=== PATIENT | male | born 1940 | race African-American/Black ===

== ENCOUNTER 2017-02-02 14:23 | Observation (INO) ==
[2017-02-02 15:01] LABS: Basophils % 0.5 % (0.0-0.8); Eosinophils # 0.4 10*3/uL (0.0-0.87); Eosinophils % 6.3 % (0.00-10.9); Hematocrit 38.4 VOL% (42.0-52.0); Hemoglobin 13.4 GM/DL (14.0-18.0); Immature Granulocytes % 0.5 %; Immature Granulocytes Absolute 0.03 #; Lymphocytes # 1.7 10*3/uL (1.4-4.0); Lymphocytes % 29.4 % (21.2-54.2); Mean Corpuscular HGB Conc 34.9 GM/DL (32-36); Mean Corpuscular Hemoglobin 34 PG (27-34); Mean Corpuscular Volume 96.2 FL (87-102); Mean Platelet Volume 9.1 FL (9.6-12.0); Monocytes # 0.6 10*3/uL (0.11-0.8); Monocytes % 10.8 % (1.7-12.7); Neutrophils # 3.1 10*3/uL (1.4-7.4); Neutrophils % 52.5 % (38.7-73.9); Platelet Count 217 T/CUMM (130-400); Red Blood Count 3.99 MC/CUMM (3.8-5.5); Red Cell Distribution Width 15.7 % (9.3-17.3); White Blood Count 5.9 T/CUMM (4-12)
--- NOTE | 2017-02-02 15:05 | CT Report ---
Referring physician: Andrew Exam: CT brain without contrast Date: 02/02/2017 Comparison: None Reason: Hemiparesis Technique: Axial images of the head were obtained without the use of contrast. Total DLP was 914.60 mGy*cm. Findings: No hydrocephalus or midline shift is present. There is no evidence of an acute infarction, recent intracranial hemorrhage or abnormal mass effect. Minimal atrophy and diffuse cerebral hypodensities. The osseous structures appear intact. The mastoid air cells sinuses are clear. Minimal mucosal thickening/fluid in the ethmoid air cells. Incomplete evaluation the paranasal sinuses. Impression: No acute intracranial abnormality is identified. Minimal atrophy and microvascular disease. Minimal ethmoid sinusitis. The CT exam was performed using one or more of the following dose reduction techniques: Automated exposure control and adjustment of the mA and/or kV according to patient size. PROCEDURE INTERPRETED AT [facility] DEPARTMENT OF RADIOLOGY Final Report Signed by: Dr. Malissa Villafuerte
[2017-02-02 15:19] LABS: PT Patient Result 10.2 SECS; Partial Thromboplastin Time 26.1 SECS (0-40)
[2017-02-02 15:22] LABS: Alanine Aminotransferase 18 U/L (16-61); Albumin 3.4 G/DL (3.4-5.0); Alkaline Phosphatase 108 U/L (45-117); Aspartate Amino Transferase 15 U/L (0-37); Blood Urea Nitrogen 13 MG/DL (7-18); Calcium 9.3 MG/DL (8.5-10.1); Glucose 62 MG/DL (74-106); Osmolality,Calculated 274.5 MOS/KG (273-304); Sodium 139 MMOL/L (136-145); Total Protein 7.4 G/DL (6.4-8.3)
[2017-02-02] MEDS ORDERED: DEXTROSE 50% 25 GM/50 ML VIAL IV STA (16:07)
[2017-02-02] MEDS ORDERED: ALBUTEROL 1.25 MG/3 ML NEB RESP TX STA (16:07)
--- NOTE | 2017-02-02 16:15 | Emergency Department Note ---
Anabella Garcia Rolonda, am scribing for, and in the presence of, Russell Ruiz MD 16:01. Sara Garcia Phillip K, MD, personally performed the services described in this documentation, ascribed by Jorge Kyle in my presence, and it is both accurate and complete [id number] . Arrival - Arrival Chief Complaint: Neuro Stated Complaint: headaches/blurred vision/losing mobility in right ED Nursing Triage Note: h/a that started last week with blurry vision and weakness in right leg. reports having trouble using right leg. reports that his sugar dropped to 56 this morning. accucheck in triage is accu check is 80. Mode of Arrival: Wheelchair Limitations: No Limitations Source: Patient, Old Records Reviewed, RN Notes Reviewed Time Seen by Provider: 02/02/17 15:52 - History of Present Illness HPI Narrative: Pt is a 76 y/o male who presents to the ED for further evaluation of right leg weakness with an onset of days. Pt has a PMHx of DM. Pt states that he has been having right leg weakness and numbness for x10 days. He states that he went to stand up and his feet were numb. Pt confirms that he can plantar flex but cannot dorsi flex his right foot. He states that he has to pick his leg up in order to move it. He also confirms blurred vision. No other complaint/pain in ED. Onset (ago): day(s) Consistency: constant Severity: mild, moderate Severity scale (1-10): 5 Allergies/Adverse Reactions: Allergies Allergy/AdvReac Type Severity Reaction Status Date / Time Penicillins Allergy RASH Verified 05/20/16 08:26 Home Medications: Home Medications Medication Instructions Recorded Confirmed Type Budesonide/Formoterol 160-4.5 2 puff INH BID #1 inhaler 12/17/15 08/29/16 Rx [Symbicort 160-4.5] Diltiazem Cd Cap [Cardizem CD] 180 mg PO BID #60 capsule 12/17/15 08/29/16 Rx glipiZIDE [Glipizide] 5 mg PO QPM 01/03/16 08/29/16 History Cyproheptadine Tab [Periactin Tab] 2 mg PO BID 05/19/16 08/29/16 History Theophylline ER Tab 300 mg PO BID W/MEALS 05/19/16 08/29/16 History Levothyroxine Tab [Synthroid Tab] 50 mcg PO DAILY@0700 #30 tablet 05/26/1608/29 Rx Montelukast Tab [Singulair Tab] 10 mg PO BID #60 tablet 05/26/16 08/29/16 Rx Albuterol Neb [Proventil Neb] 2.5 mg RESP TX Q4H PRN #20 neb 08/29/16 Rx Albuterol Sulfate [Albuterol Neb] 2.5 mg INH Q6-8H 08/29/16 08/29/16 History Fexofenadine [Serena] 60 mg PO BID 08/29/16 08/29/16 History methylPREDNISolone DOSEPAK [Medrol 4 mg PO DIRECTED #1 packet 08/29/16 Rx Dosepak] Review of System - Review of System 12 point system: reviewed and no additional remarkable complaints except as stated - Review of System Constitutional: Absent: chills, fever Eyes: Present: vision change. Absent: discharge Head/Ears/Nose/Throat: Absent: earache Respiratory: Absent: cough Cardiovascular: Absent: chest pain Gastrointestinal: Absent: abdominal pain Genitourinary male: Absent: urgency Musculoskeletal: Absent: arm pain, back pain Skin: Absent: rash Neurological: Present: headache, weakness (right leg), numbness Psychiatric: Absent: anxiety Endocrine: Absent: cold intolerance Hematological/Lymphatic: Absent: easy bleeding Allergic/Immunologic: Absent: facial swelling Medical,Surgical,& Family Hx - Medical History Cardio: History of: Cardiac Dysrhythmia (A. fib, per chart previously on Coumadin, not on current medicine list), Hypertension No history of: Cardiovascular Problems HEENT: History of: HEENT Problems Endocrine: History of: Diabetes Mellitus (NIDDM), Thyroid Disorder No history of: Diabetes Mellitus (IDDM) Respiratory: History of: Asthma, COPD Gastrointestinal: History of: GERD Musculoskeletal: History of: Back/Neck Problems (Back surg) Other: History of: Skin Problems (shingles in the past) - Surgical History Cardiac Surgeries: Patient Denies: Cardiac Surgery Thoracic Surgeries: Patient denies;: Organ Transplant, Lobectomy Neurologic Surgeries: Patient denies: Neurologic Surgery Abdominal Surgeries: Surgical HX of: Hernia Repair Orthopedic Surgeries: Surgical HX of;: Spinal Surgery ("back surgery") - Family History Family History: Reports;: Family Cancer (brother) Denies;: Family Anesthesia Reaction, Family Diabetes, Family Heart Disease, Family Hypertension, Family Psychiatric Problems, Family Stroke - Social History Smoking Status: Former smoker Exam Vital Signs: Vital Signs Temperature 97.8 F 02/02/17 15:49 Pulse Rate 67 02/02/17 16:24 Respiratory Rate 18 02/02/17 16:24 Blood Pressure 130/79 02/02/17 15:49 O2 Sat by Pulse Oximetry 98 02/02/17 14:30 - General General appearance: alert, in no apparent distress - Head Head exam: Present: atraumatic - Eye Eye exam: Present: normal appearance, PERRL, EOMI - ENT ENT exam: Present: normal exam, normal oropharynx - Neck Neck exam: Present: normal inspection. Absent: lymphadenopathy - Chest Chest inspection: Present: normal inspection - Respiratory Respiratory exam: Present: wheezes (Bilateral expiratory) - Cardiovascular Cardiovascular exam: Present: regular rate, normal rhythm, normal heart sounds. Absent: murmur, gallop - Abdominal Exam Abdominal exam: Present: soft, normal bowel sounds. Absent: distention, tenderness - Rectal Exam Rectal exam: Present: deferred - Extremities Exam Extremities exam: Present: normal inspection - Back Exam Back exam: Present: normal inspection - Neurological Exam Neurological exam: Present: alert, oriented X3, CN II-XII intact, motor sensory deficit (Right foot drop. Decreased sensation to touch right lower leg and right side of face) - Psychiatric Psychiatric exam: Present: normal affect, normal mood - Skin Skin exam: Present: warm, dry Results - Labs CBC & BMP: 02/02/17 14:51 02/02/17 14:51 Lab Results: I have reviewed the patients labs Labs: Laboratory Tests 02/02/17 16:59 POC Glucose 111 H - EKG EKG results: interpreted by ERMD, sinus rhythm (Supraventricular premature complex) - Diagnostic Findings Procedure: CT: report reviewed by me (No acute intracranial abnormality) Disposition Clinical Impression: Right foot drop, Headache, Rule out CVA, Acute exacerbation of chronic obstructive airways disease Case discussed with: patient, patient's family Disposition: Still a Patient Condition: Guarded Additional Instructions: Admit to the hospitalist
--- NOTE | 2017-02-02 17:23 | Hospitalist History & Physical ---
Assessment and Plan - Time spent with patient Time spent with patient: Greater than 30 minutes (1) Right leg numbness Status: Acute Assessment and plan: Admit Consult Neuro MRI without contrast MRA head/neck with contrast A.M. lipids, carotid dopplers, Echo, PT/OT consult TSH Repeat A.M Labs Current Visit: Yes (2) Headache Status: Acute Current Visit: Yes History of Present Illness Chief complaint: right foot/leg numbness History of present illness: Mr. Bell is a 76 year old black male with PMHx of hypertension, Diabetes, GERD, COPD presented to the ED for further evaluation of worsening right foot/ leg numbness and weakness with onset 2 weeks ago. He reports 1 week of vision changes, nausea, and headache. He denies chest pain, shortness of breath, vomiting, fever, chills, or cough. IN ED: Afebrile, vital signs stable. LABS: H&H stable; Electrolytes within normal range. Head CT No acute intracranial abnormality, minimal atrophy and microvascular disease; minimal ethmoid sinusitis. PCP: Dr Galvez. After discussion with Dr Ruiz in the ED and Dr Singh with [facility] it was agreed to admit patient for further evaluation. Home medications will be reviewed and reconciliation to follow. Home Medications Medication Instructions Recorded Confirmed Type Budesonide/Formoterol 160-4.5 2 puff INH BID #1 inhaler 12/17/15 08/29/16 Rx [Symbicort 160-4.5] Diltiazem Cd Cap [Cardizem CD] 180 mg PO BID #60 capsule 12/17/15 08/29/16 Rx glipiZIDE [Glipizide] 5 mg PO QPM 01/03/16 08/29/16 History Cyproheptadine Tab [Periactin Tab] 2 mg PO BID 05/19/16 08/29/16 History Theophylline ER Tab 300 mg PO BID W/MEALS 05/19/16 08/29/16 History Levothyroxine Tab [Synthroid Tab] 50 mcg PO DAILY@0700 #30 tablet 05/26/1608/29 Rx Montelukast Tab [Singulair Tab] 10 mg PO BID #60 tablet 05/26/16 08/29/16 Rx Albuterol Neb [Proventil Neb] 2.5 mg RESP TX Q4H PRN #20 neb 08/29/16 Rx Albuterol Sulfate [Albuterol Neb] 2.5 mg INH Q6-8H 08/29/16 08/29/16 History Fexofenadine [Serena] 60 mg PO BID 08/29/16 08/29/16 History methylPREDNISolone DOSEPAK [Medrol 4 mg PO DIRECTED #1 packet 08/29/16 Rx Dosepak] Allergies Allergy/AdvReac Type Severity Reaction Status Date / Time Penicillins Allergy RASH Verified 05/20/16 08:26 Medical,Surgical,& Family Hx - Medical History Cardio: History of: Cardiac Dysrhythmia (A. fib, per chart previously on Coumadin, not on current medicine list), Hypertension No history of: Cardiovascular Problems HEENT: History of: HEENT Problems Endocrine: History of: Diabetes Mellitus (NIDDM), Thyroid Disorder No history of: Diabetes Mellitus (IDDM) Respiratory: History of: Asthma, COPD Gastrointestinal: History of: GERD Musculoskeletal: History of: Back/Neck Problems (Back surg) Other: History of: Skin Problems (shingles in the past) - Surgical History Cardiac Surgeries: Patient Denies: Cardiac Surgery Thoracic Surgeries: Patient denies;: Organ Transplant, Lobectomy Neurologic Surgeries: Patient denies: Neurologic Surgery Abdominal Surgeries: Surgical HX of: Hernia Repair Orthopedic Surgeries: Surgical HX of;: Spinal Surgery ("back surgery") - Family History Family History: Reports;: Family Cancer (brother) Denies;: Family Anesthesia Reaction, Family Diabetes, Family Heart Disease, Family Hypertension, Family Psychiatric Problems, Family Stroke - Social History Smoking Status: Former smoker Frequency of Alcohol Use: None Type of Drug Use: None Functional capacity: independent ambulation 12 point system: reviewed and no additional remarkable complaints except as stated Exam - Constitutional Vitals: Period Temp Pulse Resp BP Sys/Stratton Pulse Ox Last 24 Hr 97.8 F-97.8 F 65-80 16-18 130-130/79-79 98 General appearance: normal weight, no acute distress - Head Head exam: Present: normal inspection - Eye Eye exam: Present: EOMI Pupils: Present: ALESIA - Neck Neck exam: Present: normal inspection. Absent: thyromegaly - Respiratory Respiratory exam: Present: clear to auscultation bilaterally - Cardiovascular Cardiovascular exam: Present: regular rate and rhythm - GI/Abdominal GI/Abdominal exam: Present: normal bowel sounds, soft. Absent: guarding, tenderness, rebound - Extremities Exam Extremities exam: Present: normal inspection, full ROM, other (left leg and arm good strength; right leg able to lift from bed but is sightly slow; able to plantar flex but cant dorsi flex of right foot; increased numbness to right leg/ foot ). Absent: edema - Neurological Exam Neurological exam: Present: alert, oriented X3, CN II-XII intact - Psychiatric Psychiatric exam: Present: normal affect, normal mood. Absent: agitated, anxious - Skin Skin exam: Present: normal color, warm, dry Results - Labs CBC & BMP: 02/02/17 14:51 02/02/17 14:51 Lab Results: I have reviewed the past 24 hour labs - EKG EKG results: interpreted by RAMAND - Diagnostic Findings Procedure: CT: report reviewed by me (Head: No acute intracranial infarct is identified, minimal atrophy and microvascular disease, minimal ethmoid sinusitis )
[2017-02-02] MEDS ORDERED: ONDANSETRON 4 MG/2 ML VIAL IV PRN (17:35)
[2017-02-02] MEDS ORDERED: ACETAMINOPHEN 325 MG TABLET PO PRN (17:35)
[2017-02-02] MEDS ORDERED: LABETALOL 20 MG/4 ML SYRINGE IV PRN (17:39)
[2017-02-02] MEDS: SODIUM CHLORIDE 0.9% 1,000 ML IV SCH (18:18)
[2017-02-03] MEDS: SODIUM CHLORIDE 0.9% 1,000 ML IV SCH ×2 (03:22→04:28)
[2017-02-03] MEDS: ALBUTEROL 2.5 MG/3 ML NEB RESP TX PRN ×3 (04:00→17:35)
--- NOTE | 2017-02-03 05:52 | EKG Report ---
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
[2017-02-03 06:04] LABS: Basophils % 0.5 % (0.0-0.8); Eosinophils # 0.7 10*3/uL (0.0-0.87); Eosinophils % 9.9 % (0.00-10.9); Hematocrit 36.8 VOL% (42.0-52.0); Hemoglobin 12.8 GM/DL (14.0-18.0); Immature Granulocytes % 0.6 %; Immature Granulocytes Absolute 0.04 #; Lymphocytes # 2.5 10*3/uL (1.4-4.0); Mean Corpuscular HGB Conc 34.8 GM/DL (32-36); Mean Corpuscular Hemoglobin 33 PG (27-34); Mean Corpuscular Volume 95.3 FL (87-102); Mean Platelet Volume 9.8 FL (9.6-12.0); Monocytes # 0.7 10*3/uL (0.11-0.8); Monocytes % 10.2 % (1.7-12.7); Neutrophils # 2.7 10*3/uL (1.4-7.4); Neutrophils % 40.8 % (38.7-73.9); Platelet Count 210 T/CUMM (130-400); Red Blood Count 3.86 MC/CUMM (3.8-5.5); Red Cell Distribution Width 15.5 % (9.3-17.3); White Blood Count 6.6 T/CUMM (4-12)
[2017-02-03 06:46] LABS: Albumin 3.2 G/DL (3.4-5.0); Bilirubin,Total 0.7 MG/DL (0.2-1.0); Osmolality,Calculated 279.3 MOS/KG (273-304); Potassium 4.7 MMOL/L (3.5-5.1); Risk Ratio 2.1; Thyroid Stimulating Hormone 6.68 uIU/ml (0.358-3.74); Total Protein 6.3 G/DL (6.4-8.3); VLDL CHOLESTEROL 8.8 MG/DL
--- NOTE | 2017-02-03 07:44 | Ultrasound Report ---
Exam: Carotid ultrasound Date: 02/03/2017 Comparison: None Technique: Duplex scans of the carotid and vertebral arteries using B-mode/Isaac scale imaging and Doppler spectral analysis and color flow. Reason: Right leg numbness, headache, vision changes Findings: The right ICA measures 3.9 mm in diameter and the left ICA measures 3.7 mm in diameter. Color-flow documented in the visualized arteries. The peak systolic velocities are as follows: Right CCA: 46.8 Right ICA: 63.8 Right ECA:53.3 Left CCA: 50.7 Left ICA: 80.7 Left ECA: 53.3 The peak systolic ICA/CCA velocity ratios are as follows: 1.4 on the right and 1.6 on the left. Antegrade flow is present in both vertebral arteries. Impression:[Less than 50% stenosis in both internal carotid arteries with heterogeneous plaque formation. Antegrade flow in both vertebral arteries.] The Society of Radiologists in Ultrasound consensus conference criteria was used. The Ultrasound images were captured and stored. PROCEDURE INTERPRETED AT [facility] DEPARTMENT OF RADIOLOGY Final Report Signed by: Dr. Malissa Villafuerte
[2017-02-03] MEDS: PANTOPRAZOLE 40 MG TABLET PO SCH (09:58)
[2017-02-03] MEDS: ASPIRIN 325 MG TABLET PO SCH (09:58)
--- NOTE | 2017-02-03 11:59 | Magnetic Resonance Report ---
MR head/brain wo con, MR angio head wo con (COW) Indication: Numbness right leg/headache Comparison: CT brain dated February 02, 2017 Technique: Multiplanar magnetic resonance imaging was performed of the brain without the use of intravenous contrast. MRA brain was performed without the use of intravenous contrast and 3-D reformats provided. Findings: Mild global volume loss present. Mild periventricular and subcortical T2 hyperintensity is noted which is nonspecific. Considerations include chronic microvascular ischemic change, demyelinating process, and vasculitis. Minimal mucosal thickening within the paranasal sinuses. The midline structures are nondisplaced. There is no convincing evidence of hydrocephalus. The knight-white matter differentiation is maintained. There is no convincing evidence of acute intracranial hemorrhage or ischemia. The included orbits and their contents appear within normal limits. MRA images demonstrate no significant vessel cut off or flow-limiting lesion within the anterior posterior intracranial arterial circulation. There is no significant aneurysm formation demonstrated. IMPRESSION: No acute intracranial abnormality demonstrated. Unremarkable MRA brain. PROCEDURE INTERPRETED AT [facility] DEPARTMENT OF RADIOLOGY Final Report Signed by: Dr Kenrick Peters
--- NOTE | 2017-02-03 12:32 | Hospitalist Progress Note ---
Assessment and Plan (1) Right foot drop Status: Acute Assessment and plan: Right lower extremity weakness seem to be due to right foot drop with associated numbness strength otherwise okay and other muscle. neurology to evaluate Current Visit: Yes (2) Asthma exacerbation in COPD Status: Acute Assessment and plan: We will give him nebulizer treatment continue his home long-acting inhalers he is also on theophylline at home I will hold it for now as he has a history of atrial fib though I see his rate is controlled and has actually regular rhythm Current Visit: No (3) Diabetes mellitus Status: Acute Assessment and plan: Monitor blood sugar I will get hemoglobin A1c glipizide is on hold Current Visit: Yes (4) Hypertension Status: Acute Assessment and plan: Blood pressure is controlled Current Visit: Yes Hospitalist: Subjective Interval history: Mr. Bell is a 76 year old black male with PMHx of hypertension, Diabetes, GERD, COPD admitted with a right lower extremities weakness for about 2 weeks. Patient has stated that he was not charged 2 weeks ago when he started having feeling numbness and weakness right leg he also had headache and blurred vision since then patient will be resolved on its own but he is weakness continued. He is unable to move his foot and ankle. Left his leg is numb from the knee down. He had a CAT scan in the ER which did not reveal any acute intracranial abnormalities. Neurology is being consulted and the he had carotid Dopplers and MRI. Patient has otherwise afebrile denies any other symptoms Exam - Constitutional Vitals: Period Temp Pulse Resp BP Sys/Stratton Pulse Ox Last 24 Hr 97.0 F-97.8 F 65-91 16-20 122-143/74-94 96-100 General appearance: normal weight, no acute distress - Head Head exam: Present: normal inspection, normocephalic, atraumatic - Eye Eye exam: Present: EOMI. Absent: conjunctival injection Pupils: Present: ALESIA, normal accommodation - Neck Neck exam: Present: normal inspection - Respiratory Respiratory exam: Present: clear to auscultation bilaterally. Absent: rales, rhonchi - Cardiovascular Cardiovascular exam: Present: regular rate and rhythm. Absent: tachycardia - GI/Abdominal GI/Abdominal exam: Present: normal bowel sounds, soft. Absent: distended, tenderness - Extremities Exam Extremities exam: Present: normal inspection. Absent: edema - Neurological Exam Neurological exam: Present: alert, oriented X3, other (Right foot drop) Results - Labs CBC & BMP: 02/03/17 05:18 02/03/17 05:18 Lab Results: I have reviewed the past 24 hour labs
[2017-02-03] MEDS ORDERED: ALBUTEROL/IPRATROPIUM 3 ML NEB RESP TX ONE (12:41)
--- NOTE | 2017-02-03 15:11 | Neurology Consult Note ---
History of Present Illness History of present illness: Mr. Bell is a 76 year old right-handed -[place] gentleman with past medical history significant hypertension, Diabetes, GERD, COPD presented to the ED for further evaluation of worsening right foot/leg numbness and weakness with onset 2 weeks ago. He reports 1 week of vision changes, nausea, and headache. He denies chest pain, shortness of breath, vomiting, fever, chills, or cough. He reports that he cannot lift her foot up when he is walking. Never had any similar symptoms before. Some 25 years ago he had lower back surgery. He denies having any lower back pain now. No speech difficulties, vision problems, chest pain, shortness of breath, tingling numbness or weakness anywhere else. No difficulty in controlling bowel or bladder. MRI of the brain and MRA are all within normal limits. Home Medications Medication Instructions Recorded Confirmed Type Budesonide/Formoterol 160-4.5 2 puff INH BID #1 inhaler 12/17/15 02/03/17 Rx [Symbicort 160-4.5] Diltiazem Cd Cap [Cardizem CD] 180 mg PO BID #60 capsule 12/17/15 02/03/17 Rx glipiZIDE [Glipizide] 5 mg PO DAILY W/SUPPER PRN 01/03/16 02/03/17 History Theophylline ER Tab 300 mg PO BID W/MEALS 05/19/16 02/03/17 History Levothyroxine Tab [Synthroid Tab] 50 mcg PO DAILY@0700 #30 tablet 05/26/1602/03 Rx Montelukast Tab [Singulair Tab] 10 mg PO BID #60 tablet 05/26/16 02/03/17 Rx Albuterol Neb [Proventil Neb] 2.5 mg RESP TX Q4H PRN #20 neb 08/29/16 02/03/17 Rx Albuterol Inhaler [Proventil 2 puff INH Q4H PRN 02/03/17 02/03/17 History Inhaler] Allergies Allergy/AdvReac Type Severity Reaction Status Date / Time Penicillins Allergy RASH Verified 05/20/16 08:26 12 point system: reviewed and no additional remarkable complaints except as stated Medical,Surgical,& Family Hx - Medical History Cardio: History of: Cardiac Dysrhythmia (A. fib, per chart previously on Coumadin, not on current medicine list), Hypertension No history of: Cardiovascular Problems HEENT: History of: HEENT Problems Endocrine: History of: Diabetes Mellitus (NIDDM), Thyroid Disorder No history of: Diabetes Mellitus (IDDM) Respiratory: History of: Asthma, COPD Gastrointestinal: History of: GERD Musculoskeletal: History of: Back/Neck Problems (Back surg) Other: History of: Skin Problems (shingles in the past) - Surgical History Cardiac Surgeries: Patient Denies: Cardiac Surgery Thoracic Surgeries: Patient denies;: Organ Transplant, Lobectomy Neurologic Surgeries: Patient denies: Neurologic Surgery Abdominal Surgeries: Surgical HX of: Hernia Repair Orthopedic Surgeries: Surgical HX of;: Spinal Surgery ("back surgery") - Family History Family History: Reports;: Family Cancer (brother) Denies;: Family Anesthesia Reaction, Family Diabetes, Family Heart Disease, Family Hypertension, Family Psychiatric Problems, Family Stroke - Social History Smoking Status: Former smoker Frequency of Alcohol Use: None Type of Drug Use: None Exam - Constitutional Vitals: Period Temp Pulse Resp BP Sys/Stratton Pulse Ox Last 24 Hr 97.0 F-97.8 F 65-91 16-20 122-143/74-94 96-100 Exam: GENERAL: Patient is in no acute distress. NECK: Neck is supple. There is no JVD. No carotid bruits present. No thyroid masses. CVS: First and second heart sounds are normal. There is no S3 present. Regular rate and rhythm. RESPIRATORY: Lungs are clear to auscultation without any rales or rhonchi. ABDOMEN: Soft and non-tender. Bowel sounds are present. There is no hepatosplenomegaly. EXT: There is no palpable edema. Peripheral pulses are present. Skin: No rashes Central Nervous system: General: Alert, awake and Oriented x 3 Speech: Fluent Comprehension: Intact and normal Facial expressions: Normal Cranial Nerves: CN1/Olfactory: Normal CN II/ Optic: Normal, Visual Hutchison unreliable CN III, and : ALESIA & EOMI CN V: Normal & intact CN VII: face is symmetric CNVIII: Normal CN XI/X/XI/XII: Intact and Normal Motor: Bulk and Tone is normal. Strength in the right 5/5 proximally and 0/5 distally with the foot dorsiflexion Strength in the left 5/5 Sensory: Decreased for all the modalities of PP, LT and temp sense in the right L5 distribute Reflexes: 1+ and symmetrical Cerebellar function: Normal finger to nose and heel to casas testing. Toes: Equivocal Gait: High steppage gait Results - Labs CBC & BMP: 02/03/17 05:18 02/03/17 05:18 Assessment and Plan (1) Right foot drop Status: Acute Assessment and plan: This is fairly acute in onset. MRI failed to show any stroke however it does look like peripheral in etiology such as either L5 radiculopathy or common peroneal nerve injury. Plan: Nerve conduction study/EMG both lower extremities MRI LS spine without contrast Continue PT Thank you for the consult Current Visit: Yes
--- NOTE | 2017-02-03 18:01 | Magnetic Resonance Report ---
MR lumbar spine wo con Indication: Right foot drop. Comparison: None. Technique: Using a 1.5 Vangie magnet, multisequence multiplanar MR imaging of the lumbar spine was accomplished without the administration of intravenous contrast. Findings: Alignment of the lumbar vertebral bodies is within normal limits. Bone marrow signal throughout the vertebral bodies demonstrates heterogeneous patchy areas of increased T1 and T2 signal involving only vertebral bodies, but additionally posterior elements. These areas have signal loss on the sagittal STIR sequence and are likely reflective of yellow marrow conversion or osteopenia. There is no evidence of acute fracture. Minimal dextroscoliosis is present apex centered at L3. Vertebral body heights are well maintained throughout the lumbar spine. Disc desiccation is mild throughout the lumbar spine. Loss of intervertebral disc spaces most pronounced at L4-5. Conus terminates at appropriate level and has a normal appearance. The exiting lumbar nerve roots demonstrate no evidence of acute pathology. At L1-2, no significant central or neuroforaminal stenosis is demonstrated. At L2-3, no significant central or neuroforaminal stenosis is demonstrated. At L3-4, no significant central or neuroforaminal stenosis is demonstrated. At L4-5, no significant central or neuroforaminal stenosis is demonstrated. Moderate facet arthropathy on the right is demonstrated. No significant central stenosis is present. There does appear to be a component of disc and/or superior endplate osteophyte extending into the extraforaminal zone of the right interspace. Contact with the exiting nerve rootlet is suggested. At L5-S1, no significant central or neuroforaminal stenosis is demonstrated. The prevertebral soft tissues demonstrate no evidence of acute pathology. The paraspinous musculature demonstrates no evidence of asymmetry or acute pathology. Intra-abdominal contents demonstrate no evidence of acute pathology. Impression: 1. The most pronounced near foraminal stenosis on the right is present at L4-5 as detailed. No acute osseous pathology is suggested. Bone marrow signal abnormality suggests yellow marrow conversion and/or osteopenia. 02/03/2017 5:54 PM PROCEDURE INTERPRETED AT [facility] DEPARTMENT OF RADIOLOGY Final Report Signed by: Dr. Helio Gibbs
[2017-02-03] MEDS ORDERED: NON-FORMULARY MEDICATION (Albuterol Inhaler 2 PUFF) INH PRN (18:48)
[2017-02-03] MEDS ORDERED: glipiZIDE 5 MG TABLET PO PRN (18:48)
[2017-02-03] MEDS: DILTIAZEM CD 180 MG CAPSULE PO SCH (20:28)
[2017-02-03] MEDS: BUDESONIDE/FORMOTEROL 160-4.5 INHALER 6 GM INH SCH ×2 (20:28)
[2017-02-03] MEDS: MONTELUKAST 10 MG TABLET PO SCH (20:28)
--- NOTE | 2017-02-03 22:04 | ECHO Report ---
Jhon Bell Exam Date: 02/03/2017 09:35 Referring Physician: Technologist: Minal Hill Age: 76 Ht (in): 69 Wt (lb): 155 Gender: M Exam Location: [facility] Echo Indications: Essential (primary) hypertension, NIDDM, Rt lower extremity numbness and weakness, Headache, COPD, Blurred vision BP: 132 / 83 HR: Rhythm: Sinus Technical Quality: Very technically difficult study, IMPRESSIONS Very technically difficult study,. Left ventricular ejection fraction is estimated at 50-55 %. Trace mitral valve regurgitation. Trace tricuspid valve regurgitation. MEASUREMENTS (Male / Female) Normal Values 2D ECHO LV Diastolic Diameter PLAX 3.2 cm 4.2 - 5.9 / 3.9 - 5.3 cm LV Systolic Diameter PLAX 2.3 cm LV Fractional Shortening PLAX 28.9 % IVS Diastolic Thickness 1.1 cm 0.6 - 1.0 / 0.6 - 0.9 cm LVPW Diastolic Thickness 1.1 cm 0.6 - 1.0 / 0.6 - 0.9 cm Aortic Root Diameter 2.7 cm LA Systolic Diameter LX 3.1 cm 3.0 - 4.0 / 2.7 - 3.8 cm DOPPLER TR Peak Velocity 257.0 cm/s TR Peak Gradient 26.4 mmHg FINDINGS Left Ventricle Normal left ventricular cavity size. Left ventricular ejection fraction is estimated at 50-55 %. Right Ventricle Grossly normal right ventricular size. Right Atrium Grossly normal right atrial size. Left Atrium Normal left atrial size. Mitral Valve Morphologically normal mitral valve. Trace mitral valve regurgitation. Aortic Valve The aortic valve is trileaflet and has normal motion. Tricuspid Valve Morphologically normal tricuspid valve. Trace tricuspid valve regurgitation. Tricuspid regurgitation velocities suggest a PAP of 26.4 mmHg + RAP. Pulmonic Valve Morphologically normal pulmonic valve. Pericardium No pericardial effusion. Aorta Normal size aortic root and proximal ascending aorta. Michael Rodriguez (Electronically Signed) Final Date: 03 February 2017 22:03
[2017-02-03 22:08] LABS: Apearance,Urine Clear (Clear); Bilirubin,Urine Negative (Negative); Blood, Urine NEGATIVE (Negative); Glucose,Urine (UA) Negative (Negative); Ketones,Urine Negative (Negative); Nitrite,Urine Negative (Negative); Protein,Urine Negative; RBC,Urine <1 /HPF (0-4); Urine Color Yellow (Yellow); Urine Specific Gravity 1.005 (1.001-1.035); WBC,Urine <1 /HPF (0-6)
[2017-02-03 22:13] LABS: Barbiturates Screen,Urine Negative (Negative); Benzodiazepines Screen,Urine Negative (Negative); Cannabinoid Screen,Urine Negative (Negative); Opiate Screen,Urine Negative (Negative); Phencyclidine Screen,Urine Negative (Negative); Urine Urobilinogen < 2.0 EU/DL (0.2-1.0)
[2017-02-04] MEDS: THEOPHYLLINE ER 300 MG TABLET PO SCH ×2 (08:45→17:13)
[2017-02-04] MEDS: ASPIRIN 325 MG TABLET PO SCH (08:45)
[2017-02-04] MEDS: PANTOPRAZOLE 40 MG TABLET PO SCH (08:45)
[2017-02-04] MEDS: DILTIAZEM CD 180 MG CAPSULE PO SCH ×2 (08:45→20:58)
[2017-02-04] MEDS: LEVOTHYROXINE 50 MCG TABLET PO SCH (08:46)
[2017-02-04] MEDS: MONTELUKAST 10 MG TABLET PO SCH ×2 (08:46→20:58)
[2017-02-04] MEDS: SODIUM CHLORIDE 0.9% 1,000 ML IV SCH (09:47)
[2017-02-04] MEDS: BUDESONIDE/FORMOTEROL 160-4.5 INHALER 6 GM INH SCH ×2 (09:48→20:58)
--- NOTE | 2017-02-04 16:15 | Neurology Progress Note ---
Neurology - PN : Subjective Interval history: Patient seems to be doing okay. No new problems reported. 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 MRI LS spine report noted. Exam (Progress Note) - Constitutional Vitals: Period Temp Pulse Resp BP Sys/Stratton Pulse Ox Last 24 Hr 97.1 F-98.2 F 63-96 18-20 120-130/68-89 94-99 Exam: GENERAL: Patient is in no acute distress. NECK: Neck is supple. There is no JVD. No carotid bruits present. No thyroid masses. CVS: First and second heart sounds are normal. There is no S3 present. Regular rate and rhythm. RESPIRATORY: Lungs are clear to auscultation without any rales or rhonchi. ABDOMEN: Soft and non-tender. Bowel sounds are present. There is no hepatosplenomegaly. EXT: There is no palpable edema. Peripheral pulses are present. Skin: No rashes Central Nervous system: General: Alert, awake and Oriented x 3 Speech: Fluent Comprehension: Intact and normal Facial expressions: Normal Cranial Nerves: CN1/Olfactory: Normal CN II/ Optic: Normal, Visual Hutchison unreliable CN III, and : ALESIA & EOMI CN V: Normal & intact CN VII: face is symmetric CNVIII: Normal CN XI/X/XI/XII: Intact and Normal Motor: Bulk and Tone is normal. Strength in the right 5/5 proximally and 0/5 distally with the foot dorsiflexion Strength in the left 5/5 Sensory: Decreased for all the modalities of PP, LT and temp sense in the right L5 distribute Reflexes: 1+ and symmetrical Cerebellar function: Normal finger to nose and heel to casas testing. Toes: Equivocal Gait: High steppage gait Results - Labs CBC & BMP: 02/03/17 05:18 02/03/17 05:18 Assessment and Plan (1) Right foot drop Status: Acute Assessment and plan: This is likely secondary to common peroneal nerve injury Okay to go home from neuro standpoint Schedule outpatient PT right AFO Follow-up in 4-6 Current Visit: Yes Specialty Discharge - Follow Up or Referrals Follow up with: Brent Benavidez MD [Physician] - 1 Month
--- NOTE | 2017-02-04 16:27 | Hospitalist Progress Note ---
Assessment and Plan (1) Right foot drop Status: Acute Assessment and plan: Workup negative except no conduction revealed common peroneal nerve injury Current Visit: Yes (2) Diabetes mellitus Status: Acute Assessment and plan: Monitor blood sugar I will get hemoglobin A1c glipizide is on hold Current Visit: Yes (3) Hypertension Status: Acute Assessment and plan: Blood pressure had been controlled last blood pressure reading seemed to be low we will keep monitor Current Visit: Yes (4) Acute exacerbation of chronic obstructive airways disease Status: Chronic Assessment and plan: We will continue current management and IV steroid. Current Visit: Yes Hospitalist: Subjective Interval history: Mr. Bell is a 76 year old black male with PMHx of hypertension, Diabetes, GERD, COPD admitted with a right lower extremities weakness for about 2 weeks. Patient has stated that he was not charged 2 weeks ago when he started having feeling numbness and weakness right leg he also had headache and blurred vision since then patient will be resolved on its own but he is weakness continued. He is unable to move his foot and ankle. Left his leg is numb from the knee down. He had a CAT scan in the ER which did not reveal any acute intracranial abnormalities. Neurology was consulted and the he had carotid Dopplers and MRI. No significant MR abnormality was seen MRI lumbar spine also did not explain the patient's symptom of right foot drop he had the nerve conduction studies today Patient has no symptoms still wheezing without any fever Exam - Constitutional Vitals: Period Temp Pulse Resp BP Sys/Stratton Pulse Ox Last 24 Hr 97.1 F-98.2 F 63-96 18-20 91-130/57-89 94-99 General appearance: normal weight, no acute distress - Head Head exam: Present: normal inspection, normocephalic, atraumatic - Eye Eye exam: Present: EOMI. Absent: conjunctival injection Pupils: Present: ALESIA, normal accommodation - Neck Neck exam: Present: normal inspection - Respiratory Respiratory exam: Present: Bilateral equal air entry with the diffuse rhonchi - Cardiovascular Cardiovascular exam: Present: regular rate and rhythm. Absent: tachycardia - GI/Abdominal GI/Abdominal exam: Present: normal bowel sounds, soft. Absent: distended, tenderness - Extremities Exam Extremities exam: Present: normal inspection. Absent: edema - Neurological Exam Neurological exam: Present: alert, oriented X3, other (Right foot drop) Results - Labs CBC & BMP: 02/03/17 05:18 02/03/17 05:18 Lab Results: I have reviewed the past 24 hour labs Specialty Discharge - Follow Up or Referrals Follow up with: Brent Benavidez MD [Physician] - 1 Month
[2017-02-04] MEDS: methylPREDNISolone SOD SUC 40 MG/1 ML VIAL IV SCH (17:13)
[2017-02-04] MEDS: ALBUTEROL 2.5 MG/3 ML NEB RESP TX PRN (19:29)
[2017-02-05] MEDS: methylPREDNISolone SOD SUC 40 MG/1 ML VIAL IV SCH ×2 (02:06→09:41)
[2017-02-05] MEDS: LEVOTHYROXINE 50 MCG TABLET PO SCH (08:06)
[2017-02-05] MEDS: PANTOPRAZOLE 40 MG TABLET PO SCH (08:06)
[2017-02-05] MEDS: THEOPHYLLINE ER 300 MG TABLET PO SCH (08:06)
[2017-02-05] MEDS: ASPIRIN 325 MG TABLET PO SCH (08:06)
[2017-02-05] MEDS: DILTIAZEM CD 180 MG CAPSULE PO SCH (08:06)
[2017-02-05] MEDS: MONTELUKAST 10 MG TABLET PO SCH (08:06)
[2017-02-05] MEDS: SODIUM CHLORIDE 0.9% 1,000 ML IV SCH (08:06)
[2017-02-05] MEDS: BUDESONIDE/FORMOTEROL 160-4.5 INHALER 6 GM INH SCH (08:07)
[2017-02-05 12:10] VITALS: BP 143/71
--- NOTE | 2017-02-05 12:26 | Discharge Summary ---
Hospital Course - Hospital Course Hospital Course: Mr. Bell is a 6-year-old male with history of hypertension diabetes will discard COPD was admitted with the right foot/leg weakness for about 2 weeks he had some vision changes nausea the headache. The symptom was resolved but talking to him on to detailed found out that he is not able to move his foot and had a foot drop. He had extensive workup for initial part of his stroke head head CT lumbar MRI brain MRI head MRI and carotid Dopplers seen by neurology no significant abnormalities explain the symptoms. 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 Patient was recommended to have a right AFO and outpatient PT. patient has now brace and able to walk he will be scheduled for therapy at outpatient.. During the hospital stay he was also noted to have wheezing on auscultation suggested acute exacerbation of chronic COPD he is not a smoker for quite many years he was treated with a bronchodilator nebulizer treatment and continued his long- acting inhalers. His theophylline was held because of history of A. fib and I will let his outpatient provider following that. His hemoglobin A1c was 5.8 recent blood sugar had been up possible because of a steroid he was I will hold his home oral hypoglycemic regimen. He need to follow-up with his outpatient provider Dr. Galvez. His hemoglobin A1c was 5.8 I would rather avoid strict diabetes control in this patient. He has no acute symptom today and his chest is clear to auscultation without wheezing will discharge to follow-up with his provider. He is also to see Dr. Benavidez in 1 month Diagnosis - Discharge Diagnosis (1) Right foot drop Status: Acute (2) Diabetes mellitus Status: Chronic (3) Hypertension Status: Chronic (4) Acute exacerbation of chronic obstructive airways disease Status: Acute Specialty Discharge - Follow Up or Referrals Follow up with: Brent Benavidez MD [Physician] - 1 Month Discharge Plan - Discharge Data Disposition: Disch To Home/Self Care Condition at Discharge: Stable Discharge Diet: advance to your usual diet Activity: resume usual activities as tolerated, as per physical therapy - Discharge Medications New Diltiazem Cd Cap [Cardizem CD] 180 mg PO BID capsule predniSONE TAB [PredniSONE] 40 mg PO DAILY #6 tablet Aspirin Tab 325 mg PO DAILY tablet Continue Budesonide/Formoterol 160-4.5 [Symbicort 160-4.5] 2 puff INH BID #1 inhaler Levothyroxine Tab [Synthroid Tab] 50 mcg PO DAILY@0700 #30 tablet Albuterol Neb [Proventil Neb] 2.5 mg RESP TX Q4H PRN #20 neb PRN Reason: Shortness Of Breath/Wheezing Albuterol Inhaler [Proventil Inhaler] 2 puff INH Q4H PRN PRN Reason: Shortness Of Breath/Wheezing Theophylline ER Tab 300 mg PO BID W/MEALS Montelukast Tab [Singulair Tab] 10 mg PO BID #60 tablet Discontinued Diltiazem Cd Cap [Cardizem CD] 180 mg PO BID #60 capsule glipiZIDE [Glipizide] 5 mg PO DAILY W/SUPPER PRN PRN Reason: "BAD SUGARS" - Follow Up or Referral Follow Up: Brent Benavidez MD [Physician] - 1 Month Bryce Galvez MD [Primary Care Provider] - - Forms/Instructions Exam - Constitutional Vitals: Period Temp Pulse Resp BP Sys/Stratton Pulse Ox Last 24 Hr 97.0 F-97.4 F 66-96 18-20 91-143/57-73 92-98 General appearance: normal weight, no acute distress - Respiratory Respiratory exam: Present: clear to auscultation bilaterally. Absent: rales, rhonchi - Cardiovascular Cardiovascular exam: Present: regular rate and rhythm. Absent: tachycardia - GI/Abdominal GI/Abdominal exam: Present: normal bowel sounds, soft. Absent: distended, tenderness - Extremities Exam Extremities exam: Present: normal inspection. Absent: edema - Neurological Exam Neurological exam: Present: alert, oriented X3, other (Right foot drop) Discharge Results Labs on day of discharge: Labs from last 24 hours 02/05/17 02/05/17 02/04/17 11:41 07:21 15:46 POC Glucose 225 H 154 H 151 H 02/02/17 14:42 POC Glucose 80 DS: Provider Date of admission: 02/02/17 16:38 Primary care physician: Bryce Galvez MD Attending physician on admission: Yann Xavier MD Consults: 02/02/17 17:35 Consult to Physician [CONS] Routine Comment: Consulting Provider: Brent Benavidez When should Consulting Provider be notified: Now Person Notified: TERESA Date Notified: 02/03/17 Time Notified: 08:41 02/02/17 17:36 Consult to Case Mgmt/Social Srvs [CONS] Routine Reason for Case Mgmt/Social Srvs: Discharge Planning 02/02/17 17:39 Consult to Case Mgmt/Social Srvs [CONS] Routine Reason for Case Mgmt/Social Srvs: Discharge Planning Consult to Occupational Therapy [CONS] Routine Reason for Occupational Therapy: Evaluate and Treat Consult Comment: Stroke Consult to Physical Therapy [CONS] Routine Reason for Physical Therapy: Evaluate and Treat Consult Comment: stroke 02/05/17 12:16 Consult to Case Mgmt/Social Srvs [CONS] Routine Reason for Case Mgmt/Social Srvs: Home Health Consult Comment: home health with physical therapy Discharging clinician: Marvin Cash MD
== END 2017-02-05 15:10 | disposition home or self-care (01) ==
LOC: N.ED 14:23 → N.EDINP 16:38 → INTOOBSV 16:38 → SUATTDRO 16:38 → N.EDINP 17:51 → N.2E 18:05
PROVIDERS: ADMIT Internal Medicine; ATTEND Internal Medicine

== ENCOUNTER 2018-08-15 21:04 | Inpatient (IN) ==
[2018-08-15 22:29] LABS: Basophils # 0.1 10*3/uL (0.0-0.2); Basophils % 0.6 % (0.0-0.8); Eosinophils # 0.4 10*3/uL (0.0-0.87); Eosinophils % 4.1 % (0.00-10.9); Hematocrit 48.2 VOL% (42.0-52.0); Hemoglobin 16.7 GM/DL (14.0-18.0); Immature Granulocytes % 1.1 %; Immature Granulocytes Absolute 0.11 #; Lymphocytes # 2.6 10*3/uL (1.4-4.0); Lymphocytes % 26.8 % (21.2-54.2); Mean Corpuscular HGB Conc 34.6 GM/DL (32-36); Mean Corpuscular Hemoglobin 33 PG (27-34); Mean Corpuscular Volume 95.1 FL (87-102); Mean Platelet Volume 9.8 FL (9.6-12.0); Monocytes # 1.2 10*3/uL (0.11-0.8); Monocytes % 12.8 % (1.7-12.7); Neutrophils # 5.3 10*3/uL (1.4-7.4); Neutrophils % 54.6 % (38.7-73.9); Platelet Count 196 T/CUMM (130-400); Red Blood Count 5.07 MC/CUMM (3.8-5.5); Red Cell Distribution Width 12.6 % (9.3-17.3); White Blood Count 9.7 T/CUMM (4-12)
[2018-08-15 22:43] LABS: PT Patient Result 10.7 SECS; Partial Thromboplastin Time 24.9 SECS (0-40)
[2018-08-15 23:02] LABS: Albumin 3.4 G/DL (3.4-5.0); Bilirubin,Total 0.6 MG/DL (0.2-1.0); Calcium 9.7 MG/DL (8.5-10.1); Osmolality,Calculated 281.8 MOS/KG (273-304); Potassium 4.3 MMOL/L (3.5-5.1); Total Protein 7.2 G/DL (6.4-8.3)
[2018-08-15] MEDS ORDERED: SODIUM CHLORIDE 0.9% 1,000 ML IV STA (23:29)
[2018-08-15] MEDS ORDERED: ONDANSETRON 4 MG/2 ML VIAL IV STA (23:35)
[2018-08-15] MEDS ORDERED: FAMOTIDINE 20 MG/2 ML VIAL IV STA (23:35)
[2018-08-16] MEDS ORDERED: cefTRIAXone 1,000 MG in SODIUM CHLORIDE 0.9% 100 ML IV STA (02:25)
[2018-08-16] MEDS ORDERED: DEXTROSE 50% 25 GM/50 ML SYRINGE IV PRN (02:29)
[2018-08-16] MEDS ORDERED: ONDANSETRON 4 MG/2 ML VIAL IV PRN (02:29)
[2018-08-16] MEDS ORDERED: ACETAMINOPHEN 325 MG TABLET PO PRN (02:29)
[2018-08-16] MEDS ORDERED: GLUCAGON 1 MG VIAL IM PRN (02:29)
[2018-08-16 02:57] LABS: Apearance,Urine CLEAR (Clear); Bilirubin,Urine Negative (Negative); Blood, Urine Negative (Negative); Glucose,Urine (UA) Negative (Negative); Hyaline Casts,Urine 25 /LPF (0-3); Ketones,Urine Negative (Negative); Mucus,Urine Occasional /LPF (Occasional); Nitrite,Urine Negative (Negative); Protein,Urine Negative; RBC,Urine <1 /HPF (0-4); Urine Color Yellow (Yellow); Urine Specific Gravity 1.011 (1.001-1.035); Urine Urobilinogen < 2.0 EU/DL (0.2-1.0); WBC,Urine 2 /HPF (0-6)
[2018-08-16 04:46] LABS: Allen Test Positive
[2018-08-16 04:47] LABS: Basophils % 0.4 % (0.0-0.8); Eosinophils # 0.5 10*3/uL (0.0-0.87); Eosinophils % 5.1 % (0.00-10.9); Hematocrit 46.4 VOL% (42.0-52.0); Hemoglobin 16.3 GM/DL (14.0-18.0); Immature Granulocytes % 1.6 %; Immature Granulocytes Absolute 0.14 #; Lymphocytes % 32.9 % (21.2-54.2); Mean Corpuscular HGB Conc 35.1 GM/DL (32-36); Mean Corpuscular Hemoglobin 34 PG (27-34); Mean Corpuscular Volume 95.7 FL (87-102); Mean Platelet Volume 10.1 FL (9.6-12.0); Monocytes # 1.1 10*3/uL (0.11-0.8); Monocytes % 12.2 % (1.7-12.7); Neutrophils # 4.3 10*3/uL (1.4-7.4); Neutrophils % 47.8 % (38.7-73.9); Platelet Count 192 T/CUMM (130-400); Red Blood Count 4.85 MC/CUMM (3.8-5.5); Red Cell Distribution Width 12.6 % (9.3-17.3)
[2018-08-16 04:50] LABS: ABG Base Excess -0.6 MMOL/L (-2.5-2.5); ABG HCO3 23.7 MMOL/L (20-26); ABG Oxygen Saturation 98.2 % (95-100); ABG PCO2 38.2 MM HG (35-48); ABG PH 7.411 (7.35-7.45); ABG PO2 116.2 MM HG (80-95); ABG TCO2 24.9 MMOL/L (23-27)
[2018-08-16 05:07] LABS: Calcium 9.2 MG/DL (8.5-10.1); Osmolality,Calculated 276.8 MOS/KG (273-304); Potassium 4.3 MMOL/L (3.5-5.1)
[2018-08-16] MEDS ORDERED: ALBUTEROL/IPRATROPIUM 3 ML NEB RESP TX ONE (05:46)
[2018-08-16] MEDS: AZITHROMYCIN INJ 500 MG in SODIUM CHLORIDE 0.9% 250 ML IV SCH (06:08)
[2018-08-16] MEDS: ALBUTEROL/IPRATROPIUM 3 ML NEB RESP TX SCH ×5 (07:53→23:45)
[2018-08-16] MEDS: SODIUM CHLORIDE 0.9% 1,000 ML IV SCH ×2 (09:30→17:30)
[2018-08-16] MEDS: ASPIRIN EC 81 MG TABLET PO SCH (09:31)
[2018-08-16] MEDS: predniSONE 20 MG TABLET PO SCH (09:31)
[2018-08-16] MEDS: PANTOPRAZOLE 40 MG TABLET PO SCH (09:32)
[2018-08-16] MEDS: ENOXAPARIN 40 MG/0.4 ML SYRINGE SUBCUT SCH (09:33)
[2018-08-16] MEDS: BUDESONIDE/FORMOTEROL 160-4.5 INHALER 6 GM INH SCH ×2 (11:43→21:45)
[2018-08-16] MEDS: INSULIN LISPRO 100 UNIT/ML SUBCUT SCH ×3 (12:19→16:59)
[2018-08-16] MEDS: DILTIAZEM 30 MG TABLET PO SCH ×2 (17:32→21:44)
[2018-08-17] MEDS: INSULIN LISPRO 100 UNIT/ML SUBCUT SCH ×4 (01:35→22:23)
[2018-08-17] MEDS: SODIUM CHLORIDE 0.9% 1,000 ML IV SCH ×3 (03:44→10:21)
[2018-08-17] MEDS: ALBUTEROL/IPRATROPIUM 3 ML NEB RESP TX SCH ×6 (03:51→23:10)
[2018-08-17] MEDS: AZITHROMYCIN INJ 500 MG in SODIUM CHLORIDE 0.9% 250 ML IV SCH (04:52)
[2018-08-17] MEDS ORDERED: METOPROLOL TARTRATE 5 MG/5 ML VIAL IV ONE (08:35)
[2018-08-17] MEDS: BUDESONIDE/FORMOTEROL 160-4.5 INHALER 6 GM INH SCH ×2 (09:15→22:29)
[2018-08-17] MEDS: ASPIRIN EC 81 MG TABLET PO SCH (09:57)
[2018-08-17] MEDS: DILTIAZEM 30 MG TABLET PO SCH ×2 (09:57→22:28)
[2018-08-17] MEDS: predniSONE 20 MG TABLET PO SCH (09:58)
[2018-08-17] MEDS: ENOXAPARIN 40 MG/0.4 ML SYRINGE SUBCUT SCH (09:59)
[2018-08-17] MEDS: PANTOPRAZOLE 40 MG TABLET PO SCH (09:59)
[2018-08-17] MEDS ORDERED: ALBUTEROL/IPRATROPIUM 3 ML NEB RESP TX PRN (11:46)
[2018-08-17] MEDS: MONTELUKAST 10 MG TABLET PO SCH ×2 (13:45→22:29)
[2018-08-17] MEDS: methylPREDNISolone SOD SUC 125 MG/2 ML VIAL IV SCH ×2 (13:46→22:28)
[2018-08-17] MEDS: APIXABAN 5 MG TABLET PO SCH ×2 (14:32→22:28)
[2018-08-17] MEDS: dilTIAZem Drip 125 MG/125 ML PREMIX IV SCH (23:45)
[2018-08-18] MEDS: INSULIN LISPRO 100 UNIT/ML SUBCUT SCH ×4 (01:25→18:16)
[2018-08-18] MEDS: ALBUTEROL/IPRATROPIUM 3 ML NEB RESP TX SCH ×6 (03:10→23:13)
[2018-08-18] MEDS: methylPREDNISolone SOD SUC 125 MG/2 ML VIAL IV SCH ×3 (03:38→21:09)
[2018-08-18 04:21] LABS: Basophils % 0.1 % (0.0-0.8); Eosinophils % 0.1 % (0.00-10.9); Hematocrit 37.5 VOL% (42.0-52.0); Hemoglobin 12.7 GM/DL (14.0-18.0); Immature Granulocytes % 1.1 %; Immature Granulocytes Absolute 0.11 #; Lymphocytes # 1.1 10*3/uL (1.4-4.0); Lymphocytes % 10.8 % (21.2-54.2); Mean Corpuscular HGB Conc 33.9 GM/DL (32-36); Mean Corpuscular Hemoglobin 33 PG (27-34); Mean Corpuscular Volume 97.7 FL (87-102); Mean Platelet Volume 10.7 FL (9.6-12.0); Monocytes # 0.2 10*3/uL (0.11-0.8); Monocytes % 2.2 % (1.7-12.7); Neutrophils # 8.6 10*3/uL (1.4-7.4); Neutrophils % 85.7 % (38.7-73.9); Platelet Count 158 T/CUMM (130-400); Red Blood Count 3.84 MC/CUMM (3.8-5.5); Red Cell Distribution Width 12.9 % (9.3-17.3); White Blood Count 10.1 T/CUMM (4-12)
[2018-08-18 04:39] LABS: Calcium 8.6 MG/DL (8.5-10.1); Osmolality,Calculated 285.8 MOS/KG (273-304); Potassium 4.5 MMOL/L (3.5-5.1)
[2018-08-18] MEDS: AZITHROMYCIN INJ 500 MG in SODIUM CHLORIDE 0.9% 250 ML IV SCH (04:55)
[2018-08-18] MEDS: PANTOPRAZOLE 40 MG TABLET PO SCH (09:37)
[2018-08-18] MEDS: MONTELUKAST 10 MG TABLET PO SCH ×2 (09:37→21:03)
[2018-08-18] MEDS: APIXABAN 5 MG TABLET PO SCH ×2 (09:37→21:03)
[2018-08-18] MEDS: ENOXAPARIN 40 MG/0.4 ML SYRINGE SUBCUT SCH (09:37)
[2018-08-18] MEDS: BUDESONIDE/FORMOTEROL 160-4.5 INHALER 6 GM INH SCH ×2 (09:38→21:05)
[2018-08-18] MEDS: ASPIRIN EC 81 MG TABLET PO SCH (09:38)
[2018-08-18] MEDS: DILTIAZEM 30 MG TABLET PO SCH ×2 (09:56→21:04)
[2018-08-18] MEDS: metFORMIN 500 MG TABLET PO SCH ×2 (12:03→18:16)
[2018-08-18] MEDS: glipiZIDE 10 MG TABLET PO SCH ×2 (12:03→21:09)
[2018-08-18] MEDS: KETOROLAC 0.5% OPH SOLN 3 ML BOTTLE RIGHT EYE SCH ×3 (12:12→21:04)
[2018-08-18] MEDS: THEOPHYLLINE ER 300 MG TABLET PO SCH (18:16)
[2018-08-19] MEDS: dilTIAZem Drip 125 MG/125 ML PREMIX IV SCH (00:32)
[2018-08-19] MEDS: INSULIN LISPRO 100 UNIT/ML SUBCUT SCH ×4 (01:03→17:54)
[2018-08-19] MEDS: ALBUTEROL/IPRATROPIUM 3 ML NEB RESP TX SCH ×4 (04:21→14:45)
[2018-08-19] MEDS: methylPREDNISolone SOD SUC 125 MG/2 ML VIAL IV SCH ×3 (04:40→22:00)
[2018-08-19] MEDS: AZITHROMYCIN INJ 500 MG in SODIUM CHLORIDE 0.9% 250 ML IV SCH ×2 (04:45→04:51)
[2018-08-19] MEDS: LEVOTHYROXINE 100 MCG TABLET PO SCH (06:05)
[2018-08-19] MEDS: glipiZIDE 10 MG TABLET PO SCH ×2 (09:56→21:59)
[2018-08-19] MEDS: APIXABAN 5 MG TABLET PO SCH ×2 (09:56→21:59)
[2018-08-19] MEDS: THEOPHYLLINE ER 300 MG TABLET PO SCH ×2 (09:56→17:52)
[2018-08-19] MEDS: PANTOPRAZOLE 40 MG TABLET PO SCH (09:57)
[2018-08-19] MEDS: ASPIRIN EC 81 MG TABLET PO SCH (09:57)
[2018-08-19] MEDS: DILTIAZEM 30 MG TABLET PO SCH (09:57)
[2018-08-19] MEDS: metFORMIN 500 MG TABLET PO SCH ×3 (09:57→17:52)
[2018-08-19] MEDS: BUDESONIDE/FORMOTEROL 160-4.5 INHALER 6 GM INH SCH ×2 (09:58→22:04)
[2018-08-19] MEDS: MONTELUKAST 10 MG TABLET PO SCH ×2 (09:58→21:59)
[2018-08-19] MEDS: KETOROLAC 0.5% OPH SOLN 3 ML BOTTLE RIGHT EYE SCH ×4 (09:58→22:03)
[2018-08-19] MEDS ORDERED: ALBUTEROL 0.63 MG/3 ML NEB RESP TX PRN (16:30)
[2018-08-19] MEDS: ALBUTEROL 0.63 MG/3 ML NEB RESP TX SCH ×2 (19:25→23:49)
[2018-08-19] MEDS ORDERED: INSULIN GLARGINE 100 UNIT/ML SUBCUT SCH (21:00)
[2018-08-19] MEDS: DILTIAZEM 60 MG TABLET PO SCH (21:58)
[2018-08-20] MEDS: ALBUTEROL 0.63 MG/3 ML NEB RESP TX SCH ×6 (03:46→23:35)
[2018-08-20] MEDS: INSULIN LISPRO 100 UNIT/ML SUBCUT SCH ×4 (04:19→17:24)
[2018-08-20 04:59] LABS: Basophils % 0.2 % (0.0-0.8); Hemoglobin 12.1 GM/DL (14.0-18.0); Immature Granulocytes % 1.3 %; Lymphocytes # 1.2 10*3/uL (1.4-4.0); Lymphocytes % 8.1 % (21.2-54.2); Mean Corpuscular HGB Conc 33.6 GM/DL (32-36); Mean Corpuscular Hemoglobin 33 PG (27-34); Mean Corpuscular Volume 98.4 FL (87-102); Mean Platelet Volume 10.9 FL (9.6-12.0); Monocytes # 0.7 10*3/uL (0.11-0.8); Monocytes % 4.5 % (1.7-12.7); Neutrophils # 12.8 10*3/uL (1.4-7.4); Neutrophils % 85.9 % (38.7-73.9); Platelet Count 155 T/CUMM (130-400); Red Blood Count 3.66 MC/CUMM (3.8-5.5); White Blood Count 14.9 T/CUMM (4-12)
[2018-08-20 05:16] LABS: Calcium 8.7 MG/DL (8.5-10.1); Osmolality,Calculated 288.7 MOS/KG (273-304); Potassium 4.3 MMOL/L (3.5-5.1)
[2018-08-20 05:25] LABS: Calcium 8.7 MG/DL (8.5-10.1); Osmolality,Calculated 287.7 MOS/KG (273-304); Potassium 4.2 MMOL/L (3.5-5.1)
[2018-08-20] MEDS: methylPREDNISolone SOD SUC 125 MG/2 ML VIAL IV SCH ×3 (05:40→21:04)
[2018-08-20] MEDS: AZITHROMYCIN INJ 500 MG in SODIUM CHLORIDE 0.9% 250 ML IV SCH (05:42)
[2018-08-20] MEDS: LEVOTHYROXINE 100 MCG TABLET PO SCH (06:45)
[2018-08-20] MEDS: dilTIAZem Drip 125 MG/125 ML PREMIX IV SCH ×3 (07:40→23:13)
[2018-08-20] MEDS: ASPIRIN EC 81 MG TABLET PO SCH (08:50)
[2018-08-20] MEDS: DILTIAZEM 60 MG TABLET PO SCH ×2 (08:50→21:05)
[2018-08-20] MEDS: THEOPHYLLINE ER 300 MG TABLET PO SCH ×2 (08:51→16:40)
[2018-08-20] MEDS: metFORMIN 500 MG TABLET PO SCH ×3 (08:51→16:40)
[2018-08-20] MEDS: MONTELUKAST 10 MG TABLET PO SCH ×2 (08:51→21:05)
[2018-08-20] MEDS: glipiZIDE 10 MG TABLET PO SCH ×2 (08:52→21:05)
[2018-08-20] MEDS: APIXABAN 5 MG TABLET PO SCH ×2 (08:53→21:06)
[2018-08-20] MEDS: BUDESONIDE/FORMOTEROL 160-4.5 INHALER 6 GM INH SCH ×2 (08:54→21:06)
[2018-08-20] MEDS: KETOROLAC 0.5% OPH SOLN 3 ML BOTTLE RIGHT EYE SCH ×4 (08:54→21:06)
[2018-08-20] MEDS: PANTOPRAZOLE 40 MG TABLET PO SCH (08:59)
[2018-08-20] MEDS: DORNASE ALFA 2.5 MG/2.5 ML VIAL RESP TX SCH ×2 (13:44→20:00)
[2018-08-20] MEDS ORDERED: INSULIN GLARGINE 100 UNIT/ML SUBCUT SCH (14:56)
[2018-08-21] MEDS: INSULIN LISPRO 100 UNIT/ML SUBCUT SCH ×4 (00:40→16:59)
[2018-08-21] MEDS: SODIUM CHLORIDE 0.9% 1,000 ML IV SCH (02:11)
[2018-08-21] MEDS: ALBUTEROL 0.63 MG/3 ML NEB RESP TX SCH ×6 (03:30→23:55)
[2018-08-21] MEDS: AZITHROMYCIN INJ 500 MG in SODIUM CHLORIDE 0.9% 250 ML IV SCH (06:26)
[2018-08-21] MEDS: methylPREDNISolone SOD SUC 125 MG/2 ML VIAL IV SCH ×3 (06:26→21:10)
[2018-08-21] MEDS: DORNASE ALFA 2.5 MG/2.5 ML VIAL RESP TX SCH ×2 (07:10→19:02)
[2018-08-21] MEDS: MONTELUKAST 10 MG TABLET PO SCH ×2 (08:31→21:11)
[2018-08-21] MEDS: DILTIAZEM 60 MG TABLET PO SCH (08:31)
[2018-08-21] MEDS: BUDESONIDE/FORMOTEROL 160-4.5 INHALER 6 GM INH SCH ×2 (08:32→21:11)
[2018-08-21] MEDS: PANTOPRAZOLE 40 MG TABLET PO SCH (08:32)
[2018-08-21] MEDS: glipiZIDE 10 MG TABLET PO SCH ×2 (08:32→21:10)
[2018-08-21] MEDS: KETOROLAC 0.5% OPH SOLN 3 ML BOTTLE RIGHT EYE SCH ×4 (08:32→21:10)
[2018-08-21] MEDS: THEOPHYLLINE ER 300 MG TABLET PO SCH ×2 (08:32→16:55)
[2018-08-21] MEDS: ASPIRIN EC 81 MG TABLET PO SCH (08:32)
[2018-08-21] MEDS: metFORMIN 500 MG TABLET PO SCH ×3 (08:32→16:55)
[2018-08-21] MEDS: APIXABAN 5 MG TABLET PO SCH ×2 (08:32→21:10)
[2018-08-21] MEDS: LEVOTHYROXINE 100 MCG TABLET PO SCH (08:33)
[2018-08-21] MEDS: dilTIAZem Drip 125 MG/125 ML PREMIX IV SCH (11:48)
[2018-08-21] MEDS: DILTIAZEM 90 MG TABLET PO SCH (21:10)
[2018-08-21] MEDS: INSULIN GLARGINE 100 UNIT/ML SUBCUT SCH (21:10)
[2018-08-22] MEDS: dilTIAZem Drip 125 MG/125 ML PREMIX IV SCH ×2 (00:17→23:42)
[2018-08-22] MEDS: INSULIN LISPRO 100 UNIT/ML SUBCUT SCH ×5 (01:27→23:53)
[2018-08-22] MEDS: ALBUTEROL 0.63 MG/3 ML NEB RESP TX SCH ×6 (03:10→23:39)
[2018-08-22] MEDS: methylPREDNISolone SOD SUC 125 MG/2 ML VIAL IV SCH ×3 (03:44→21:12)
[2018-08-22] MEDS: AZITHROMYCIN INJ 500 MG in SODIUM CHLORIDE 0.9% 250 ML IV SCH (04:57)
[2018-08-22] MEDS: DORNASE ALFA 2.5 MG/2.5 ML VIAL RESP TX SCH ×2 (07:53→19:47)
[2018-08-22] MEDS: LEVOTHYROXINE 100 MCG TABLET PO SCH (08:10)
[2018-08-22] MEDS: THEOPHYLLINE ER 300 MG TABLET PO SCH ×2 (08:10→17:04)
[2018-08-22] MEDS: ASPIRIN EC 81 MG TABLET PO SCH (08:10)
[2018-08-22] MEDS: metFORMIN 500 MG TABLET PO SCH ×3 (08:11→17:04)
[2018-08-22] MEDS: PANTOPRAZOLE 40 MG TABLET PO SCH (08:11)
[2018-08-22] MEDS: glipiZIDE 10 MG TABLET PO SCH ×2 (08:11→21:13)
[2018-08-22] MEDS: KETOROLAC 0.5% OPH SOLN 3 ML BOTTLE RIGHT EYE SCH ×4 (08:11→21:13)
[2018-08-22] MEDS: DILTIAZEM 90 MG TABLET PO SCH ×3 (08:11→21:13)
[2018-08-22] MEDS: MONTELUKAST 10 MG TABLET PO SCH ×2 (08:11→21:13)
[2018-08-22] MEDS: APIXABAN 5 MG TABLET PO SCH ×2 (08:11→21:13)
[2018-08-22] MEDS: BUDESONIDE/FORMOTEROL 160-4.5 INHALER 6 GM INH SCH ×2 (08:12→21:13)
[2018-08-22] MEDS: INSULIN GLARGINE 100 UNIT/ML SUBCUT SCH (21:13)
[2018-08-23] MEDS: ALBUTEROL 0.63 MG/3 ML NEB RESP TX SCH ×3 (03:08→11:05)
[2018-08-23] MEDS: methylPREDNISolone SOD SUC 125 MG/2 ML VIAL IV SCH (04:16)
[2018-08-23 05:04] LABS: Basophils % 0.1 % (0.0-0.8); Hematocrit 33.6 VOL% (42.0-52.0); Hemoglobin 11.8 GM/DL (14.0-18.0); Immature Granulocytes % 2.3 %; Immature Granulocytes Absolute 0.37 #; Lymphocytes # 1.1 10*3/uL (1.4-4.0); Lymphocytes % 7.1 % (21.2-54.2); Mean Corpuscular HGB Conc 35.1 GM/DL (32-36); Mean Corpuscular Hemoglobin 34 PG (27-34); Mean Corpuscular Volume 95.5 FL (87-102); Mean Platelet Volume 10.5 FL (9.6-12.0); Monocytes # 0.7 10*3/uL (0.11-0.8); Monocytes % 4.6 % (1.7-12.7); NRBC # 0.16 10*3/uL; Neutrophils # 13.7 10*3/uL (1.4-7.4); Neutrophils % 85.9 % (38.7-73.9); Platelet Count 170 T/CUMM (130-400); Red Blood Count 3.52 MC/CUMM (3.8-5.5); Red Cell Distribution Width 12.9 % (9.3-17.3)
[2018-08-23 05:31] LABS: Calcium 8.4 MG/DL (8.5-10.1); Osmolality,Calculated 283.7 MOS/KG (273-304); Potassium 4.3 MMOL/L (3.5-5.1)
[2018-08-23] MEDS: INSULIN LISPRO 100 UNIT/ML SUBCUT SCH (05:38)
[2018-08-23] MEDS: AZITHROMYCIN INJ 500 MG in SODIUM CHLORIDE 0.9% 250 ML IV SCH (05:38)
[2018-08-23] MEDS: DORNASE ALFA 2.5 MG/2.5 ML VIAL RESP TX SCH (07:45)
[2018-08-23] MEDS ORDERED: DILTIAZEM 90 MG TABLET PO SCH (09:00)
[2018-08-23] MEDS: MONTELUKAST 10 MG TABLET PO SCH (09:54)
[2018-08-23] MEDS: glipiZIDE 10 MG TABLET PO SCH (09:54)
[2018-08-23] MEDS: ASPIRIN EC 81 MG TABLET PO SCH (09:55)
[2018-08-23] MEDS: metFORMIN 500 MG TABLET PO SCH (09:55)
[2018-08-23] MEDS: APIXABAN 5 MG TABLET PO SCH (09:59)
[2018-08-23] MEDS: PANTOPRAZOLE 40 MG TABLET PO SCH (10:00)
[2018-08-23] MEDS: THEOPHYLLINE ER 300 MG TABLET PO SCH (10:00)
[2018-08-23] MEDS: LEVOTHYROXINE 100 MCG TABLET PO SCH (10:01)
[2018-08-23] MEDS: KETOROLAC 0.5% OPH SOLN 3 ML BOTTLE RIGHT EYE SCH (10:01)
[2018-08-23] MEDS: BUDESONIDE/FORMOTEROL 160-4.5 INHALER 6 GM INH SCH (10:01)
[2018-08-23 11:27] VITALS: BP 158/76
== END 2018-08-23 12:43 | disposition home or self-care (01) | DRG 190 ==
LOC: N.EDINP 21:04 → N.ED 21:04 → SUATTDRO 08-16 02:29 → N.TELEN 08-16 03:58
PROVIDERS: ADMIT Phlebology; ATTEND Internal Medicine

== ENCOUNTER 2018-09-17 21:04 | Inpatient (IN) ==
[2018-09-17] MEDS ORDERED: PANTOPRAZOLE 40 MG VIAL IV STA (22:09)
[2018-09-17] MEDS ORDERED: ONDANSETRON 4 MG/2 ML VIAL IV ONE (22:09)
[2018-09-17] MEDS ORDERED: SODIUM CHLORIDE 0.9% 1,000 ML IV STA (22:09)
[2018-09-17 22:28] LABS: Basophils # 0.1 10*3/uL (0.0-0.2); Basophils % 0.5 % (0.0-0.8); Eosinophils # 0.3 10*3/uL (0.0-0.87); Eosinophils % 2.9 % (0.00-10.9); Hematocrit 41.4 VOL% (42.0-52.0); Hemoglobin 13.8 GM/DL (14.0-18.0); Immature Granulocytes % 2.8 %; Immature Granulocytes Absolute 0.28 #; Lymphocytes # 2.6 10*3/uL (1.4-4.0); Lymphocytes % 25.4 % (21.2-54.2); Mean Corpuscular HGB Conc 33.3 GM/DL (32-36); Mean Corpuscular Hemoglobin 32 PG (27-34); Mean Corpuscular Volume 96.7 FL (87-102); Mean Platelet Volume 9.7 FL (9.6-12.0); Monocytes # 1.4 10*3/uL (0.11-0.8); Monocytes % 13.3 % (1.7-12.7); Neutrophils # 5.6 10*3/uL (1.4-7.4); Neutrophils % 55.1 % (38.7-73.9); Platelet Count 393 T/CUMM (130-400); Red Blood Count 4.28 MC/CUMM (3.8-5.5); Red Cell Distribution Width 12.8 % (9.3-17.3); White Blood Count 10.2 T/CUMM (4-12)
[2018-09-17 22:36] LABS: INR 1.1
[2018-09-17 22:57] LABS: Alanine Aminotransferase 14 U/L (16-61); Albumin 2.4 G/DL (3.4-5.0); Alkaline Phosphatase 91 U/L (45-117); Aspartate Amino Transferase 17 U/L (0-37); Blood Urea Nitrogen 11 MG/DL (7-18); Calcium 8.7 MG/DL (8.5-10.1); Glucose 152 MG/DL (74-106); Osmolality,Calculated 267.4 MOS/KG (273-304); Potassium 4.3 MMOL/L (3.5-5.1); Sodium 133 MMOL/L (136-145); Total Protein 7.8 G/DL (6.4-8.3); Troponin I < 0.015 NG/ML (0.00-0.045)
[2018-09-17] MEDS ORDERED: DILTIAZEM 50 MG/10 ML VIAL IV STA (23:03)
[2018-09-18] MEDS ORDERED: DILTIAZEM 50 MG/10 ML VIAL IV STA (00:02)
[2018-09-18] MEDS: dilTIAZem Drip 125 MG/125 ML PREMIX IV SCH ×2 (00:09→22:45)
[2018-09-18 00:16] LABS: Apearance,Urine CLEAR (Clear); Bacteria,Urine Occasional /HPF (Few); Bilirubin,Urine Negative (Negative); Blood, Urine Negative (Negative); Glucose,Urine (UA) Negative (Negative); Ketones,Urine 5 mg/dL (Negative); Mucus,Urine Few /LPF (Occasional); Nitrite,Urine Negative (Negative); Protein,Urine 30 MG/DL; RBC,Urine 2 /HPF (0-4); Squamous Epithelial Cell,Urine Occasional /HPF (0-10); Urine Color Yellow (Yellow); Urine Specific Gravity 1.012 (1.001-1.035); WBC,Urine 6 /HPF (0-6)
[2018-09-18] MEDS ORDERED: GLUCAGON 1 MG VIAL IM PRN (03:58)
[2018-09-18] MEDS ORDERED: DEXTROSE 50% 25 GM/50 ML SYRINGE IV PRN (03:58)
[2018-09-18] MEDS ORDERED: DOCUSATE SODIUM 100 MG CAPSULE PO PRN (03:58)
[2018-09-18] MEDS: SODIUM CHLORIDE 0.9% 1,000 ML IV SCH ×2 (04:31→13:36)
[2018-09-18 05:07] LABS: Basophils % 0.5 % (0.0-0.8); Eosinophils # 0.3 10*3/uL (0.0-0.87); Eosinophils % 3.1 % (0.00-10.9); Hematocrit 38.9 VOL% (42.0-52.0); Hemoglobin 13.1 GM/DL (14.0-18.0); Immature Granulocytes % 2.9 %; Immature Granulocytes Absolute 0.25 #; Lymphocytes # 1.6 10*3/uL (1.4-4.0); Mean Corpuscular HGB Conc 33.7 GM/DL (32-36); Mean Corpuscular Hemoglobin 33 PG (27-34); Mean Corpuscular Volume 97.5 FL (87-102); Mean Platelet Volume 9.5 FL (9.6-12.0); Monocytes # 1.2 10*3/uL (0.11-0.8); Monocytes % 14.4 % (1.7-12.7); Neutrophils # 5.3 10*3/uL (1.4-7.4); Neutrophils % 61.1 % (38.7-73.9); Platelet Count 325 T/CUMM (130-400); Red Blood Count 3.99 MC/CUMM (3.8-5.5); Red Cell Distribution Width 12.9 % (9.3-17.3); White Blood Count 8.6 T/CUMM (4-12)
[2018-09-18 05:34] LABS: Calcium 8.2 MG/DL (8.5-10.1); Potassium 4.1 MMOL/L (3.5-5.1); Thyroid Stimulating Hormone 2.06 uIU/ml (0.358-3.74)
[2018-09-18] MEDS: LEVOTHYROXINE 50 MCG TABLET PO SCH (05:44)
[2018-09-18] MEDS ORDERED: glipiZIDE 10 MG TABLET PO SCH (08:00)
[2018-09-18] MEDS: ASPIRIN CHEW 81 MG TABLET PO SCH (09:18)
[2018-09-18] MEDS: NYSTATIN 500,000 UNIT/5 ML UDCUP SWISH/SWAL SCH ×4 (09:18→21:06)
[2018-09-18] MEDS: MONTELUKAST 10 MG TABLET PO SCH ×2 (09:18→21:06)
[2018-09-18] MEDS: THEOPHYLLINE ER 300 MG TABLET PO SCH ×2 (09:18→18:24)
[2018-09-18] MEDS: INSULIN REGULAR 100 UNIT/ML SUBCUT SCH ×4 (09:19→21:05)
[2018-09-18] MEDS: ALBUTEROL 0.4 MG/ML 30 ML/BOTTLE PO SCH ×3 (09:19→21:07)
[2018-09-18] MEDS: ALBUTEROL 2.5 MG/3 ML NEB RESP TX PRN ×2 (09:40→20:00)
[2018-09-18] MEDS: PANTOPRAZOLE 40 MG VIAL IV SCH ×2 (12:18→21:07)
[2018-09-18] MEDS ORDERED: INSULIN GLARGINE 100 UNIT/ML SUBCUT SCH ×2 (21:00)
[2018-09-19 04:55] LABS: Basophils # 0.1 10*3/uL (0.0-0.2); Basophils % 0.7 % (0.0-0.8); Eosinophils # 0.2 10*3/uL (0.0-0.87); Eosinophils % 2.4 % (0.00-10.9); Hematocrit 33.8 VOL% (42.0-52.0); Hemoglobin 11.2 GM/DL (14.0-18.0); Immature Granulocytes % 2.3 %; Immature Granulocytes Absolute 0.17 #; Lymphocytes # 1.6 10*3/uL (1.4-4.0); Mean Corpuscular HGB Conc 33.1 GM/DL (32-36); Mean Corpuscular Hemoglobin 33 PG (27-34); Mean Platelet Volume 9.7 FL (9.6-12.0); Monocytes # 1.1 10*3/uL (0.11-0.8); Monocytes % 14.6 % (1.7-12.7); Neutrophils # 4.5 10*3/uL (1.4-7.4); Platelet Count 305 T/CUMM (130-400); Red Blood Count 3.45 MC/CUMM (3.8-5.5); Red Cell Distribution Width 13.1 % (9.3-17.3); White Blood Count 7.5 T/CUMM (4-12)
[2018-09-19 05:36] LABS: Calcium 7.9 MG/DL (8.5-10.1); Potassium 3.5 MMOL/L (3.5-5.1)
[2018-09-19] MEDS: LEVOTHYROXINE 50 MCG TABLET PO SCH (06:10)
[2018-09-19] MEDS: SODIUM CHLORIDE 0.9% 1,000 ML IV SCH ×2 (06:31→23:12)
[2018-09-19] MEDS: INSULIN REGULAR 100 UNIT/ML SUBCUT SCH ×4 (07:48→21:30)
[2018-09-19] MEDS: ALBUTEROL 0.4 MG/ML 30 ML/BOTTLE PO SCH ×3 (08:41→21:25)
[2018-09-19] MEDS: ASPIRIN CHEW 81 MG TABLET PO SCH (08:41)
[2018-09-19] MEDS: MONTELUKAST 10 MG TABLET PO SCH ×2 (08:41→21:25)
[2018-09-19] MEDS: THEOPHYLLINE ER 300 MG TABLET PO SCH ×2 (08:41→17:47)
[2018-09-19] MEDS: PANTOPRAZOLE 40 MG VIAL IV SCH ×2 (08:42→21:26)
[2018-09-19] MEDS: NYSTATIN 500,000 UNIT/5 ML UDCUP SWISH/SWAL SCH ×4 (08:42→21:25)
[2018-09-19] MEDS ORDERED: ALBUTEROL/IPRATROPIUM 3 ML NEB RESP TX ONE (13:40)
[2018-09-19] MEDS ORDERED: DILTIAZEM 60 MG TABLET PO SCH (14:31)
[2018-09-19] MEDS: DILTIAZEM 90 MG TABLET PO SCH ×3 (14:51→21:30)
[2018-09-19] MEDS: ALBUTEROL/IPRATROPIUM 3 ML NEB RESP TX SCH (20:50)
[2018-09-20] MEDS: ALBUTEROL/IPRATROPIUM 3 ML NEB RESP TX SCH ×4 (00:10→20:01)
[2018-09-20] MEDS: LEVOTHYROXINE 50 MCG TABLET PO SCH (05:47)
[2018-09-20] MEDS: INSULIN REGULAR 100 UNIT/ML SUBCUT SCH ×4 (08:44→22:38)
[2018-09-20] MEDS: DILTIAZEM 90 MG TABLET PO SCH ×5 (09:33→20:30)
[2018-09-20] MEDS ORDERED: DILTIAZEM 25 MG/5 ML VIAL IV ONE (09:45)
[2018-09-20] MEDS ORDERED: LIDOCAINE 2% 5 ML VIAL ONE (10:00)
[2018-09-20] MEDS ORDERED: PROPOFOL 200 MG/20 ML VIAL IV ONE (10:00)
[2018-09-20 11:28] LABS: Troponin I < 0.015 NG/ML (0.00-0.045)
[2018-09-20] MEDS: ASPIRIN CHEW 81 MG TABLET PO SCH (11:55)
[2018-09-20] MEDS: THEOPHYLLINE ER 300 MG TABLET PO SCH ×2 (11:56→17:38)
[2018-09-20] MEDS: PANTOPRAZOLE 40 MG VIAL IV SCH ×2 (11:57→20:31)
[2018-09-20] MEDS: MONTELUKAST 10 MG TABLET PO SCH ×2 (11:57→20:30)
[2018-09-20] MEDS: DIFLUPREDNATE 0.05% OPH EMUL 5 ML BOTTLE BOTH EYES SCH ×2 (11:57→20:31)
[2018-09-20] MEDS: NYSTATIN 500,000 UNIT/5 ML UDCUP SWISH/SWAL SCH ×4 (11:57→20:29)
[2018-09-20] MEDS: APIXABAN 5 MG TABLET PO SCH ×2 (12:01→20:31)
[2018-09-20] MEDS: ALBUTEROL 0.4 MG/ML 30 ML/BOTTLE PO SCH ×3 (12:05→22:39)
[2018-09-20] MEDS: SODIUM CHLORIDE 0.9% 1,000 ML IV SCH (13:55)
[2018-09-20 13:59] LABS: Troponin I 0.015 NG/ML (0.00-0.045)
[2018-09-20] MEDS: ACETAMINOPHEN 325 MG TABLET PO PRN (22:41)
[2018-09-21] MEDS: ALBUTEROL/IPRATROPIUM 3 ML NEB RESP TX SCH ×4 (01:41→19:33)
[2018-09-21 05:09] LABS: Basophils % 0.3 % (0.0-0.8); Eosinophils # 0.2 10*3/uL (0.0-0.87); Eosinophils % 3.6 % (0.00-10.9); Hemoglobin 10.5 GM/DL (14.0-18.0); Immature Granulocytes Absolute 0.12 #; Lymphocytes # 1.3 10*3/uL (1.4-4.0); Lymphocytes % 21.4 % (21.2-54.2); Mean Corpuscular HGB Conc 33.9 GM/DL (32-36); Mean Corpuscular Hemoglobin 33 PG (27-34); Mean Corpuscular Volume 97.2 FL (87-102); Mean Platelet Volume 9.9 FL (9.6-12.0); Monocytes # 1.1 10*3/uL (0.11-0.8); Monocytes % 18.2 % (1.7-12.7); Neutrophils # 3.3 10*3/uL (1.4-7.4); Neutrophils % 54.5 % (38.7-73.9); Platelet Count 295 T/CUMM (130-400); Red Blood Count 3.19 MC/CUMM (3.8-5.5); Red Cell Distribution Width 12.9 % (9.3-17.3)
[2018-09-21 05:33] LABS: Calcium 8.1 MG/DL (8.5-10.1); Osmolality,Calculated 268.8 MOS/KG (273-304); Potassium 3.6 MMOL/L (3.5-5.1)
[2018-09-21] MEDS: LEVOTHYROXINE 50 MCG TABLET PO SCH (06:22)
[2018-09-21 07:13] LABS: Band Neutrophils 1 % (0-10); Hypochromasia 1+; Lymphocytes 28 % (20-55); Platelet Estimate Adequate; Segmented Neutrophils 61 % (50-85); Total Cells Counted 100
[2018-09-21 07:14] LABS: Ovalocytes Slight
[2018-09-21] MEDS: MONTELUKAST 10 MG TABLET PO SCH ×2 (08:45→21:53)
[2018-09-21] MEDS: DIFLUPREDNATE 0.05% OPH EMUL 5 ML BOTTLE BOTH EYES SCH ×2 (08:45→21:52)
[2018-09-21] MEDS: NYSTATIN 500,000 UNIT/5 ML UDCUP SWISH/SWAL SCH ×4 (08:45→21:53)
[2018-09-21] MEDS: THEOPHYLLINE ER 300 MG TABLET PO SCH ×2 (08:45→17:33)
[2018-09-21] MEDS: APIXABAN 5 MG TABLET PO SCH ×2 (08:45→21:53)
[2018-09-21] MEDS: DILTIAZEM 90 MG TABLET PO SCH ×4 (08:45→20:42)
[2018-09-21] MEDS: PANTOPRAZOLE 40 MG VIAL IV SCH ×2 (08:45→21:52)
[2018-09-21] MEDS: ASPIRIN CHEW 81 MG TABLET PO SCH (08:45)
[2018-09-21] MEDS: INSULIN REGULAR 100 UNIT/ML SUBCUT SCH ×4 (08:46→21:53)
[2018-09-21] MEDS: ALBUTEROL 0.4 MG/ML 30 ML/BOTTLE PO SCH ×3 (08:46→21:54)
[2018-09-21] MEDS ORDERED: DIGOXIN 0.5 MG/2 ML AMP IV ONE ×2 (09:35→15:30)
[2018-09-21] MEDS ORDERED: DIGOXIN 0.5 MG/2 ML AMP ONE (09:36)
[2018-09-21] MEDS: ONDANSETRON 4 MG/2 ML VIAL IV PRN ×2 (09:45→15:46)
[2018-09-21] MEDS: SODIUM CHLORIDE 0.9% 1,000 ML IV SCH (10:00)
[2018-09-21] MEDS: PROMETHAZINE 25 MG/1 ML VIAL IM PRN (20:41)
[2018-09-22] MEDS: ALBUTEROL/IPRATROPIUM 3 ML NEB RESP TX SCH ×4 (00:52→19:22)
[2018-09-22 06:07] LABS: Basophils % 0.3 % (0.0-0.8); Eosinophils # 0.2 10*3/uL (0.0-0.87); Eosinophils % 3.8 % (0.00-10.9); Hematocrit 32.4 VOL% (42.0-52.0); Hemoglobin 11.2 GM/DL (14.0-18.0); Immature Granulocytes % 1.3 %; Immature Granulocytes Absolute 0.08 #; Lymphocytes # 1.6 10*3/uL (1.4-4.0); Lymphocytes % 24.5 % (21.2-54.2); Mean Corpuscular HGB Conc 34.6 GM/DL (32-36); Mean Corpuscular Hemoglobin 33 PG (27-34); Mean Platelet Volume 10.1 FL (9.6-12.0); Monocytes # 1.1 10*3/uL (0.11-0.8); Monocytes % 16.9 % (1.7-12.7); Neutrophils # 3.4 10*3/uL (1.4-7.4); Neutrophils % 53.2 % (38.7-73.9); Platelet Count 324 T/CUMM (130-400); Red Blood Count 3.41 MC/CUMM (3.8-5.5); Red Cell Distribution Width 13.1 % (9.3-17.3); White Blood Count 6.3 T/CUMM (4-12)
[2018-09-22 06:33] LABS: Calcium 8.1 MG/DL (8.5-10.1); Osmolality,Calculated 267.8 MOS/KG (273-304); Potassium 3.5 MMOL/L (3.5-5.1)
[2018-09-22 07:04] LABS: Platelet Estimate Adequate
[2018-09-22 07:05] LABS: Eosinophils 1 % (0-10); Hypochromasia 1+; Lymphocytes 30 % (20-55); Segmented Neutrophils 57 % (50-85); Total Cells Counted 100
[2018-09-22] MEDS: THEOPHYLLINE ER 300 MG TABLET PO SCH ×2 (10:13→17:06)
[2018-09-22] MEDS: MONTELUKAST 10 MG TABLET PO SCH ×2 (10:14→20:25)
[2018-09-22] MEDS: LEVOTHYROXINE 50 MCG TABLET PO SCH (10:16)
[2018-09-22] MEDS: ASPIRIN CHEW 81 MG TABLET PO SCH (10:16)
[2018-09-22] MEDS: ALBUTEROL 0.4 MG/ML 30 ML/BOTTLE PO SCH ×3 (10:16→20:28)
[2018-09-22] MEDS: APIXABAN 5 MG TABLET PO SCH (10:16)
[2018-09-22] MEDS: NYSTATIN 500,000 UNIT/5 ML UDCUP SWISH/SWAL SCH ×4 (10:16→20:28)
[2018-09-22] MEDS: DIFLUPREDNATE 0.05% OPH EMUL 5 ML BOTTLE BOTH EYES SCH ×2 (10:17→20:44)
[2018-09-22] MEDS: INSULIN REGULAR 100 UNIT/ML SUBCUT SCH ×4 (10:17→20:28)
[2018-09-22] MEDS: DILTIAZEM 90 MG TABLET PO SCH (10:30)
[2018-09-22] MEDS: PANTOPRAZOLE 40 MG VIAL IV SCH (10:31)
[2018-09-22] MEDS ORDERED: VERAPAMIL SR 180 MG TABLET PO ONE (12:00)
[2018-09-22] MEDS: DIGOXIN 0.25 MG TABLET PO SCH (12:05)
[2018-09-22] MEDS: SODIUM CHLORIDE 0.9% 1,000 ML IV SCH (16:50)
[2018-09-22] MEDS: dilTIAZem Drip 125 MG/125 ML PREMIX IV SCH (16:51)
[2018-09-22] MEDS: VERAPAMIL SR 180 MG TABLET PO SCH (20:44)
[2018-09-22] MEDS: ACETAMINOPHEN 325 MG TABLET PO PRN (20:45)
[2018-09-22] MEDS: ONDANSETRON 4 MG/2 ML VIAL IV PRN (22:06)
[2018-09-23] MEDS: ALBUTEROL/IPRATROPIUM 3 ML NEB RESP TX SCH ×4 (00:37→19:20)
[2018-09-23 04:41] LABS: Basophils % 0.4 % (0.0-0.8); Eosinophils # 0.3 10*3/uL (0.0-0.87); Eosinophils % 3.8 % (0.00-10.9); Hematocrit 33.6 VOL% (42.0-52.0); Hemoglobin 11.5 GM/DL (14.0-18.0); Immature Granulocytes % 1.2 %; Lymphocytes # 1.7 10*3/uL (1.4-4.0); Lymphocytes % 20.7 % (21.2-54.2); Mean Corpuscular HGB Conc 34.2 GM/DL (32-36); Mean Corpuscular Hemoglobin 33 PG (27-34); Mean Corpuscular Volume 95.7 FL (87-102); Mean Platelet Volume 9.6 FL (9.6-12.0); Monocytes # 1.3 10*3/uL (0.11-0.8); Monocytes % 15.5 % (1.7-12.7); Neutrophils # 4.9 10*3/uL (1.4-7.4); Neutrophils % 58.4 % (38.7-73.9); Platelet Count 316 T/CUMM (130-400); Red Blood Count 3.51 MC/CUMM (3.8-5.5); Red Cell Distribution Width 13.2 % (9.3-17.3); White Blood Count 8.3 T/CUMM (4-12)
[2018-09-23 05:11] LABS: Calcium 8.1 MG/DL (8.5-10.1); Osmolality,Calculated 270.8 MOS/KG (273-304); Potassium 3.3 MMOL/L (3.5-5.1)
[2018-09-23] MEDS ORDERED: POTASSIUM CHLORIDE RIDER 10 MEQ in PREMIX 1 EACH IV ONE (05:20)
[2018-09-23] MEDS: LEVOTHYROXINE 50 MCG TABLET PO SCH (09:30)
[2018-09-23] MEDS: THEOPHYLLINE ER 300 MG TABLET PO SCH ×2 (09:30→16:31)
[2018-09-23] MEDS: INSULIN REGULAR 100 UNIT/ML SUBCUT SCH ×4 (09:30→21:28)
[2018-09-23] MEDS: ASPIRIN CHEW 81 MG TABLET PO SCH (09:30)
[2018-09-23] MEDS: ALBUTEROL 0.4 MG/ML 30 ML/BOTTLE PO SCH ×3 (09:31→22:36)
[2018-09-23] MEDS: PANTOPRAZOLE 40 MG TABLET PO SCH (09:31)
[2018-09-23] MEDS: NYSTATIN 500,000 UNIT/5 ML UDCUP SWISH/SWAL SCH ×4 (09:31→21:27)
[2018-09-23] MEDS: MONTELUKAST 10 MG TABLET PO SCH ×2 (09:31→21:25)
[2018-09-23] MEDS: ASCORBIC ACID 500 MG TABLET PO SCH ×2 (09:31→21:26)
[2018-09-23] MEDS: DIFLUPREDNATE 0.05% OPH EMUL 5 ML BOTTLE BOTH EYES SCH ×2 (09:32→21:31)
[2018-09-23] MEDS ORDERED: MAGNESIUM SULF RIDER 4 GM in PREMIX 1 EACH IV PRN (10:18)
[2018-09-23] MEDS: MAGNESIUM SULF RIDER 2 GM in PREMIX 1 EACH IV PRN (11:36)
[2018-09-23] MEDS: DIGOXIN 0.25 MG TABLET PO SCH (12:51)
[2018-09-23] MEDS: POTASSIUM CHLORIDE RIDER 10 MEQ in PREMIX 1 EACH IV PRN ×3 (13:52→20:35)
[2018-09-23] MEDS: ONDANSETRON 4 MG/2 ML VIAL IV PRN ×2 (15:43→19:44)
[2018-09-23] MEDS: VERAPAMIL SR 180 MG TABLET PO SCH (21:24)
[2018-09-24] MEDS: ALBUTEROL/IPRATROPIUM 3 ML NEB RESP TX SCH ×4 (01:37→18:45)
[2018-09-24 04:22] LABS: Basophils % 0.4 % (0.0-0.8); Eosinophils # 0.4 10*3/uL (0.0-0.87); Eosinophils % 5.3 % (0.00-10.9); Hematocrit 32.5 VOL% (42.0-52.0); Hemoglobin 10.8 GM/DL (14.0-18.0); Immature Granulocytes % 1.3 %; Lymphocytes # 1.7 10*3/uL (1.4-4.0); Lymphocytes % 22.1 % (21.2-54.2); Mean Corpuscular HGB Conc 33.2 GM/DL (32-36); Mean Corpuscular Hemoglobin 32 PG (27-34); Mean Corpuscular Volume 95.6 FL (87-102); Mean Platelet Volume 9.7 FL (9.6-12.0); Monocytes % 13.1 % (1.7-12.7); Neutrophils # 4.4 10*3/uL (1.4-7.4); Neutrophils % 57.8 % (38.7-73.9); Platelet Count 357 T/CUMM (130-400); Red Cell Distribution Width 13.2 % (9.3-17.3); White Blood Count 7.6 T/CUMM (4-12)
[2018-09-24 04:44] LABS: Calcium 8.1 MG/DL (8.5-10.1); Potassium 3.7 MMOL/L (3.5-5.1)
[2018-09-24] MEDS: POTASSIUM CHLORIDE RIDER 10 MEQ in PREMIX 1 EACH IV PRN (05:44)
[2018-09-24] MEDS: LEVOTHYROXINE 50 MCG TABLET PO SCH (05:44)
[2018-09-24] MEDS: THEOPHYLLINE ER 300 MG TABLET PO SCH ×3 (09:08→18:23)
[2018-09-24] MEDS: INSULIN REGULAR 100 UNIT/ML SUBCUT SCH ×4 (09:08→20:42)
[2018-09-24] MEDS ORDERED: TUBERCULIN SKIN TEST 0.1 ML SYRINGE INTRADERM ONE (10:49)
[2018-09-24] MEDS ORDERED: DIAZEPAM 5 MG TABLET PO ONE (11:16)
[2018-09-24] MEDS ORDERED: fentaNYL 100 MCG/2 ML VIAL IV ONE (11:16)
[2018-09-24] MEDS ORDERED: MIDAZOLAM 10 MG/2 ML VIAL IV ONE (11:16)
[2018-09-24] MEDS: NYSTATIN 500,000 UNIT/5 ML UDCUP SWISH/SWAL SCH ×4 (11:42→21:00)
[2018-09-24] MEDS: ASPIRIN CHEW 81 MG TABLET PO SCH (11:42)
[2018-09-24] MEDS: PANTOPRAZOLE 40 MG TABLET PO SCH (11:42)
[2018-09-24] MEDS: ASCORBIC ACID 500 MG TABLET PO SCH ×2 (11:43→21:00)
[2018-09-24] MEDS: ALBUTEROL 0.4 MG/ML 30 ML/BOTTLE PO SCH ×3 (11:43→21:00)
[2018-09-24] MEDS: MONTELUKAST 10 MG TABLET PO SCH ×2 (11:43→20:59)
[2018-09-24] MEDS: DIFLUPREDNATE 0.05% OPH EMUL 5 ML BOTTLE BOTH EYES SCH ×2 (11:52→20:58)
[2018-09-24] MEDS ORDERED: fentaNYL 100 MCG/2 ML VIAL ONE (11:59)
[2018-09-24] MEDS ORDERED: MIDAZOLAM 2 MG/2 ML VIAL ONE (12:00)
[2018-09-24] MEDS ORDERED: ONDANSETRON 4 MG/2 ML VIAL ONE (12:15)
[2018-09-24] MEDS: ONDANSETRON 4 MG/2 ML VIAL IV PRN (12:22)
[2018-09-24] MEDS: DIGOXIN 0.25 MG TABLET PO SCH (15:19)
[2018-09-24] MEDS: ACETAMINOPHEN 325 MG TABLET PO PRN (20:54)
[2018-09-24] MEDS: VERAPAMIL SR 120 MG TABLET PO SCH (20:59)
[2018-09-25] MEDS: ALBUTEROL/IPRATROPIUM 3 ML NEB RESP TX SCH ×4 (00:39→19:24)
[2018-09-25 05:16] LABS: Basophils % 0.3 % (0.0-0.8); Eosinophils # 0.5 10*3/uL (0.0-0.87); Eosinophils % 7.2 % (0.00-10.9); Hematocrit 32.1 VOL% (42.0-52.0); Hemoglobin 11.2 GM/DL (14.0-18.0); Immature Granulocytes % 1.1 %; Immature Granulocytes Absolute 0.08 #; Lymphocytes # 1.7 10*3/uL (1.4-4.0); Mean Corpuscular HGB Conc 34.9 GM/DL (32-36); Mean Corpuscular Hemoglobin 33 PG (27-34); Mean Corpuscular Volume 94.7 FL (87-102); Mean Platelet Volume 9.8 FL (9.6-12.0); Monocytes % 13.8 % (1.7-12.7); Neutrophils # 3.9 10*3/uL (1.4-7.4); Neutrophils % 53.6 % (38.7-73.9); Platelet Count 350 T/CUMM (130-400); Red Blood Count 3.39 MC/CUMM (3.8-5.5); Red Cell Distribution Width 13.3 % (9.3-17.3); White Blood Count 7.2 T/CUMM (4-12)
[2018-09-25 05:18] LABS: Calcium 7.8 MG/DL (8.5-10.1); Potassium 3.9 MMOL/L (3.5-5.1)
[2018-09-25] MEDS: LEVOTHYROXINE 50 MCG TABLET PO SCH (06:18)
[2018-09-25] MEDS: INSULIN REGULAR 100 UNIT/ML SUBCUT SCH ×4 (08:27→21:00)
[2018-09-25] MEDS: MONTELUKAST 10 MG TABLET PO SCH ×2 (08:30→20:58)
[2018-09-25] MEDS: ASCORBIC ACID 500 MG TABLET PO SCH ×2 (08:30→20:58)
[2018-09-25] MEDS: THEOPHYLLINE ER 300 MG TABLET PO SCH ×2 (08:30→16:50)
[2018-09-25] MEDS: ASPIRIN CHEW 81 MG TABLET PO SCH (08:30)
[2018-09-25] MEDS: NYSTATIN 500,000 UNIT/5 ML UDCUP SWISH/SWAL SCH ×4 (08:31→20:57)
[2018-09-25] MEDS: PANTOPRAZOLE 40 MG TABLET PO SCH (08:31)
[2018-09-25] MEDS: ALBUTEROL 0.4 MG/ML 30 ML/BOTTLE PO SCH ×3 (08:31→20:59)
[2018-09-25] MEDS: DIFLUPREDNATE 0.05% OPH EMUL 5 ML BOTTLE BOTH EYES SCH ×2 (08:32→21:04)
[2018-09-25] MEDS: METOPROLOL SUCCINATE XL 50 MG TABLET PO SCH (08:33)
[2018-09-25] MEDS: DIGOXIN 0.25 MG TABLET PO SCH (15:07)
[2018-09-25] MEDS: APIXABAN 5 MG TABLET PO SCH (20:57)
[2018-09-25] MEDS: VERAPAMIL SR 120 MG TABLET PO SCH (20:59)
[2018-09-26] MEDS: ALBUTEROL/IPRATROPIUM 3 ML NEB RESP TX SCH ×4 (02:04→20:31)
[2018-09-26 04:57] LABS: Basophils % 0.6 % (0.0-0.8); Eosinophils # 0.8 10*3/uL (0.0-0.87); Eosinophils % 11.3 % (0.00-10.9); Hematocrit 33.6 VOL% (42.0-52.0); Hemoglobin 11.6 GM/DL (14.0-18.0); Immature Granulocytes % 1.4 %; Lymphocytes # 1.7 10*3/uL (1.4-4.0); Lymphocytes % 23.8 % (21.2-54.2); Mean Corpuscular HGB Conc 34.5 GM/DL (32-36); Mean Corpuscular Hemoglobin 33 PG (27-34); Mean Corpuscular Volume 94.6 FL (87-102); Mean Platelet Volume 9.6 FL (9.6-12.0); Monocytes % 14.8 % (1.7-12.7); Neutrophils # 3.4 10*3/uL (1.4-7.4); Neutrophils % 48.1 % (38.7-73.9); Platelet Count 403 T/CUMM (130-400); Red Blood Count 3.55 MC/CUMM (3.8-5.5); Red Cell Distribution Width 13.3 % (9.3-17.3); White Blood Count 7.1 T/CUMM (4-12)
[2018-09-26 05:14] LABS: Calcium 8.5 MG/DL (8.5-10.1); Osmolality,Calculated 269.8 MOS/KG (273-304); Potassium 3.7 MMOL/L (3.5-5.1)
[2018-09-26 05:48] LABS: Eosinophils 11 % (0-10); Hypochromasia Slight; Lymphocytes 28 % (20-55); Segmented Neutrophils 44 % (50-85); Total Cells Counted 100
[2018-09-26 05:49] LABS: Atypical Lymphocytes Few; Microcytosis Slight
[2018-09-26] MEDS: LEVOTHYROXINE 50 MCG TABLET PO SCH (06:40)
[2018-09-26] MEDS: MONTELUKAST 10 MG TABLET PO SCH ×2 (08:42→20:45)
[2018-09-26] MEDS: THEOPHYLLINE ER 300 MG TABLET PO SCH ×2 (08:42→16:14)
[2018-09-26] MEDS: ASCORBIC ACID 500 MG TABLET PO SCH ×2 (08:42→20:46)
[2018-09-26] MEDS: METOPROLOL SUCCINATE XL 50 MG TABLET PO SCH (08:42)
[2018-09-26] MEDS: ASPIRIN CHEW 81 MG TABLET PO SCH (08:42)
[2018-09-26] MEDS: APIXABAN 5 MG TABLET PO SCH ×2 (08:42→20:45)
[2018-09-26] MEDS: NYSTATIN 500,000 UNIT/5 ML UDCUP SWISH/SWAL SCH ×4 (08:42→20:45)
[2018-09-26] MEDS: PANTOPRAZOLE 40 MG TABLET PO SCH (08:42)
[2018-09-26] MEDS: ALBUTEROL 0.4 MG/ML 30 ML/BOTTLE PO SCH ×3 (08:43→20:46)
[2018-09-26] MEDS: DIFLUPREDNATE 0.05% OPH EMUL 5 ML BOTTLE BOTH EYES SCH ×2 (08:43→20:47)
[2018-09-26] MEDS: INSULIN REGULAR 100 UNIT/ML SUBCUT SCH ×4 (08:44→20:46)
[2018-09-26] MEDS: ONDANSETRON 4 MG/2 ML VIAL IV PRN (09:29)
[2018-09-26] MEDS: DIGOXIN 0.25 MG TABLET PO SCH (14:29)
[2018-09-26] MEDS: PROCHLORPERAZINE 5 MG TABLET PO SCH (20:45)
[2018-09-26] MEDS: ALUMINUM/MAGNES/SIMETH MAX STR 30 ML UDCUP PO PRN (21:57)
[2018-09-27] MEDS: ALBUTEROL/IPRATROPIUM 3 ML NEB RESP TX SCH ×5 (00:38→19:05)
[2018-09-27] MEDS: LEVOTHYROXINE 50 MCG TABLET PO SCH (06:35)
[2018-09-27] MEDS ORDERED: METOPROLOL TARTRATE 5 MG/5 ML VIAL IV ONE ×3 (08:30→17:15)
[2018-09-27] MEDS: INSULIN REGULAR 100 UNIT/ML SUBCUT SCH ×4 (08:31→21:11)
[2018-09-27] MEDS: NYSTATIN 500,000 UNIT/5 ML UDCUP SWISH/SWAL SCH ×4 (08:45→21:53)
[2018-09-27] MEDS: DIFLUPREDNATE 0.05% OPH EMUL 5 ML BOTTLE BOTH EYES SCH ×2 (08:46→21:56)
[2018-09-27] MEDS: MONTELUKAST 10 MG TABLET PO SCH ×2 (08:46→21:50)
[2018-09-27] MEDS: THEOPHYLLINE ER 300 MG TABLET PO SCH ×2 (08:46→17:34)
[2018-09-27] MEDS: PROCHLORPERAZINE 5 MG TABLET PO SCH ×3 (08:46→21:51)
[2018-09-27] MEDS: ALBUTEROL 0.4 MG/ML 30 ML/BOTTLE PO SCH ×3 (08:46→21:52)
[2018-09-27] MEDS: ASPIRIN CHEW 81 MG TABLET PO SCH (08:47)
[2018-09-27] MEDS: ASCORBIC ACID 500 MG TABLET PO SCH ×2 (08:47→21:51)
[2018-09-27] MEDS: APIXABAN 5 MG TABLET PO SCH ×2 (08:47→21:51)
[2018-09-27] MEDS: PANTOPRAZOLE 40 MG TABLET PO SCH (08:47)
[2018-09-27] MEDS: METOPROLOL SUCCINATE XL 50 MG TABLET PO SCH (08:47)
[2018-09-27] MEDS: SODIUM CHLORIDE 0.9% 1,000 ML IV SCH ×2 (09:57→23:37)
[2018-09-27] MEDS: ONDANSETRON 4 MG/2 ML VIAL IV PRN (10:01)
[2018-09-27] MEDS: DIGOXIN 0.25 MG TABLET PO SCH (13:32)
[2018-09-27] MEDS: ONDANSETRON 4 MG TABLET PO SCH ×3 (13:33→23:37)
[2018-09-27] MEDS: fentaNYL 12 MCG/HR PATCH TRANSDERM SCH (13:33)
[2018-09-27 17:55] LABS: Basophils # 0.1 10*3/uL (0.0-0.2); Basophils % 0.6 % (0.0-0.8); Eosinophils % 12.3 % (0.00-10.9); Hemoglobin 11.7 GM/DL (14.0-18.0); Immature Granulocytes Absolute 0.08 #; Lymphocytes % 25.1 % (21.2-54.2); Mean Corpuscular HGB Conc 35.5 GM/DL (32-36); Mean Corpuscular Hemoglobin 33 PG (27-34); Mean Corpuscular Volume 93.8 FL (87-102); Mean Platelet Volume 9.3 FL (9.6-12.0); Monocytes # 1.1 10*3/uL (0.11-0.8); Monocytes % 13.9 % (1.7-12.7); Neutrophils # 3.8 10*3/uL (1.4-7.4); Neutrophils % 47.1 % (38.7-73.9); Platelet Count 444 T/CUMM (130-400); Red Blood Count 3.52 MC/CUMM (3.8-5.5); Red Cell Distribution Width 13.6 % (9.3-17.3)
[2018-09-27 18:13] LABS: Calcium 8.1 MG/DL (8.5-10.1); Potassium 3.9 MMOL/L (3.5-5.1)
[2018-09-27 18:17] LABS: Eosinophils 13 % (0-10); Lymphocytes 23 % (20-55); Segmented Neutrophils 50 % (50-85); Total Cells Counted 100
[2018-09-27 18:18] LABS: Platelet Estimate Normal
[2018-09-27 18:19] LABS: Hypochromasia Slight
[2018-09-27 18:20] LABS: Microcytosis Slight
[2018-09-27] MEDS ORDERED: DIGOXIN 0.5 MG/2 ML AMP IV ONE (18:51)
[2018-09-27] MEDS ORDERED: SODIUM CHLORIDE 0.9% 500 ML IV ONE (18:52)
[2018-09-27] MEDS: MAGNESIUM SULF RIDER 2 GM in PREMIX 1 EACH IV PRN (19:56)
[2018-09-27] MEDS: DRONABINOL 2.5 MG CAPSULE PO SCH (21:50)
[2018-09-27] MEDS: METOPROLOL TARTRATE 5 MG/5 ML VIAL IV PRN (23:37)
[2018-09-28] MEDS: ALBUTEROL/IPRATROPIUM 3 ML NEB RESP TX SCH ×4 (00:19→20:03)
[2018-09-28] MEDS: SODIUM CHLORIDE 0.9% 1,000 ML IV SCH ×3 (02:12→15:40)
[2018-09-28 04:21] LABS: Basophils # 0.1 10*3/uL (0.0-0.2); Basophils % 0.7 % (0.0-0.8); Hematocrit 35.2 VOL% (42.0-52.0); Hemoglobin 12.2 GM/DL (14.0-18.0); Immature Granulocytes % 1.3 %; Immature Granulocytes Absolute 0.09 #; Lymphocytes % 27.9 % (21.2-54.2); Mean Corpuscular HGB Conc 34.7 GM/DL (32-36); Mean Corpuscular Hemoglobin 33 PG (27-34); Mean Corpuscular Volume 94.1 FL (87-102); Mean Platelet Volume 9.3 FL (9.6-12.0); Monocytes % 14.2 % (1.7-12.7); Neutrophils % 41.9 % (38.7-73.9); Platelet Count 433 T/CUMM (130-400); Red Blood Count 3.74 MC/CUMM (3.8-5.5); Red Cell Distribution Width 13.5 % (9.3-17.3); White Blood Count 7.1 T/CUMM (4-12)
[2018-09-28 05:02] LABS: Calcium 8.3 MG/DL (8.5-10.1); Osmolality,Calculated 272.5 MOS/KG (273-304); Potassium 4.3 MMOL/L (3.5-5.1)
[2018-09-28 05:58] LABS: Eosinophils 20 % (0-10); Lymphocytes 28 % (20-55); Metamyelocytes 2 %; Pappenheimer Bodies Few; Platelet Estimate Normal; Polychromasia Few; Segmented Neutrophils 44 % (50-85); Total Cells Counted 101
[2018-09-28] MEDS: LEVOTHYROXINE 50 MCG TABLET PO SCH (06:07)
[2018-09-28] MEDS: ONDANSETRON 4 MG TABLET PO SCH ×3 (06:08→17:00)
[2018-09-28] MEDS: METOPROLOL TARTRATE 5 MG/5 ML VIAL IV PRN (06:31)
[2018-09-28] MEDS ORDERED: dilTIAZem Drip 125 MG/125 ML PREMIX IV SCH (08:00)
[2018-09-28] MEDS: INSULIN REGULAR 100 UNIT/ML SUBCUT SCH ×4 (08:29→20:55)
[2018-09-28] MEDS: ASPIRIN CHEW 81 MG TABLET PO SCH (09:03)
[2018-09-28] MEDS: METOPROLOL SUCCINATE XL 50 MG TABLET PO SCH (09:03)
[2018-09-28] MEDS: APIXABAN 5 MG TABLET PO SCH ×2 (09:03→21:43)
[2018-09-28] MEDS: PANTOPRAZOLE 40 MG TABLET PO SCH (09:03)
[2018-09-28] MEDS: ALBUTEROL 0.4 MG/ML 30 ML/BOTTLE PO SCH ×3 (09:04→21:44)
[2018-09-28] MEDS: PROCHLORPERAZINE 5 MG TABLET PO SCH ×3 (09:50→21:43)
[2018-09-28] MEDS: ASCORBIC ACID 500 MG TABLET PO SCH ×2 (09:50→21:43)
[2018-09-28] MEDS: THEOPHYLLINE ER 300 MG TABLET PO SCH ×2 (09:50→16:57)
[2018-09-28] MEDS: NYSTATIN 500,000 UNIT/5 ML UDCUP SWISH/SWAL SCH ×4 (09:51→21:46)
[2018-09-28] MEDS: DIFLUPREDNATE 0.05% OPH EMUL 5 ML BOTTLE BOTH EYES SCH ×2 (09:51→21:47)
[2018-09-28] MEDS: MONTELUKAST 10 MG TABLET PO SCH ×2 (09:53→21:43)
[2018-09-28] MEDS: NEBIVOLOL 5 MG TABLET PO SCH (10:58)
[2018-09-28] MEDS: DIGOXIN 0.25 MG TABLET PO SCH (13:28)
[2018-09-28] MEDS: ALUMINUM/MAGNES/SIMETH MAX STR 30 ML UDCUP PO PRN (17:23)
[2018-09-28] MEDS: DRONABINOL 2.5 MG CAPSULE PO SCH (21:55)
[2018-09-29] MEDS: ALBUTEROL/IPRATROPIUM 3 ML NEB RESP TX SCH ×4 (00:20→19:16)
[2018-09-29] MEDS: ONDANSETRON 4 MG TABLET PO SCH ×4 (00:37→17:12)
[2018-09-29] MEDS: ALUMINUM/MAGNES/SIMETH MAX STR 30 ML UDCUP PO PRN (00:45)
[2018-09-29] MEDS: SODIUM CHLORIDE 0.9% 1,000 ML IV SCH ×3 (02:15→15:43)
[2018-09-29 05:49] LABS: Basophils # 0.1 10*3/uL (0.0-0.2); Basophils % 0.7 % (0.0-0.8); Eosinophils % 13.4 % (0.00-10.9); Hematocrit 33.4 VOL% (42.0-52.0); Hemoglobin 11.3 GM/DL (14.0-18.0); Immature Granulocytes % 1.3 %; Lymphocytes # 2.4 10*3/uL (1.4-4.0); Lymphocytes % 31.7 % (21.2-54.2); Mean Corpuscular HGB Conc 33.8 GM/DL (32-36); Mean Corpuscular Hemoglobin 32 PG (27-34); Mean Corpuscular Volume 95.2 FL (87-102); Mean Platelet Volume 9.3 FL (9.6-12.0); Monocytes # 1.3 10*3/uL (0.11-0.8); Monocytes % 17.4 % (1.7-12.7); Neutrophils # 2.7 10*3/uL (1.4-7.4); Neutrophils % 35.5 % (38.7-73.9); Platelet Count 393 T/CUMM (130-400); Red Blood Count 3.51 MC/CUMM (3.8-5.5); Red Cell Distribution Width 13.7 % (9.3-17.3); White Blood Count 7.5 T/CUMM (4-12)
[2018-09-29 05:58] LABS: Calcium 8.5 MG/DL (8.5-10.1); Osmolality,Calculated 275.4 MOS/KG (273-304); Potassium 4.1 MMOL/L (3.5-5.1)
[2018-09-29] MEDS: LEVOTHYROXINE 50 MCG TABLET PO SCH (06:22)
[2018-09-29 06:42] LABS: Band Neutrophils 2 % (0-10); Eosinophils 13 % (0-10); Total Cells Counted 100
[2018-09-29 06:43] LABS: Lymphocytes 29 % (20-55); Platelet Estimate Normal; Segmented Neutrophils 39 % (50-85)
[2018-09-29] MEDS: INSULIN REGULAR 100 UNIT/ML SUBCUT SCH ×4 (08:25→22:59)
[2018-09-29] MEDS: MONTELUKAST 10 MG TABLET PO SCH ×2 (08:26→22:58)
[2018-09-29] MEDS: ASCORBIC ACID 500 MG TABLET PO SCH ×2 (08:27→22:58)
[2018-09-29] MEDS: NYSTATIN 500,000 UNIT/5 ML UDCUP SWISH/SWAL SCH ×4 (08:27→22:59)
[2018-09-29] MEDS: NEBIVOLOL 5 MG TABLET PO SCH (08:27)
[2018-09-29] MEDS: APIXABAN 5 MG TABLET PO SCH ×2 (08:27→22:59)
[2018-09-29] MEDS: ASPIRIN CHEW 81 MG TABLET PO SCH (08:27)
[2018-09-29] MEDS: PROCHLORPERAZINE 5 MG TABLET PO SCH ×3 (08:27→22:59)
[2018-09-29] MEDS: THEOPHYLLINE ER 300 MG TABLET PO SCH ×2 (08:27→17:12)
[2018-09-29] MEDS: PANTOPRAZOLE 40 MG TABLET PO SCH (08:28)
[2018-09-29] MEDS: DIFLUPREDNATE 0.05% OPH EMUL 5 ML BOTTLE BOTH EYES SCH ×2 (08:28→22:59)
[2018-09-29] MEDS: DIGOXIN 0.25 MG TABLET PO SCH (12:01)
[2018-09-29] MEDS: ALBUTEROL 0.4 MG/ML 30 ML/BOTTLE PO SCH ×3 (12:03→22:59)
[2018-09-29] MEDS: DRONABINOL 2.5 MG CAPSULE PO SCH (22:59)
[2018-09-30] MEDS: ALBUTEROL/IPRATROPIUM 3 ML NEB RESP TX SCH ×4 (01:45→20:06)
[2018-09-30] MEDS: SODIUM CHLORIDE 0.9% 1,000 ML IV SCH ×2 (02:30→10:43)
[2018-09-30] MEDS: ONDANSETRON 4 MG TABLET PO SCH ×4 (02:31→18:02)
[2018-09-30 05:17] LABS: Basophils % 0.6 % (0.0-0.8); Eosinophils % 14.5 % (0.00-10.9); Hematocrit 31.1 VOL% (42.0-52.0); Hemoglobin 10.6 GM/DL (14.0-18.0); Immature Granulocytes Absolute 0.07 #; Lymphocytes # 2.2 10*3/uL (1.4-4.0); Lymphocytes % 32.6 % (21.2-54.2); Mean Corpuscular HGB Conc 34.1 GM/DL (32-36); Mean Corpuscular Hemoglobin 33 PG (27-34); Mean Corpuscular Volume 95.4 FL (87-102); Mean Platelet Volume 9.5 FL (9.6-12.0); Monocytes # 1.2 10*3/uL (0.11-0.8); Monocytes % 16.9 % (1.7-12.7); Neutrophils # 2.4 10*3/uL (1.4-7.4); Neutrophils % 34.4 % (38.7-73.9); Platelet Count 411 T/CUMM (130-400); Red Blood Count 3.26 MC/CUMM (3.8-5.5); White Blood Count 6.9 T/CUMM (4-12)
[2018-09-30 05:29] LABS: Calcium 8.5 MG/DL (8.5-10.1); Osmolality,Calculated 274.4 MOS/KG (273-304); Potassium 3.9 MMOL/L (3.5-5.1)
[2018-09-30 05:59] LABS: Eosinophils 19 % (0-10); Lymphocytes 30 % (20-55); Platelet Estimate Normal; Polychromasia Few; Segmented Neutrophils 40 % (50-85); Total Cells Counted 100
[2018-09-30] MEDS: LEVOTHYROXINE 50 MCG TABLET PO SCH (06:18)
[2018-09-30] MEDS: fentaNYL 12 MCG/HR PATCH TRANSDERM SCH (08:49)
[2018-09-30] MEDS: INSULIN REGULAR 100 UNIT/ML SUBCUT SCH ×4 (08:58→21:40)
[2018-09-30] MEDS: NEBIVOLOL 5 MG TABLET PO SCH (10:01)
[2018-09-30] MEDS: APIXABAN 5 MG TABLET PO SCH ×2 (10:01→21:39)
[2018-09-30] MEDS: ASPIRIN CHEW 81 MG TABLET PO SCH (10:01)
[2018-09-30] MEDS: DIFLUPREDNATE 0.05% OPH EMUL 5 ML BOTTLE BOTH EYES SCH ×2 (10:05→21:40)
[2018-09-30] MEDS: THEOPHYLLINE ER 300 MG TABLET PO SCH ×2 (10:05→18:02)
[2018-09-30] MEDS: NYSTATIN 500,000 UNIT/5 ML UDCUP SWISH/SWAL SCH ×4 (10:05→21:39)
[2018-09-30] MEDS: PROCHLORPERAZINE 5 MG TABLET PO SCH ×3 (10:05→21:39)
[2018-09-30] MEDS: PANTOPRAZOLE 40 MG TABLET PO SCH (10:05)
[2018-09-30] MEDS: ALBUTEROL 0.4 MG/ML 30 ML/BOTTLE PO SCH ×3 (10:06→21:41)
[2018-09-30] MEDS: MONTELUKAST 10 MG TABLET PO SCH ×2 (10:06→21:38)
[2018-09-30] MEDS: ASCORBIC ACID 500 MG TABLET PO SCH ×2 (10:06→21:38)
[2018-09-30] MEDS: DIGOXIN 0.25 MG TABLET PO SCH (12:40)
[2018-09-30] MEDS: ACETAMINOPHEN 325 MG TABLET PO PRN (18:01)
[2018-09-30] MEDS: DRONABINOL 2.5 MG CAPSULE PO SCH (21:38)
[2018-10-01] MEDS: SODIUM CHLORIDE 0.9% 1,000 ML IV SCH (00:58)
[2018-10-01] MEDS: ALBUTEROL/IPRATROPIUM 3 ML NEB RESP TX SCH ×2 (01:39→07:21)
[2018-10-01 04:32] LABS: Basophils % 0.6 % (0.0-0.8); Eosinophils # 1.2 10*3/uL (0.0-0.87); Eosinophils % 17.7 % (0.00-10.9); Hematocrit 30.8 VOL% (42.0-52.0); Hemoglobin 10.6 GM/DL (14.0-18.0); Immature Granulocytes % 0.7 %; Immature Granulocytes Absolute 0.05 #; Lymphocytes # 1.9 10*3/uL (1.4-4.0); Lymphocytes % 28.3 % (21.2-54.2); Mean Corpuscular HGB Conc 34.4 GM/DL (32-36); Mean Corpuscular Hemoglobin 33 PG (27-34); Mean Corpuscular Volume 95.1 FL (87-102); Mean Platelet Volume 9.6 FL (9.6-12.0); Monocytes # 1.1 10*3/uL (0.11-0.8); Monocytes % 16.2 % (1.7-12.7); Neutrophils # 2.4 10*3/uL (1.4-7.4); Neutrophils % 36.5 % (38.7-73.9); Platelet Count 381 T/CUMM (130-400); Red Blood Count 3.24 MC/CUMM (3.8-5.5); Red Cell Distribution Width 14.2 % (9.3-17.3); White Blood Count 6.7 T/CUMM (4-12)
[2018-10-01 04:57] LABS: Calcium 8.6 MG/DL (8.5-10.1); Osmolality,Calculated 276.4 MOS/KG (273-304); Potassium 3.8 MMOL/L (3.5-5.1)
[2018-10-01 05:07] LABS: Eosinophils 16 % (0-10); Lymphocytes 30 % (20-55); Segmented Neutrophils 45 % (50-85); Total Cells Counted 100
[2018-10-01 05:08] LABS: Anisocytosis Slight; Microcytosis Slight
[2018-10-01 05:09] LABS: Platelet Estimate Normal; Spherocytes Slight
[2018-10-01] MEDS: ONDANSETRON 4 MG TABLET PO SCH ×2 (06:45→11:18)
[2018-10-01] MEDS: PANTOPRAZOLE 40 MG TABLET PO SCH (09:33)
[2018-10-01] MEDS: NEBIVOLOL 5 MG TABLET PO SCH (09:33)
[2018-10-01] MEDS: LEVOTHYROXINE 50 MCG TABLET PO SCH (09:33)
[2018-10-01] MEDS: NYSTATIN 500,000 UNIT/5 ML UDCUP SWISH/SWAL SCH (09:34)
[2018-10-01] MEDS: THEOPHYLLINE ER 300 MG TABLET PO SCH (09:34)
[2018-10-01] MEDS: MONTELUKAST 10 MG TABLET PO SCH (09:34)
[2018-10-01] MEDS: ASPIRIN CHEW 81 MG TABLET PO SCH (09:34)
[2018-10-01] MEDS: APIXABAN 5 MG TABLET PO SCH (09:34)
[2018-10-01] MEDS: ASCORBIC ACID 500 MG TABLET PO SCH (09:34)
[2018-10-01] MEDS: PROCHLORPERAZINE 5 MG TABLET PO SCH (09:34)
[2018-10-01] MEDS: ALBUTEROL 0.4 MG/ML 30 ML/BOTTLE PO SCH (09:35)
[2018-10-01] MEDS: INSULIN REGULAR 100 UNIT/ML SUBCUT SCH ×2 (09:35→12:36)
[2018-10-01] MEDS: DIFLUPREDNATE 0.05% OPH EMUL 5 ML BOTTLE BOTH EYES SCH (09:36)
[2018-10-01] MEDS: ONDANSETRON 4 MG/2 ML VIAL IV PRN (11:15)
[2018-10-01] MEDS: PROMETHAZINE 25 MG/1 ML VIAL IM PRN (11:58)
[2018-10-01 12:06] VITALS: BP 106/71
== END 2018-10-01 12:30 | DRG 309 ==
LOC: N.EDINP 21:04 → N.ED 21:04 → N.EDINP 09-18 03:20 → N.TELES 09-18 03:48 → SUATTDRO 09-18 09:53
PROVIDERS: ADMIT Hospitalist; ATTEND Internal Medicine

== ENCOUNTER 2018-10-11 11:09 | Inpatient (IN) ==
[2018-10-11] MEDS ORDERED: DILTIAZEM 50 MG/10 ML VIAL IV STA (11:31)
[2018-10-11] MEDS ORDERED: LEVALBUTEROL 1.25 MG/3 ML NEB RESP TX STA (11:32)
[2018-10-11] MEDS: dilTIAZem Drip 125 MG/125 ML PREMIX IV SCH ×2 (11:54→22:26)
[2018-10-11 12:09] LABS: Basophils # 0.1 10*3/uL (0.0-0.2); Basophils % 0.5 % (0.0-0.8); Eosinophils # 1.9 10*3/uL (0.0-0.87); Eosinophils % 11.9 % (0.00-10.9); Hematocrit 37.2 VOL% (42.0-52.0); Hemoglobin 12.7 GM/DL (14.0-18.0); Immature Granulocytes Absolute 0.16 #; Lymphocytes % 12.6 % (21.2-54.2); Mean Corpuscular HGB Conc 34.1 GM/DL (32-36); Mean Corpuscular Volume 93.9 FL (87-102); Mean Platelet Volume 10.2 FL (9.6-12.0); Monocytes % 13.2 % (1.7-12.7); NRBC # 0.04 10*3/uL; Neutrophils % 60.8 % (38.7-73.9); Platelet Count 326 T/CUMM (130-400); Red Blood Count 3.96 MC/CUMM (3.8-5.5); Red Cell Distribution Width 15.2 % (9.3-17.3); White Blood Count 16.1 T/CUMM (4-12)
[2018-10-11 12:17] LABS: INR 1.2; PT Patient Result 13.4 SECS; Partial Thromboplastin Time 30.1 SECS (0-40)
[2018-10-11 12:33] LABS: Albumin 2.7 G/DL (3.4-5.0); Calcium 9.6 MG/DL (8.5-10.1); Osmolality,Calculated 278.8 MOS/KG (273-304); Thyroid Stimulating Hormone 0.43 uIU/ml (0.358-3.74); Total Protein 7.4 G/DL (6.4-8.3)
[2018-10-11 12:42] LABS: Eosinophils 22 % (0-10); Hypochromasia 1+; Lymphocytes 15 % (20-55); Platelet Estimate Adequate; Segmented Neutrophils 55 % (50-85); Total Cells Counted 100
[2018-10-11 12:43] LABS: Microcytosis Slight
[2018-10-11] MEDS ORDERED: PROMETHAZINE 25 MG/1 ML VIAL IM PRN (13:39)
[2018-10-11] MEDS ORDERED: ONDANSETRON 4 MG/2 ML VIAL IV PRN (13:39)
[2018-10-11] MEDS ORDERED: ACETAMINOPHEN 325 MG TABLET PO PRN (13:39)
[2018-10-11] MEDS ORDERED: DOCUSATE SODIUM 100 MG CAPSULE PO PRN (13:42)
[2018-10-11] MEDS ORDERED: POTASSIUM CHLORIDE 20 MEQ TABLET PO STA (13:43)
[2018-10-11] MEDS ORDERED: PROCHLORPERAZINE 10 MG TABLET PO SCH (14:00)
[2018-10-11] MEDS ORDERED: PANTOPRAZOLE 40 MG TABLET PO SCH (14:00)
[2018-10-11 14:14] LABS: Barbiturates Screen,Urine Negative (Negative); Benzodiazepines Screen,Urine Negative (Negative); Cannabinoid Screen,Urine Positive (Negative); Opiate Screen,Urine Positive (Negative); Phencyclidine Screen,Urine Negative (Negative)
[2018-10-11] MEDS ORDERED: GLUCAGON 1 MG VIAL IM PRN (14:48)
[2018-10-11] MEDS ORDERED: DEXTROSE 50% 25 GM/50 ML SYRINGE IV PRN (14:48)
[2018-10-11] MEDS: DILTIAZEM 30 MG TABLET PO SCH ×2 (15:08→20:46)
[2018-10-11] MEDS ORDERED: MAGNESIUM SULF RIDER 2 GM in PREMIX 1 EACH IV PRN ×2 (15:44→18:49)
[2018-10-11] MEDS ORDERED: MAGNESIUM SULF RIDER 4 GM in PREMIX 1 EACH IV PRN ×2 (15:44→18:49)
[2018-10-11] MEDS: SODIUM CHLORIDE 0.45% 1,000 ML IV SCH (16:11)
[2018-10-11] MEDS: INSULIN LISPRO 100 UNIT/ML SUBCUT SCH ×2 (16:53→20:48)
[2018-10-11] MEDS ORDERED: SODIUM CHLORIDE 0.9% 2,500 ML IV ONE (17:05)
[2018-10-11] MEDS ORDERED: ONDANSETRON 4 MG TABLET PO SCH (18:00)
[2018-10-11] MEDS: fentaNYL 12 MCG/HR PATCH TRANSDERM SCH (18:48)
[2018-10-11] MEDS: ERYTHROMYCIN 0.5% OPHT OINT 1 GM TUBE BOTH EYES SCH ×2 (18:48→21:00)
[2018-10-11] MEDS ORDERED: POTASSIUM CHLORIDE RIDER 10 MEQ in PREMIX 1 EACH IV PRN (18:49)
[2018-10-11] MEDS: METOCLOPRAMIDE 10 MG/2 ML VIAL IV SCH ×2 (18:59→23:31)
[2018-10-11] MEDS: cefTAZidime 2,000 MG in SYRINGE 1 EACH IV SCH (19:03)
[2018-10-11] MEDS ORDERED: ALBUTEROL/IPRATROPIUM 3 ML NEB RESP TX PRN (19:05)
[2018-10-11] MEDS ORDERED: LEVOFLOXACIN INJ 750 MG in PREMIX 1 EACH IV SCH (19:30)
[2018-10-11] MEDS: metroNIDAZOLE INJ 500 MG in PREMIX 1 EACH IV SCH (19:48)
[2018-10-11] MEDS ORDERED: THEOPHYLLINE ER 300 MG TABLET PO SCH (20:00)
[2018-10-11] MEDS ORDERED: APIXABAN 5 MG TABLET PO SCH (20:00)
[2018-10-11] MEDS: SODIUM CHLOR 0.9% KCL 40 MEQ 40 MEQ/1,000 ML BAG IV SCH (20:33)
[2018-10-11] MEDS: DIFLUPREDNATE 0.05% OPH EMUL 5 ML BOTTLE BOTH EYES SCH (20:46)
[2018-10-11] MEDS ORDERED: INSULIN GLARGINE 100 UNIT/ML SUBCUT SCH (21:00)
[2018-10-11] MEDS: DRONABINOL 2.5 MG CAPSULE PO SCH (22:04)
[2018-10-11] MEDS: ALBUTEROL 0.4 MG/ML 30 ML/BOTTLE PO SCH (22:09)
[2018-10-12] MEDS: cefTAZidime 2,000 MG in SYRINGE 1 EACH IV SCH ×3 (01:20→18:26)
[2018-10-12] MEDS: metroNIDAZOLE INJ 500 MG in PREMIX 1 EACH IV SCH ×3 (01:20→17:25)
[2018-10-12 05:39] LABS: Apearance,Urine Clear (Clear); Bilirubin,Urine Negative (Negative); Blood, Urine Negative (Negative); Glucose,Urine (UA) Negative (Negative); Ketones,Urine 5 mg/dL (Negative); Nitrite,Urine Negative (Negative); Protein,Urine Negative; Urine Color Yellow (Yellow); Urine Specific Gravity 1.012 (1.001-1.035); Urine Urobilinogen < 2.0 EU/DL (0.2-1.0)
[2018-10-12 05:40] LABS: Bacteria,Urine Occasional /HPF (Few); Hyaline Casts,Urine 3 /LPF (0-3); Mucus,Urine Occasional /LPF (Occasional); RBC,Urine 3 /HPF (0-4); Squamous Epithelial Cell,Urine Occasional /HPF (0-10); WBC,Urine 6 /HPF (0-6)
[2018-10-12] MEDS: LEVOTHYROXINE 50 MCG TABLET PO SCH (06:08)
[2018-10-12] MEDS: PANTOPRAZOLE 40 MG TABLET PO SCH (06:09)
[2018-10-12] MEDS: ALBUTEROL 0.4 MG/ML 30 ML/BOTTLE PO SCH ×3 (06:10→22:05)
[2018-10-12] MEDS: METOCLOPRAMIDE 10 MG/2 ML VIAL IV SCH ×2 (06:11→15:06)
[2018-10-12 06:20] LABS: Basophils # 0.1 10*3/uL (0.0-0.2); Basophils % 0.4 % (0.0-0.8); Eosinophils # 1.3 10*3/uL (0.0-0.87); Eosinophils % 9.7 % (0.00-10.9); Hematocrit 32.4 VOL% (42.0-52.0); Hemoglobin 10.9 GM/DL (14.0-18.0); Immature Granulocytes % 1.2 %; Immature Granulocytes Absolute 0.15 #; Lymphocytes # 1.9 10*3/uL (1.4-4.0); Lymphocytes % 14.6 % (21.2-54.2); Mean Corpuscular HGB Conc 33.6 GM/DL (32-36); Mean Corpuscular Volume 94.7 FL (87-102); Mean Platelet Volume 9.8 FL (9.6-12.0); Monocytes % 16.8 % (1.7-12.7); Neutrophils % 57.3 % (38.7-73.9); Platelet Count 277 T/CUMM (130-400); Red Blood Count 3.42 MC/CUMM (3.8-5.5); Red Cell Distribution Width 15.6 % (9.3-17.3); White Blood Count 12.9 T/CUMM (4-12)
[2018-10-12] MEDS: dilTIAZem Drip 125 MG/125 ML PREMIX IV SCH ×2 (06:34→18:23)
[2018-10-12] MEDS: SODIUM CHLOR 0.9% KCL 40 MEQ 40 MEQ/1,000 ML BAG IV SCH (06:36)
[2018-10-12 06:38] LABS: Calcium 8.4 MG/DL (8.5-10.1); Osmolality,Calculated 284.1 MOS/KG (273-304)
[2018-10-12 06:41] LABS: Band Neutrophils 1 % (0-10); Eosinophils 15 % (0-10); Lymphocytes 15 % (20-55); Platelet Estimate Adequate; Segmented Neutrophils 60 % (50-85); Total Cells Counted 100
[2018-10-12 06:42] LABS: Hypochromasia 1+
[2018-10-12 06:44] LABS: Microcytosis Slight
[2018-10-12 06:54] LABS: Albumin 2.1 G/DL (3.4-5.0); Calcium 8.6 MG/DL (8.5-10.1); Osmolality,Calculated 284.1 MOS/KG (273-304)
[2018-10-12] MEDS ORDERED: POTASSIUM CHLORIDE INJ 20 MEQ in LACTATED RINGERS 1,000 ML IV SCH (07:00)
[2018-10-12] MEDS: methylPREDNISolone SOD SUC 125 MG/2 ML VIAL IV SCH ×2 (07:56→08:30)
[2018-10-12] MEDS ORDERED: MONTELUKAST 10 MG TABLET PO SCH (08:00)
[2018-10-12] MEDS: DIFLUPREDNATE 0.05% OPH EMUL 5 ML BOTTLE BOTH EYES SCH ×2 (09:38→21:53)
[2018-10-12] MEDS: NEBIVOLOL 5 MG TABLET PO SCH (09:38)
[2018-10-12] MEDS: ASPIRIN CHEW 81 MG TABLET PO SCH (09:38)
[2018-10-12] MEDS: INSULIN LISPRO 100 UNIT/ML SUBCUT SCH ×4 (10:37→21:53)
[2018-10-12] MEDS: ERYTHROMYCIN 0.5% OPHT OINT 3.5 GM TUBE BOTH EYES SCH ×4 (10:39→21:53)
[2018-10-12] MEDS: DILTIAZEM 30 MG TABLET PO SCH ×3 (10:39→21:52)
[2018-10-12] MEDS: ALBUTEROL/IPRATROPIUM 3 ML NEB RESP TX SCH ×2 (13:30→18:50)
[2018-10-12] MEDS: DIGOXIN 0.25 MG TABLET PO SCH (13:51)
[2018-10-12] MEDS: THEOPHYLLINE ER (24 HR) 200 MG CAPSULE PO SCH (17:25)
[2018-10-12] MEDS: MONTELUKAST 10 MG TABLET PO SCH (21:52)
[2018-10-12] MEDS: DRONABINOL 2.5 MG CAPSULE PO SCH (22:04)
[2018-10-13] MEDS: methylPREDNISolone SOD SUC 125 MG/2 ML VIAL IV SCH ×2 (00:08→09:12)
[2018-10-13] MEDS: LACTATED RINGERS 1,000 ML IV SCH ×4 (00:08→23:05)
[2018-10-13] MEDS: ALBUTEROL/IPRATROPIUM 3 ML NEB RESP TX SCH ×4 (00:10→19:15)
[2018-10-13] MEDS: SODIUM CHLORIDE 0.45% 1,000 ML IV SCH (00:14)
[2018-10-13] MEDS: cefTAZidime 2,000 MG in SYRINGE 1 EACH IV SCH ×3 (02:05→17:19)
[2018-10-13] MEDS: metroNIDAZOLE INJ 500 MG in PREMIX 1 EACH IV SCH ×3 (02:08→17:24)
[2018-10-13 04:42] LABS: Basophils % 0.2 % (0.0-0.8); Eosinophils % 0.1 % (0.00-10.9); Hematocrit 29.1 VOL% (42.0-52.0); Hemoglobin 9.7 GM/DL (14.0-18.0); Immature Granulocytes % 1.4 %; Immature Granulocytes Absolute 0.17 #; Lymphocytes # 1.2 10*3/uL (1.4-4.0); Lymphocytes % 9.3 % (21.2-54.2); Mean Corpuscular HGB Conc 33.3 GM/DL (32-36); Mean Corpuscular Volume 95.1 FL (87-102); Mean Platelet Volume 10.3 FL (9.6-12.0); Monocytes % 3.7 % (1.7-12.7); Neutrophils % 85.3 % (38.7-73.9); Platelet Count 267 T/CUMM (130-400); Red Blood Count 3.06 MC/CUMM (3.8-5.5); Red Cell Distribution Width 15.6 % (9.3-17.3); White Blood Count 12.4 T/CUMM (4-12)
[2018-10-13 04:58] LABS: Calcium 8.6 MG/DL (8.5-10.1); Osmolality,Calculated 281.5 MOS/KG (273-304)
[2018-10-13] MEDS: ALBUTEROL 0.4 MG/ML 30 ML/BOTTLE PO SCH ×3 (06:20→22:24)
[2018-10-13] MEDS: PANTOPRAZOLE 40 MG TABLET PO SCH (06:20)
[2018-10-13] MEDS: INSULIN LISPRO 100 UNIT/ML SUBCUT SCH ×4 (08:28→22:36)
[2018-10-13] MEDS: LEVOTHYROXINE 50 MCG TABLET PO SCH (09:13)
[2018-10-13] MEDS: ASPIRIN CHEW 81 MG TABLET PO SCH (09:14)
[2018-10-13] MEDS: DILTIAZEM 30 MG TABLET PO SCH ×3 (09:14→22:24)
[2018-10-13] MEDS: MONTELUKAST 10 MG TABLET PO SCH ×2 (09:14→22:25)
[2018-10-13] MEDS: DIFLUPREDNATE 0.05% OPH EMUL 5 ML BOTTLE BOTH EYES SCH ×2 (09:14→22:24)
[2018-10-13] MEDS: ERYTHROMYCIN 0.5% OPHT OINT 3.5 GM TUBE BOTH EYES SCH ×4 (09:14→22:26)
[2018-10-13] MEDS: NEBIVOLOL 5 MG TABLET PO SCH (09:14)
[2018-10-13] MEDS ORDERED: ENOXAPARIN 80 MG/0.8 ML SYRINGE SUBCUT ONE (10:40)
[2018-10-13] MEDS ORDERED: BISACODYL 10 MG SUPP RECTAL ONE (12:15)
[2018-10-13] MEDS: dilTIAZem Drip 125 MG/125 ML PREMIX IV SCH (13:03)
[2018-10-13] MEDS: DIGOXIN 0.25 MG TABLET PO SCH (13:04)
[2018-10-13] MEDS: THEOPHYLLINE ER (24 HR) 200 MG CAPSULE PO SCH (17:21)
[2018-10-13] MEDS: DRONABINOL 2.5 MG CAPSULE PO SCH (22:24)
[2018-10-13] MEDS: methylPREDNISolone SOD SUC 40 MG/1 ML VIAL IV SCH (22:25)
[2018-10-14] MEDS: ALBUTEROL/IPRATROPIUM 3 ML NEB RESP TX SCH ×4 (00:51→20:42)
[2018-10-14] MEDS: cefTAZidime 2,000 MG in SYRINGE 1 EACH IV SCH ×3 (03:00→17:54)
[2018-10-14] MEDS: metroNIDAZOLE INJ 500 MG in PREMIX 1 EACH IV SCH ×2 (03:06→09:11)
[2018-10-14 04:34] LABS: Basophils % 0.1 % (0.0-0.8); Eosinophils % 0.1 % (0.00-10.9); Hematocrit 25.9 VOL% (42.0-52.0); Immature Granulocytes % 3.2 %; Lymphocytes % 6.6 % (21.2-54.2); Mean Corpuscular HGB Conc 34.7 GM/DL (32-36); Mean Corpuscular Volume 91.8 FL (87-102); Mean Platelet Volume 10.2 FL (9.6-12.0); Monocytes % 6.7 % (1.7-12.7); NRBC # 0.02 10*3/uL; Neutrophils % 83.3 % (38.7-73.9); Platelet Count 274 T/CUMM (130-400); Red Blood Count 2.82 MC/CUMM (3.8-5.5); Red Cell Distribution Width 15.1 % (9.3-17.3); White Blood Count 15.5 T/CUMM (4-12)
[2018-10-14 04:48] LABS: Calcium 8.5 MG/DL (8.5-10.1); Osmolality,Calculated 282.5 MOS/KG (273-304)
[2018-10-14] MEDS: ALBUTEROL 0.4 MG/ML 30 ML/BOTTLE PO SCH ×3 (06:11→22:48)
[2018-10-14] MEDS: PANTOPRAZOLE 40 MG TABLET PO SCH (06:11)
[2018-10-14] MEDS ORDERED: APIXABAN 5 MG TABLET PO SCH (09:00)
[2018-10-14] MEDS: INSULIN LISPRO 100 UNIT/ML SUBCUT SCH ×4 (09:08→22:46)
[2018-10-14] MEDS: methylPREDNISolone SOD SUC 40 MG/1 ML VIAL IV SCH (09:08)
[2018-10-14] MEDS: DILTIAZEM 30 MG TABLET PO SCH ×3 (09:09→22:47)
[2018-10-14] MEDS: LEVOTHYROXINE 50 MCG TABLET PO SCH (09:10)
[2018-10-14] MEDS: NEBIVOLOL 5 MG TABLET PO SCH (09:10)
[2018-10-14] MEDS: MONTELUKAST 10 MG TABLET PO SCH ×2 (09:10→22:48)
[2018-10-14] MEDS: DIFLUPREDNATE 0.05% OPH EMUL 5 ML BOTTLE BOTH EYES SCH ×2 (09:10→22:49)
[2018-10-14] MEDS: ASPIRIN CHEW 81 MG TABLET PO SCH (09:10)
[2018-10-14] MEDS: fentaNYL 12 MCG/HR PATCH TRANSDERM SCH (09:10)
[2018-10-14] MEDS: ERYTHROMYCIN 0.5% OPHT OINT 3.5 GM TUBE BOTH EYES SCH ×4 (09:11→22:50)
[2018-10-14] MEDS ORDERED: DIGOXIN 0.5 MG/2 ML AMP IV ONE (10:30)
[2018-10-14] MEDS: LACTATED RINGERS 1,000 ML IV SCH (12:40)
[2018-10-14] MEDS: dilTIAZem Drip 125 MG/125 ML PREMIX IV SCH (12:41)
[2018-10-14] MEDS: DIGOXIN 0.25 MG TABLET PO SCH (13:28)
[2018-10-14] MEDS: POTASSIUM CHLORIDE 20 MEQ TABLET PO PRN ×3 (13:28→19:11)
[2018-10-14 14:05] LABS: Basophils % 0.1 % (0.0-0.8); Hematocrit 24.2 VOL% (42.0-52.0); Hemoglobin 8.2 GM/DL (14.0-18.0); Immature Granulocytes % 4.6 %; Immature Granulocytes Absolute 0.68 #; Lymphocytes # 0.8 10*3/uL (1.4-4.0); Lymphocytes % 5.2 % (21.2-54.2); Mean Corpuscular HGB Conc 33.9 GM/DL (32-36); Mean Corpuscular Volume 92.7 FL (87-102); Monocytes % 7.7 % (1.7-12.7); Neutrophils % 82.4 % (38.7-73.9); Platelet Count 275 T/CUMM (130-400); Red Blood Count 2.61 MC/CUMM (3.8-5.5); Red Cell Distribution Width 15.3 % (9.3-17.3); White Blood Count 14.8 T/CUMM (4-12)
[2018-10-14 15:53] LABS: Lymphocytes 5 % (20-55); Segmented Neutrophils 92 % (50-85); Total Cells Counted 100
[2018-10-14] MEDS: THEOPHYLLINE ER (24 HR) 200 MG CAPSULE PO SCH (17:54)
[2018-10-14] MEDS: metroNIDAZOLE 500 MG TABLET PO SCH (22:47)
[2018-10-14] MEDS: CIPROFLOXACIN 500 MG TABLET PO SCH (22:49)
[2018-10-15] MEDS: DRONABINOL 2.5 MG CAPSULE PO SCH (00:49)
[2018-10-15] MEDS: cefTAZidime 2,000 MG in SYRINGE 1 EACH IV SCH ×2 (01:57→11:00)
[2018-10-15] MEDS: ALBUTEROL/IPRATROPIUM 3 ML NEB RESP TX SCH ×3 (02:53→12:06)
[2018-10-15 05:21] LABS: Basophils % 0.1 % (0.0-0.8); Eosinophils % 0.1 % (0.00-10.9); Hematocrit 25.5 VOL% (42.0-52.0); Hemoglobin 8.7 GM/DL (14.0-18.0); Immature Granulocytes % 4.3 %; Lymphocytes # 0.7 10*3/uL (1.4-4.0); Lymphocytes % 7.7 % (21.2-54.2); Mean Corpuscular HGB Conc 34.1 GM/DL (32-36); Mean Corpuscular Volume 92.1 FL (87-102); Monocytes % 12.2 % (1.7-12.7); NRBC # 0.02 10*3/uL; Neutrophils % 75.6 % (38.7-73.9); Platelet Count 267 T/CUMM (130-400); Red Blood Count 2.77 MC/CUMM (3.8-5.5); Red Cell Distribution Width 15.4 % (9.3-17.3); White Blood Count 9.4 T/CUMM (4-12)
[2018-10-15 05:36] LABS: Calcium 8.5 MG/DL (8.5-10.1); Osmolality,Calculated 282.3 MOS/KG (273-304)
[2018-10-15] MEDS: ALBUTEROL 0.4 MG/ML 30 ML/BOTTLE PO SCH ×2 (06:34→13:29)
[2018-10-15] MEDS: PANTOPRAZOLE 40 MG TABLET PO SCH (06:34)
[2018-10-15] MEDS: LEVOTHYROXINE 50 MCG TABLET PO SCH (06:34)
[2018-10-15 08:40] LABS: Apearance,Urine CLOUDY (Clear); Bilirubin,Urine Negative (Negative); Blood, Urine Large mg/dL (Negative); Glucose,Urine (UA) Negative (Negative); Ketones,Urine 5 mg/dL (Negative); Mucus,Urine Many /LPF (Occasional); Nitrite,Urine Negative (Negative); Protein,Urine 100 MG/DL; RBC,Urine 1345 /HPF (0-4); Urine Color Amber (Yellow); Urine Specific Gravity 1.025 (1.001-1.035); Urine Urobilinogen < 2.0 EU/DL (0.2-1.0); WBC,Urine 64 /HPF (0-6)
[2018-10-15] MEDS: DILTIAZEM 30 MG TABLET PO SCH (09:32)
[2018-10-15] MEDS: CIPROFLOXACIN 500 MG TABLET PO SCH (09:32)
[2018-10-15] MEDS: INSULIN LISPRO 100 UNIT/ML SUBCUT SCH ×2 (09:33→14:27)
[2018-10-15] MEDS: metroNIDAZOLE 500 MG TABLET PO SCH (09:33)
[2018-10-15] MEDS: MONTELUKAST 10 MG TABLET PO SCH (09:33)
[2018-10-15] MEDS: ASPIRIN CHEW 81 MG TABLET PO SCH (09:33)
[2018-10-15] MEDS: NEBIVOLOL 5 MG TABLET PO SCH (09:33)
[2018-10-15] MEDS: ERYTHROMYCIN 0.5% OPHT OINT 3.5 GM TUBE BOTH EYES SCH ×2 (09:34→14:28)
[2018-10-15] MEDS: DIFLUPREDNATE 0.05% OPH EMUL 5 ML BOTTLE BOTH EYES SCH (09:34)
[2018-10-15] MEDS: dilTIAZem Drip 125 MG/125 ML PREMIX IV SCH (11:00)
[2018-10-15] MEDS: DIGOXIN 0.25 MG TABLET PO SCH (12:12)
[2018-10-15 12:23] VITALS: BP 118/66
== END 2018-10-15 14:05 | DRG 309 ==
LOC: EDUNIT# → EDBD → N.ED 11:09 → N.EDINP 13:38 → SUATTDRO 13:38 → N.TELEN 14:18
PROVIDERS: ADMIT Internal Medicine Nephrology; ATTEND Internal Medicine Nephrology

== ENCOUNTER 2019-01-17 14:20 | Inpatient (IN) ==
[2019-01-17 15:27] LABS: Basophils % 0.4 % (0.0-0.8); Eosinophils # 0.1 10*3/uL (0.0-0.87); Eosinophils % 2.4 % (0.00-10.9); Hematocrit 41.8 VOL% (42.0-52.0); Hemoglobin 14.1 GM/DL (14.0-18.0); Immature Granulocytes % 0.6 %; Immature Granulocytes Absolute 0.03 #; Lymphocytes % 37.3 % (21.2-54.2); Mean Corpuscular HGB Conc 33.7 GM/DL (32-36); Mean Corpuscular Volume 97.2 FL (87-102); Mean Platelet Volume 9.5 FL (9.6-12.0); Monocytes % 13.9 % (1.7-12.7); Neutrophils % 45.4 % (38.7-73.9); Platelet Count 187 T/CUMM (130-400); Red Cell Distribution Width 14.1 % (9.3-17.3); White Blood Count 5.3 T/CUMM (4-12)
[2019-01-17 15:36] LABS: INR 1.1; PT Patient Result 11.6 SECS; Partial Thromboplastin Time 26.3 SECS (0-40)
[2019-01-17] MEDS ORDERED: SODIUM CHLORIDE 0.9% 500 ML IV STA (15:37)
[2019-01-17] MEDS ORDERED: DILTIAZEM 50 MG/10 ML VIAL IV STA (15:37)
[2019-01-17 16:23] LABS: Albumin 2.6 G/DL (3.4-5.0); Bilirubin,Total 0.5 MG/DL (0.2-1.0); Calcium 9.4 MG/DL (8.5-10.1); Osmolality,Calculated 281.4 MOS/KG (273-304); Thyroid Stimulating Hormone 2.38 uIU/ml (0.358-3.74); Total Protein 6.6 G/DL (6.4-8.3)
[2019-01-17] MEDS ORDERED: MAGNESIUM SULF RIDER 2 GM in PREMIX 1 EACH IV PRN (16:45)
[2019-01-17] MEDS ORDERED: diphenhydrAMINE CAP 25 MG CAPSULE PO PRN (16:45)
[2019-01-17] MEDS ORDERED: ZALEPLON 5 MG CAPSULE PO PRN (16:45)
[2019-01-17] MEDS ORDERED: DOCUSATE SODIUM 100 MG CAPSULE PO PRN (16:45)
[2019-01-17] MEDS ORDERED: POTASSIUM CHLORIDE 20 MEQ TABLET PO PRN (16:45)
[2019-01-17] MEDS ORDERED: GLUCAGON 1 MG VIAL IM PRN (16:45)
[2019-01-17] MEDS ORDERED: ONDANSETRON 4 MG/2 ML VIAL IV PRN (16:45)
[2019-01-17] MEDS ORDERED: MAGNESIUM SULF RIDER 4 GM in PREMIX 1 EACH IV PRN (16:45)
[2019-01-17] MEDS ORDERED: DEXTROSE 10% 25 GM/250 ML BAG IV PRN (16:45)
[2019-01-17] MEDS ORDERED: ALBUTEROL/IPRATROPIUM 3 ML NEB RESP TX PRN (16:47)
[2019-01-17] MEDS ORDERED: ALBUTEROL 2.5 MG/3 ML NEB RESP TX PRN (19:00)
[2019-01-17] MEDS: glipiZIDE 10 MG TABLET PO SCH (21:27)
[2019-01-17] MEDS: GABAPENTIN 300 MG CAPSULE PO SCH (21:28)
[2019-01-17] MEDS: valACYclovir 500 MG TABLET PO SCH (21:28)
[2019-01-17] MEDS: THEOPHYLLINE ER (24 HR) 400 MG TABLET PO SCH (21:28)
[2019-01-17] MEDS: ALBUTEROL 0.4 MG/ML 30 ML/BOTTLE PO SCH (23:58)
[2019-01-18] MEDS: dilTIAZem Drip 125 MG/125 ML PREMIX IV SCH ×4 (01:00→18:12)
[2019-01-18 06:23] LABS: Basophils % 0.4 % (0.0-0.8); Eosinophils # 0.2 10*3/uL (0.0-0.87); Hematocrit 42.4 VOL% (42.0-52.0); Hemoglobin 14.7 GM/DL (14.0-18.0); Immature Granulocytes % 0.7 %; Immature Granulocytes Absolute 0.04 #; Lymphocytes # 2.9 10*3/uL (1.4-4.0); Lymphocytes % 52.2 % (21.2-54.2); Mean Corpuscular HGB Conc 34.7 GM/DL (32-36); Mean Corpuscular Volume 96.4 FL (87-102); Mean Platelet Volume 10.7 FL (9.6-12.0); Monocytes % 15.8 % (1.7-12.7); Neutrophils % 27.9 % (38.7-73.9); Platelet Count 200 T/CUMM (130-400); Red Cell Distribution Width 14.3 % (9.3-17.3); White Blood Count 5.6 T/CUMM (4-12)
[2019-01-18 06:49] LABS: Eosinophils 5 % (0-10); Hypochromasia Slight; Lymphocytes 52 % (20-55); Platelet Estimate Adequate; Segmented Neutrophils 31 % (50-85); Total Cells Counted 100
[2019-01-18 06:56] LABS: Albumin 2.6 G/DL (3.4-5.0); Bilirubin,Total 0.7 MG/DL (0.2-1.0); Calcium 9.3 MG/DL (8.5-10.1); Osmolality,Calculated 276.3 MOS/KG (273-304); Risk Ratio 3.69; Total Protein 6.6 G/DL (6.4-8.3); VLDL CHOLESTEROL 14.2 MG/DL
[2019-01-18] MEDS: glipiZIDE 10 MG TABLET PO SCH ×2 (09:09→22:00)
[2019-01-18] MEDS: valACYclovir 500 MG TABLET PO SCH ×3 (09:19→22:00)
[2019-01-18] MEDS: ASPIRIN CHEW 81 MG TABLET PO SCH (09:19)
[2019-01-18] MEDS: predniSONE 20 MG TABLET PO SCH (09:20)
[2019-01-18] MEDS: MONTELUKAST 10 MG TABLET PO SCH (09:20)
[2019-01-18] MEDS: ALBUTEROL 0.4 MG/ML 30 ML/BOTTLE PO SCH ×3 (09:20→22:04)
[2019-01-18] MEDS: PANTOPRAZOLE 40 MG TABLET PO SCH (09:20)
[2019-01-18] MEDS: GABAPENTIN 300 MG CAPSULE PO SCH ×2 (09:20→21:58)
[2019-01-18] MEDS: DIGOXIN 0.25 MG TABLET PO SCH (14:33)
[2019-01-18] MEDS: APIXABAN 5 MG TABLET PO SCH ×2 (14:34→21:59)
[2019-01-18] MEDS: DILTIAZEM CD 180 MG CAPSULE PO SCH (14:34)
[2019-01-18] MEDS: INSULIN LISPRO 100 UNIT/ML SUBCUT SCH ×2 (18:12→21:59)
[2019-01-18] MEDS: THEOPHYLLINE ER (24 HR) 400 MG TABLET PO SCH (22:00)
[2019-01-19 07:56] LABS: Basophils % 0.1 % (0.0-0.8); Eosinophils % 0.1 % (0.00-10.9); Hematocrit 38.7 VOL% (42.0-52.0); Hemoglobin 13.7 GM/DL (14.0-18.0); Immature Granulocytes % 1.6 %; Immature Granulocytes Absolute 0.13 #; Lymphocytes # 1.7 10*3/uL (1.4-4.0); Lymphocytes % 21.5 % (21.2-54.2); Mean Corpuscular HGB Conc 35.4 GM/DL (32-36); Mean Corpuscular Volume 95.3 FL (87-102); Mean Platelet Volume 10.1 FL (9.6-12.0); Neutrophils % 67.7 % (38.7-73.9); Platelet Count 207 T/CUMM (130-400); Red Blood Count 4.06 MC/CUMM (3.8-5.5); Red Cell Distribution Width 14.1 % (9.3-17.3); White Blood Count 8.1 T/CUMM (4-12)
[2019-01-19 08:25] LABS: Calcium 9.3 MG/DL (8.5-10.1); Osmolality,Calculated 280.7 MOS/KG (273-304)
[2019-01-19] MEDS: DILTIAZEM CD 180 MG CAPSULE PO SCH (09:16)
[2019-01-19] MEDS: glipiZIDE 10 MG TABLET PO SCH (09:16)
[2019-01-19] MEDS: valACYclovir 500 MG TABLET PO SCH ×2 (09:17→14:57)
[2019-01-19] MEDS: MONTELUKAST 10 MG TABLET PO SCH (09:19)
[2019-01-19] MEDS: GABAPENTIN 300 MG CAPSULE PO SCH (09:19)
[2019-01-19] MEDS: ASPIRIN CHEW 81 MG TABLET PO SCH (09:20)
[2019-01-19] MEDS: APIXABAN 5 MG TABLET PO SCH (09:20)
[2019-01-19] MEDS: predniSONE 20 MG TABLET PO SCH (09:20)
[2019-01-19] MEDS: INSULIN LISPRO 100 UNIT/ML SUBCUT SCH ×2 (09:21→12:30)
[2019-01-19] MEDS: ALBUTEROL 0.4 MG/ML 30 ML/BOTTLE PO SCH ×2 (09:21→14:57)
[2019-01-19] MEDS: PANTOPRAZOLE 40 MG TABLET PO SCH (09:41)
[2019-01-19 11:40] VITALS: BP 110/68
[2019-01-19] MEDS: DIGOXIN 0.25 MG TABLET PO SCH (14:56)
== END 2019-01-19 15:57 | disposition home health service (06) | DRG 310 ==
LOC: EDUNIT# → EDBD → N.ED 14:20 → N.EDINP 14:20 → N.TELES 17:36
PROVIDERS: ADMIT Internal Medicine Cardiovascular Disease; ATTEND Internal Medicine Cardiovascular Disease

== ENCOUNTER 2019-03-17 16:50 | Inpatient (IN) ==
[2019-03-17 17:38] LABS: Basophils % 0.1 % (0.0-0.8); Eosinophils # 0.2 10*3/uL (0.0-0.87); Eosinophils % 2.2 % (0.00-10.9); Hematocrit 35.7 VOL% (42.0-52.0); Hemoglobin 12.1 GM/DL (14.0-18.0); Immature Granulocytes % 0.8 %; Immature Granulocytes Absolute 0.06 #; Lymphocytes # 2.6 10*3/uL (1.4-4.0); Lymphocytes % 35.7 % (21.2-54.2); Mean Corpuscular HGB Conc 33.9 GM/DL (32-36); Mean Corpuscular Volume 102.3 FL (87-102); Mean Platelet Volume 9.9 FL (9.6-12.0); Monocytes % 11.5 % (1.7-12.7); Neutrophils % 49.7 % (38.7-73.9); Platelet Count 201 T/CUMM (130-400); Red Blood Count 3.49 MC/CUMM (3.8-5.5); Red Cell Distribution Width 14.4 % (9.3-17.3); White Blood Count 7.3 T/CUMM (4-12)
[2019-03-17 18:04] LABS: Albumin 3.5 G/DL (3.4-5.0); Bilirubin,Total 0.5 MG/DL (0.2-1.0); Calcium 9.6 MG/DL (8.5-10.1); Total Protein 7.5 G/DL (6.4-8.3)
[2019-03-17 18:52] LABS: Apearance,Urine CLEAR (Clear); Bilirubin,Urine Negative (Negative); Blood, Urine Negative (Negative); Calcium Oxalate Crystals,Urine Many /HPF (Few); Glucose,Urine (UA) Negative (Negative); Ketones,Urine Negative (Negative); Mucus,Urine Many /LPF (Occasional); Nitrite,Urine Negative (Negative); Protein,Urine Negative; RBC,Urine 2 /HPF (0-4); Squamous Epithelial Cell,Urine Occasional /HPF (0-10); Urine Color Yellow (Yellow); Urine Specific Gravity 1.025 (1.001-1.035); WBC,Urine 2 /HPF (0-6)
[2019-03-17] MEDS ORDERED: MORPHINE 4 MG/1 ML VIAL IV PRN (20:44)
[2019-03-17] MEDS ORDERED: ACETAMINOPHEN 325 MG TABLET PO PRN (20:44)
[2019-03-17] MEDS ORDERED: ONDANSETRON 4 MG/2 ML VIAL IV PRN (20:44)
[2019-03-17] MEDS ORDERED: ALBUTEROL 2.5 MG/3 ML NEB RESP TX PRN (20:52)
[2019-03-17] MEDS ORDERED: DOCUSATE SODIUM 100 MG CAPSULE PO PRN (20:52)
[2019-03-17] MEDS ORDERED: ALBUTEROL/IPRATROPIUM 3 ML NEB RESP TX PRN ×2 (20:52)
[2019-03-17] MEDS ORDERED: DEXTROSE 50% 25 GM/50 ML VIAL IV PRN (20:58)
[2019-03-17] MEDS ORDERED: GLUCAGON 1 MG VIAL IM PRN (20:58)
[2019-03-17] MEDS ORDERED: SODIUM CHLORIDE 0.9% 1,000 ML IV SCH (21:00)
[2019-03-17] MEDS: valACYclovir 500 MG TABLET PO SCH (22:45)
[2019-03-17] MEDS: THEOPHYLLINE ER (24 HR) 200 MG CAPSULE PO SCH (22:46)
[2019-03-17] MEDS: methylPREDNISolone SOD SUC 40 MG/1 ML VIAL IV SCH (22:46)
[2019-03-17] MEDS: GABAPENTIN 300 MG CAPSULE PO SCH (22:46)
[2019-03-17] MEDS: INSULIN REGULAR 100 UNIT/ML SUBCUT SCH (23:02)
[2019-03-17 23:03] LABS: CKMB % 4.9 %; Troponin I < 0.015 NG/ML (0.00-0.045)
[2019-03-17] MEDS ORDERED: HEPARIN DRIP 25,000 UNITS/500 ML PREMIX IV SCH (23:30)
[2019-03-18] MEDS: ALBUTEROL 0.4 MG/ML 30 ML/BOTTLE PO SCH ×4 (00:18→23:51)
[2019-03-18] MEDS: dilTIAZem Drip 125 MG/125 ML PREMIX IV SCH (04:15)
[2019-03-18] MEDS: methylPREDNISolone SOD SUC 40 MG/1 ML VIAL IV SCH ×3 (06:01→21:49)
[2019-03-18 06:33] LABS: Basophils % 0.2 % (0.0-0.8); Hematocrit 37.7 VOL% (42.0-52.0); Hemoglobin 12.5 GM/DL (14.0-18.0); Immature Granulocytes % 0.8 %; Immature Granulocytes Absolute 0.05 #; Lymphocytes # 0.9 10*3/uL (1.4-4.0); Lymphocytes % 14.8 % (21.2-54.2); Mean Corpuscular HGB Conc 33.2 GM/DL (32-36); Mean Corpuscular Volume 102.4 FL (87-102); Mean Platelet Volume 9.7 FL (9.6-12.0); Monocytes % 1.6 % (1.7-12.7); Neutrophils % 82.6 % (38.7-73.9); Platelet Count 223 T/CUMM (130-400); Red Blood Count 3.68 MC/CUMM (3.8-5.5); Red Cell Distribution Width 14.2 % (9.3-17.3); White Blood Count 6.1 T/CUMM (4-12)
[2019-03-18 06:53] LABS: Albumin 3.2 G/DL (3.4-5.0); Bilirubin,Total 0.5 MG/DL (0.2-1.0); Calcium 9.2 MG/DL (8.5-10.1); Osmolality,Calculated 284.5 MOS/KG (273-304); Risk Ratio 2.85; Total Protein 7.4 G/DL (6.4-8.3); VLDL CHOLESTEROL 6.8 MG/DL
[2019-03-18] MEDS ORDERED: FUROSEMIDE 20 MG/2 ML VIAL IV SCH (08:00)
[2019-03-18] MEDS ORDERED: DILTIAZEM CD 180 MG CAPSULE PO SCH (09:00)
[2019-03-18] MEDS: valACYclovir 500 MG TABLET PO SCH ×3 (09:25→21:49)
[2019-03-18] MEDS: MONTELUKAST 10 MG TABLET PO SCH (09:26)
[2019-03-18] MEDS: GABAPENTIN 300 MG CAPSULE PO SCH ×2 (09:26→21:48)
[2019-03-18] MEDS: PANTOPRAZOLE 40 MG VIAL IV SCH (09:33)
[2019-03-18] MEDS ORDERED: SODIUM CHLORIDE 0.45% 1,000 ML IV SCH (12:00)
[2019-03-18] MEDS: ASPIRIN CHEW 81 MG TABLET PO SCH (17:58)
[2019-03-18] MEDS: DIGOXIN 0.25 MG TABLET PO SCH (17:58)
[2019-03-18] MEDS: INSULIN REGULAR 100 UNIT/ML SUBCUT SCH ×2 (18:01)
[2019-03-18] MEDS: APIXABAN 5 MG TABLET PO SCH (21:49)
[2019-03-18] MEDS: URSODIOL 300 MG CAPSULE PO SCH (21:49)
[2019-03-18] MEDS: THEOPHYLLINE ER (24 HR) 200 MG CAPSULE PO SCH (21:49)
[2019-03-19] MEDS: INSULIN REGULAR 100 UNIT/ML SUBCUT SCH ×5 (02:23→19:54)
[2019-03-19] MEDS: dilTIAZem Drip 125 MG/125 ML PREMIX IV SCH (03:34)
[2019-03-19 05:56] LABS: Basophils # 0.1 10*3/uL (0.0-0.2); Basophils % 0.3 % (0.0-0.8); Eosinophils % 0.1 % (0.00-10.9); Hematocrit 37.2 VOL% (42.0-52.0); Hemoglobin 12.7 GM/DL (14.0-18.0); Immature Granulocytes % 4.7 %; Immature Granulocytes Absolute 0.76 #; Lymphocytes % 12.1 % (21.2-54.2); Mean Corpuscular HGB Conc 34.1 GM/DL (32-36); Mean Corpuscular Volume 103.3 FL (87-102); Mean Platelet Volume 9.7 FL (9.6-12.0); Monocytes % 4.8 % (1.7-12.7); Platelet Count 241 T/CUMM (130-400); Red Cell Distribution Width 13.9 % (9.3-17.3); White Blood Count 16.2 T/CUMM (4-12)
[2019-03-19] MEDS: methylPREDNISolone SOD SUC 40 MG/1 ML VIAL IV SCH ×3 (06:09→21:44)
[2019-03-19] MEDS: LEVOTHYROXINE 100 MCG TABLET PO SCH (06:10)
[2019-03-19 06:19] LABS: Calcium 9.6 MG/DL (8.5-10.1); Osmolality,Calculated 289.4 MOS/KG (273-304)
[2019-03-19 06:54] LABS: Band Neutrophils 7 % (0-10); Lymphocytes 12 % (20-55); Macrocytosis Slight; Metamyelocytes 2 %; Myelocytes 1 %; Platelet Estimate Normal; Segmented Neutrophils 74 % (50-85); Total Cells Counted 100
[2019-03-19 06:56] LABS: Polychromasia Slight; Target Cells Slight
[2019-03-19 06:57] LABS: Ovalocytes Slight
[2019-03-19] MEDS: valACYclovir 500 MG TABLET PO SCH ×3 (08:14→21:40)
[2019-03-19] MEDS: URSODIOL 300 MG CAPSULE PO SCH ×2 (08:16→21:39)
[2019-03-19] MEDS: APIXABAN 5 MG TABLET PO SCH ×2 (08:16→21:38)
[2019-03-19] MEDS: ASPIRIN CHEW 81 MG TABLET PO SCH (08:16)
[2019-03-19] MEDS: MONTELUKAST 10 MG TABLET PO SCH (08:16)
[2019-03-19] MEDS: FUROSEMIDE 20 MG TABLET PO SCH (08:16)
[2019-03-19] MEDS: PANTOPRAZOLE 40 MG VIAL IV SCH (08:17)
[2019-03-19] MEDS: GABAPENTIN 300 MG CAPSULE PO SCH ×2 (08:17→21:38)
[2019-03-19] MEDS ORDERED: DILTIAZEM CD 240 MG CAPSULE PO SCH ×2 (09:00→11:16)
[2019-03-19] MEDS: ALBUTEROL 0.4 MG/ML 30 ML/BOTTLE PO SCH ×3 (11:04→21:41)
[2019-03-19] MEDS: DIGOXIN 0.25 MG TABLET PO SCH (16:37)
[2019-03-19] MEDS: THEOPHYLLINE ER (24 HR) 200 MG CAPSULE PO SCH (21:38)
[2019-03-20] MEDS: INSULIN REGULAR 100 UNIT/ML SUBCUT SCH ×5 (00:30→23:45)
[2019-03-20] MEDS: dilTIAZem Drip 125 MG/125 ML PREMIX IV SCH (03:17)
[2019-03-20 04:36] LABS: Basophils % 0.1 % (0.0-0.8); Hematocrit 33.4 VOL% (42.0-52.0); Hemoglobin 11.4 GM/DL (14.0-18.0); Immature Granulocytes % 2.1 %; Immature Granulocytes Absolute 0.27 #; Lymphocytes # 1.1 10*3/uL (1.4-4.0); Lymphocytes % 8.1 % (21.2-54.2); Mean Corpuscular HGB Conc 34.1 GM/DL (32-36); Mean Corpuscular Volume 102.1 FL (87-102); Monocytes % 4.1 % (1.7-12.7); Neutrophils % 85.6 % (38.7-73.9); Platelet Count 233 T/CUMM (130-400); Red Blood Count 3.27 MC/CUMM (3.8-5.5); Red Cell Distribution Width 14.1 % (9.3-17.3); White Blood Count 12.9 T/CUMM (4-12)
[2019-03-20 04:52] LABS: Calcium 8.6 MG/DL (8.5-10.1); Osmolality,Calculated 290.3 MOS/KG (273-304)
[2019-03-20] MEDS: methylPREDNISolone SOD SUC 40 MG/1 ML VIAL IV SCH (05:10)
[2019-03-20] MEDS: LEVOTHYROXINE 100 MCG TABLET PO SCH (06:32)
[2019-03-20] MEDS: valACYclovir 500 MG TABLET PO SCH ×3 (08:36→21:36)
[2019-03-20] MEDS: FUROSEMIDE 20 MG TABLET PO SCH (08:36)
[2019-03-20] MEDS: URSODIOL 300 MG CAPSULE PO SCH ×2 (08:36→21:36)
[2019-03-20] MEDS: MONTELUKAST 10 MG TABLET PO SCH (08:37)
[2019-03-20] MEDS: DILTIAZEM CD 180 MG CAPSULE PO SCH (08:37)
[2019-03-20] MEDS: GABAPENTIN 300 MG CAPSULE PO SCH ×2 (08:38→21:34)
[2019-03-20] MEDS: ASPIRIN CHEW 81 MG TABLET PO SCH (08:38)
[2019-03-20] MEDS: APIXABAN 5 MG TABLET PO SCH ×2 (08:38→21:34)
[2019-03-20] MEDS: PANTOPRAZOLE 40 MG VIAL IV SCH (08:39)
[2019-03-20] MEDS: ALBUTEROL 0.4 MG/ML 30 ML/BOTTLE PO SCH ×3 (08:42→21:37)
[2019-03-20] MEDS: DIGOXIN 0.25 MG TABLET PO SCH (14:30)
[2019-03-20] MEDS: carvediloL 3.125 MG TABLET PO SCH ×2 (14:30→21:34)
[2019-03-20] MEDS ORDERED: methylPREDNISolone SOD SUC 40 MG/1 ML VIAL IV SCH (21:00)
[2019-03-20] MEDS: THEOPHYLLINE ER (24 HR) 200 MG CAPSULE PO SCH (21:35)
[2019-03-21] MEDS: dilTIAZem Drip 125 MG/125 ML PREMIX IV SCH (04:13)
[2019-03-21 04:57] LABS: Basophils % 0.1 % (0.0-0.8); Hematocrit 33.1 VOL% (42.0-52.0); Hemoglobin 11.4 GM/DL (14.0-18.0); Lymphocytes # 1.2 10*3/uL (1.4-4.0); Lymphocytes % 11.8 % (21.2-54.2); Mean Corpuscular HGB Conc 34.4 GM/DL (32-36); Mean Corpuscular Volume 100.6 FL (87-102); Monocytes % 5.2 % (1.7-12.7); Neutrophils % 81.9 % (38.7-73.9); Platelet Count 228 T/CUMM (130-400); Red Blood Count 3.29 MC/CUMM (3.8-5.5); Red Cell Distribution Width 13.3 % (9.3-17.3); White Blood Count 9.7 T/CUMM (4-12)
[2019-03-21 05:21] LABS: Calcium 8.4 MG/DL (8.5-10.1); Osmolality,Calculated 283.5 MOS/KG (273-304)
[2019-03-21] MEDS: LEVOTHYROXINE 100 MCG TABLET PO SCH (06:15)
[2019-03-21] MEDS: INSULIN REGULAR 100 UNIT/ML SUBCUT SCH ×2 (06:28→12:11)
[2019-03-21 08:24] VITALS: BP 141/86
[2019-03-21] MEDS: DILTIAZEM CD 180 MG CAPSULE PO SCH (08:40)
[2019-03-21] MEDS: FUROSEMIDE 20 MG TABLET PO SCH (08:40)
[2019-03-21] MEDS: MONTELUKAST 10 MG TABLET PO SCH (08:41)
[2019-03-21] MEDS: APIXABAN 5 MG TABLET PO SCH (08:41)
[2019-03-21] MEDS: ASPIRIN CHEW 81 MG TABLET PO SCH (08:41)
[2019-03-21] MEDS: valACYclovir 500 MG TABLET PO SCH (08:41)
[2019-03-21] MEDS: URSODIOL 300 MG CAPSULE PO SCH (08:42)
[2019-03-21] MEDS: carvediloL 3.125 MG TABLET PO SCH (08:42)
[2019-03-21] MEDS: GABAPENTIN 300 MG CAPSULE PO SCH (08:42)
[2019-03-21] MEDS ORDERED: PANTOPRAZOLE 40 MG TABLET PO SCH (09:00)
[2019-03-21] MEDS ORDERED: methylPREDNISolone SOD SUC 40 MG/1 ML VIAL IV SCH (09:00)
[2019-03-21] MEDS: ALBUTEROL 0.4 MG/ML 30 ML/BOTTLE PO SCH (09:38)
== END 2019-03-21 13:15 | disposition home health service (06) | DRG 445 ==
LOC: N.ED 16:50 → SUATTDRO 20:43 → N.EDINP 20:43 → N.5E 21:00 → N.TELEN 03-18 03:36
PROVIDERS: ADMIT Internal Medicine; ATTEND Internal Medicine

== ENCOUNTER 2019-08-07 12:24 | Observation (INO) ==
[2019-08-07] MEDS ORDERED: methylPREDNISolone SOD SUC 125 MG/2 ML VIAL IV STA (12:48)
[2019-08-07 12:57] LABS: Basophils # 0.1 10*3/uL (0.0-0.2); Basophils % 0.7 % (0.0-0.8); Eosinophils # 1.1 10*3/uL (0.0-0.87); Eosinophils % 11.4 % (0.00-10.9); Hematocrit 44.2 VOL% (42.0-52.0); Hemoglobin 14.7 GM/DL (14.0-18.0); Immature Granulocytes % 1.4 %; Immature Granulocytes Absolute 0.14 #; Lymphocytes # 2.1 10*3/uL (1.4-4.0); Lymphocytes % 21.4 % (21.2-54.2); Mean Corpuscular HGB Conc 33.3 GM/DL (32-36); Mean Corpuscular Volume 100.9 FL (87-102); Mean Platelet Volume 9.4 FL (9.6-12.0); Monocytes % 11.5 % (1.7-12.7); Neutrophils % 53.6 % (38.7-73.9); Platelet Count 256 T/CUMM (130-400); Red Blood Count 4.38 MC/CUMM (3.8-5.5); Red Cell Distribution Width 13.6 % (9.3-17.3); White Blood Count 9.8 T/CUMM (4-12)
[2019-08-07] MEDS ORDERED: ALBUTEROL NEB SOLN 5 MG/ML 20 ML/BOTTLE CONT NEB SCH (13:00)
[2019-08-07 13:06] LABS: PT Patient Result 11.1 SECS (9.6-12.2)
[2019-08-07 13:12] LABS: Albumin 3.3 G/DL (3.4-5.0); Bilirubin,Total 0.7 MG/DL (0.2-1.0); Calcium 8.9 MG/DL (8.5-10.1); Osmolality,Calculated 283.5 MOS/KG (273-304); Total Protein 7.2 G/DL (6.4-8.3)
[2019-08-07 13:25] LABS: Eosinophils 9 % (0-10); Lymphocytes 30 % (20-55); Segmented Neutrophils 51 % (50-85); Total Cells Counted 100
[2019-08-07 13:26] LABS: Platelet Estimate Normal
[2019-08-07] MEDS ORDERED: ACETAMINOPHEN 325 MG TABLET PO PRN (15:28)
[2019-08-07] MEDS ORDERED: ONDANSETRON 4 MG/2 ML VIAL IV PRN (15:28)
[2019-08-07] MEDS ORDERED: DOCUSATE SODIUM 100 MG CAPSULE PO PRN (15:31)
[2019-08-07] MEDS ORDERED: GLUCAGON 1 MG VIAL IM PRN (15:38)
[2019-08-07] MEDS ORDERED: DEXTROSE 10% 250 ML BAG IV PRN (15:38)
[2019-08-07] MEDS ORDERED: WARFARIN 2.5 MG TABLET PO SCH (18:00)
[2019-08-07] MEDS: INSULIN LISPRO 100 UNIT/ML SUBCUT SCH ×2 (18:01→21:35)
[2019-08-07 19:47] LABS: Apearance,Urine CLEAR (Clear); Bacteria,Urine Occasional /HPF (Few); Bilirubin,Urine Negative (Negative); Blood, Urine Small mg/dL (Negative); Glucose,Urine (UA) >=500 mg/dL (Negative); Hyaline Casts,Urine 7 /LPF (0-3); Ketones,Urine 20 mg/dL (Negative); Mucus,Urine Few /LPF (Occasional); Nitrite,Urine Negative (Negative); Protein,Urine Negative; RBC,Urine 3 /HPF (0-4); Squamous Epithelial Cell,Urine Occasional /HPF (0-10); Urine Color Yellow (Yellow); Urine Specific Gravity 1.021 (1.001-1.035); Urine Urobilinogen < 2.0 EU/DL (0.2-1.0); WBC,Urine 13 /HPF (0-6)
[2019-08-07] MEDS: ALBUTEROL/IPRATROPIUM 3 ML NEB RESP TX SCH (19:54)
[2019-08-07] MEDS: ENOXAPARIN 40 MG/0.4 ML SYRINGE SUBCUT SCH (21:16)
[2019-08-07] MEDS: GABAPENTIN 300 MG CAPSULE PO SCH (21:16)
[2019-08-07] MEDS: THEOPHYLLINE ER (24 HR) 200 MG CAPSULE PO SCH (21:16)
[2019-08-07] MEDS: carvediloL 3.125 MG TABLET PO SCH (21:16)
[2019-08-07] MEDS: CYPROHEPTADINE 4 MG TABLET PO SCH (21:16)
[2019-08-07] MEDS: methylPREDNISolone SOD SUC 40 MG/1 ML VIAL IV SCH (21:16)
[2019-08-07] MEDS: PANTOPRAZOLE 40 MG TABLET PO SCH (21:17)
[2019-08-07] MEDS: FUROSEMIDE 20 MG TABLET PO SCH (21:17)
[2019-08-08] MEDS: ALBUTEROL/IPRATROPIUM 3 ML NEB RESP TX SCH ×7 (00:21→22:52)
[2019-08-08 05:37] LABS: INR 1.1; PT Patient Result 11.5 SECS (9.6-12.2)
[2019-08-08 06:05] LABS: Calcium 9.5 MG/DL (8.5-10.1); Risk Ratio 4.49; Thyroid Stimulating Hormone 0.525 uIU/ml (0.358-3.74)
[2019-08-08 06:10] LABS: Basophils % 0.2 % (0.0-0.8); Eosinophils % 0.2 % (0.00-10.9); Hematocrit 40.7 VOL% (42.0-52.0); Hemoglobin 13.8 GM/DL (14.0-18.0); Immature Granulocytes % 1.7 %; Immature Granulocytes Absolute 0.18 #; Lymphocytes # 1.8 10*3/uL (1.4-4.0); Lymphocytes % 16.1 % (21.2-54.2); Mean Corpuscular HGB Conc 33.9 GM/DL (32-36); Mean Corpuscular Volume 98.5 FL (87-102); Mean Platelet Volume 10.3 FL (9.6-12.0); Monocytes % 2.8 % (1.7-12.7); Platelet Count 228 T/CUMM (130-400); Red Blood Count 4.13 MC/CUMM (3.8-5.5); Red Cell Distribution Width 13.6 % (9.3-17.3); White Blood Count 10.9 T/CUMM (4-12)
[2019-08-08] MEDS: LEVOTHYROXINE 100 MCG TABLET PO SCH (06:19)
[2019-08-08] MEDS: methylPREDNISolone SOD SUC 40 MG/1 ML VIAL IV SCH ×3 (06:19→21:31)
[2019-08-08 06:21] LABS: Hypochromasia Slight; Macrocytosis Slight
[2019-08-08 06:22] LABS: Platelet Estimate Normal
[2019-08-08] MEDS ORDERED: PANTOPRAZOLE 40 MG TABLET PO SCH (09:00)
[2019-08-08] MEDS: GABAPENTIN 300 MG CAPSULE PO SCH ×2 (09:01→21:32)
[2019-08-08] MEDS: INSULIN LISPRO 100 UNIT/ML SUBCUT SCH ×4 (09:01→21:31)
[2019-08-08] MEDS: hydroCHLOROthiazide 25 MG TABLET PO SCH (09:01)
[2019-08-08] MEDS: CYPROHEPTADINE 4 MG TABLET PO SCH ×3 (09:01→21:31)
[2019-08-08] MEDS: ASPIRIN CHEW 81 MG TABLET PO SCH (09:02)
[2019-08-08] MEDS: DIGOXIN 0.125 MG TABLET PO SCH (09:02)
[2019-08-08] MEDS: FUROSEMIDE 20 MG TABLET PO SCH ×2 (09:02→21:31)
[2019-08-08] MEDS: MONTELUKAST 10 MG TABLET PO SCH (09:02)
[2019-08-08] MEDS: PANTOPRAZOLE 40 MG TABLET PO SCH ×2 (09:02→21:32)
[2019-08-08] MEDS: carvediloL 3.125 MG TABLET PO SCH ×2 (09:02→17:44)
[2019-08-08] MEDS: DILTIAZEM CD 120 MG CAPSULE PO SCH (09:04)
[2019-08-08] MEDS: TAMSULOSIN 0.4 MG CAPSULE PO SCH (15:36)
[2019-08-08] MEDS ORDERED: WARFARIN 10 MG TABLET PO ONE (18:00)
[2019-08-08] MEDS: THEOPHYLLINE ER (24 HR) 200 MG CAPSULE PO SCH (21:31)
[2019-08-08] MEDS: ENOXAPARIN 40 MG/0.4 ML SYRINGE SUBCUT SCH (21:31)
[2019-08-09] MEDS: ALBUTEROL/IPRATROPIUM 3 ML NEB RESP TX SCH ×3 (02:07→11:17)
[2019-08-09] MEDS: methylPREDNISolone SOD SUC 40 MG/1 ML VIAL IV SCH ×2 (05:37→12:30)
[2019-08-09] MEDS: LEVOTHYROXINE 100 MCG TABLET PO SCH (05:37)
[2019-08-09 06:43] LABS: Basophils % 0.1 % (0.0-0.8); Hemoglobin 12.6 GM/DL (14.0-18.0); Immature Granulocytes % 1.7 %; Immature Granulocytes Absolute 0.31 #; Lymphocytes # 1.6 10*3/uL (1.4-4.0); Lymphocytes % 8.3 % (21.2-54.2); Mean Corpuscular HGB Conc 33.2 GM/DL (32-36); Mean Platelet Volume 9.8 FL (9.6-12.0); Monocytes % 3.8 % (1.7-12.7); Neutrophils % 86.1 % (38.7-73.9); Platelet Count 222 T/CUMM (130-400); Red Blood Count 3.84 MC/CUMM (3.8-5.5); Red Cell Distribution Width 13.4 % (9.3-17.3); White Blood Count 18.7 T/CUMM (4-12)
[2019-08-09 06:48] LABS: INR 1.3; PT Patient Result 14.2 SECS (9.6-12.2)
[2019-08-09 07:04] LABS: Calcium 8.7 MG/DL (8.5-10.1); Osmolality,Calculated 291.1 MOS/KG (273-304)
[2019-08-09] MEDS ORDERED: INSULIN GLARGINE 100 UNIT/ML SUBCUT SCH (09:00)
[2019-08-09] MEDS: DIGOXIN 0.125 MG TABLET PO SCH (09:11)
[2019-08-09] MEDS: hydroCHLOROthiazide 25 MG TABLET PO SCH (09:11)
[2019-08-09] MEDS: DILTIAZEM CD 120 MG CAPSULE PO SCH (09:11)
[2019-08-09] MEDS: carvediloL 3.125 MG TABLET PO SCH (09:11)
[2019-08-09] MEDS: GABAPENTIN 300 MG CAPSULE PO SCH (09:11)
[2019-08-09] MEDS: CYPROHEPTADINE 4 MG TABLET PO SCH (09:11)
[2019-08-09] MEDS: MONTELUKAST 10 MG TABLET PO SCH (09:11)
[2019-08-09] MEDS: FUROSEMIDE 20 MG TABLET PO SCH (09:11)
[2019-08-09] MEDS: TAMSULOSIN 0.4 MG CAPSULE PO SCH (09:11)
[2019-08-09] MEDS: INSULIN LISPRO 100 UNIT/ML SUBCUT SCH ×2 (09:12→12:03)
[2019-08-09] MEDS: PANTOPRAZOLE 40 MG TABLET PO SCH (09:12)
[2019-08-09] MEDS: ASPIRIN CHEW 81 MG TABLET PO SCH (09:12)
[2019-08-09 12:26] VITALS: BP 123/74
[2019-08-09] MEDS ORDERED: WARFARIN 5 MG TABLET PO SCH (18:00)
== END 2019-08-09 13:58 | disposition home or self-care (01) ==
LOC: EDBD → EDUNIT# → N.EDINP 12:24 → N.ED 12:24 → SUATTDRO 15:17 → N.EDINP 16:46 → N.5E 17:05
PROVIDERS: ADMIT Internal Medicine; ATTEND Internal Medicine

== ENCOUNTER 2019-12-26 11:42 | Inpatient (IN) ==
[2019-12-26] MEDS ORDERED: ONDANSETRON 4 MG/2 ML VIAL IV STA (12:18)
[2019-12-26] MEDS ORDERED: SODIUM CHLORIDE 0.9% 500 ML IV STA ×2 (12:18→15:07)
[2019-12-26 13:00] LABS: Basophils # 0.1 10*3/uL (0.0-0.2); Basophils % 0.7 % (0.0-0.8); Eosinophils # 0.1 10*3/uL (0.0-0.87); Eosinophils % 1.5 % (0.00-10.9); Hematocrit 38.1 VOL% (42.0-52.0); Hemoglobin 13.1 GM/DL (14.0-18.0); Immature Granulocytes % 0.4 %; Immature Granulocytes Absolute 0.03 #; Lymphocytes # 3.1 10*3/uL (1.4-4.0); Lymphocytes % 45.2 % (21.2-54.2); Mean Corpuscular HGB Conc 34.4 GM/DL (32-36); Mean Corpuscular Volume 98.2 FL (87-102); Mean Platelet Volume 10.9 FL (9.6-12.0); Monocytes % 10.8 % (1.7-12.7); Neutrophils % 41.4 % (38.7-73.9); Platelet Count 244 T/CUMM (130-400); Red Blood Count 3.88 MC/CUMM (3.8-5.5); Red Cell Distribution Width 14.2 % (9.3-17.3); White Blood Count 6.9 T/CUMM (4-12)
[2019-12-26 13:21] LABS: Apearance,Urine CLEAR (Clear); Bilirubin,Urine Negative (Negative); Blood, Urine Negative (Negative); Glucose,Urine (UA) >=500 mg/dL (Negative); Hyaline Casts,Urine 7 /LPF (0-3); Ketones,Urine Negative (Negative); Nitrite,Urine Negative (Negative); Protein,Urine Negative; RBC,Urine 3 /HPF (0-4); Urine Color Straw (Yellow); Urine Specific Gravity 1.006 (1.001-1.035); Urine Urobilinogen < 2.0 EU/DL (0.2-1.0); WBC,Urine 2 /HPF (0-6)
[2019-12-26 13:27] LABS: Bilirubin,Total 0.6 MG/DL (0.2-1.0); Calcium 9.3 MG/DL (8.5-10.1); Osmolality,Calculated 278.5 MOS/KG (273-304); Total Protein 7.1 G/DL (6.4-8.3)
[2019-12-26] MEDS ORDERED: DILTIAZEM 50 MG/10 ML VIAL IV STA (15:25)
[2019-12-26] MEDS ORDERED: dilTIAZem Drip 125 MG/125 ML PREMIX IV ONE (15:25)
[2019-12-26] MEDS ORDERED: DILTIAZEM INJ 100 MG in SODIUM CHLORIDE 0.9% 100 ML IV SCH (15:30)
[2019-12-26] MEDS: dilTIAZem Drip 125 MG/125 ML PREMIX IV SCH (15:31)
[2019-12-26] MEDS ORDERED: ONDANSETRON 4 MG/2 ML VIAL IV PRN (16:22)
[2019-12-26] MEDS ORDERED: ACETAMINOPHEN 325 MG TABLET PO PRN (16:22)
[2019-12-26] MEDS ORDERED: hydrALAZINE 20 MG/1 ML VIAL IV PRN (16:22)
[2019-12-26] MEDS ORDERED: DOCUSATE SODIUM 100 MG CAPSULE PO PRN (16:22)
[2019-12-26] MEDS ORDERED: GLUCAGON 1 MG VIAL IM PRN (16:22)
[2019-12-26] MEDS ORDERED: DEXTROSE 50% 25 GM/50 ML VIAL IV PRN (16:22)
[2019-12-26 17:23] LABS: INR 1.2; PT Patient Result 13.1 SECS (9.8-11.9); Partial Thromboplastin Time 28.3 SECS (23.9-33.8)
[2019-12-26] MEDS: INSULIN LISPRO 100 UNIT/ML SUBCUT SCH ×2 (17:34→21:45)
[2019-12-26 20:13] LABS: Risk Ratio 5.25; Thyroid Stimulating Hormone 2.7 uIU/ml (0.358-3.74); VLDL CHOLESTEROL 19.8 MG/DL
[2019-12-26] MEDS ORDERED: ENOXAPARIN 40 MG/0.4 ML SYRINGE SUBCUT SCH (21:00)
[2019-12-26] MEDS ORDERED: carvediloL 3.125 MG TABLET PO SCH (21:00)
[2019-12-26] MEDS: THEOPHYLLINE ER (24 HR) 400 MG TABLET PO SCH (21:47)
[2019-12-26] MEDS: PANTOPRAZOLE 40 MG TABLET PO SCH (21:48)
[2019-12-27] MEDS: LEVOTHYROXINE 100 MCG TABLET PO SCH (05:47)
[2019-12-27 06:56] LABS: Basophils % 0.6 % (0.0-0.8); Eosinophils # 0.1 10*3/uL (0.0-0.87); Eosinophils % 1.6 % (0.00-10.9); Hematocrit 38.7 VOL% (42.0-52.0); Hemoglobin 13.3 GM/DL (14.0-18.0); Immature Granulocytes % 0.4 %; Immature Granulocytes Absolute 0.03 #; Lymphocytes # 3.5 10*3/uL (1.4-4.0); Lymphocytes % 50.1 % (21.2-54.2); Mean Corpuscular HGB Conc 34.4 GM/DL (32-36); Mean Corpuscular Volume 97.2 FL (87-102); Mean Platelet Volume 11.3 FL (9.6-12.0); Monocytes % 11.4 % (1.7-12.7); Neutrophils % 35.9 % (38.7-73.9); Platelet Count 222 T/CUMM (130-400); Red Blood Count 3.98 MC/CUMM (3.8-5.5); Red Cell Distribution Width 14.5 % (9.3-17.3); White Blood Count 6.9 T/CUMM (4-12)
[2019-12-27 07:18] LABS: Eosinophils 1 % (0-10); Lymphocytes 49 % (20-55); Platelet Estimate Adequate; Segmented Neutrophils 38 % (50-85); Total Cells Counted 100
[2019-12-27 07:28] LABS: Calcium 9.1 MG/DL (8.5-10.1); Osmolality,Calculated 276.3 MOS/KG (273-304)
[2019-12-27] MEDS: DILTIAZEM CD 120 MG CAPSULE PO SCH ×2 (09:30→21:07)
[2019-12-27] MEDS: ASPIRIN CHEW 81 MG TABLET PO SCH (09:30)
[2019-12-27] MEDS: INSULIN LISPRO 100 UNIT/ML SUBCUT SCH ×4 (09:30→21:07)
[2019-12-27] MEDS: PANTOPRAZOLE 40 MG TABLET PO SCH ×2 (09:30→21:07)
[2019-12-27] MEDS: METOPROLOL TARTRATE 25 MG TABLET PO SCH ×2 (09:30→21:07)
[2019-12-27 13:02] LABS: INR 1.2; PT Patient Result 12.8 SECS (9.8-11.9)
[2019-12-27] MEDS: DIGOXIN 0.125 MG TABLET PO SCH (13:16)
[2019-12-27] MEDS: THEOPHYLLINE ER (24 HR) 400 MG TABLET PO SCH (21:06)
[2019-12-27] MEDS: ENOXAPARIN 80 MG/0.8 ML SYRINGE SUBCUT SCH (21:07)
[2019-12-28] MEDS: dilTIAZem Drip 125 MG/125 ML PREMIX IV SCH ×2 (02:37→14:19)
[2019-12-28 04:08] LABS: Basophils % 0.7 % (0.0-0.8); Eosinophils # 0.2 10*3/uL (0.0-0.87); Eosinophils % 3.4 % (0.00-10.9); Hematocrit 37.1 VOL% (42.0-52.0); Hemoglobin 12.5 GM/DL (14.0-18.0); Immature Granulocytes % 0.3 %; Immature Granulocytes Absolute 0.02 #; Lymphocytes # 2.7 10*3/uL (1.4-4.0); Lymphocytes % 46.2 % (21.2-54.2); Mean Corpuscular HGB Conc 33.7 GM/DL (32-36); Mean Corpuscular Volume 98.9 FL (87-102); Mean Platelet Volume 11.1 FL (9.6-12.0); Monocytes % 13.2 % (1.7-12.7); Neutrophils % 36.2 % (38.7-73.9); Platelet Count 222 T/CUMM (130-400); Red Blood Count 3.75 MC/CUMM (3.8-5.5); Red Cell Distribution Width 14.4 % (9.3-17.3); White Blood Count 5.9 T/CUMM (4-12)
[2019-12-28 04:29] LABS: INR 1.3; PT Patient Result 13.4 SECS (9.8-11.9)
[2019-12-28 04:35] LABS: Osmolality,Calculated 275.5 MOS/KG (273-304)
[2019-12-28 04:44] LABS: Band Neutrophils 3 % (0-10); Eosinophils 4 % (0-10); Hypochromasia 1+; Lymphocytes 49 % (20-55); Platelet Estimate Adequate; Segmented Neutrophils 38 % (50-85); Total Cells Counted 100
[2019-12-28] MEDS: LEVOTHYROXINE 100 MCG TABLET PO SCH (06:04)
[2019-12-28] MEDS: DILTIAZEM CD 120 MG CAPSULE PO SCH (09:09)
[2019-12-28] MEDS: POTASSIUM CHLORIDE 20 MEQ TABLET PO PRN (09:11)
[2019-12-28] MEDS: METOPROLOL TARTRATE 25 MG TABLET PO SCH ×2 (09:11→20:31)
[2019-12-28] MEDS: ASPIRIN CHEW 81 MG TABLET PO SCH (09:11)
[2019-12-28] MEDS: PANTOPRAZOLE 40 MG TABLET PO SCH ×2 (09:11→20:30)
[2019-12-28] MEDS: ENOXAPARIN 80 MG/0.8 ML SYRINGE SUBCUT SCH ×2 (09:11→20:31)
[2019-12-28] MEDS: INSULIN LISPRO 100 UNIT/ML SUBCUT SCH ×4 (09:12→20:31)
[2019-12-28] MEDS ORDERED: DILTIAZEM CD 180 MG CAPSULE PO SCH (09:22)
[2019-12-28] MEDS ORDERED: DILTIAZEM 60 MG TABLET PO ONE (09:43)
[2019-12-28] MEDS ORDERED: WARFARIN 7.5 MG TABLET PO ONE (12:34)
[2019-12-28] MEDS: ALBUTEROL/IPRATROPIUM 3 ML NEB RESP TX SCH ×2 (12:46→19:35)
[2019-12-28] MEDS: BUDESONIDE/FORMOTEROL 160-4.5 INHALER 6 GM INH SCH ×2 (13:42→20:34)
[2019-12-28] MEDS: DIGOXIN 0.125 MG TABLET PO SCH (13:42)
[2019-12-28] MEDS: THEOPHYLLINE ER (24 HR) 400 MG TABLET PO SCH (20:30)
[2019-12-28] MEDS: DILTIAZEM CD 180 MG CAPSULE PO SCH (20:30)
[2019-12-29] MEDS: ALBUTEROL/IPRATROPIUM 3 ML NEB RESP TX SCH ×4 (00:12→19:21)
[2019-12-29 04:54] LABS: Basophils % 0.7 % (0.0-0.8); Eosinophils # 0.1 10*3/uL (0.0-0.87); Eosinophils % 2.2 % (0.00-10.9); Hematocrit 36.8 VOL% (42.0-52.0); Hemoglobin 12.4 GM/DL (14.0-18.0); Immature Granulocytes % 0.7 %; Immature Granulocytes Absolute 0.04 #; Lymphocytes # 2.9 10*3/uL (1.4-4.0); Lymphocytes % 48.7 % (21.2-54.2); Mean Corpuscular HGB Conc 33.7 GM/DL (32-36); Mean Corpuscular Volume 97.9 FL (87-102); Mean Platelet Volume 11.5 FL (9.6-12.0); Monocytes % 14.1 % (1.7-12.7); Neutrophils % 33.6 % (38.7-73.9); Platelet Count 212 T/CUMM (130-400); Red Blood Count 3.76 MC/CUMM (3.8-5.5); Red Cell Distribution Width 14.2 % (9.3-17.3); White Blood Count 5.9 T/CUMM (4-12)
[2019-12-29 05:08] LABS: INR 1.2; PT Patient Result 13.2 SECS (9.8-11.9)
[2019-12-29 05:20] LABS: Osmolality,Calculated 271.7 MOS/KG (273-304)
[2019-12-29 05:36] LABS: Eosinophils 6 % (0-10); Lymphocytes 39 % (20-55); Platelet Estimate Adequate; Segmented Neutrophils 39 % (50-85); Total Cells Counted 100
[2019-12-29 05:37] LABS: Hypochromasia 1+
[2019-12-29] MEDS: LEVOTHYROXINE 100 MCG TABLET PO SCH (06:04)
[2019-12-29] MEDS: INSULIN LISPRO 100 UNIT/ML SUBCUT SCH ×4 (07:46→20:33)
[2019-12-29] MEDS: METOPROLOL TARTRATE 5 MG/5 ML VIAL IV SCH ×2 (09:00→11:36)
[2019-12-29] MEDS: PANTOPRAZOLE 40 MG TABLET PO SCH ×2 (09:16→20:36)
[2019-12-29] MEDS: METOPROLOL TARTRATE 25 MG TABLET PO SCH ×2 (09:16→09:56)
[2019-12-29] MEDS: ENOXAPARIN 80 MG/0.8 ML SYRINGE SUBCUT SCH (09:16)
[2019-12-29] MEDS: DILTIAZEM CD 180 MG CAPSULE PO SCH ×2 (09:16→10:41)
[2019-12-29] MEDS: BUDESONIDE/FORMOTEROL 160-4.5 INHALER 6 GM INH SCH ×2 (09:26→20:40)
[2019-12-29] MEDS: POTASSIUM CHLORIDE 20 MEQ TABLET PO PRN (09:30)
[2019-12-29] MEDS: ASPIRIN CHEW 81 MG TABLET PO SCH (09:34)
[2019-12-29] MEDS ORDERED: METOPROLOL TARTRATE 25 MG TABLET PO SCH (09:54)
[2019-12-29] MEDS: DIGOXIN 0.125 MG TABLET PO SCH (14:02)
[2019-12-29] MEDS: BRIMONIDINE 0.1% OPH SOLN 5 ML BOTTLE BOTH EYES SCH (20:33)
[2019-12-29] MEDS: THEOPHYLLINE ER (24 HR) 400 MG TABLET PO SCH (20:34)
[2019-12-29] MEDS: DILTIAZEM CD 120 MG CAPSULE PO SCH (20:35)
[2019-12-30] MEDS: ALBUTEROL/IPRATROPIUM 3 ML NEB RESP TX SCH ×3 (00:22→12:42)
[2019-12-30] MEDS: LEVOTHYROXINE 100 MCG TABLET PO SCH ×2 (05:36→14:35)
[2019-12-30 05:46] LABS: INR 1.3; PT Patient Result 13.5 SECS (9.8-11.9)
[2019-12-30] MEDS ORDERED: DIGOXIN 0.25 MG TABLET PO ONE (06:44)
[2019-12-30] MEDS ORDERED: LACTATED RINGERS 1,000 ML IV SCH (08:00)
[2019-12-30] MEDS ORDERED: propofoL 200 MG/20 ML VIAL IV ONE (09:00)
[2019-12-30] MEDS ORDERED: LIDOCAINE 2% 5 ML VIAL ONE (09:00)
[2019-12-30] MEDS ORDERED: METOPROLOL SUCCINATE XL 100 MG TABLET PO SCH (09:00)
[2019-12-30] MEDS: INSULIN LISPRO 100 UNIT/ML SUBCUT SCH ×3 (10:12→17:12)
[2019-12-30] MEDS ORDERED: WARFARIN 7.5 MG TABLET PO ONE ×2 (12:33→14:46)
[2019-12-30] MEDS ORDERED: DIGOXIN 0.25 MG TABLET PO SCH (13:00)
[2019-12-30] MEDS: DILTIAZEM CD 120 MG CAPSULE PO SCH (14:35)
[2019-12-30] MEDS: ASPIRIN CHEW 81 MG TABLET PO SCH (14:35)
[2019-12-30] MEDS: PANTOPRAZOLE 40 MG TABLET PO SCH (14:35)
[2019-12-30] MEDS: BUDESONIDE/FORMOTEROL 160-4.5 INHALER 6 GM INH SCH (14:36)
[2019-12-30] MEDS: BRIMONIDINE 0.1% OPH SOLN 5 ML BOTTLE BOTH EYES SCH ×2 (14:36→16:59)
[2019-12-30 16:04] VITALS: BP 129/84
== END 2019-12-30 17:38 | disposition home health service (06) | DRG 309 ==
LOC: N.ED 11:42 → N.EDINP 15:56 → SUATTDRO 15:56 → N.EDINP 18:12 → N.TELEN 18:45
PROVIDERS: ADMIT Internal Medicine; ATTEND Internal Medicine

== ENCOUNTER 2020-03-26 09:24 | Observation (INO) ==
[2020-03-26] MEDS ORDERED: SODIUM CHLORIDE 0.9% 1,000 ML IV STA (10:16)
[2020-03-26] MEDS ORDERED: ONDANSETRON 4 MG/2 ML VIAL IV STA (10:16)
[2020-03-26 10:39] LABS: Basophils # 0.1 10*3/uL (0.0-0.2); Basophils % 0.7 % (0.0-0.8); Eosinophils # 0.2 10*3/uL (0.0-0.87); Eosinophils % 2.9 % (0.00-10.9); Hematocrit 42.4 VOL% (42.0-52.0); Hemoglobin 14.7 GM/DL (14.0-18.0); Immature Granulocytes % 0.8 %; Immature Granulocytes Absolute 0.06 #; Lymphocytes # 2.9 10*3/uL (1.4-4.0); Lymphocytes % 39.3 % (21.2-54.2); Mean Corpuscular HGB Conc 34.7 GM/DL (32-36); Mean Corpuscular Volume 95.3 FL (87-102); Mean Platelet Volume 9.9 FL (9.6-12.0); Monocytes % 9.8 % (1.7-12.7); Neutrophils % 46.5 % (38.7-73.9); Platelet Count 265 T/CUMM (130-400); Red Blood Count 4.45 MC/CUMM (3.8-5.5); Red Cell Distribution Width 14.5 % (9.3-17.3); White Blood Count 7.4 T/CUMM (4-12)
[2020-03-26 11:14] LABS: Bilirubin,Urine Negative (Negative); Blood, Urine Negative (Negative); Glucose,Urine (UA) 50 mg/dL (Negative); Hyaline Casts,Urine 165 /LPF (0-3); Ketones,Urine 20 mg/dL (Negative); Mucus,Urine Few /LPF (Occasional); Nitrite,Urine Negative (Negative); Protein,Urine 100 MG/DL; RBC,Urine 3 /HPF (0-4); Squamous Epithelial Cell,Urine Occasional /HPF (0-10); Urine Appearance Slightly Hazy (Clear); Urine Color Amber (Yellow); Urine Specific Gravity 1.019 (1.001-1.035); WBC,Urine 14 /HPF (0-6)
[2020-03-26 11:27] LABS: Albumin 3.1 G/DL (3.4-5.0); Bilirubin,Total 0.4 MG/DL (0.2-1.0); Osmolality,Calculated 277.8 MOS/KG (273-304); Total Protein 7.5 G/DL (6.4-8.3)
[2020-03-26 11:55] LABS: INR 3.3
[2020-03-26 11:58] LABS: PT Patient Result 33.4 SECS (9.8-11.9)
[2020-03-26] MEDS ORDERED: cefTRIAXone 1,000 MG in SODIUM CHLORIDE 0.9% 100 ML IV STA (13:11)
[2020-03-26] MEDS ORDERED: cefTRIAXone 1,000 MG in SYRINGE 1 EACH IV STA (13:15)
[2020-03-26] MEDS ORDERED: SODIUM PHOSPHATE ENEMA 133 ML BOTTLE RECTAL ONE (14:34)
[2020-03-26] MEDS ORDERED: ALBUTEROL/IPRATROPIUM 3 ML NEB RESP TX PRN (14:34)
[2020-03-26] MEDS ORDERED: GLUCAGON 1 MG VIAL IM PRN (14:34)
[2020-03-26] MEDS ORDERED: DEXTROSE 50% 25 GM/50 ML VIAL IV PRN (14:34)
[2020-03-26] MEDS ORDERED: PROMETHAZINE INJ 12.5 MG in SODIUM CHLORIDE 0.9% 50 ML IV PRN (16:01)
[2020-03-26] MEDS ORDERED: PNEUMOCOCCAL VACCINE (13 VALENT) 0.5 ML SYRINGE IM ONE (16:13)
[2020-03-26 16:35] LABS: Ferritin 1921.3 ng/ml (26-388)
[2020-03-26] MEDS: SODIUM CHLORIDE 0.9% 1,000 ML IV SCH (16:44)
[2020-03-26] MEDS: metroNIDAZOLE INJ 500 MG in PREMIX 1 EACH IV SCH (16:44)
[2020-03-26] MEDS: INSULIN LISPRO 100 UNIT/ML SUBCUT SCH ×2 (17:11→20:25)
[2020-03-26] MEDS: CIPROFLOXACIN INJ 400 MG in PREMIX 1 EACH IV SCH (18:33)
[2020-03-27] MEDS: metroNIDAZOLE INJ 500 MG in PREMIX 1 EACH IV SCH ×3 (00:38→16:49)
[2020-03-27] MEDS: ALBUTEROL INHALER 18 GM INH SCH ×4 (03:40→15:01)
[2020-03-27 05:32] LABS: Basophils # 0.1 10*3/uL (0.0-0.2); Basophils % 0.7 % (0.0-0.8); Eosinophils # 0.3 10*3/uL (0.0-0.87); Eosinophils % 4.4 % (0.00-10.9); Hematocrit 40.3 VOL% (42.0-52.0); Hemoglobin 13.9 GM/DL (14.0-18.0); Immature Granulocytes % 0.8 %; Immature Granulocytes Absolute 0.06 #; Lymphocytes # 2.9 10*3/uL (1.4-4.0); Lymphocytes % 40.7 % (21.2-54.2); Mean Corpuscular HGB Conc 34.5 GM/DL (32-36); Mean Platelet Volume 10.3 FL (9.6-12.0); Monocytes % 12.8 % (1.7-12.7); Neutrophils % 40.6 % (38.7-73.9); Platelet Count 249 T/CUMM (130-400); Red Cell Distribution Width 14.7 % (9.3-17.3); White Blood Count 7.1 T/CUMM (4-12)
[2020-03-27 06:00] LABS: Alanine Aminotransferase 15 U/L (16-61); Albumin 2.9 G/DL (3.4-5.0); Alkaline Phosphatase 77 U/L (45-117); Aspartate Amino Transferase 15 U/L (0-37); Bilirubin,Total < 0.39 MG/DL (0.2-1.0); Blood Urea Nitrogen 7 MG/DL (7-18); Calcium 9.4 MG/DL (8.5-10.1); Estimated Glom Filtration Rate 102 ML/MIN; Glucose 103 MG/DL (74-106); Osmolality,Calculated 272.7 MOS/KG (273-304); Total Protein 6.9 G/DL (6.4-8.3)
[2020-03-27] MEDS: CIPROFLOXACIN INJ 400 MG in PREMIX 1 EACH IV SCH (06:25)
[2020-03-27] MEDS: INSULIN LISPRO 100 UNIT/ML SUBCUT SCH ×3 (08:09→16:49)
[2020-03-27 09:20] LABS: INR 3.1; PT Patient Result 31.2 SECS (9.8-11.9)
[2020-03-27 16:24] VITALS: BP 134/79
[2020-03-27] MEDS: SODIUM CHLORIDE 0.9% 1,000 ML IV SCH (16:49)
[2020-03-27] MEDS ORDERED: PANTOPRAZOLE 40 MG TABLET PO SCH (21:00)
[2020-03-28] MEDS ORDERED: LEVOTHYROXINE 100 MCG TABLET PO SCH (06:30)
[2020-03-28] MEDS ORDERED: FLUCONAZOLE 100 MG TABLET PO SCH (09:00)
[2020-03-28] MEDS ORDERED: OXYBUTYNIN XL 5 MG TABLET PO SCH (09:00)
[2020-03-28] MEDS ORDERED: DIGOXIN 0.125 MG TABLET PO SCH (13:00)
== END 2020-03-27 17:00 | disposition home or self-care (01) ==
LOC: N.ED 09:24 → N.2E 15:30 → SUATTDRO 15:44 → N.2E 15:44 → INTOOBSV 15:44
PROVIDERS: ADMIT Internal Medicine; ATTEND Internal Medicine

== ENCOUNTER 2020-04-09 11:53 | Inpatient (IN) ==
[2020-04-09] MEDS ORDERED: ONDANSETRON 4 MG/2 ML VIAL IV STA (13:11)
[2020-04-09] MEDS ORDERED: SODIUM CHLORIDE 0.9% 1,000 ML IV STA (13:11)
[2020-04-09 13:47] LABS: Basophils # 0.1 10*3/uL (0.0-0.2); Basophils % 0.9 % (0.0-0.8); Eosinophils # 0.9 10*3/uL (0.0-0.87); Eosinophils % 11.1 % (0.00-10.9); Hematocrit 44.1 VOL% (42.0-52.0); Hemoglobin 15.8 GM/DL (14.0-18.0); Immature Granulocytes % 0.6 %; Immature Granulocytes Absolute 0.05 #; Lymphocytes # 2.9 10*3/uL (1.4-4.0); Mean Corpuscular HGB Conc 35.8 GM/DL (32-36); Mean Corpuscular Volume 93.6 FL (87-102); Mean Platelet Volume 9.9 FL (9.6-12.0); Monocytes % 8.5 % (1.7-12.7); Neutrophils % 42.9 % (38.7-73.9); Platelet Count 273 T/CUMM (130-400); Red Blood Count 4.71 MC/CUMM (3.8-5.5); Red Cell Distribution Width 15.3 % (9.3-17.3); White Blood Count 8.1 T/CUMM (4-12)
[2020-04-09 14:11] LABS: Alanine Aminotransferase 15 U/L (16-61); Albumin 3.6 G/DL (3.4-5.0); Alkaline Phosphatase 91 U/L (45-117); Aspartate Amino Transferase 19 U/L (0-37); Blood Urea Nitrogen 10 MG/DL (7-18); Calcium 9.9 MG/DL (8.5-10.1); Estimated Glom Filtration Rate 72 ML/MIN; Glucose 164 MG/DL (74-106); Osmolality,Calculated 277.7 MOS/KG (273-304); Total Protein 7.5 G/DL (6.4-8.3)
[2020-04-09] MEDS ORDERED: DILTIAZEM 50 MG/10 ML VIAL IV STA (14:34)
[2020-04-09 14:47] LABS: Blood, Urine Negative (Negative); Glucose,Urine (UA) Negative (Negative); Hyaline Casts,Urine 193 /LPF (0-3); Ketones,Urine 20 mg/dL (Negative); Mucus,Urine Occasional /LPF (Occasional); Nitrite,Urine Negative (Negative); Protein,Urine 100 MG/DL; Squamous Epithelial Cell,Urine Occasional /HPF (0-10); Urine Appearance Slightly Hazy (Clear); Urine Color Amber (Yellow); Urine Specific Gravity 1.027 (1.001-1.035); Urine Urobilinogen < 2.0 EU/DL (0.2-1.0); WBC,Urine 18 /HPF (0-6)
[2020-04-09 14:48] LABS: Bilirubin,Urine Small mg/dL (Negative)
[2020-04-09] MEDS ORDERED: dilTIAZem Drip 125 MG/125 ML PREMIX IV SCH (15:00)
[2020-04-09 15:15] LABS: Theophylline 13.9 UG/ML (10-20)
[2020-04-09 15:16] LABS: INR 1.2; PT Patient Result 13.1 SECS (9.8-11.9); Partial Thromboplastin Time 21.9 SECS (23.9-33.8)
[2020-04-09] MEDS ORDERED: GLUCAGON 1 MG VIAL IM PRN (15:25)
[2020-04-09] MEDS ORDERED: ONDANSETRON 4 MG/2 ML VIAL IV PRN (15:25)
[2020-04-09] MEDS ORDERED: DEXTROSE 50% 25 GM/50 ML VIAL IV PRN (15:25)
[2020-04-09 17:16] LABS: Eosinophils 12 % (0-10); Lymphocytes 33 % (20-55); Segmented Neutrophils 45 % (50-85); Total Cells Counted 100
[2020-04-09] MEDS ORDERED: SODIUM CHLORIDE 0.9% 1,000 ML IV ONE (17:42)
[2020-04-09] MEDS: METOPROLOL SUCCINATE XL 50 MG TABLET PO SCH (18:18)
[2020-04-09] MEDS: ASPIRIN EC 81 MG TABLET PO SCH (18:18)
[2020-04-09] MEDS: INSULIN LISPRO 100 UNIT/ML SUBCUT SCH ×2 (18:19→20:54)
[2020-04-09] MEDS: SODIUM CHLORIDE 0.9% 1,000 ML IV SCH (20:53)
[2020-04-09] MEDS: DILTIAZEM CD 180 MG CAPSULE PO SCH (20:54)
[2020-04-09] MEDS: BRIMONIDINE 0.1% OPH SOLN 5 ML BOTTLE BOTH EYES SCH (20:54)
[2020-04-09] MEDS: PANTOPRAZOLE 40 MG TABLET PO SCH (20:54)
[2020-04-09] MEDS: BUDESONIDE/FORMOTEROL 160-4.5 INHALER 6 GM INH SCH (20:54)
[2020-04-09] MEDS ORDERED: LEVALBUTEROL 1.25 MG/3 ML NEB RESP TX SCH (20:55)
[2020-04-09] MEDS ORDERED: WARFARIN 5 MG TABLET PO SCH (21:00)
[2020-04-09] MEDS: LEVALBUTEROL 1.25 MG/3 ML NEB RESP TX SCH (21:15)
[2020-04-10] MEDS: LEVALBUTEROL 1.25 MG/3 ML NEB RESP TX SCH ×2 (00:04→07:07)
[2020-04-10] MEDS ORDERED: LEVALBUTEROL 1.25 MG/3 ML NEB RESP TX SCH (01:00)
[2020-04-10] MEDS: SODIUM CHLORIDE 0.9% 1,000 ML IV SCH ×3 (04:15→21:31)
[2020-04-10] MEDS: LEVOTHYROXINE 100 MCG TABLET PO SCH (06:20)
[2020-04-10] MEDS: INSULIN LISPRO 100 UNIT/ML SUBCUT SCH ×4 (08:06→21:33)
[2020-04-10 08:14] LABS: Basophils # 0.1 10*3/uL (0.0-0.2); Basophils % 0.8 % (0.0-0.8); Eosinophils # 0.9 10*3/uL (0.0-0.87); Eosinophils % 13.7 % (0.00-10.9); Hematocrit 33.9 VOL% (42.0-52.0); Hemoglobin 12.2 GM/DL (14.0-18.0); Immature Granulocytes % 0.3 %; Immature Granulocytes Absolute 0.02 #; Lymphocytes # 2.1 10*3/uL (1.4-4.0); Lymphocytes % 33.3 % (21.2-54.2); Mean Corpuscular Volume 93.6 FL (87-102); Mean Platelet Volume 9.8 FL (9.6-12.0); Neutrophils % 39.9 % (38.7-73.9); Platelet Count 214 T/CUMM (130-400); Red Blood Count 3.62 MC/CUMM (3.8-5.5); Red Cell Distribution Width 15.7 % (9.3-17.3); White Blood Count 6.4 T/CUMM (4-12)
[2020-04-10 08:36] LABS: Albumin 2.7 G/DL (3.4-5.0); Bilirubin,Total 0.6 MG/DL (0.2-1.0); Calcium 8.7 MG/DL (8.5-10.1); Eosinophils 18 % (0-10); Hypochromasia Slight; Lymphocytes 36 % (20-55); Osmolality,Calculated 274.5 MOS/KG (273-304); Platelet Estimate Adequate; Segmented Neutrophils 38 % (50-85); Total Cells Counted 100; Total Protein 6.1 G/DL (6.4-8.3)
[2020-04-10 08:37] LABS: Atypical Lymphocytes Few
[2020-04-10] MEDS ORDERED: ALBUTEROL/IPRATROPIUM 3 ML NEB RESP TX PRN (09:11)
[2020-04-10] MEDS ORDERED: BISACODYL 5 MG TABLET PO ONE (09:30)
[2020-04-10] MEDS: BUDESONIDE/FORMOTEROL 160-4.5 INHALER 6 GM INH SCH ×2 (09:35→21:32)
[2020-04-10] MEDS: BRIMONIDINE 0.1% OPH SOLN 5 ML BOTTLE BOTH EYES SCH ×3 (09:35→21:32)
[2020-04-10] MEDS: DILTIAZEM CD 180 MG CAPSULE PO SCH ×2 (09:38→21:32)
[2020-04-10] MEDS: METOPROLOL SUCCINATE XL 50 MG TABLET PO SCH (09:41)
[2020-04-10] MEDS: PANTOPRAZOLE 40 MG TABLET PO SCH ×2 (09:41→21:32)
[2020-04-10] MEDS: LEVALBUTEROL 1.25 MG/3 ML NEB RESP TX PRN ×2 (11:00→15:12)
[2020-04-10] MEDS: OXYBUTYNIN XL 5 MG TABLET PO SCH (12:51)
[2020-04-10] MEDS: ASPIRIN EC 81 MG TABLET PO SCH (12:51)
[2020-04-10] MEDS ORDERED: WARFARIN 2.5 MG TABLET PO SCH (18:00)
[2020-04-10] MEDS ORDERED: ENOXAPARIN 80 MG/0.8 ML SYRINGE SUBCUT ONE (21:00)
[2020-04-10] MEDS: LACTATED RINGERS 1,000 ML IV SCH (21:33)
[2020-04-11 05:40] LABS: Basophils % 0.5 % (0.0-0.8); Eosinophils # 0.5 10*3/uL (0.0-0.87); Eosinophils % 8.5 % (0.00-10.9); Hematocrit 35.3 VOL% (42.0-52.0); Hemoglobin 12.5 GM/DL (14.0-18.0); Immature Granulocytes % 0.3 %; Immature Granulocytes Absolute 0.02 #; Lymphocytes # 2.3 10*3/uL (1.4-4.0); Lymphocytes % 36.7 % (21.2-54.2); Mean Corpuscular HGB Conc 35.4 GM/DL (32-36); Mean Corpuscular Volume 93.1 FL (87-102); Mean Platelet Volume 10.7 FL (9.6-12.0); Monocytes % 10.5 % (1.7-12.7); Neutrophils % 43.5 % (38.7-73.9); Platelet Count 210 T/CUMM (130-400); Red Blood Count 3.79 MC/CUMM (3.8-5.5); Red Cell Distribution Width 15.6 % (9.3-17.3); White Blood Count 6.4 T/CUMM (4-12)
[2020-04-11 05:49] LABS: INR 1.2; PT Patient Result 12.7 SECS (9.8-11.9)
[2020-04-11 05:59] LABS: Osmolality,Calculated 269.7 MOS/KG (273-304)
[2020-04-11 06:03] LABS: Albumin 2.9 G/DL (3.4-5.0); Bilirubin,Total 0.9 MG/DL (0.2-1.0); Calcium 9.1 MG/DL (8.5-10.1); Osmolality,Calculated 273.4 MOS/KG (273-304); Total Protein 6.5 G/DL (6.4-8.3)
[2020-04-11] MEDS: LEVOTHYROXINE 100 MCG TABLET PO SCH (06:09)
[2020-04-11] MEDS: LEVALBUTEROL 1.25 MG/3 ML NEB RESP TX PRN ×3 (07:45→19:11)
[2020-04-11] MEDS ORDERED: MAGNESIUM SULF RIDER 4 GM in PREMIX 1 EACH IV PRN (08:51)
[2020-04-11] MEDS: INSULIN LISPRO 100 UNIT/ML SUBCUT SCH ×4 (08:51→21:21)
[2020-04-11] MEDS ORDERED: LIDOCAINE 2% 5 ML VIAL ONE (09:00)
[2020-04-11] MEDS ORDERED: propofoL 200 MG/20 ML VIAL IV ONE (09:00)
[2020-04-11] MEDS ORDERED: ETOMIDATE 20 MG/10 ML VIAL IV ONE (09:00)
[2020-04-11] MEDS ORDERED: BISACODYL 5 MG TABLET PO ONE (12:00)
[2020-04-11] MEDS ORDERED: LEVALBUTEROL 1.25 MG/3 ML NEB RESP TX ONE (12:09)
[2020-04-11] MEDS: DILTIAZEM CD 180 MG CAPSULE PO SCH ×2 (13:44→21:17)
[2020-04-11] MEDS: METOPROLOL SUCCINATE XL 50 MG TABLET PO SCH (13:46)
[2020-04-11] MEDS: OXYBUTYNIN XL 5 MG TABLET PO SCH (13:46)
[2020-04-11] MEDS: PANTOPRAZOLE 40 MG TABLET PO SCH ×2 (13:46→21:17)
[2020-04-11] MEDS: BUDESONIDE/FORMOTEROL 160-4.5 INHALER 6 GM INH SCH ×2 (13:46→21:17)
[2020-04-11] MEDS: ASPIRIN EC 81 MG TABLET PO SCH (13:46)
[2020-04-11] MEDS: BRIMONIDINE 0.1% OPH SOLN 5 ML BOTTLE BOTH EYES SCH ×3 (13:46→21:17)
[2020-04-11] MEDS: LACTATED RINGERS 1,000 ML IV SCH (13:48)
[2020-04-11] MEDS: MAGNESIUM SULF RIDER 2 GM in PREMIX 1 EACH IV PRN (14:16)
[2020-04-11] MEDS ORDERED: POLYETHYLENE GLYCOL POWDER 255 GM BOTTLE PO ONE (18:00)
[2020-04-11] MEDS: SODIUM CHLORIDE 0.9% 1,000 ML IV SCH ×2 (19:01→19:35)
[2020-04-12] MEDS: SODIUM CHLORIDE 0.9% 1,000 ML IV SCH ×3 (04:18→22:40)
[2020-04-12 05:37] LABS: Basophils % 0.5 % (0.0-0.8); Eosinophils # 0.5 10*3/uL (0.0-0.87); Eosinophils % 8.2 % (0.00-10.9); Hematocrit 32.1 VOL% (42.0-52.0); Hemoglobin 11.4 GM/DL (14.0-18.0); Immature Granulocytes % 0.4 %; Immature Granulocytes Absolute 0.02 #; Lymphocytes % 36.6 % (21.2-54.2); Mean Corpuscular HGB Conc 35.5 GM/DL (32-36); Mean Corpuscular Volume 93.3 FL (87-102); Mean Platelet Volume 10.2 FL (9.6-12.0); Monocytes % 13.1 % (1.7-12.7); Neutrophils % 41.2 % (38.7-73.9); Platelet Count 188 T/CUMM (130-400); Red Blood Count 3.44 MC/CUMM (3.8-5.5); Red Cell Distribution Width 15.9 % (9.3-17.3); White Blood Count 5.5 T/CUMM (4-12)
[2020-04-12] MEDS: LEVOTHYROXINE 100 MCG TABLET PO SCH (05:57)
[2020-04-12 06:02] LABS: Calcium 8.5 MG/DL (8.5-10.1); Osmolality,Calculated 276.3 MOS/KG (273-304)
[2020-04-12] MEDS: LEVALBUTEROL 1.25 MG/3 ML NEB RESP TX PRN ×4 (07:16→23:44)
[2020-04-12] MEDS ORDERED: LIDOCAINE 2% 5 ML VIAL ONE (09:00)
[2020-04-12] MEDS ORDERED: propofoL 200 MG/20 ML VIAL IV ONE (09:00)
[2020-04-12] MEDS: INSULIN LISPRO 100 UNIT/ML SUBCUT SCH ×4 (09:44→21:34)
[2020-04-12] MEDS: LACTATED RINGERS 1,000 ML IV SCH (10:36)
[2020-04-12] MEDS: BUDESONIDE/FORMOTEROL 160-4.5 INHALER 6 GM INH SCH ×2 (10:42→21:34)
[2020-04-12] MEDS: PANTOPRAZOLE 40 MG TABLET PO SCH ×2 (13:18→21:33)
[2020-04-12] MEDS: DILTIAZEM CD 180 MG CAPSULE PO SCH ×2 (13:18→21:33)
[2020-04-12] MEDS: BRIMONIDINE 0.1% OPH SOLN 5 ML BOTTLE BOTH EYES SCH ×3 (13:18→21:33)
[2020-04-12] MEDS: OXYBUTYNIN XL 5 MG TABLET PO SCH (13:18)
[2020-04-12] MEDS: ASPIRIN EC 81 MG TABLET PO SCH (13:18)
[2020-04-12] MEDS: METOPROLOL SUCCINATE XL 50 MG TABLET PO SCH (13:18)
[2020-04-13] MEDS: LEVOTHYROXINE 100 MCG TABLET PO SCH (06:00)
[2020-04-13 06:09] LABS: Basophils % 0.5 % (0.0-0.8); Eosinophils # 0.4 10*3/uL (0.0-0.87); Eosinophils % 7.6 % (0.00-10.9); Hematocrit 31.5 VOL% (42.0-52.0); Hemoglobin 11.3 GM/DL (14.0-18.0); Immature Granulocytes % 0.2 %; Immature Granulocytes Absolute 0.01 #; Lymphocytes # 2.1 10*3/uL (1.4-4.0); Lymphocytes % 36.6 % (21.2-54.2); Mean Corpuscular HGB Conc 35.9 GM/DL (32-36); Mean Corpuscular Volume 92.6 FL (87-102); Mean Platelet Volume 11.5 FL (9.6-12.0); Monocytes % 11.2 % (1.7-12.7); Neutrophils % 43.9 % (38.7-73.9); Platelet Count 130 T/CUMM (130-400); Red Cell Distribution Width 15.8 % (9.3-17.3); White Blood Count 5.7 T/CUMM (4-12)
[2020-04-13 06:14] LABS: INR 1.1; PT Patient Result 11.9 SECS (9.8-11.9)
[2020-04-13 06:23] LABS: Calcium 8.5 MG/DL (8.5-10.1); Osmolality,Calculated 279.3 MOS/KG (273-304)
[2020-04-13 06:38] LABS: Atypical Lymphocytes Few; Eosinophils 4 % (0-10); Hypochromasia 1+; Lymphocytes 39 % (20-55); Segmented Neutrophils 48 % (50-85); Total Cells Counted 100
[2020-04-13 06:39] LABS: Microcytosis Slight
[2020-04-13] MEDS: LEVALBUTEROL 1.25 MG/3 ML NEB RESP TX PRN ×3 (07:00→14:22)
[2020-04-13] MEDS: INSULIN LISPRO 100 UNIT/ML SUBCUT SCH ×3 (08:21→16:37)
[2020-04-13] MEDS: DILTIAZEM CD 180 MG CAPSULE PO SCH (08:51)
[2020-04-13] MEDS: OXYBUTYNIN XL 5 MG TABLET PO SCH (08:51)
[2020-04-13] MEDS: PANTOPRAZOLE 40 MG TABLET PO SCH (08:51)
[2020-04-13] MEDS: ASPIRIN EC 81 MG TABLET PO SCH (08:51)
[2020-04-13] MEDS: MAGNESIUM SULF RIDER 2 GM in PREMIX 1 EACH IV PRN (08:51)
[2020-04-13] MEDS: METOPROLOL SUCCINATE XL 50 MG TABLET PO SCH (08:51)
[2020-04-13] MEDS: SODIUM CHLORIDE 0.9% 1,000 ML IV SCH ×2 (08:54→16:36)
[2020-04-13] MEDS: BRIMONIDINE 0.1% OPH SOLN 5 ML BOTTLE BOTH EYES SCH ×2 (08:54→16:37)
[2020-04-13] MEDS: BUDESONIDE/FORMOTEROL 160-4.5 INHALER 6 GM INH SCH (08:55)
[2020-04-13] MEDS: LACTATED RINGERS 1,000 ML IV SCH (16:36)
[2020-04-13 16:41] VITALS: BP 112/61
== END 2020-04-13 16:42 | disposition home health service (06) | DRG 309 ==
LOC: N.ED 11:53 → SUATTDRO 15:25 → N.EDINP 15:25 → N.TELES 17:25
PROVIDERS: ADMIT Internal Medicine Critical Care Medicine; ATTEND Internal Medicine

== ENCOUNTER 2021-03-16 20:11 | Inpatient (IN) ==
[2021-03-16] MEDS ORDERED: SODIUM CHLORIDE 0.9% 1,000 ML IV STA ×2 (20:20→21:38)
[2021-03-16] MEDS ORDERED: DILTIAZEM 50 MG/10 ML VIAL IV STA ×2 (20:20→21:00)
[2021-03-16] MEDS ORDERED: ACETAMINOPHEN 500 MG TABLET PO STA (20:23)
[2021-03-16] MEDS ORDERED: ONDANSETRON 4 MG/2 ML VIAL ONE (20:42)
[2021-03-16] MEDS ORDERED: MORPHINE 2 MG/1 ML SYRINGE IV STA (20:48)
[2021-03-16] MEDS ORDERED: ONDANSETRON 4 MG/2 ML VIAL IV STA (21:11)
[2021-03-16 21:49] LABS: Basophils % 0.1 % (0.0-0.8); Eosinophils # 0.3 10*3/uL (0.0-0.87); Eosinophils % 3.8 % (0.00-10.9); Hematocrit 36.9 VOL% (42.0-52.0); Hemoglobin 12.3 GM/DL (14.0-18.0); Immature Granulocytes % 0.5 %; Immature Granulocytes Absolute 0.04 #; Lymphocytes # 0.8 10*3/uL (1.4-4.0); Lymphocytes % 11.3 % (21.2-54.2); Mean Corpuscular HGB Conc 33.3 GM/DL (32-36); Mean Corpuscular Volume 103.7 FL (87-102); Mean Platelet Volume 9.6 FL (9.6-12.0); Monocytes % 5.6 % (1.7-12.7); Neutrophils % 78.7 % (38.7-73.9); Platelet Count 177 T/CUMM (130-400); Red Blood Count 3.56 MC/CUMM (3.8-5.5); White Blood Count 7.5 T/CUMM (4-12)
[2021-03-16 22:01] LABS: INR 1.1; PT Patient Result 12.4 SECS (10.5-12.0); Partial Thromboplastin Time 27.8 SECS (23.9-33.8)
[2021-03-16] MEDS ORDERED: DIGOXIN 0.5 MG/2 ML AMP IV STA (22:13)
[2021-03-16 22:24] LABS: Alanine Aminotransferase 24 U/L (16-61); Albumin 2.6 G/DL (3.4-5.0); Alkaline Phosphatase 64 U/L (45-117); Amylase 37 U/L (25-115); Aspartate Amino Transferase 31 U/L (0-37); Blood Urea Nitrogen 11 MG/DL (7-18); Calcium 8.5 MG/DL (8.5-10.1); Carbon Dioxide 21 MMOL/L (21-32); Estimated Glom Filtration Rate 99 ML/MIN; Glucose 172 MG/DL (74-106); Osmolality,Calculated 275.8 MOS/KG (273-304); Potassium 4.7 MMOL/L (3.5-5.1); Sodium 137 MMOL/L (136-145); Total Protein 5.7 G/DL (6.4-8.2)
[2021-03-16] MEDS ORDERED: LEVOFLOXACIN INJ 500 MG/100 ML PREMIX IV ONE (23:08)
[2021-03-16 23:38] LABS: Bilirubin,Urine Negative (Negative); Blood, Urine Negative (Negative); Glucose,Urine (UA) Negative (Negative); Hyaline Casts,Urine 3 /LPF (0-3); Ketones,Urine 20 mg/dL (Negative); Mucus,Urine Occasional /LPF (Occasional); Nitrite,Urine Negative (Negative); Protein,Urine Negative; RBC,Urine 1 /HPF (0-4); Squamous Epithelial Cell,Urine Occasional /HPF (0-10); Urine Appearance CLEAR (Clear); Urine Color Yellow (Yellow); Urine Specific Gravity 1.013 (1.001-1.035); Urine Urobilinogen < 2.0 EU/DL (0.2-1.0)
[2021-03-17] MEDS ORDERED: MORPHINE 2 MG/1 ML SYRINGE IV PRN (01:15)
[2021-03-17] MEDS ORDERED: GLUCAGON 1 MG VIAL IM PRN ×2 (01:15→01:23)
[2021-03-17] MEDS ORDERED: ONDANSETRON 4 MG/2 ML VIAL IV PRN (01:15)
[2021-03-17] MEDS ORDERED: DEXTROSE 50% 25 GM/50 ML VIAL IV PRN ×2 (01:15→01:23)
[2021-03-17] MEDS ORDERED: ENOXAPARIN 30 MG/0.3 ML SYRINGE SUBCUT SCH (01:30)
[2021-03-17] MEDS ORDERED: methylPREDNISolone SOD SUC 40 MG/1 ML VIAL ONE (01:47)
[2021-03-17] MEDS ORDERED: AZITHROMYCIN 250 MG TABLET ONE ×2 (01:49)
[2021-03-17] MEDS: methylPREDNISolone SOD SUC 40 MG/1 ML VIAL IV SCH ×3 (02:26→18:42)
[2021-03-17] MEDS: DILTIAZEM INJ 100 MG in SODIUM CHLORIDE 0.9% 100 ML IV SCH ×2 (02:30→22:27)
[2021-03-17] MEDS ORDERED: ENOXAPARIN 30 MG/0.3 ML SYRINGE ONE (02:33)
[2021-03-17] MEDS ORDERED: methylPREDNISolone SOD SUC 40 MG/1 ML VIAL IV STA (02:40)
[2021-03-17] MEDS ORDERED: AZITHROMYCIN 250 MG TABLET PO STA (02:41)
[2021-03-17] MEDS: ALBUTEROL/IPRATROPIUM 3 ML NEB RESP TX SCH ×5 (03:32→20:26)
[2021-03-17] MEDS: SODIUM CHLORIDE 0.9% 1,000 ML IV SCH ×3 (04:24→20:18)
[2021-03-17 04:41] LABS: Basophils % 0.3 % (0.0-0.8); Eosinophils # 0.2 10*3/uL (0.0-0.87); Eosinophils % 2.5 % (0.00-10.9); Hematocrit 38.4 VOL% (42.0-52.0); Hemoglobin 12.3 GM/DL (14.0-18.0); Immature Granulocytes % 0.8 %; Immature Granulocytes Absolute 0.07 #; Lymphocytes # 1.3 10*3/uL (1.4-4.0); Lymphocytes % 14.7 % (21.2-54.2); Mean Corpuscular Volume 105.5 FL (87-102); Mean Platelet Volume 9.6 FL (9.6-12.0); Monocytes % 4.1 % (1.7-12.7); Neutrophils % 77.6 % (38.7-73.9); Platelet Count 183 T/CUMM (130-400); Red Blood Count 3.64 MC/CUMM (3.8-5.5); Red Cell Distribution Width 13.1 % (9.3-17.3); White Blood Count 8.7 T/CUMM (4-12)
[2021-03-17 05:11] LABS: Osmolality,Calculated 271.1 MOS/KG (273-304); Potassium 5.3 MMOL/L (3.5-5.1); Thyroid Stimulating Hormone 1.18 uIU/ml (0.358-3.74)
[2021-03-17] MEDS ORDERED: LEVOTHYROXINE 100 MCG TABLET PO SCH (06:30)
[2021-03-17] MEDS ORDERED: predniSONE 20 MG TABLET PO SCH (09:00)
[2021-03-17] MEDS ORDERED: AZITHROMYCIN 250 MG TABLET PO SCH (09:00)
[2021-03-17 09:09] LABS: Calcium 8.8 MG/DL (8.5-10.1); Osmolality,Calculated 277.7 MOS/KG (273-304); Potassium 5.2 MMOL/L (3.5-5.1)
[2021-03-17] MEDS: METOPROLOL SUCCINATE XL 50 MG TABLET PO SCH (09:31)
[2021-03-17] MEDS: PANTOPRAZOLE 40 MG TABLET PO SCH (09:31)
[2021-03-17] MEDS: AZITHROMYCIN 250 MG TABLET PO SCH (09:31)
[2021-03-17] MEDS: DIGOXIN 0.25 MG TABLET PO SCH (09:31)
[2021-03-17] MEDS: ROSUVASTATIN 10 MG TABLET PO SCH (09:32)
[2021-03-17] MEDS: APIXABAN 5 MG TABLET PO SCH ×2 (09:32→20:17)
[2021-03-17] MEDS: INSULIN REGULAR 100 UNIT/ML SUBCUT SCH ×4 (10:30→20:17)
[2021-03-17] MEDS ORDERED: MAGNESIUM SULF RIDER 4 GM/100 ML PREMIX IV PRN (13:53)
[2021-03-17] MEDS ORDERED: MAGNESIUM SULF RIDER 2 GM/50 ML PREMIX IV PRN (13:53)
[2021-03-18] MEDS: ALBUTEROL/IPRATROPIUM 3 ML NEB RESP TX SCH ×7 (01:11→23:00)
[2021-03-18] MEDS: DILTIAZEM INJ 100 MG in SODIUM CHLORIDE 0.9% 100 ML IV SCH (01:16)
[2021-03-18] MEDS: methylPREDNISolone SOD SUC 40 MG/1 ML VIAL IV SCH ×3 (02:45→17:43)
[2021-03-18 05:12] LABS: Basophils % 0.1 % (0.0-0.8); Eosinophils % 0.1 % (0.00-10.9); Hematocrit 35.3 VOL% (42.0-52.0); Hemoglobin 11.8 GM/DL (14.0-18.0); Immature Granulocytes % 1.3 %; Immature Granulocytes Absolute 0.12 #; Lymphocytes # 1.4 10*3/uL (1.4-4.0); Lymphocytes % 14.5 % (21.2-54.2); Mean Corpuscular HGB Conc 33.4 GM/DL (32-36); Mean Corpuscular Volume 102.6 FL (87-102); Mean Platelet Volume 9.8 FL (9.6-12.0); Monocytes % 3.7 % (1.7-12.7); Neutrophils % 80.3 % (38.7-73.9); Platelet Count 173 T/CUMM (130-400); Red Blood Count 3.44 MC/CUMM (3.8-5.5); Red Cell Distribution Width 12.7 % (9.3-17.3); White Blood Count 9.4 T/CUMM (4-12)
[2021-03-18 05:41] LABS: Calcium 8.5 MG/DL (8.5-10.1); Osmolality,Calculated 271.2 MOS/KG (273-304)
[2021-03-18] MEDS: SODIUM CHLORIDE 0.9% 1,000 ML IV SCH (05:47)
[2021-03-18] MEDS: ROSUVASTATIN 10 MG TABLET PO SCH (09:17)
[2021-03-18] MEDS: METOPROLOL SUCCINATE XL 50 MG TABLET PO SCH (09:17)
[2021-03-18] MEDS: PANTOPRAZOLE 40 MG TABLET PO SCH (09:18)
[2021-03-18] MEDS: APIXABAN 5 MG TABLET PO SCH ×2 (09:18→21:23)
[2021-03-18] MEDS: DIGOXIN 0.25 MG TABLET PO SCH (09:18)
[2021-03-18] MEDS: AZITHROMYCIN 250 MG TABLET PO SCH (09:18)
[2021-03-18] MEDS: DILTIAZEM 60 MG TABLET PO SCH ×3 (09:23→21:23)
[2021-03-18] MEDS: INSULIN REGULAR 100 UNIT/ML SUBCUT SCH ×3 (10:08→17:14)
[2021-03-19] MEDS: ALBUTEROL/IPRATROPIUM 3 ML NEB RESP TX SCH ×3 (01:45→11:07)
[2021-03-19] MEDS: methylPREDNISolone SOD SUC 40 MG/1 ML VIAL IV SCH (02:44)
[2021-03-19] MEDS: INSULIN REGULAR 100 UNIT/ML SUBCUT SCH ×3 (02:44→12:38)
[2021-03-19 07:01] LABS: Basophils % 0.1 % (0.0-0.8); Hematocrit 31.7 VOL% (42.0-52.0); Hemoglobin 10.5 GM/DL (14.0-18.0); Lymphocytes # 0.7 10*3/uL (1.4-4.0); Lymphocytes % 7.7 % (21.2-54.2); Mean Corpuscular HGB Conc 33.1 GM/DL (32-36); Mean Corpuscular Volume 102.3 FL (87-102); Mean Platelet Volume 10.1 FL (9.6-12.0); Monocytes % 2.7 % (1.7-12.7); Neutrophils % 88.5 % (38.7-73.9); Platelet Count 169 T/CUMM (130-400); Red Cell Distribution Width 13.3 % (9.3-17.3); White Blood Count 9.7 T/CUMM (4-12)
[2021-03-19 07:19] LABS: Calcium 8.3 MG/DL (8.5-10.1); Potassium 4.1 MMOL/L (3.5-5.1)
[2021-03-19 08:12] VITALS: BP 116/67
[2021-03-19] MEDS ORDERED: predniSONE 20 MG TABLET PO SCH (09:00)
[2021-03-19] MEDS ORDERED: DILTIAZEM CD 180 MG CAPSULE PO SCH (09:30)
[2021-03-19] MEDS: AZITHROMYCIN 250 MG TABLET PO SCH (09:43)
[2021-03-19] MEDS: PANTOPRAZOLE 40 MG TABLET PO SCH (09:43)
[2021-03-19] MEDS: ROSUVASTATIN 10 MG TABLET PO SCH (09:43)
[2021-03-19] MEDS: DIGOXIN 0.25 MG TABLET PO SCH (09:43)
[2021-03-19] MEDS: APIXABAN 5 MG TABLET PO SCH (09:43)
[2021-03-19] MEDS: DILTIAZEM 60 MG TABLET PO SCH ×2 (09:44→09:45)
[2021-03-19] MEDS: METOPROLOL SUCCINATE XL 50 MG TABLET PO SCH (09:47)
[2021-03-19] MEDS ORDERED: THEOPHYLLINE ER (24 HR) 400 MG TABLET PO SCH (21:00)
== END 2021-03-19 12:44 | disposition home or self-care (01) | DRG 309 ==
LOC: EDBD → EDUNIT# → N.ED 20:11 → INTOOBSV 03-17 01:15 → N.EDINP 03-17 01:15 → SUATTDRO 03-17 01:15 → OBSVTOIN 03-17 01:15 → N.TELEN 03-17 02:45
PROVIDERS: ADMIT Internal Medicine; ATTEND Emergency Medicine

== ENCOUNTER 2021-11-03 16:58 | Inpatient (IN) ==
[2021-11-03] MEDS ORDERED: ONDANSETRON 4 MG/2 ML VIAL ONE ×2 (17:32)
[2021-11-03] MEDS ORDERED: ONDANSETRON 4 MG/2 ML VIAL IV STA (17:44)
[2021-11-03] MEDS ORDERED: SODIUM CHLORIDE 0.9% 1,000 ML IV STA ×2 (17:44→18:40)
[2021-11-03 18:02] LABS: Basophils # 0.1 10*3/uL (0.0-0.2); Basophils % 0.6 % (0.0-0.8); Eosinophils # 0.6 10*3/uL (0.0-0.87); Hematocrit 44.7 VOL% (42.0-52.0); Hemoglobin 15.3 GM/DL (14.0-18.0); Immature Granulocytes % 0.4 %; Immature Granulocytes Absolute 0.03 #; Lymphocytes # 3.7 10*3/uL (1.4-4.0); Lymphocytes % 46.6 % (21.2-54.2); Mean Corpuscular HGB Conc 34.2 GM/DL (32-36); Mean Corpuscular Volume 98.5 FL (87-102); Mean Platelet Volume 10.1 FL (9.6-12.0); Monocytes # 0.7 10*3/uL (0.11-0.8); Monocytes % 8.5 % (1.7-12.7); Neutrophils % 35.9 % (38.7-73.9); Platelet Count 265 T/CUMM (130-400); Red Blood Count 4.54 MC/CUMM (3.8-5.5); Red Cell Distribution Width 14.8 % (9.3-17.3)
[2021-11-03 18:32] LABS: Eosinophils 11 % (0-10); Lymphocytes 51 % (20-55); Total Cells Counted 100
[2021-11-03 18:33] LABS: Anisocytosis Slight; Platelet Estimate Normal; Reactive Lymphocytes Few
[2021-11-03 18:40] LABS: Albumin 3.9 G/DL (3.4-5.0); Bilirubin,Total 0.6 MG/DL (0.20-1.00); Calcium 10.2 MG/DL (8.5-10.1); Osmolality,Calculated 278.5 MOS/KG (273-304); Potassium 4.1 MMOL/L (3.5-5.1); Total Protein 7.6 G/DL (6.4-8.2)
[2021-11-03] MEDS ORDERED: ATROPINE 1 MG/10 ML SYRINGE IV STA (18:40)
[2021-11-03] MEDS ORDERED: DEXTROSE 10% 250 ML BAG IV PRN (20:33)
[2021-11-03] MEDS ORDERED: GLUCAGON 1 MG VIAL IM PRN (20:33)
[2021-11-03] MEDS ORDERED: ONDANSETRON 4 MG/2 ML VIAL IV PRN (20:33)
[2021-11-03] MEDS ORDERED: DEXTROSE 50% 25 GM/50 ML VIAL IV PRN (20:33)
[2021-11-03] MEDS ORDERED: ACETAMINOPHEN 325 MG TABLET PO PRN (20:33)
[2021-11-03] MEDS ORDERED: ALBUTEROL/IPRATROPIUM 3 ML NEB RESP TX PRN (21:22)
[2021-11-03] MEDS: INSULIN LISPRO 100 UNIT/ML SUBCUT SCH (21:32)
[2021-11-04] MEDS: ALBUTEROL/IPRATROPIUM 3 ML NEB RESP TX SCH ×4 (01:20→19:20)
[2021-11-04 05:32] LABS: Calcium 9.4 MG/DL (8.5-10.1); Osmolality,Calculated 279.3 MOS/KG (273-304); Potassium 3.7 MMOL/L (3.5-5.1)
[2021-11-04] MEDS: LEVOTHYROXINE 100 MCG TABLET PO SCH (05:50)
[2021-11-04] MEDS: INSULIN LISPRO 100 UNIT/ML SUBCUT SCH ×4 (08:43→20:42)
[2021-11-04] MEDS ORDERED: APIXABAN 5 MG TABLET PO SCH (09:00)
[2021-11-04] MEDS: DICLOFENAC SODIUM 75 MG TABLET PO SCH ×2 (09:51→20:41)
[2021-11-04] MEDS: THEOPHYLLINE ER (24 HR) 400 MG TABLET PO SCH (09:52)
[2021-11-04] MEDS: DOCUSATE SODIUM 100 MG CAPSULE PO SCH (09:52)
[2021-11-04] MEDS: MONTELUKAST 10 MG TABLET PO SCH (09:52)
[2021-11-04] MEDS: MULTIVITAMIN (CENTRUM) TABLET PO SCH (09:52)
[2021-11-04] MEDS: PANTOPRAZOLE 40 MG TABLET PO SCH (09:52)
[2021-11-04] MEDS: ROSUVASTATIN 10 MG TABLET PO SCH (09:52)
[2021-11-04] MEDS: BUDESONIDE/FORMOTEROL 160-4.5 INHALER 6 GM INH SCH ×2 (09:57→20:42)
[2021-11-04] MEDS ORDERED: MAGNESIUM SULF RIDER 4 GM/100 ML PREMIX IV PRN (10:07)
[2021-11-04] MEDS ORDERED: MAGNESIUM SULF RIDER 2 GM/50 ML PREMIX IV PRN (10:07)
[2021-11-04] MEDS ORDERED: SODIUM CHLORIDE 0.9% 1,000 ML IV SCH (10:30)
[2021-11-04] MEDS ORDERED: POTASSIUM CHLORIDE 20 MEQ TABLET PO ONE (11:25)
[2021-11-04] MEDS: OXYBUTYNIN XL 5 MG TABLET PO SCH (11:54)
[2021-11-04] MEDS: LACTATED RINGERS 1,000 ML IV SCH ×2 (11:55→20:42)
[2021-11-04] MEDS ORDERED: METOPROLOL TARTRATE 25 MG TABLET PO ONE ×2 (16:07→21:00)
[2021-11-04] MEDS: ASCORBIC ACID 500 MG TABLET PO SCH (20:41)
[2021-11-05] MEDS: ALBUTEROL/IPRATROPIUM 3 ML NEB RESP TX SCH ×4 (00:30→19:19)
[2021-11-05 05:42] LABS: Basophils % 0.7 % (0.0-0.8); Eosinophils # 0.5 10*3/uL (0.0-0.87); Hematocrit 32.1 VOL% (42.0-52.0); Hemoglobin 11.3 GM/DL (14.0-18.0); Immature Granulocytes % 0.5 %; Immature Granulocytes Absolute 0.03 #; Lymphocytes # 2.3 10*3/uL (1.4-4.0); Lymphocytes % 38.9 % (21.2-54.2); Mean Corpuscular HGB Conc 35.2 GM/DL (32-36); Mean Corpuscular Volume 97.3 FL (87-102); Mean Platelet Volume 9.9 FL (9.6-12.0); Monocytes # 0.7 10*3/uL (0.11-0.8); Monocytes % 12.8 % (1.7-12.7); Neutrophils % 39.1 % (38.7-73.9); Platelet Count 201 T/CUMM (130-400); Red Cell Distribution Width 14.8 % (9.3-17.3); White Blood Count 5.8 T/CUMM (4-12)
[2021-11-05] MEDS: LACTATED RINGERS 1,000 ML IV SCH ×3 (05:47→17:19)
[2021-11-05] MEDS: LEVOTHYROXINE 100 MCG TABLET PO SCH (05:47)
[2021-11-05 05:55] LABS: Calcium 8.9 MG/DL (8.5-10.1); Potassium 3.8 MMOL/L (3.5-5.1)
[2021-11-05] MEDS: INSULIN LISPRO 100 UNIT/ML SUBCUT SCH ×4 (09:27→21:48)
[2021-11-05] MEDS: ASCORBIC ACID 500 MG TABLET PO SCH ×2 (13:16→21:48)
[2021-11-05] MEDS: THEOPHYLLINE ER (24 HR) 400 MG TABLET PO SCH (13:16)
[2021-11-05] MEDS: PANTOPRAZOLE 40 MG TABLET PO SCH (13:16)
[2021-11-05] MEDS: DOCUSATE SODIUM 100 MG CAPSULE PO SCH (13:16)
[2021-11-05] MEDS: BUDESONIDE/FORMOTEROL 160-4.5 INHALER 6 GM INH SCH ×2 (13:16→21:48)
[2021-11-05] MEDS: OXYBUTYNIN XL 5 MG TABLET PO SCH (13:16)
[2021-11-05] MEDS: DICLOFENAC SODIUM 75 MG TABLET PO SCH ×2 (13:16→21:48)
[2021-11-05] MEDS: MONTELUKAST 10 MG TABLET PO SCH (13:16)
[2021-11-05] MEDS: MULTIVITAMIN (CENTRUM) TABLET PO SCH (13:16)
[2021-11-05] MEDS: ROSUVASTATIN 10 MG TABLET PO SCH (13:16)
[2021-11-05] MEDS: METOPROLOL TARTRATE 25 MG TABLET PO SCH ×2 (13:17→21:48)
[2021-11-05] MEDS ORDERED: METOPROLOL TARTRATE 25 MG TABLET PO ONE (13:19)
[2021-11-05 13:33] LABS: Amorphous Crystals,Urine Occasional /HPF (Few); Bacteria,Urine Occasional /HPF (Few); Mucus,Urine Occasional /LPF (Occasional); RBC,Urine 1 /HPF (0-4)
[2021-11-05 13:34] LABS: Bilirubin,Urine Negative (Negative); Blood, Urine Negative (Negative); Glucose,Urine (UA) Negative (Negative); Ketones,Urine Trace mg/dL (Negative); Nitrite,Urine Negative (Negative); Protein,Urine Negative (Negative); Urine Appearance Clear (Clear); Urine Color Yellow (Yellow); Urine Urobilinogen 0.2 eU/dL (<2.0); Urine pH 5.5 (4.5-8.0)
[2021-11-06] MEDS: ALBUTEROL/IPRATROPIUM 3 ML NEB RESP TX SCH ×4 (00:04→20:05)
[2021-11-06] MEDS: LACTATED RINGERS 1,000 ML IV SCH ×2 (02:47→13:44)
[2021-11-06 05:12] LABS: Basophils # 0.1 10*3/uL (0.0-0.2); Basophils % 0.8 % (0.0-0.8); Eosinophils # 0.7 10*3/uL (0.0-0.87); Eosinophils % 11.1 % (0.00-10.9); Hematocrit 32.7 VOL% (42.0-52.0); Hemoglobin 11.2 GM/DL (14.0-18.0); Immature Granulocytes % 0.2 %; Immature Granulocytes Absolute 0.01 #; Lymphocytes # 2.5 10*3/uL (1.4-4.0); Lymphocytes % 40.8 % (21.2-54.2); Mean Corpuscular HGB Conc 34.3 GM/DL (32-36); Mean Corpuscular Volume 97.9 FL (87-102); Mean Platelet Volume 10.1 FL (9.6-12.0); Monocytes # 0.9 10*3/uL (0.11-0.8); Monocytes % 14.1 % (1.7-12.7); Platelet Count 196 T/CUMM (130-400); Red Blood Count 3.34 MC/CUMM (3.8-5.5); Red Cell Distribution Width 15.2 % (9.3-17.3); White Blood Count 6.2 T/CUMM (4-12)
[2021-11-06 05:24] LABS: Calcium 8.9 MG/DL (8.5-10.1); Osmolality,Calculated 276.3 MOS/KG (273-304); Potassium 3.8 MMOL/L (3.5-5.1)
[2021-11-06 05:39] LABS: Eosinophils 14 % (0-10); Lymphocytes 46 % (20-55); Platelet Estimate Adequate; Total Cells Counted 100
[2021-11-06] MEDS: LEVOTHYROXINE 100 MCG TABLET PO SCH (05:46)
[2021-11-06] MEDS: DICLOFENAC SODIUM 75 MG TABLET PO SCH (09:17)
[2021-11-06] MEDS: MULTIVITAMIN (CENTRUM) TABLET PO SCH (09:17)
[2021-11-06] MEDS: INSULIN LISPRO 100 UNIT/ML SUBCUT SCH ×4 (09:17→20:52)
[2021-11-06] MEDS: THEOPHYLLINE ER (24 HR) 400 MG TABLET PO SCH (09:17)
[2021-11-06] MEDS: ASCORBIC ACID 500 MG TABLET PO SCH ×2 (09:17→20:51)
[2021-11-06] MEDS: OXYBUTYNIN XL 5 MG TABLET PO SCH (09:18)
[2021-11-06] MEDS: PANTOPRAZOLE 40 MG TABLET PO SCH (09:18)
[2021-11-06] MEDS: DOCUSATE SODIUM 100 MG CAPSULE PO SCH (09:18)
[2021-11-06] MEDS: MONTELUKAST 10 MG TABLET PO SCH (09:18)
[2021-11-06] MEDS: ROSUVASTATIN 10 MG TABLET PO SCH (09:18)
[2021-11-06] MEDS: BUDESONIDE/FORMOTEROL 160-4.5 INHALER 6 GM INH SCH (09:23)
[2021-11-06] MEDS: METOPROLOL TARTRATE 25 MG TABLET PO SCH ×4 (09:47→20:52)
[2021-11-06] MEDS: ENOXAPARIN 80 MG/0.8 ML SYRINGE SUBCUT SCH ×2 (12:28→20:52)
[2021-11-06] MEDS: ursodioL 300 MG CAPSULE PO SCH (20:51)
[2021-11-07] MEDS: BUDESONIDE/FORMOTEROL 160-4.5 INHALER 6 GM INH SCH ×3 (00:18→21:14)
[2021-11-07] MEDS: DICLOFENAC SODIUM 75 MG TABLET PO SCH ×3 (00:18→21:18)
[2021-11-07] MEDS: LACTATED RINGERS 1,000 ML IV SCH ×2 (00:20→18:37)
[2021-11-07] MEDS: ALBUTEROL/IPRATROPIUM 3 ML NEB RESP TX SCH ×2 (00:46→07:30)
[2021-11-07] MEDS: LEVOTHYROXINE 100 MCG TABLET PO SCH (05:45)
[2021-11-07 06:15] LABS: Basophils # 0.1 10*3/uL (0.0-0.2); Basophils % 0.9 % (0.0-0.8); Eosinophils # 0.9 10*3/uL (0.0-0.87); Eosinophils % 13.2 % (0.00-10.9); Hematocrit 30.3 VOL% (42.0-52.0); Hemoglobin 10.6 GM/DL (14.0-18.0); Immature Granulocytes % 0.6 %; Immature Granulocytes Absolute 0.04 #; Lymphocytes # 2.7 10*3/uL (1.4-4.0); Mean Corpuscular Volume 97.7 FL (87-102); Mean Platelet Volume 10.1 FL (9.6-12.0); Monocytes # 0.9 10*3/uL (0.11-0.8); Monocytes % 13.3 % (1.7-12.7); Platelet Count 191 T/CUMM (130-400); Red Cell Distribution Width 15.1 % (9.3-17.3); White Blood Count 6.5 T/CUMM (4-12)
[2021-11-07 06:32] LABS: Calcium 8.9 MG/DL (8.5-10.1); Osmolality,Calculated 274.4 MOS/KG (273-304); Potassium 3.7 MMOL/L (3.5-5.1)
[2021-11-07 06:38] LABS: Eosinophils 19 % (0-10); Lymphocytes 47 % (20-55); Nucleated Red Blood Cells 1 (0-5); Platelet Estimate Adequate; Total Cells Counted 100
[2021-11-07] MEDS: ENOXAPARIN 80 MG/0.8 ML SYRINGE SUBCUT SCH ×2 (08:20→21:19)
[2021-11-07] MEDS: ASCORBIC ACID 500 MG TABLET PO SCH ×2 (08:22→21:15)
[2021-11-07] MEDS: THEOPHYLLINE ER (24 HR) 400 MG TABLET PO SCH (08:22)
[2021-11-07] MEDS: MULTIVITAMIN (CENTRUM) TABLET PO SCH (08:22)
[2021-11-07] MEDS: ursodioL 300 MG CAPSULE PO SCH ×2 (08:23→21:15)
[2021-11-07] MEDS: DOCUSATE SODIUM 100 MG CAPSULE PO SCH (08:23)
[2021-11-07] MEDS: OXYBUTYNIN XL 5 MG TABLET PO SCH (08:23)
[2021-11-07] MEDS: MONTELUKAST 10 MG TABLET PO SCH (08:23)
[2021-11-07] MEDS: PANTOPRAZOLE 40 MG TABLET PO SCH (08:23)
[2021-11-07] MEDS: ROSUVASTATIN 10 MG TABLET PO SCH (08:23)
[2021-11-07] MEDS ORDERED: ALBUTEROL/IPRATROPIUM 3 ML NEB RESP TX PRN (09:23)
[2021-11-07] MEDS ORDERED: FUROSEMIDE 40 MG/4 ML VIAL IV ONE (09:24)
[2021-11-07] MEDS: METOPROLOL TARTRATE 25 MG TABLET PO SCH (10:26)
[2021-11-07] MEDS: INSULIN LISPRO 100 UNIT/ML SUBCUT SCH ×3 (10:56→22:52)
[2021-11-07] MEDS ORDERED: METOPROLOL TARTRATE 25 MG TABLET PO ONE (11:36)
[2021-11-07] MEDS ORDERED: DIGOXIN 0.125 MG TABLET PO SCH (15:00)
[2021-11-07] MEDS ORDERED: DILTIAZEM CD 180 MG CAPSULE PO SCH ×2 (21:00)
[2021-11-07] MEDS: METOPROLOL TARTRATE 50 MG TABLET PO SCH (21:18)
[2021-11-08 05:10] LABS: Basophils % 0.5 % (0.0-0.8); Eosinophils # 1.1 10*3/uL (0.0-0.87); Hematocrit 31.6 VOL% (42.0-52.0); Immature Granulocytes % 0.4 %; Immature Granulocytes Absolute 0.03 #; Lymphocytes % 38.4 % (21.2-54.2); Mean Corpuscular HGB Conc 34.8 GM/DL (32-36); Mean Corpuscular Volume 98.8 FL (87-102); Mean Platelet Volume 10.9 FL (9.6-12.0); Monocytes # 1.2 10*3/uL (0.11-0.8); Monocytes % 14.8 % (1.7-12.7); NRBC # 0.03 10*3/uL; Neutrophils % 31.9 % (38.7-73.9); Platelet Count 198 T/CUMM (130-400); Red Cell Distribution Width 15.2 % (9.3-17.3); White Blood Count 7.9 T/CUMM (4-12)
[2021-11-08 05:29] LABS: Calcium 9.2 MG/DL (8.5-10.1); Potassium 3.8 MMOL/L (3.5-5.1)
[2021-11-08 05:33] LABS: Eosinophils 16 % (0-10); Lymphocytes 40 % (20-55); Total Cells Counted 100
[2021-11-08 05:34] LABS: Atypical Lymphocytes Few; Macrocytosis Slight; Platelet Estimate Adequate
[2021-11-08] MEDS: LEVOTHYROXINE 100 MCG TABLET PO SCH (07:42)
[2021-11-08] MEDS: INSULIN LISPRO 100 UNIT/ML SUBCUT SCH ×2 (08:28→12:35)
[2021-11-08] MEDS ORDERED: DIGOXIN 0.25 MG TABLET PO SCH ×2 (09:00→13:00)
[2021-11-08] MEDS ORDERED: MAGNESIUM SULF RIDER 2 GM/50 ML PREMIX IV ONE (09:57)
[2021-11-08] MEDS ORDERED: OLOPATADINE 0.1% OPH SOLN 5 ML BOTTLE BOTH EYES SCH (10:00)
[2021-11-08] MEDS: ENOXAPARIN 80 MG/0.8 ML SYRINGE SUBCUT SCH (10:08)
[2021-11-08] MEDS: PANTOPRAZOLE 40 MG TABLET PO SCH (10:08)
[2021-11-08] MEDS: MULTIVITAMIN (CENTRUM) TABLET PO SCH (10:08)
[2021-11-08] MEDS: ASCORBIC ACID 500 MG TABLET PO SCH (10:08)
[2021-11-08] MEDS: THEOPHYLLINE ER (24 HR) 400 MG TABLET PO SCH (10:09)
[2021-11-08] MEDS: OXYBUTYNIN XL 5 MG TABLET PO SCH (10:09)
[2021-11-08] MEDS: ROSUVASTATIN 10 MG TABLET PO SCH (10:09)
[2021-11-08] MEDS: METOPROLOL TARTRATE 50 MG TABLET PO SCH (10:09)
[2021-11-08] MEDS: MONTELUKAST 10 MG TABLET PO SCH (10:09)
[2021-11-08] MEDS: DICLOFENAC SODIUM 75 MG TABLET PO SCH (10:09)
[2021-11-08] MEDS: ursodioL 300 MG CAPSULE PO SCH (10:09)
[2021-11-08] MEDS: DOCUSATE SODIUM 100 MG CAPSULE PO SCH (10:09)
[2021-11-08] MEDS: BUDESONIDE/FORMOTEROL 160-4.5 INHALER 6 GM INH SCH (10:10)
[2021-11-08 11:21] VITALS: BP 111/79
[2021-11-08] MEDS ORDERED: APIXABAN 5 MG TABLET PO SCH (21:00)
== END 2021-11-08 13:26 | disposition home health service (06) | DRG 315 ==
LOC: N.ED 16:58 → N.EDINP 16:58 → N.5E 21:19 → SUATTDRO 11-04 09:42
PROVIDERS: ADMIT Internal Medicine; ATTEND Internal Medicine

== ENCOUNTER 2021-12-04 19:06 | Inpatient (IN) ==
[2021-12-04] MEDS ORDERED: ONDANSETRON 4 MG/2 ML VIAL IV STA (19:32)
[2021-12-04] MEDS ORDERED: SODIUM CHLORIDE 0.9% 1,000 ML IV STA (19:32)
[2021-12-04] MEDS ORDERED: PANTOPRAZOLE 40 MG VIAL IV STA (19:32)
[2021-12-04] MEDS ORDERED: HYDROmorphone 1 MG/1 ML SYRINGE IV STA (19:32)
[2021-12-04 19:45] LABS: Basophils % 0.3 % (0.0-0.8); Eosinophils # 0.2 10*3/uL (0.0-0.87); Eosinophils % 1.7 % (0.00-10.9); Hematocrit 43.7 VOL% (42.0-52.0); Hemoglobin 14.6 GM/DL (14.0-18.0); Immature Granulocytes % 1.8 %; Immature Granulocytes Absolute 0.19 #; Lymphocytes # 5.5 10*3/uL (1.4-4.0); Lymphocytes % 50.6 % (21.2-54.2); Mean Corpuscular HGB Conc 33.4 GM/DL (32-36); Mean Platelet Volume 10.1 FL (9.6-12.0); Monocytes # 0.8 10*3/uL (0.11-0.8); Monocytes % 7.6 % (1.7-12.7); NRBC # 0.02 10*3/uL; Platelet Count 322 T/CUMM (130-400); Red Blood Count 4.37 MC/CUMM (3.8-5.5); Red Cell Distribution Width 14.8 % (9.3-17.3); White Blood Count 10.8 T/CUMM (4-12)
[2021-12-04 19:56] LABS: Alanine Aminotransferase 19 U/L (16-61); Albumin 3.7 G/DL (3.4-5.0); Alkaline Phosphatase 82 U/L (45-117); Amylase 84 U/L (25-115); Aspartate Amino Transferase 23 U/L (0-37); Blood Urea Nitrogen 27 MG/DL (7-18); Calcium 9.8 MG/DL (8.5-10.1); Carbon Dioxide 24 MMOL/L (21-32); Chloride 102 MMOL/L (98-107); Glucose 219 MG/DL (74-106); Osmolality,Calculated 284.8 MOS/KG (273-304); Potassium 4.3 MMOL/L (3.5-5.1); Sodium 137 MMOL/L (136-145); Total Protein 7.6 G/DL (6.4-8.2)
[2021-12-04 20:34] LABS: Band Neutrophils 1 % (0-10); Eosinophils 1 % (0-10); Lymphocytes 49 % (20-55); Platelet Estimate Adequate; Total Cells Counted 100
[2021-12-04] MEDS ORDERED: VANCOMYCIN INJ 1,000 MG in SODIUM CHLORIDE 0.9% 250 ML IV STA (20:55)
[2021-12-04] MEDS ORDERED: SODIUM CHLORIDE 0.9% 2,000 ML IV ONE (20:56)
[2021-12-04] MEDS ORDERED: SODIUM CHLORIDE 0.9% 2,250 ML IV ONE (20:56)
[2021-12-04 21:35] LABS: Mucus,Urine Occasional /LPF (Occasional); RBC,Urine 2 /HPF (0-4)
[2021-12-04 21:36] LABS: Glucose,Urine (UA) Negative (Negative); Ketones,Urine Trace mg/dL (Negative); Nitrite,Urine Negative (Negative); Protein,Urine 30 mg/dL (Negative); Urine Appearance Clear (Clear); Urine Color Yellow (Yellow)
[2021-12-04 21:37] LABS: Bilirubin,Urine Negative (Negative); Blood, Urine Negative (Negative); Urine Urobilinogen 0.2 eU/dL (<2.0)
[2021-12-05] MEDS ORDERED: GLUCAGON 1 MG VIAL IM PRN ×2 (01:15)
[2021-12-05] MEDS ORDERED: DEXTROSE 50% 25 GM/50 ML VIAL IV PRN (01:15)
[2021-12-05] MEDS ORDERED: DEXTROSE 10% 250 ML BAG IV PRN (01:48)
[2021-12-05] MEDS ORDERED: ALBUTEROL 2.5 MG/3 ML NEB RESP TX PRN (03:00)
[2021-12-05] MEDS: SODIUM CHLORIDE 0.9% 1,000 ML IV SCH ×3 (04:06→22:09)
[2021-12-05] MEDS: LEVOTHYROXINE 100 MCG TABLET PO SCH (05:57)
[2021-12-05 06:50] LABS: Basophils % 0.1 % (0.0-0.8); Eosinophils # 0.1 10*3/uL (0.0-0.87); Eosinophils % 1.1 % (0.00-10.9); Hemoglobin 13.2 GM/DL (14.0-18.0); Immature Granulocytes % 1.4 %; Immature Granulocytes Absolute 0.12 #; Lymphocytes # 1.8 10*3/uL (1.4-4.0); Lymphocytes % 22.2 % (21.2-54.2); Mean Corpuscular HGB Conc 33.8 GM/DL (32-36); Mean Corpuscular Volume 98.7 FL (87-102); Mean Platelet Volume 10.2 FL (9.6-12.0); Monocytes # 0.9 10*3/uL (0.11-0.8); Neutrophils % 64.2 % (38.7-73.9); Platelet Count 244 T/CUMM (130-400); Red Blood Count 3.95 MC/CUMM (3.8-5.5); Red Cell Distribution Width 15.1 % (9.3-17.3); White Blood Count 8.3 T/CUMM (4-12)
[2021-12-05 07:08] LABS: Alanine Aminotransferase 16 U/L (16-61); Albumin 3.1 G/DL (3.4-5.0); Alkaline Phosphatase 68 U/L (45-117); Aspartate Amino Transferase 17 U/L (0-37); Blood Urea Nitrogen 22 MG/DL (7-18); Carbon Dioxide 23 MMOL/L (21-32); Chloride 111 MMOL/L (98-107); Glucose 136 MG/DL (74-106); Osmolality,Calculated 283.4 MOS/KG (273-304); Potassium 3.9 MMOL/L (3.5-5.1); Sodium 140 MMOL/L (136-145); Total Protein 6.6 G/DL (6.4-8.2)
[2021-12-05] MEDS ORDERED: FUROSEMIDE 40 MG TABLET PO SCH (08:00)
[2021-12-05] MEDS: DOCUSATE SODIUM 100 MG CAPSULE PO SCH (08:58)
[2021-12-05] MEDS: ASCORBIC ACID 500 MG TABLET PO SCH ×2 (08:58→22:09)
[2021-12-05] MEDS: DICLOFENAC SODIUM 75 MG TABLET PO SCH ×2 (08:58→22:09)
[2021-12-05] MEDS: PANTOPRAZOLE 40 MG TABLET PO SCH ×2 (08:58→22:09)
[2021-12-05] MEDS: ursodioL 300 MG CAPSULE PO SCH ×2 (08:58→22:09)
[2021-12-05] MEDS: MONTELUKAST 10 MG TABLET PO SCH (08:58)
[2021-12-05] MEDS: MULTIVITAMIN (CENTRUM) TABLET PO SCH (08:58)
[2021-12-05] MEDS: OLOPATADINE 0.1% OPH SOLN 5 ML BOTTLE BOTH EYES SCH ×2 (08:59→22:09)
[2021-12-05] MEDS: DILTIAZEM CD 180 MG CAPSULE PO SCH ×2 (08:59→22:09)
[2021-12-05] MEDS: APIXABAN 5 MG TABLET PO SCH ×2 (08:59→22:09)
[2021-12-05] MEDS: BUDESONIDE/FORMOTEROL 160-4.5 INHALER 6 GM INH SCH ×2 (08:59→22:09)
[2021-12-05] MEDS: OXYBUTYNIN XL 5 MG TABLET PO SCH (08:59)
[2021-12-05] MEDS: THEOPHYLLINE ER (24 HR) 400 MG TABLET PO SCH (08:59)
[2021-12-05] MEDS: METOPROLOL TARTRATE 50 MG TABLET PO SCH ×2 (08:59→22:09)
[2021-12-05] MEDS: DIGOXIN 0.25 MG TABLET PO SCH (08:59)
[2021-12-05] MEDS: ROSUVASTATIN 10 MG TABLET PO SCH (09:01)
[2021-12-05] MEDS: INSULIN REGULAR 100 UNIT/ML SUBCUT SCH ×4 (09:23→22:09)
[2021-12-05] MEDS ORDERED: ALBUTEROL/IPRATROPIUM 3 ML NEB RESP TX PRN (15:11)
[2021-12-05] MEDS ORDERED: ALBUTEROL/IPRATROPIUM 3 ML NEB RESP TX ONE (15:11)
[2021-12-05] MEDS: POLYETHYLENE GLYCOL POWDER 17 GM PACK PO SCH (18:19)
[2021-12-06] MEDS: LEVOTHYROXINE 100 MCG TABLET PO SCH (05:48)
[2021-12-06] MEDS: INSULIN REGULAR 100 UNIT/ML SUBCUT SCH ×4 (07:41→20:25)
[2021-12-06] MEDS: POLYETHYLENE GLYCOL POWDER 17 GM PACK PO SCH (09:32)
[2021-12-06] MEDS: MULTIVITAMIN (CENTRUM) TABLET PO SCH (09:33)
[2021-12-06] MEDS: OXYBUTYNIN XL 5 MG TABLET PO SCH (09:33)
[2021-12-06] MEDS: ROSUVASTATIN 10 MG TABLET PO SCH (09:33)
[2021-12-06] MEDS: PANTOPRAZOLE 40 MG TABLET PO SCH ×2 (09:34→20:22)
[2021-12-06] MEDS: ASCORBIC ACID 500 MG TABLET PO SCH ×2 (09:34→20:22)
[2021-12-06] MEDS: DICLOFENAC SODIUM 75 MG TABLET PO SCH (09:34)
[2021-12-06] MEDS: ursodioL 300 MG CAPSULE PO SCH ×2 (09:34→20:22)
[2021-12-06] MEDS: METOPROLOL TARTRATE 50 MG TABLET PO SCH (09:34)
[2021-12-06] MEDS: MONTELUKAST 10 MG TABLET PO SCH (09:34)
[2021-12-06] MEDS: THEOPHYLLINE ER (24 HR) 400 MG TABLET PO SCH (09:35)
[2021-12-06] MEDS: APIXABAN 5 MG TABLET PO SCH ×2 (09:35→20:22)
[2021-12-06] MEDS: DIGOXIN 0.25 MG TABLET PO SCH (09:35)
[2021-12-06] MEDS: DOCUSATE SODIUM 100 MG CAPSULE PO SCH (09:36)
[2021-12-06] MEDS: DILTIAZEM CD 180 MG CAPSULE PO SCH (09:37)
[2021-12-06] MEDS: OLOPATADINE 0.1% OPH SOLN 5 ML BOTTLE BOTH EYES SCH ×2 (09:39→20:23)
[2021-12-06] MEDS: BUDESONIDE/FORMOTEROL 160-4.5 INHALER 6 GM INH SCH ×2 (09:39→20:23)
[2021-12-06] MEDS: SODIUM CHLORIDE 0.9% 1,000 ML IV SCH ×2 (09:42→11:18)
[2021-12-06] MEDS ORDERED: SODIUM CHLORIDE 0.9% 500 ML IV ONE (13:00)
[2021-12-06] MEDS: predniSONE 20 MG TABLET PO SCH (16:53)
[2021-12-06] MEDS: ALBUTEROL/IPRATROPIUM 3 ML NEB RESP TX SCH (19:05)
[2021-12-07] MEDS: ALBUTEROL/IPRATROPIUM 3 ML NEB RESP TX SCH ×4 (00:03→19:20)
[2021-12-07] MEDS: SODIUM CHLORIDE 0.9% 1,000 ML IV SCH ×3 (00:05→18:40)
[2021-12-07] MEDS: LEVOTHYROXINE 100 MCG TABLET PO SCH (05:43)
[2021-12-07 05:59] LABS: Hematocrit 31.5 VOL% (42.0-52.0); Immature Granulocytes % 1.6 %; Immature Granulocytes Absolute 0.08 #; Lymphocytes # 0.8 10*3/uL (1.4-4.0); Lymphocytes % 15.8 % (21.2-54.2); Mean Corpuscular HGB Conc 34.6 GM/DL (32-36); Mean Corpuscular Volume 99.4 FL (87-102); Mean Platelet Volume 10.3 FL (9.6-12.0); Monocytes # 0.1 10*3/uL (0.11-0.8); Monocytes % 2.4 % (1.7-12.7); Neutrophils % 80.2 % (38.7-73.9); Platelet Count 222 T/CUMM (130-400); Red Blood Count 3.17 MC/CUMM (3.8-5.5); Red Cell Distribution Width 15.2 % (9.3-17.3); White Blood Count 5.1 T/CUMM (4-12)
[2021-12-07 06:00] LABS: Hemoglobin 10.9 GM/DL (14.0-18.0)
[2021-12-07 06:18] LABS: Calcium 8.6 MG/DL (8.5-10.1); Osmolality,Calculated 281.5 MOS/KG (273-304); Potassium 4.9 MMOL/L (3.5-5.1)
[2021-12-07] MEDS: POLYETHYLENE GLYCOL POWDER 17 GM PACK PO SCH (08:07)
[2021-12-07] MEDS: predniSONE 20 MG TABLET PO SCH (08:09)
[2021-12-07] MEDS: MULTIVITAMIN (CENTRUM) TABLET PO SCH (08:09)
[2021-12-07] MEDS: PANTOPRAZOLE 40 MG TABLET PO SCH ×2 (08:10→21:52)
[2021-12-07] MEDS: ASCORBIC ACID 500 MG TABLET PO SCH ×2 (08:10→21:52)
[2021-12-07] MEDS: OLOPATADINE 0.1% OPH SOLN 5 ML BOTTLE BOTH EYES SCH ×2 (08:10→21:52)
[2021-12-07] MEDS: MONTELUKAST 10 MG TABLET PO SCH (08:10)
[2021-12-07] MEDS: ROSUVASTATIN 10 MG TABLET PO SCH (08:11)
[2021-12-07] MEDS: OXYBUTYNIN XL 5 MG TABLET PO SCH (08:11)
[2021-12-07] MEDS: THEOPHYLLINE ER (24 HR) 400 MG TABLET PO SCH (08:11)
[2021-12-07] MEDS: DIGOXIN 0.25 MG TABLET PO SCH (08:11)
[2021-12-07] MEDS: APIXABAN 5 MG TABLET PO SCH ×2 (08:11→21:52)
[2021-12-07] MEDS: INSULIN REGULAR 100 UNIT/ML SUBCUT SCH ×4 (08:12→21:54)
[2021-12-07] MEDS: ursodioL 300 MG CAPSULE PO SCH ×2 (08:12→21:53)
[2021-12-07] MEDS: DOCUSATE SODIUM 100 MG CAPSULE PO SCH (08:12)
[2021-12-07] MEDS: BUDESONIDE/FORMOTEROL 160-4.5 INHALER 6 GM INH SCH ×2 (08:13→23:30)
[2021-12-07] MEDS: DILTIAZEM CD 180 MG CAPSULE PO SCH (11:00)
[2021-12-07] MEDS: METOPROLOL TARTRATE 50 MG TABLET PO SCH (11:01)
[2021-12-07] MEDS ORDERED: METOPROLOL TARTRATE 25 MG TABLET PO ONE (15:50)
[2021-12-07] MEDS: METOPROLOL TARTRATE 25 MG TABLET PO SCH (21:52)
[2021-12-08] MEDS: ALBUTEROL/IPRATROPIUM 3 ML NEB RESP TX SCH ×3 (00:17→13:15)
[2021-12-08] MEDS: SODIUM CHLORIDE 0.9% 1,000 ML IV SCH ×2 (01:53→02:29)
[2021-12-08] MEDS: LEVOTHYROXINE 100 MCG TABLET PO SCH (05:35)
[2021-12-08] MEDS: ursodioL 300 MG CAPSULE PO SCH ×2 (09:10→21:12)
[2021-12-08] MEDS: POLYETHYLENE GLYCOL POWDER 17 GM PACK PO SCH (09:10)
[2021-12-08] MEDS: MONTELUKAST 10 MG TABLET PO SCH (09:11)
[2021-12-08] MEDS: PANTOPRAZOLE 40 MG TABLET PO SCH ×2 (09:11→21:12)
[2021-12-08] MEDS: METOPROLOL TARTRATE 25 MG TABLET PO SCH (09:11)
[2021-12-08] MEDS: predniSONE 20 MG TABLET PO SCH (09:11)
[2021-12-08] MEDS: OXYBUTYNIN XL 5 MG TABLET PO SCH (09:11)
[2021-12-08] MEDS: APIXABAN 5 MG TABLET PO SCH ×2 (09:11→21:12)
[2021-12-08] MEDS: ASCORBIC ACID 500 MG TABLET PO SCH ×2 (09:11→21:12)
[2021-12-08] MEDS: DOCUSATE SODIUM 100 MG CAPSULE PO SCH (09:11)
[2021-12-08] MEDS: ROSUVASTATIN 10 MG TABLET PO SCH (09:12)
[2021-12-08] MEDS: MULTIVITAMIN (CENTRUM) TABLET PO SCH (09:12)
[2021-12-08] MEDS: THEOPHYLLINE ER (24 HR) 400 MG TABLET PO SCH (09:12)
[2021-12-08] MEDS: OLOPATADINE 0.1% OPH SOLN 5 ML BOTTLE BOTH EYES SCH ×2 (09:15→21:13)
[2021-12-08] MEDS: BUDESONIDE/FORMOTEROL 160-4.5 INHALER 6 GM INH SCH ×2 (09:15→21:12)
[2021-12-08] MEDS: INSULIN REGULAR 100 UNIT/ML SUBCUT SCH ×4 (10:38→21:13)
[2021-12-08] MEDS ORDERED: ALBUTEROL/IPRATROPIUM 3 ML NEB RESP TX PRN (14:00)
[2021-12-08] MEDS: METOPROLOL TARTRATE 50 MG TABLET PO SCH (21:12)
[2021-12-09] MEDS: LEVOTHYROXINE 100 MCG TABLET PO SCH (06:05)
[2021-12-09] MEDS: INSULIN REGULAR 100 UNIT/ML SUBCUT SCH ×4 (08:10→21:58)
[2021-12-09] MEDS: THEOPHYLLINE ER (24 HR) 400 MG TABLET PO SCH (09:40)
[2021-12-09] MEDS: APIXABAN 5 MG TABLET PO SCH ×2 (09:41→21:58)
[2021-12-09] MEDS: METOPROLOL TARTRATE 50 MG TABLET PO SCH ×2 (09:41→21:58)
[2021-12-09] MEDS: OXYBUTYNIN XL 5 MG TABLET PO SCH (09:41)
[2021-12-09] MEDS: predniSONE 20 MG TABLET PO SCH (09:42)
[2021-12-09] MEDS: ASCORBIC ACID 500 MG TABLET PO SCH ×2 (09:42→21:57)
[2021-12-09] MEDS: ROSUVASTATIN 10 MG TABLET PO SCH (09:43)
[2021-12-09] MEDS: ursodioL 300 MG CAPSULE PO SCH ×2 (09:44→21:58)
[2021-12-09] MEDS: MONTELUKAST 10 MG TABLET PO SCH (09:44)
[2021-12-09] MEDS: MULTIVITAMIN (CENTRUM) TABLET PO SCH (09:44)
[2021-12-09] MEDS: POLYETHYLENE GLYCOL POWDER 17 GM PACK PO SCH (09:45)
[2021-12-09] MEDS: PANTOPRAZOLE 40 MG TABLET PO SCH ×2 (09:45→22:02)
[2021-12-09] MEDS: OLOPATADINE 0.1% OPH SOLN 5 ML BOTTLE BOTH EYES SCH ×2 (09:45→21:59)
[2021-12-09] MEDS: DOCUSATE SODIUM 100 MG CAPSULE PO SCH (09:45)
[2021-12-09] MEDS: BUDESONIDE/FORMOTEROL 160-4.5 INHALER 6 GM INH SCH ×2 (09:48→21:58)
[2021-12-10] MEDS: LEVOTHYROXINE 100 MCG TABLET PO SCH (06:06)
[2021-12-10] MEDS: MULTIVITAMIN (CENTRUM) TABLET PO SCH (10:41)
[2021-12-10] MEDS: OXYBUTYNIN XL 5 MG TABLET PO SCH (10:41)
[2021-12-10] MEDS: ursodioL 300 MG CAPSULE PO SCH ×2 (10:41→20:58)
[2021-12-10] MEDS: POLYETHYLENE GLYCOL POWDER 17 GM PACK PO SCH (10:41)
[2021-12-10] MEDS: ASCORBIC ACID 500 MG TABLET PO SCH ×2 (10:41→20:58)
[2021-12-10] MEDS: ROSUVASTATIN 10 MG TABLET PO SCH (10:42)
[2021-12-10] MEDS: DOCUSATE SODIUM 100 MG CAPSULE PO SCH (10:42)
[2021-12-10] MEDS: APIXABAN 5 MG TABLET PO SCH ×2 (10:42→20:58)
[2021-12-10] MEDS: MONTELUKAST 10 MG TABLET PO SCH (10:42)
[2021-12-10] MEDS: THEOPHYLLINE ER (24 HR) 400 MG TABLET PO SCH (10:42)
[2021-12-10] MEDS: METOPROLOL TARTRATE 50 MG TABLET PO SCH ×2 (10:43→20:58)
[2021-12-10] MEDS: predniSONE 20 MG TABLET PO SCH (10:43)
[2021-12-10] MEDS: PANTOPRAZOLE 40 MG TABLET PO SCH ×2 (10:43→20:58)
[2021-12-10] MEDS: OLOPATADINE 0.1% OPH SOLN 5 ML BOTTLE BOTH EYES SCH ×2 (10:43→21:04)
[2021-12-10] MEDS: BUDESONIDE/FORMOTEROL 160-4.5 INHALER 6 GM INH SCH ×2 (10:44→21:07)
[2021-12-10] MEDS: INSULIN REGULAR 100 UNIT/ML SUBCUT SCH ×4 (10:44→21:01)
[2021-12-11] MEDS: LEVOTHYROXINE 100 MCG TABLET PO SCH (05:32)
[2021-12-11] MEDS: INSULIN REGULAR 100 UNIT/ML SUBCUT SCH ×4 (08:27→22:47)
[2021-12-11] MEDS ORDERED: DIAZEPAM 5 MG TABLET PO ONE (08:38)
[2021-12-11] MEDS ORDERED: MIDAZOLAM 2 MG/2 ML VIAL IV ONE (08:38)
[2021-12-11] MEDS ORDERED: fentaNYL 100 MCG/2 ML VIAL IV ONE (08:38)
[2021-12-11 08:57] LABS: INR 1.1; PT Patient Result 11.9 SECS (10.5-12.0)
[2021-12-11] MEDS ORDERED: SODIUM CHLORIDE 0.45% 1,000 ML IV SCH (09:00)
[2021-12-11] MEDS: MULTIVITAMIN (CENTRUM) TABLET PO SCH (10:58)
[2021-12-11] MEDS: ursodioL 300 MG CAPSULE PO SCH ×2 (10:58→20:47)
[2021-12-11] MEDS: DOCUSATE SODIUM 100 MG CAPSULE PO SCH (10:59)
[2021-12-11] MEDS: POLYETHYLENE GLYCOL POWDER 17 GM PACK PO SCH (10:59)
[2021-12-11] MEDS: METOPROLOL TARTRATE 50 MG TABLET PO SCH ×2 (10:59→20:47)
[2021-12-11] MEDS: OXYBUTYNIN XL 5 MG TABLET PO SCH (10:59)
[2021-12-11] MEDS: ROSUVASTATIN 10 MG TABLET PO SCH (10:59)
[2021-12-11] MEDS: BUDESONIDE/FORMOTEROL 160-4.5 INHALER 6 GM INH SCH ×2 (11:00→20:48)
[2021-12-11] MEDS: OLOPATADINE 0.1% OPH SOLN 5 ML BOTTLE BOTH EYES SCH ×2 (11:00→20:48)
[2021-12-11] MEDS: MONTELUKAST 10 MG TABLET PO SCH (11:00)
[2021-12-11] MEDS: predniSONE 20 MG TABLET PO SCH (11:00)
[2021-12-11] MEDS: PANTOPRAZOLE 40 MG TABLET PO SCH ×2 (11:00→20:47)
[2021-12-11] MEDS: THEOPHYLLINE ER (24 HR) 400 MG TABLET PO SCH (11:01)
[2021-12-11] MEDS: ASCORBIC ACID 500 MG TABLET PO SCH ×2 (11:01→20:47)
[2021-12-11] MEDS: ONDANSETRON 4 MG/2 ML VIAL IV PRN (15:19)
[2021-12-11] MEDS ORDERED: DEXTROSE 10% 250 ML BAG IV PRN (16:29)
[2021-12-11] MEDS ORDERED: ACETAMINOPHEN 325 MG TABLET PO PRN (21:18)
[2021-12-12] MEDS: LEVOTHYROXINE 100 MCG TABLET PO SCH (05:13)
[2021-12-12] MEDS: INSULIN REGULAR 100 UNIT/ML SUBCUT SCH ×4 (07:58→20:21)
[2021-12-12] MEDS: MULTIVITAMIN (CENTRUM) TABLET PO SCH (09:52)
[2021-12-12] MEDS: THEOPHYLLINE ER (24 HR) 400 MG TABLET PO SCH (09:52)
[2021-12-12] MEDS: OXYBUTYNIN XL 5 MG TABLET PO SCH (09:52)
[2021-12-12] MEDS: PANTOPRAZOLE 40 MG TABLET PO SCH ×2 (09:52→20:20)
[2021-12-12] MEDS: ASCORBIC ACID 500 MG TABLET PO SCH ×2 (09:52→20:20)
[2021-12-12] MEDS: METOPROLOL TARTRATE 50 MG TABLET PO SCH ×2 (09:52→20:20)
[2021-12-12] MEDS: ursodioL 300 MG CAPSULE PO SCH ×2 (09:52→20:20)
[2021-12-12] MEDS: DOCUSATE SODIUM 100 MG CAPSULE PO SCH (09:53)
[2021-12-12] MEDS: POLYETHYLENE GLYCOL POWDER 17 GM PACK PO SCH (09:53)
[2021-12-12] MEDS: ROSUVASTATIN 10 MG TABLET PO SCH (09:53)
[2021-12-12] MEDS: MONTELUKAST 10 MG TABLET PO SCH (09:53)
[2021-12-12] MEDS: BUDESONIDE/FORMOTEROL 160-4.5 INHALER 6 GM INH SCH ×2 (09:54→20:21)
[2021-12-12] MEDS: OLOPATADINE 0.1% OPH SOLN 5 ML BOTTLE BOTH EYES SCH ×2 (09:54→20:21)
[2021-12-12] MEDS: APIXABAN 5 MG TABLET PO SCH ×2 (10:05→20:20)
[2021-12-12 11:23] LABS: Basophils % 0.1 % (0.0-0.8); Eosinophils # 0.1 10*3/uL (0.0-0.87); Eosinophils % 1.1 % (0.00-10.9); Hematocrit 36.7 VOL% (42.0-52.0); Hemoglobin 12.5 GM/DL (14.0-18.0); Immature Granulocytes % 0.5 %; Immature Granulocytes Absolute 0.05 #; Lymphocytes # 2.3 10*3/uL (1.4-4.0); Lymphocytes % 20.3 % (21.2-54.2); Mean Corpuscular HGB Conc 34.1 GM/DL (32-36); Mean Corpuscular Volume 98.4 FL (87-102); Mean Platelet Volume 10.2 FL (9.6-12.0); Monocytes % 8.6 % (1.7-12.7); NRBC # 0.03 10*3/uL; Neutrophils % 69.4 % (38.7-73.9); Platelet Count 218 T/CUMM (130-400); Red Blood Count 3.73 MC/CUMM (3.8-5.5); Red Cell Distribution Width 16.2 % (9.3-17.3); White Blood Count 11.1 T/CUMM (4-12)
[2021-12-12] MEDS: ONDANSETRON 4 MG/2 ML VIAL IV PRN (11:29)
[2021-12-12 11:49] LABS: Osmolality,Calculated 274.7 MOS/KG (273-304); Potassium 3.2 MMOL/L (3.5-5.1); Total Protein 6.6 G/DL (6.4-8.2)
[2021-12-12] MEDS: predniSONE 20 MG TABLET PO SCH (17:19)
[2021-12-13 04:54] LABS: Basophils % 0.1 % (0.0-0.8); Eosinophils # 0.2 10*3/uL (0.0-0.87); Eosinophils % 2.2 % (0.00-10.9); Hematocrit 32.5 VOL% (42.0-52.0); Hemoglobin 10.8 GM/DL (14.0-18.0); Immature Granulocytes % 0.5 %; Immature Granulocytes Absolute 0.04 #; Lymphocytes # 1.7 10*3/uL (1.4-4.0); Lymphocytes % 21.9 % (21.2-54.2); Mean Corpuscular HGB Conc 33.2 GM/DL (32-36); Mean Platelet Volume 10.5 FL (9.6-12.0); Monocytes # 0.8 10*3/uL (0.11-0.8); Monocytes % 10.4 % (1.7-12.7); NRBC # 0.02 10*3/uL; Neutrophils % 64.9 % (38.7-73.9); Platelet Count 184 T/CUMM (130-400); Red Blood Count 3.25 MC/CUMM (3.8-5.5); Red Cell Distribution Width 15.8 % (9.3-17.3); White Blood Count 7.9 T/CUMM (4-12)
[2021-12-13 05:12] LABS: Calcium 8.6 MG/DL (8.5-10.1); Osmolality,Calculated 276.7 MOS/KG (273-304)
[2021-12-13] MEDS: LEVOTHYROXINE 100 MCG TABLET PO SCH (05:47)
[2021-12-13] MEDS: POLYETHYLENE GLYCOL POWDER 17 GM PACK PO SCH (08:20)
[2021-12-13] MEDS: ASCORBIC ACID 500 MG TABLET PO SCH ×2 (08:20→21:02)
[2021-12-13] MEDS: OXYBUTYNIN XL 5 MG TABLET PO SCH (08:20)
[2021-12-13] MEDS: ursodioL 300 MG CAPSULE PO SCH ×2 (08:20→21:02)
[2021-12-13] MEDS: APIXABAN 5 MG TABLET PO SCH ×2 (08:20→21:02)
[2021-12-13] MEDS: ROSUVASTATIN 10 MG TABLET PO SCH (08:21)
[2021-12-13] MEDS: PANTOPRAZOLE 40 MG TABLET PO SCH ×2 (08:21→21:01)
[2021-12-13] MEDS: MULTIVITAMIN (CENTRUM) TABLET PO SCH (08:21)
[2021-12-13] MEDS: DOCUSATE SODIUM 100 MG CAPSULE PO SCH (08:21)
[2021-12-13] MEDS: MONTELUKAST 10 MG TABLET PO SCH (08:22)
[2021-12-13] MEDS: METOPROLOL TARTRATE 50 MG TABLET PO SCH (08:22)
[2021-12-13] MEDS: THEOPHYLLINE ER (24 HR) 400 MG TABLET PO SCH (08:22)
[2021-12-13] MEDS: OLOPATADINE 0.1% OPH SOLN 5 ML BOTTLE BOTH EYES SCH ×2 (08:23→21:15)
[2021-12-13] MEDS: BUDESONIDE/FORMOTEROL 160-4.5 INHALER 6 GM INH SCH ×2 (08:23→21:15)
[2021-12-13] MEDS: INSULIN REGULAR 100 UNIT/ML SUBCUT SCH ×4 (08:24→22:43)
[2021-12-13] MEDS ORDERED: predniSONE 20 MG TABLET PO SCH (09:00)
[2021-12-13] MEDS: CIPROFLOXACIN 500 MG TABLET PO SCH ×2 (13:37→21:01)
[2021-12-13] MEDS: POTASSIUM CHLORIDE 20 MEQ TABLET PO SCH ×2 (13:37→16:45)
[2021-12-13] MEDS ORDERED: SODIUM CHLORIDE 0.9% 500 ML IV ONE (21:30)
[2021-12-14] MEDS ORDERED: SODIUM CHLORIDE 0.9% 500 ML IV ONE (00:32)
[2021-12-14 05:55] LABS: Osmolality,Calculated 278.7 MOS/KG (273-304)
[2021-12-14] MEDS: LEVOTHYROXINE 100 MCG TABLET PO SCH (06:06)
[2021-12-14] MEDS: OLOPATADINE 0.1% OPH SOLN 5 ML BOTTLE BOTH EYES SCH ×2 (08:59→21:03)
[2021-12-14] MEDS: BUDESONIDE/FORMOTEROL 160-4.5 INHALER 6 GM INH SCH ×2 (08:59→21:02)
[2021-12-14] MEDS: POLYETHYLENE GLYCOL POWDER 17 GM PACK PO SCH (08:59)
[2021-12-14] MEDS: INSULIN REGULAR 100 UNIT/ML SUBCUT SCH ×4 (08:59→22:16)
[2021-12-14] MEDS: DOCUSATE SODIUM 100 MG CAPSULE PO SCH (09:00)
[2021-12-14] MEDS: THEOPHYLLINE ER (24 HR) 400 MG TABLET PO SCH (09:00)
[2021-12-14] MEDS: predniSONE 10 MG TABLET PO SCH (09:00)
[2021-12-14] MEDS: MULTIVITAMIN (CENTRUM) TABLET PO SCH (09:00)
[2021-12-14] MEDS: ursodioL 300 MG CAPSULE PO SCH ×2 (09:00→22:23)
[2021-12-14] MEDS: PANTOPRAZOLE 40 MG TABLET PO SCH ×2 (09:00→21:00)
[2021-12-14] MEDS: APIXABAN 5 MG TABLET PO SCH ×2 (09:01→20:59)
[2021-12-14] MEDS: MONTELUKAST 10 MG TABLET PO SCH (09:01)
[2021-12-14] MEDS: ASCORBIC ACID 500 MG TABLET PO SCH ×2 (09:01→20:58)
[2021-12-14] MEDS: CIPROFLOXACIN 500 MG TABLET PO SCH ×2 (09:01→20:58)
[2021-12-14] MEDS: OXYBUTYNIN XL 5 MG TABLET PO SCH (09:01)
[2021-12-14] MEDS: ROSUVASTATIN 10 MG TABLET PO SCH (09:02)
[2021-12-14] MEDS: METOPROLOL TARTRATE 50 MG TABLET PO SCH ×2 (09:47→20:59)
[2021-12-15] MEDS: LEVOTHYROXINE 100 MCG TABLET PO SCH (05:58)
[2021-12-15] MEDS: INSULIN REGULAR 100 UNIT/ML SUBCUT SCH ×4 (09:39→21:32)
[2021-12-15] MEDS: MONTELUKAST 10 MG TABLET PO SCH (09:49)
[2021-12-15] MEDS: PANTOPRAZOLE 40 MG TABLET PO SCH ×2 (09:49→21:31)
[2021-12-15] MEDS: METOPROLOL TARTRATE 50 MG TABLET PO SCH ×2 (09:49→21:31)
[2021-12-15] MEDS: ROSUVASTATIN 10 MG TABLET PO SCH (09:49)
[2021-12-15] MEDS: ASCORBIC ACID 500 MG TABLET PO SCH ×2 (09:49→21:31)
[2021-12-15] MEDS: OXYBUTYNIN XL 5 MG TABLET PO SCH (09:49)
[2021-12-15] MEDS: CIPROFLOXACIN 500 MG TABLET PO SCH ×2 (09:49→21:31)
[2021-12-15] MEDS: MULTIVITAMIN (CENTRUM) TABLET PO SCH (09:49)
[2021-12-15] MEDS: DOCUSATE SODIUM 100 MG CAPSULE PO SCH (09:49)
[2021-12-15] MEDS: ursodioL 300 MG CAPSULE PO SCH ×2 (09:49→21:31)
[2021-12-15] MEDS: predniSONE 10 MG TABLET PO SCH (09:50)
[2021-12-15] MEDS: APIXABAN 5 MG TABLET PO SCH ×2 (09:50→21:32)
[2021-12-15] MEDS: POLYETHYLENE GLYCOL POWDER 17 GM PACK PO SCH (09:50)
[2021-12-15] MEDS: BUDESONIDE/FORMOTEROL 160-4.5 INHALER 6 GM INH SCH ×2 (09:51→21:33)
[2021-12-15] MEDS: OLOPATADINE 0.1% OPH SOLN 5 ML BOTTLE BOTH EYES SCH ×2 (09:51→21:32)
[2021-12-15] MEDS: THEOPHYLLINE ER (24 HR) 400 MG TABLET PO SCH (12:46)
[2021-12-16] MEDS: LEVOTHYROXINE 100 MCG TABLET PO SCH (06:12)
[2021-12-16] MEDS: INSULIN REGULAR 100 UNIT/ML SUBCUT SCH ×4 (07:18→20:57)
[2021-12-16] MEDS: MONTELUKAST 10 MG TABLET PO SCH (09:05)
[2021-12-16] MEDS: POLYETHYLENE GLYCOL POWDER 17 GM PACK PO SCH (09:05)
[2021-12-16] MEDS: OXYBUTYNIN XL 5 MG TABLET PO SCH (09:05)
[2021-12-16] MEDS: ROSUVASTATIN 10 MG TABLET PO SCH (09:07)
[2021-12-16] MEDS: APIXABAN 5 MG TABLET PO SCH ×2 (09:07→20:58)
[2021-12-16] MEDS: predniSONE 10 MG TABLET PO SCH (09:07)
[2021-12-16] MEDS: MULTIVITAMIN (CENTRUM) TABLET PO SCH (09:07)
[2021-12-16] MEDS: METOPROLOL TARTRATE 50 MG TABLET PO SCH ×2 (09:07→20:57)
[2021-12-16] MEDS: CIPROFLOXACIN 500 MG TABLET PO SCH ×2 (09:07→20:58)
[2021-12-16] MEDS: THEOPHYLLINE ER (24 HR) 400 MG TABLET PO SCH (09:07)
[2021-12-16] MEDS: PANTOPRAZOLE 40 MG TABLET PO SCH ×2 (09:07→20:58)
[2021-12-16] MEDS: ASCORBIC ACID 500 MG TABLET PO SCH ×2 (09:07→20:57)
[2021-12-16] MEDS: ursodioL 300 MG CAPSULE PO SCH ×2 (09:07→20:57)
[2021-12-16] MEDS: BUDESONIDE/FORMOTEROL 160-4.5 INHALER 6 GM INH SCH ×2 (09:08→20:58)
[2021-12-16] MEDS: DOCUSATE SODIUM 100 MG CAPSULE PO SCH (09:10)
[2021-12-16] MEDS: OLOPATADINE 0.1% OPH SOLN 5 ML BOTTLE BOTH EYES SCH ×2 (09:12→20:58)
[2021-12-16] MEDS ORDERED: DIGOXIN 0.125 MG TABLET PO ONE (09:55)
[2021-12-16] MEDS ORDERED: DIGOXIN 0.25 MG TABLET PO SCH (13:00)
[2021-12-16] MEDS ORDERED: REMDESIVIR 200 MG in SODIUM CHLORIDE 0.9% 210 ML IV ONE (14:00)
[2021-12-17] MEDS: LEVOTHYROXINE 100 MCG TABLET PO SCH (05:29)
[2021-12-17] MEDS: INSULIN REGULAR 100 UNIT/ML SUBCUT SCH ×2 (07:14→12:31)
[2021-12-17 07:44] VITALS: BP 128/88
[2021-12-17] MEDS ORDERED: THEOPHYLLINE ER (24 HR) 200 MG CAPSULE PO SCH (09:00)
[2021-12-17] MEDS ORDERED: REMDESIVIR 100 MG in SODIUM CHLORIDE 0.9% 100 ML IV SCH (09:00)
[2021-12-17] MEDS: POLYETHYLENE GLYCOL POWDER 17 GM PACK PO SCH (09:05)
[2021-12-17] MEDS: ASCORBIC ACID 500 MG TABLET PO SCH (09:06)
[2021-12-17] MEDS: ursodioL 300 MG CAPSULE PO SCH (09:06)
[2021-12-17] MEDS: MONTELUKAST 10 MG TABLET PO SCH (09:06)
[2021-12-17] MEDS: MULTIVITAMIN (CENTRUM) TABLET PO SCH (09:06)
[2021-12-17] MEDS: predniSONE 10 MG TABLET PO SCH (09:06)
[2021-12-17] MEDS: APIXABAN 5 MG TABLET PO SCH (09:06)
[2021-12-17] MEDS: ROSUVASTATIN 10 MG TABLET PO SCH (09:06)
[2021-12-17] MEDS: OXYBUTYNIN XL 5 MG TABLET PO SCH (09:06)
[2021-12-17] MEDS: METOPROLOL TARTRATE 50 MG TABLET PO SCH (09:06)
[2021-12-17] MEDS: CIPROFLOXACIN 500 MG TABLET PO SCH (09:06)
[2021-12-17] MEDS: PANTOPRAZOLE 40 MG TABLET PO SCH (09:06)
[2021-12-17] MEDS: DOCUSATE SODIUM 100 MG CAPSULE PO SCH (09:09)
[2021-12-17] MEDS: OLOPATADINE 0.1% OPH SOLN 5 ML BOTTLE BOTH EYES SCH (09:09)
[2021-12-17] MEDS: BUDESONIDE/FORMOTEROL 160-4.5 INHALER 6 GM INH SCH (09:09)
== END 2021-12-17 12:14 | DRG 444 ==
LOC: EDUNIT# → EDBD → N.5E 19:06 → N.ED 19:06 → SUATTDRO 12-05 01:15 → OBSVTOIN 12-05 01:15 → N.5E 12-05 03:11 → SUATTDRO 12-12 12:57
PROVIDERS: ADMIT Internal Medicine; ATTEND Internal Medicine

== ENCOUNTER 2022-02-25 11:18 | Inpatient (IN) ==
[2022-02-25] MEDS ORDERED: DILTIAZEM 50 MG/10 ML VIAL IV ONE (11:36)
[2022-02-25] MEDS ORDERED: ALBUTEROL/IPRATROPIUM 3 ML NEB RESP TX STA (11:40)
[2022-02-25] MEDS ORDERED: DILTIAZEM 25 MG/5 ML VIAL IV STA (11:40)
[2022-02-25] MEDS ORDERED: methylPREDNISolone SOD SUC 125 MG/2 ML VIAL IV STA (11:40)
[2022-02-25 12:06] LABS: Basophils # 0.1 10*3/uL (0.0-0.2); Basophils % 0.6 % (0.0-0.8); Eosinophils # 0.8 10*3/uL (0.0-0.87); Eosinophils % 7.6 % (0.00-10.9); Hematocrit 41.5 VOL% (42.0-52.0); Hemoglobin 14.4 GM/DL (14.0-18.0); Immature Granulocytes % 1.1 %; Immature Granulocytes Absolute 0.12 #; Lymphocytes # 3.4 10*3/uL (1.4-4.0); Lymphocytes % 30.6 % (21.2-54.2); Mean Corpuscular HGB Conc 34.7 GM/DL (32-36); Mean Corpuscular Volume 96.7 FL (87-102); Mean Platelet Volume 9.5 FL (9.6-12.0); Monocytes # 1.1 10*3/uL (0.11-0.8); Neutrophils % 50.1 % (38.7-73.9); Platelet Count 260 T/CUMM (130-400); Red Blood Count 4.29 MC/CUMM (3.8-5.5); Red Cell Distribution Width 14.4 % (9.3-17.3); White Blood Count 11.1 T/CUMM (4-12)
[2022-02-25 12:32] LABS: Alanine Aminotransferase 39 U/L (16-61); Albumin 3.6 G/DL (3.4-5.0); Alkaline Phosphatase 69 U/L (45-117); Amylase 86 U/L (25-115); Aspartate Amino Transferase 22 U/L (0-37); Blood Urea Nitrogen 27 MG/DL (7-18); Calcium 9.7 MG/DL (8.5-10.1); Carbon Dioxide 16 MMOL/L (21-32); Chloride 112 MMOL/L (98-107); Glucose 218 MG/DL (74-106); Osmolality,Calculated 284.8 MOS/KG (273-304); Potassium 4.5 MMOL/L (3.5-5.1); Sodium 137 MMOL/L (136-145); Total Protein 7.5 G/DL (6.4-8.2)
[2022-02-25 12:45] LABS: Eosinophils 7 % (0-10); Lymphocytes 35 % (20-55); Total Cells Counted 100
[2022-02-25 12:49] LABS: Burr Cells Slight; Platelet Estimate Normal
[2022-02-25] MEDS ORDERED: SODIUM CHLORIDE 0.9% 1,000 ML IV STA (12:56)
[2022-02-25] MEDS ORDERED: ONDANSETRON 4 MG/2 ML VIAL IV PRN (14:09)
[2022-02-25] MEDS ORDERED: DEXTROSE 10% 250 ML BAG IV PRN (14:09)
[2022-02-25] MEDS ORDERED: GLUCAGON 1 MG VIAL IM PRN ×2 (14:09)
[2022-02-25] MEDS ORDERED: DEXTROSE 50% 25 GM/50 ML VIAL IV PRN (14:09)
[2022-02-25 14:13] LABS: Bacteria,Urine Occasional /HPF (Few); Hyaline Casts,Urine 20 /LPF (0-3); Mucus,Urine Occasional /LPF (Occasional); Protein,Urine 30 mg/dL (Negative); RBC,Urine 2 /HPF (0-4); Squamous Epithelial Cell,Urine Occasional /HPF (0-10); Urine Appearance Clear (Clear); Urine Color Yellow (Yellow); Urine Specific Gravity 1.032 (1.001-1.035); Urine pH 5.5 (4.5-8.0)
[2022-02-25 14:14] LABS: Bilirubin,Urine Negative (Negative); Blood, Urine Negative (Negative); Glucose,Urine (UA) 100 mg/dL (Negative); Ketones,Urine Trace mg/dL (Negative); Nitrite,Urine Negative (Negative); Urine Urobilinogen 0.2 eU/dL (<2.0)
[2022-02-25] MEDS: guaiFENesin/DM ER 600-30 MG TABLET PO SCH ×2 (15:45→21:07)
[2022-02-25] MEDS: DOXYCYCLINE HYCLATE INJ 100 MG in SODIUM CHLORIDE 0.9% 100 ML IV SCH (16:06)
[2022-02-25 17:48] LABS: VBG Base Excess -7.7 MEQ/L (0-4); VBG HCO3 17.8 MEQ/L (24-28); VBG Oxygen Saturation 76.1 %; VBG PCO2 32.3 MMHG (41-51); VBG PH 7.333; VBG PO2 44.5 MMHG (17-40); VBG Total CO2 14.7 MMOL/L
[2022-02-25] MEDS: ALBUTEROL/IPRATROPIUM 3 ML NEB RESP TX SCH (18:57)
[2022-02-25] MEDS: methylPREDNISolone SOD SUC 40 MG/1 ML VIAL IV SCH (19:28)
[2022-02-25] MEDS ORDERED: SODIUM CHLORIDE 0.9% 2,000 ML IV ONE (20:49)
[2022-02-25] MEDS: APIXABAN 5 MG TABLET PO SCH (21:07)
[2022-02-25] MEDS: METOPROLOL TARTRATE 50 MG TABLET PO SCH (21:07)
[2022-02-25] MEDS: ASCORBIC ACID 500 MG TABLET PO SCH (21:07)
[2022-02-25] MEDS: INSULIN REGULAR 100 UNIT/ML SUBCUT SCH (22:00)
[2022-02-26] MEDS: ALBUTEROL/IPRATROPIUM 3 ML NEB RESP TX SCH ×4 (00:04→19:35)
[2022-02-26] MEDS: OLOPATADINE 0.1% OPH SOLN 5 ML BOTTLE BOTH EYES SCH ×4 (02:44→21:09)
[2022-02-26] MEDS: INSULIN REGULAR 100 UNIT/ML SUBCUT SCH ×5 (02:58→21:07)
[2022-02-26] MEDS: methylPREDNISolone SOD SUC 40 MG/1 ML VIAL IV SCH ×4 (03:08→21:07)
[2022-02-26] MEDS: DOXYCYCLINE HYCLATE INJ 100 MG in SODIUM CHLORIDE 0.9% 100 ML IV SCH ×2 (03:08→15:40)
[2022-02-26] MEDS: ursodioL 300 MG CAPSULE PO SCH ×3 (03:09→21:08)
[2022-02-26 05:12] LABS: Basophils % 0.2 % (0.0-0.8); Eosinophils # 0.1 10*3/uL (0.0-0.87); Eosinophils % 0.7 % (0.00-10.9); Hematocrit 39.4 VOL% (42.0-52.0); Hemoglobin 13.1 GM/DL (14.0-18.0); Immature Granulocytes % 4.5 %; Immature Granulocytes Absolute 0.73 #; Lymphocytes # 2.8 10*3/uL (1.4-4.0); Lymphocytes % 17.3 % (21.2-54.2); Mean Corpuscular HGB Conc 33.2 GM/DL (32-36); Mean Corpuscular Volume 99.5 FL (87-102); Mean Platelet Volume 10.5 FL (9.6-12.0); Monocytes # 0.6 10*3/uL (0.11-0.8); Monocytes % 3.7 % (1.7-12.7); Neutrophils % 73.6 % (38.7-73.9); Platelet Count 179 T/CUMM (130-400); Red Blood Count 3.96 MC/CUMM (3.8-5.5); Red Cell Distribution Width 14.6 % (9.3-17.3); White Blood Count 16.2 T/CUMM (4-12)
[2022-02-26 05:36] LABS: Band Neutrophils 6 % (0-10); Lymphocytes 23 % (20-55); Metamyelocytes 1 %; Myelocytes 1 %; Total Cells Counted 100
[2022-02-26 06:43] LABS: Albumin 3.1 G/DL (3.4-5.0); Bilirubin,Total 0.4 MG/DL (0.20-1.00); Osmolality,Calculated 285.7 MOS/KG (273-304); Potassium 5.4 MMOL/L (3.5-5.1); Total Protein 6.8 G/DL (6.4-8.2)
[2022-02-26] MEDS: LEVOTHYROXINE 100 MCG TABLET PO SCH (06:51)
[2022-02-26] MEDS ORDERED: SODIUM POLYSTYRENE SULFATE 15 GM/60 ML BOTTLE PO ONE (08:18)
[2022-02-26 08:23] LABS: Ferritin 1995.4 ng/mL (26-388)
[2022-02-26] MEDS ORDERED: PANTOPRAZOLE 40 MG TABLET PO SCH (09:00)
[2022-02-26] MEDS: DILTIAZEM CD 180 MG CAPSULE PO SCH (10:30)
[2022-02-26] MEDS: ZINC GLUCONATE 50 MG TABLET PO SCH (10:30)
[2022-02-26] MEDS: CHOLECALCIFEROL 1,000 UNIT TABLET PO SCH (10:30)
[2022-02-26] MEDS: APIXABAN 5 MG TABLET PO SCH ×2 (10:31→21:08)
[2022-02-26] MEDS: ROSUVASTATIN 10 MG TABLET PO SCH (10:31)
[2022-02-26] MEDS: OXYBUTYNIN XL 5 MG TABLET PO SCH (10:31)
[2022-02-26] MEDS: DOCUSATE SODIUM 100 MG CAPSULE PO SCH (10:31)
[2022-02-26] MEDS: THEOPHYLLINE ER (24 HR) 400 MG TABLET PO SCH (10:31)
[2022-02-26] MEDS: FAMOTIDINE 20 MG TABLET PO SCH ×2 (10:31→21:08)
[2022-02-26] MEDS: ASCORBIC ACID 500 MG TABLET PO SCH ×2 (10:31→21:08)
[2022-02-26] MEDS: POLYETHYLENE GLYCOL POWDER 17 GM PACK PO SCH (10:32)
[2022-02-26] MEDS: METOPROLOL TARTRATE 50 MG TABLET PO SCH ×2 (10:32→21:08)
[2022-02-26] MEDS: MONTELUKAST 10 MG TABLET PO SCH (10:32)
[2022-02-26] MEDS: CETIRIZINE 10 MG TABLET PO SCH (10:32)
[2022-02-26] MEDS: MEGESTROL 400 MG/10 ML UDCUP PO SCH (10:32)
[2022-02-26] MEDS: guaiFENesin/DM ER 600-30 MG TABLET PO SCH ×2 (10:32→21:08)
[2022-02-26] MEDS: BUDESONIDE/FORMOTEROL 160-4.5 INHALER 6 GM INH SCH ×2 (10:39→21:09)
[2022-02-26] MEDS: DILTIAZEM INJ 100 MG in SODIUM CHLORIDE 0.9% 100 ML IV SCH ×3 (10:43→12:09)
[2022-02-26] MEDS: DIGOXIN 0.125 MG TABLET PO SCH (15:37)
[2022-02-26] MEDS: MELATONIN 3 MG TABLET PO PRN (21:08)
[2022-02-27 04:00] LABS: Basophils # 0.1 10*3/uL (0.0-0.2); Basophils % 0.2 % (0.0-0.8); Eosinophils % 0.1 % (0.00-10.9); Hematocrit 34.9 VOL% (42.0-52.0); Immature Granulocytes % 4.8 %; Immature Granulocytes Absolute 0.99 #; Lymphocytes # 2.2 10*3/uL (1.4-4.0); Lymphocytes % 10.6 % (21.2-54.2); Mean Corpuscular HGB Conc 34.4 GM/DL (32-36); Mean Corpuscular Volume 97.8 FL (87-102); Mean Platelet Volume 9.3 FL (9.6-12.0); Monocytes # 1.3 10*3/uL (0.11-0.8); Monocytes % 6.4 % (1.7-12.7); Neutrophils % 77.9 % (38.7-73.9); Platelet Count 215 T/CUMM (130-400); Red Blood Count 3.57 MC/CUMM (3.8-5.5); Red Cell Distribution Width 14.6 % (9.3-17.3); White Blood Count 20.5 T/CUMM (4-12)
[2022-02-27] MEDS: DOXYCYCLINE HYCLATE INJ 100 MG in SODIUM CHLORIDE 0.9% 100 ML IV SCH ×2 (04:00→16:40)
[2022-02-27 04:26] LABS: Alanine Aminotransferase 29 U/L (16-61); Albumin 2.8 G/DL (3.4-5.0); Alkaline Phosphatase 54 U/L (45-117); Aspartate Amino Transferase 15 U/L (0-37); Bilirubin,Total < 0.39 MG/DL (0.20-1.00); Blood Urea Nitrogen 20 MG/DL (7-18); Calcium 8.7 MG/DL (8.5-10.1); Carbon Dioxide 17 MMOL/L (21-32); Chloride 111 MMOL/L (98-107); Glucose 181 MG/DL (74-106); Osmolality,Calculated 280.8 MOS/KG (273-304); Potassium 4.5 MMOL/L (3.5-5.1); Sodium 137 MMOL/L (136-145); Total Protein 6.3 G/DL (6.4-8.2)
[2022-02-27 04:28] LABS: Ferritin 1938.4 ng/mL (26-388)
[2022-02-27 04:29] LABS: Band Neutrophils 1 % (0-10); Lymphocytes 7 % (20-55); Platelet Estimate Adequate; Total Cells Counted 100
[2022-02-27] MEDS: methylPREDNISolone SOD SUC 40 MG/1 ML VIAL IV SCH ×2 (05:14→18:11)
[2022-02-27] MEDS: LEVOTHYROXINE 100 MCG TABLET PO SCH (05:15)
[2022-02-27] MEDS: ALBUTEROL/IPRATROPIUM 3 ML NEB RESP TX SCH ×4 (06:53→20:02)
[2022-02-27] MEDS: BUDESONIDE/FORMOTEROL 160-4.5 INHALER 6 GM INH SCH ×2 (08:36→21:09)
[2022-02-27] MEDS: OLOPATADINE 0.1% OPH SOLN 5 ML BOTTLE BOTH EYES SCH ×2 (08:36→21:29)
[2022-02-27] MEDS: CHOLECALCIFEROL 1,000 UNIT TABLET PO SCH (08:37)
[2022-02-27] MEDS: ASCORBIC ACID 500 MG TABLET PO SCH ×2 (08:37→21:29)
[2022-02-27] MEDS: DILTIAZEM CD 180 MG CAPSULE PO SCH (08:38)
[2022-02-27] MEDS: DOCUSATE SODIUM 100 MG CAPSULE PO SCH (08:38)
[2022-02-27] MEDS: ROSUVASTATIN 10 MG TABLET PO SCH (08:38)
[2022-02-27] MEDS: METOPROLOL TARTRATE 50 MG TABLET PO SCH ×2 (08:38→21:28)
[2022-02-27] MEDS: OXYBUTYNIN XL 5 MG TABLET PO SCH (08:38)
[2022-02-27] MEDS: ZINC GLUCONATE 50 MG TABLET PO SCH (08:38)
[2022-02-27] MEDS: MEGESTROL 400 MG/10 ML UDCUP PO SCH (08:38)
[2022-02-27] MEDS: CETIRIZINE 10 MG TABLET PO SCH (08:38)
[2022-02-27] MEDS: THEOPHYLLINE ER (24 HR) 400 MG TABLET PO SCH (08:38)
[2022-02-27] MEDS: MONTELUKAST 10 MG TABLET PO SCH (08:38)
[2022-02-27] MEDS: FAMOTIDINE 20 MG TABLET PO SCH ×2 (08:38→21:29)
[2022-02-27] MEDS: guaiFENesin/DM ER 600-30 MG TABLET PO SCH ×2 (08:38→21:28)
[2022-02-27] MEDS: POLYETHYLENE GLYCOL POWDER 17 GM PACK PO SCH (08:39)
[2022-02-27] MEDS: APIXABAN 5 MG TABLET PO SCH ×2 (08:39→21:28)
[2022-02-27] MEDS: ursodioL 300 MG CAPSULE PO SCH ×2 (08:39→21:28)
[2022-02-27] MEDS: INSULIN REGULAR 100 UNIT/ML SUBCUT SCH ×4 (08:39→22:54)
[2022-02-27] MEDS: DILTIAZEM INJ 100 MG in SODIUM CHLORIDE 0.9% 100 ML IV SCH ×2 (09:00→11:26)
[2022-02-27] MEDS: REMDESIVIR 200 MG in SODIUM CHLORIDE 0.9% 210 ML IV ONE ×2 (12:15→14:20)
[2022-02-27] MEDS: DIGOXIN 0.125 MG TABLET PO SCH (12:15)
[2022-02-27] MEDS: MELATONIN 3 MG TABLET PO PRN (22:22)
[2022-02-28] MEDS ORDERED: ALBUTEROL/IPRATROPIUM 3 ML NEB RESP TX ONE (01:05)
[2022-02-28] MEDS: ALBUTEROL/IPRATROPIUM 3 ML NEB RESP TX SCH ×4 (01:30→19:50)
[2022-02-28 02:38] LABS: Basophils % 0.1 % (0.0-0.8); Hematocrit 32.9 VOL% (42.0-52.0); Hemoglobin 11.5 GM/DL (14.0-18.0); Immature Granulocytes % 2.3 %; Immature Granulocytes Absolute 0.29 #; Lymphocytes # 1.1 10*3/uL (1.4-4.0); Lymphocytes % 8.9 % (21.2-54.2); Mean Corpuscular Volume 95.4 FL (87-102); Mean Platelet Volume 9.2 FL (9.6-12.0); Monocytes # 1.1 10*3/uL (0.11-0.8); Monocytes % 8.6 % (1.7-12.7); NRBC # 0.02 10*3/uL; Neutrophils % 80.1 % (38.7-73.9); Platelet Count 203 T/CUMM (130-400); Red Blood Count 3.45 MC/CUMM (3.8-5.5); Red Cell Distribution Width 14.8 % (9.3-17.3); White Blood Count 12.7 T/CUMM (4-12)
[2022-02-28 02:58] LABS: Alanine Aminotransferase 33 U/L (16-61); Albumin 2.9 G/DL (3.4-5.0); Alkaline Phosphatase 54 U/L (45-117); Aspartate Amino Transferase 14 U/L (0-37); Bilirubin,Total < 0.39 MG/DL (0.20-1.00); Blood Urea Nitrogen 24 MG/DL (7-18); Calcium 8.4 MG/DL (8.5-10.1); Carbon Dioxide 21 MMOL/L (21-32); Chloride 112 MMOL/L (98-107); Glucose 203 MG/DL (74-106); Osmolality,Calculated 290.3 MOS/KG (273-304); Potassium 3.7 MMOL/L (3.5-5.1); Sodium 141 MMOL/L (136-145); Total Protein 5.9 G/DL (6.4-8.2)
[2022-02-28] MEDS: DOXYCYCLINE HYCLATE INJ 100 MG in SODIUM CHLORIDE 0.9% 100 ML IV SCH ×2 (03:01→16:49)
[2022-02-28] MEDS: methylPREDNISolone SOD SUC 40 MG/1 ML VIAL IV SCH (06:02)
[2022-02-28] MEDS: LEVOTHYROXINE 100 MCG TABLET PO SCH (06:03)
[2022-02-28] MEDS: REMDESIVIR 100 MG in SODIUM CHLORIDE 0.9% 100 ML IV SCH (10:25)
[2022-02-28] MEDS: ZINC GLUCONATE 50 MG TABLET PO SCH (10:26)
[2022-02-28] MEDS: CHOLECALCIFEROL 1,000 UNIT TABLET PO SCH (10:26)
[2022-02-28] MEDS: guaiFENesin/DM ER 600-30 MG TABLET PO SCH ×2 (10:26→21:05)
[2022-02-28] MEDS: DOCUSATE SODIUM 100 MG CAPSULE PO SCH (10:26)
[2022-02-28] MEDS: INSULIN REGULAR 100 UNIT/ML SUBCUT SCH ×4 (10:26→21:11)
[2022-02-28] MEDS: METOPROLOL TARTRATE 50 MG TABLET PO SCH ×2 (10:26→21:05)
[2022-02-28] MEDS: THEOPHYLLINE ER (24 HR) 400 MG TABLET PO SCH (10:26)
[2022-02-28] MEDS: MEGESTROL 400 MG/10 ML UDCUP PO SCH (10:27)
[2022-02-28] MEDS: APIXABAN 5 MG TABLET PO SCH ×2 (10:27→21:04)
[2022-02-28] MEDS: MONTELUKAST 10 MG TABLET PO SCH (10:27)
[2022-02-28] MEDS: ROSUVASTATIN 10 MG TABLET PO SCH (10:27)
[2022-02-28] MEDS: CETIRIZINE 10 MG TABLET PO SCH (10:27)
[2022-02-28] MEDS: FAMOTIDINE 20 MG TABLET PO SCH ×2 (10:27→21:05)
[2022-02-28] MEDS: DILTIAZEM CD 180 MG CAPSULE PO SCH (10:27)
[2022-02-28] MEDS: ASCORBIC ACID 500 MG TABLET PO SCH ×2 (10:28→21:06)
[2022-02-28] MEDS: ursodioL 300 MG CAPSULE PO SCH ×2 (10:28→21:04)
[2022-02-28] MEDS: BUDESONIDE/FORMOTEROL 160-4.5 INHALER 6 GM INH SCH ×2 (10:29→21:05)
[2022-02-28] MEDS: OXYBUTYNIN XL 5 MG TABLET PO SCH (10:29)
[2022-02-28] MEDS: OLOPATADINE 0.1% OPH SOLN 5 ML BOTTLE BOTH EYES SCH ×2 (10:29→21:05)
[2022-02-28] MEDS: POLYETHYLENE GLYCOL POWDER 17 GM PACK PO SCH (11:32)
[2022-02-28] MEDS: DIGOXIN 0.125 MG TABLET PO SCH (12:09)
[2022-02-28] MEDS: DILTIAZEM INJ 100 MG in SODIUM CHLORIDE 0.9% 100 ML IV SCH (17:04)
[2022-02-28] MEDS: MELATONIN 3 MG TABLET PO PRN (21:08)
[2022-03-01] MEDS: ALBUTEROL/IPRATROPIUM 3 ML NEB RESP TX SCH ×4 (01:12→19:50)
[2022-03-01] MEDS: DOXYCYCLINE HYCLATE INJ 100 MG in SODIUM CHLORIDE 0.9% 100 ML IV SCH ×2 (02:25→17:13)
[2022-03-01] MEDS: methylPREDNISolone SOD SUC 40 MG/1 ML VIAL IV SCH (05:23)
[2022-03-01 05:28] LABS: Basophils % 0.2 % (0.0-0.8); Eosinophils % 0.2 % (0.00-10.9); Hematocrit 34.1 VOL% (42.0-52.0); Immature Granulocytes % 1.9 %; Immature Granulocytes Absolute 0.25 #; Lymphocytes # 2.4 10*3/uL (1.4-4.0); Lymphocytes % 18.5 % (21.2-54.2); Mean Corpuscular HGB Conc 35.2 GM/DL (32-36); Mean Platelet Volume 9.7 FL (9.6-12.0); Monocytes # 1.4 10*3/uL (0.11-0.8); Monocytes % 11.1 % (1.7-12.7); NRBC # 0.06 10*3/uL; Neutrophils % 68.1 % (38.7-73.9); Platelet Count 200 T/CUMM (130-400); Red Blood Count 3.59 MC/CUMM (3.8-5.5); Red Cell Distribution Width 14.5 % (9.3-17.3); White Blood Count 12.9 T/CUMM (4-12)
[2022-03-01] MEDS: LEVOTHYROXINE 100 MCG TABLET PO SCH (05:40)
[2022-03-01 05:45] LABS: Albumin 2.7 G/DL (3.4-5.0); Bilirubin,Total 0.5 MG/DL (0.20-1.00); Calcium 8.3 MG/DL (8.5-10.1); Osmolality,Calculated 282.1 MOS/KG (273-304); Potassium 3.2 MMOL/L (3.5-5.1); Total Protein 5.9 G/DL (6.4-8.2)
[2022-03-01] MEDS ORDERED: POTASSIUM CHLORIDE 20 MEQ TABLET PO ONE (08:25)
[2022-03-01] MEDS: MONTELUKAST 10 MG TABLET PO SCH (11:20)
[2022-03-01] MEDS: ROSUVASTATIN 10 MG TABLET PO SCH (11:20)
[2022-03-01] MEDS: ursodioL 300 MG CAPSULE PO SCH ×2 (11:20→22:05)
[2022-03-01] MEDS: guaiFENesin/DM ER 600-30 MG TABLET PO SCH ×2 (11:20→21:05)
[2022-03-01] MEDS: METOPROLOL TARTRATE 50 MG TABLET PO SCH ×2 (11:21→21:05)
[2022-03-01] MEDS: FAMOTIDINE 20 MG TABLET PO SCH ×2 (11:21→21:06)
[2022-03-01] MEDS: DILTIAZEM CD 180 MG CAPSULE PO SCH (11:21)
[2022-03-01] MEDS: DOCUSATE SODIUM 100 MG CAPSULE PO SCH (11:21)
[2022-03-01] MEDS: ASCORBIC ACID 500 MG TABLET PO SCH ×2 (11:21→21:06)
[2022-03-01] MEDS: CHOLECALCIFEROL 1,000 UNIT TABLET PO SCH (11:21)
[2022-03-01] MEDS: OXYBUTYNIN XL 5 MG TABLET PO SCH (11:21)
[2022-03-01] MEDS: APIXABAN 5 MG TABLET PO SCH ×2 (11:21→21:05)
[2022-03-01] MEDS: MEGESTROL 400 MG/10 ML UDCUP PO SCH (11:22)
[2022-03-01] MEDS: BUDESONIDE/FORMOTEROL 160-4.5 INHALER 6 GM INH SCH ×2 (11:22→21:06)
[2022-03-01] MEDS: ZINC GLUCONATE 50 MG TABLET PO SCH (11:22)
[2022-03-01] MEDS: OLOPATADINE 0.1% OPH SOLN 5 ML BOTTLE BOTH EYES SCH ×2 (11:22→21:05)
[2022-03-01] MEDS: CETIRIZINE 10 MG TABLET PO SCH (11:22)
[2022-03-01] MEDS: REMDESIVIR 100 MG in SODIUM CHLORIDE 0.9% 100 ML IV SCH (12:25)
[2022-03-01] MEDS: POLYETHYLENE GLYCOL POWDER 17 GM PACK PO SCH (12:37)
[2022-03-01] MEDS: INSULIN REGULAR 100 UNIT/ML SUBCUT SCH ×4 (12:37→23:35)
[2022-03-01] MEDS: THEOPHYLLINE ER (24 HR) 400 MG TABLET PO SCH (12:51)
[2022-03-01] MEDS: DIGOXIN 0.125 MG TABLET PO SCH (12:51)
[2022-03-01] MEDS: DILTIAZEM INJ 100 MG in SODIUM CHLORIDE 0.9% 100 ML IV SCH (22:03)
[2022-03-02] MEDS: ALBUTEROL/IPRATROPIUM 3 ML NEB RESP TX SCH ×4 (01:25→19:35)
[2022-03-02] MEDS: DOXYCYCLINE HYCLATE INJ 100 MG in SODIUM CHLORIDE 0.9% 100 ML IV SCH ×2 (03:50→16:57)
[2022-03-02 04:44] LABS: Basophils % 0.2 % (0.0-0.8); Eosinophils # 0.3 10*3/uL (0.0-0.87); Eosinophils % 2.2 % (0.00-10.9); Hematocrit 34.3 VOL% (42.0-52.0); Hemoglobin 12.2 GM/DL (14.0-18.0); Immature Granulocytes % 1.9 %; Immature Granulocytes Absolute 0.24 #; Lymphocytes # 2.9 10*3/uL (1.4-4.0); Lymphocytes % 22.8 % (21.2-54.2); Mean Corpuscular HGB Conc 35.6 GM/DL (32-36); Mean Corpuscular Volume 94.8 FL (87-102); Mean Platelet Volume 9.6 FL (9.6-12.0); Monocytes # 1.4 10*3/uL (0.11-0.8); NRBC # 0.13 10*3/uL; Neutrophils % 61.9 % (38.7-73.9); Platelet Count 187 T/CUMM (130-400); Red Blood Count 3.62 MC/CUMM (3.8-5.5); Red Cell Distribution Width 14.6 % (9.3-17.3); White Blood Count 12.9 T/CUMM (4-12)
[2022-03-02 05:05] LABS: Albumin 2.4 G/DL (3.4-5.0); Bilirubin,Total 0.6 MG/DL (0.20-1.00); Calcium 8.4 MG/DL (8.5-10.1); Osmolality,Calculated 279.5 MOS/KG (273-304); Potassium 3.6 MMOL/L (3.5-5.1); Total Protein 5.7 G/DL (6.4-8.2)
[2022-03-02 05:06] LABS: Ferritin 1787.4 ng/mL (26-388)
[2022-03-02] MEDS: LEVOTHYROXINE 100 MCG TABLET PO SCH (05:07)
[2022-03-02] MEDS: methylPREDNISolone SOD SUC 40 MG/1 ML VIAL IV SCH (05:07)
[2022-03-02] MEDS ORDERED: VANCOMYCIN INJ 1,000 MG in SODIUM CHLORIDE 0.9% 250 ML IV SCH (08:00)
[2022-03-02] MEDS: INSULIN REGULAR 100 UNIT/ML SUBCUT SCH ×4 (09:38→22:16)
[2022-03-02] MEDS: REMDESIVIR 100 MG in SODIUM CHLORIDE 0.9% 100 ML IV SCH (09:38)
[2022-03-02] MEDS: THEOPHYLLINE ER (24 HR) 400 MG TABLET PO SCH (09:39)
[2022-03-02] MEDS: CETIRIZINE 10 MG TABLET PO SCH (09:39)
[2022-03-02] MEDS: guaiFENesin/DM ER 600-30 MG TABLET PO SCH ×2 (09:39→21:53)
[2022-03-02] MEDS: ASCORBIC ACID 500 MG TABLET PO SCH ×2 (09:39→21:54)
[2022-03-02] MEDS: ZINC GLUCONATE 50 MG TABLET PO SCH (09:39)
[2022-03-02] MEDS: OXYBUTYNIN XL 5 MG TABLET PO SCH (09:39)
[2022-03-02] MEDS: METOPROLOL TARTRATE 50 MG TABLET PO SCH ×2 (09:39→21:53)
[2022-03-02] MEDS: ROSUVASTATIN 10 MG TABLET PO SCH (09:39)
[2022-03-02] MEDS: APIXABAN 5 MG TABLET PO SCH ×2 (09:39→21:53)
[2022-03-02] MEDS: MEGESTROL 400 MG/10 ML UDCUP PO SCH (09:39)
[2022-03-02] MEDS: ursodioL 300 MG CAPSULE PO SCH ×2 (09:39→21:52)
[2022-03-02] MEDS: MONTELUKAST 10 MG TABLET PO SCH (09:40)
[2022-03-02] MEDS: DOCUSATE SODIUM 100 MG CAPSULE PO SCH (09:40)
[2022-03-02] MEDS: BUDESONIDE/FORMOTEROL 160-4.5 INHALER 6 GM INH SCH ×2 (09:40→21:54)
[2022-03-02] MEDS: CHOLECALCIFEROL 1,000 UNIT TABLET PO SCH (09:40)
[2022-03-02] MEDS: FAMOTIDINE 20 MG TABLET PO SCH ×2 (09:40→21:54)
[2022-03-02] MEDS: DILTIAZEM CD 180 MG CAPSULE PO SCH (09:40)
[2022-03-02] MEDS: OLOPATADINE 0.1% OPH SOLN 5 ML BOTTLE BOTH EYES SCH ×2 (09:41→21:53)
[2022-03-02] MEDS ORDERED: FUROSEMIDE 40 MG TABLET PO ONE (10:51)
[2022-03-02] MEDS: POLYETHYLENE GLYCOL POWDER 17 GM PACK PO SCH (11:40)
[2022-03-02] MEDS: DIGOXIN 0.125 MG TABLET PO SCH (13:08)
[2022-03-02] MEDS: VANCOMYCIN INJ 1,250 MG in SODIUM CHLORIDE 0.9% 250 ML IV SCH ×2 (13:09→21:54)
[2022-03-02] MEDS: DILTIAZEM INJ 100 MG in SODIUM CHLORIDE 0.9% 100 ML IV SCH (17:58)
[2022-03-02] MEDS: MELATONIN 3 MG TABLET PO PRN (21:55)
[2022-03-03] MEDS: ALBUTEROL/IPRATROPIUM 3 ML NEB RESP TX SCH ×4 (00:56→19:08)
[2022-03-03] MEDS: DOXYCYCLINE HYCLATE INJ 100 MG in SODIUM CHLORIDE 0.9% 100 ML IV SCH (02:07)
[2022-03-03] MEDS: methylPREDNISolone SOD SUC 40 MG/1 ML VIAL IV SCH (05:38)
[2022-03-03] MEDS: LEVOTHYROXINE 100 MCG TABLET PO SCH (05:39)
[2022-03-03 05:52] LABS: Basophils % 0.3 % (0.0-0.8); Eosinophils # 0.4 10*3/uL (0.0-0.87); Eosinophils % 3.3 % (0.00-10.9); Hematocrit 30.5 VOL% (42.0-52.0); Hemoglobin 10.8 GM/DL (14.0-18.0); Immature Granulocytes % 3.5 %; Immature Granulocytes Absolute 0.39 #; Lymphocytes # 3.2 10*3/uL (1.4-4.0); Lymphocytes % 28.2 % (21.2-54.2); Mean Corpuscular HGB Conc 35.4 GM/DL (32-36); Mean Corpuscular Volume 94.7 FL (87-102); Mean Platelet Volume 9.2 FL (9.6-12.0); Monocytes # 1.1 10*3/uL (0.11-0.8); NRBC # 0.06 10*3/uL; Neutrophils % 54.7 % (38.7-73.9); Platelet Count 172 T/CUMM (130-400); Red Blood Count 3.22 MC/CUMM (3.8-5.5); Red Cell Distribution Width 14.6 % (9.3-17.3); White Blood Count 11.3 T/CUMM (4-12)
[2022-03-03 06:14] LABS: Calcium 8.2 MG/DL (8.5-10.1); Osmolality,Calculated 279.5 MOS/KG (273-304); Potassium 3.2 MMOL/L (3.5-5.1)
[2022-03-03 06:22] LABS: Anisocytosis 1+; Burr Cells Few; Platelet Estimate Normal; Tear Drop Cells Few
[2022-03-03 06:23] LABS: Macrocytosis Slight
[2022-03-03 06:26] LABS: Ferritin 1654.2 ng/mL (26-388)
[2022-03-03] MEDS: INSULIN REGULAR 100 UNIT/ML SUBCUT SCH ×4 (08:25→22:16)
[2022-03-03] MEDS: APIXABAN 5 MG TABLET PO SCH ×2 (09:24→21:34)
[2022-03-03] MEDS: CETIRIZINE 10 MG TABLET PO SCH (09:24)
[2022-03-03] MEDS: METOPROLOL TARTRATE 50 MG TABLET PO SCH ×2 (09:24→21:34)
[2022-03-03] MEDS: ASCORBIC ACID 500 MG TABLET PO SCH ×2 (09:24→21:34)
[2022-03-03] MEDS: THEOPHYLLINE ER (24 HR) 400 MG TABLET PO SCH (09:24)
[2022-03-03] MEDS: DOCUSATE SODIUM 100 MG CAPSULE PO SCH (09:24)
[2022-03-03] MEDS: CHOLECALCIFEROL 1,000 UNIT TABLET PO SCH (09:24)
[2022-03-03] MEDS: ursodioL 300 MG CAPSULE PO SCH ×2 (09:24→21:34)
[2022-03-03] MEDS: MONTELUKAST 10 MG TABLET PO SCH (09:24)
[2022-03-03] MEDS: OXYBUTYNIN XL 5 MG TABLET PO SCH (09:24)
[2022-03-03] MEDS: FAMOTIDINE 20 MG TABLET PO SCH ×2 (09:25→21:34)
[2022-03-03] MEDS: POLYETHYLENE GLYCOL POWDER 17 GM PACK PO SCH (09:25)
[2022-03-03] MEDS: guaiFENesin/DM ER 600-30 MG TABLET PO SCH ×2 (09:25→21:34)
[2022-03-03] MEDS: MEGESTROL 400 MG/10 ML UDCUP PO SCH (09:25)
[2022-03-03] MEDS: ROSUVASTATIN 10 MG TABLET PO SCH (09:25)
[2022-03-03] MEDS: ZINC GLUCONATE 50 MG TABLET PO SCH (09:25)
[2022-03-03] MEDS: DILTIAZEM CD 180 MG CAPSULE PO SCH (09:25)
[2022-03-03] MEDS: REMDESIVIR 100 MG in SODIUM CHLORIDE 0.9% 100 ML IV SCH (09:26)
[2022-03-03] MEDS: BUDESONIDE/FORMOTEROL 160-4.5 INHALER 6 GM INH SCH ×2 (09:26→21:34)
[2022-03-03] MEDS: OLOPATADINE 0.1% OPH SOLN 5 ML BOTTLE BOTH EYES SCH ×2 (09:26→21:34)
[2022-03-03] MEDS: VANCOMYCIN INJ 1,250 MG in SODIUM CHLORIDE 0.9% 250 ML IV SCH ×2 (09:26→21:34)
[2022-03-03] MEDS: DILTIAZEM INJ 100 MG in SODIUM CHLORIDE 0.9% 100 ML IV SCH (12:39)
[2022-03-03] MEDS: DIGOXIN 0.125 MG TABLET PO SCH (14:32)
[2022-03-04] MEDS: ALBUTEROL/IPRATROPIUM 3 ML NEB RESP TX SCH ×4 (01:36→20:00)
[2022-03-04 05:47] LABS: Basophils % 0.2 % (0.0-0.8); Eosinophils # 0.3 10*3/uL (0.0-0.87); Eosinophils % 2.7 % (0.00-10.9); Hematocrit 29.6 VOL% (42.0-52.0); Hemoglobin 10.5 GM/DL (14.0-18.0); Immature Granulocytes % 3.7 %; Immature Granulocytes Absolute 0.47 #; Lymphocytes # 3.2 10*3/uL (1.4-4.0); Lymphocytes % 25.1 % (21.2-54.2); Mean Corpuscular HGB Conc 35.5 GM/DL (32-36); Mean Corpuscular Volume 94.3 FL (87-102); Mean Platelet Volume 9.2 FL (9.6-12.0); Monocytes # 1.4 10*3/uL (0.11-0.8); Monocytes % 11.3 % (1.7-12.7); NRBC # 0.02 10*3/uL; Platelet Count 185 T/CUMM (130-400); Red Blood Count 3.14 MC/CUMM (3.8-5.5); Red Cell Distribution Width 14.5 % (9.3-17.3); White Blood Count 12.8 T/CUMM (4-12)
[2022-03-04 06:04] LABS: Calcium 7.9 MG/DL (8.5-10.1); Osmolality,Calculated 279.4 MOS/KG (273-304); Potassium 3.3 MMOL/L (3.5-5.1)
[2022-03-04 06:08] LABS: Ferritin 1680.8 ng/mL (26-388)
[2022-03-04] MEDS: LEVOTHYROXINE 100 MCG TABLET PO SCH (06:11)
[2022-03-04] MEDS: methylPREDNISolone SOD SUC 40 MG/1 ML VIAL IV SCH (06:11)
[2022-03-04] MEDS: INSULIN REGULAR 100 UNIT/ML SUBCUT SCH ×4 (07:37→21:46)
[2022-03-04] MEDS: POLYETHYLENE GLYCOL POWDER 17 GM PACK PO SCH (09:45)
[2022-03-04] MEDS: THEOPHYLLINE ER (24 HR) 400 MG TABLET PO SCH (09:45)
[2022-03-04] MEDS: CETIRIZINE 10 MG TABLET PO SCH (09:45)
[2022-03-04] MEDS: MONTELUKAST 10 MG TABLET PO SCH (09:45)
[2022-03-04] MEDS: DILTIAZEM CD 180 MG CAPSULE PO SCH (09:46)
[2022-03-04] MEDS: guaiFENesin/DM ER 600-30 MG TABLET PO SCH ×2 (09:46→21:46)
[2022-03-04] MEDS: MEGESTROL 400 MG/10 ML UDCUP PO SCH (09:46)
[2022-03-04] MEDS: ROSUVASTATIN 10 MG TABLET PO SCH (09:46)
[2022-03-04] MEDS: DOCUSATE SODIUM 100 MG CAPSULE PO SCH (09:46)
[2022-03-04] MEDS: ZINC GLUCONATE 50 MG TABLET PO SCH (09:46)
[2022-03-04] MEDS: OXYBUTYNIN XL 5 MG TABLET PO SCH (09:47)
[2022-03-04] MEDS: ASCORBIC ACID 500 MG TABLET PO SCH ×2 (09:47→21:47)
[2022-03-04] MEDS: APIXABAN 5 MG TABLET PO SCH ×2 (09:47→21:45)
[2022-03-04] MEDS: METOPROLOL TARTRATE 50 MG TABLET PO SCH ×2 (09:47→21:46)
[2022-03-04] MEDS: ursodioL 300 MG CAPSULE PO SCH ×2 (09:47→21:45)
[2022-03-04] MEDS: FAMOTIDINE 20 MG TABLET PO SCH ×2 (09:48→21:46)
[2022-03-04] MEDS: CHOLECALCIFEROL 1,000 UNIT TABLET PO SCH (09:48)
[2022-03-04] MEDS: BUDESONIDE/FORMOTEROL 160-4.5 INHALER 6 GM INH SCH ×2 (09:48→21:46)
[2022-03-04] MEDS: OLOPATADINE 0.1% OPH SOLN 5 ML BOTTLE BOTH EYES SCH ×2 (09:48→21:46)
[2022-03-04] MEDS: VANCOMYCIN INJ 1,250 MG in SODIUM CHLORIDE 0.9% 250 ML IV SCH ×2 (09:48→21:47)
[2022-03-04] MEDS: DIGOXIN 0.125 MG TABLET PO SCH (17:53)
[2022-03-05] MEDS: ALBUTEROL/IPRATROPIUM 3 ML NEB RESP TX SCH ×4 (01:50→19:10)
[2022-03-05] MEDS: methylPREDNISolone SOD SUC 40 MG/1 ML VIAL IV SCH (05:22)
[2022-03-05] MEDS: LEVOTHYROXINE 100 MCG TABLET PO SCH (05:23)
[2022-03-05 05:40] LABS: Basophils # 0.1 10*3/uL (0.0-0.2); Basophils % 0.5 % (0.0-0.8); Eosinophils # 0.2 10*3/uL (0.0-0.87); Eosinophils % 1.8 % (0.00-10.9); Hematocrit 35.4 VOL% (42.0-52.0); Hemoglobin 12.2 GM/DL (14.0-18.0); Immature Granulocytes % 4.9 %; Immature Granulocytes Absolute 0.64 #; Lymphocytes # 2.8 10*3/uL (1.4-4.0); Lymphocytes % 20.9 % (21.2-54.2); Mean Corpuscular HGB Conc 34.5 GM/DL (32-36); Mean Corpuscular Volume 98.1 FL (87-102); Mean Platelet Volume 9.1 FL (9.6-12.0); Monocytes # 1.5 10*3/uL (0.11-0.8); Monocytes % 11.5 % (1.7-12.7); NRBC # 0.02 10*3/uL; Neutrophils % 60.4 % (38.7-73.9); Platelet Count 233 T/CUMM (130-400); Red Blood Count 3.61 MC/CUMM (3.8-5.5); Red Cell Distribution Width 14.7 % (9.3-17.3); White Blood Count 13.2 T/CUMM (4-12)
[2022-03-05 06:07] LABS: Calcium 8.7 MG/DL (8.5-10.1); Osmolality,Calculated 278.3 MOS/KG (273-304); Potassium 3.6 MMOL/L (3.5-5.1)
[2022-03-05 06:18] LABS: Eosinophils 1 % (0-10); Lymphocytes 13 % (20-55); Total Cells Counted 100
[2022-03-05 06:19] LABS: Platelet Estimate Adequate
[2022-03-05] MEDS: INSULIN REGULAR 100 UNIT/ML SUBCUT SCH ×4 (09:02→20:43)
[2022-03-05] MEDS: POLYETHYLENE GLYCOL POWDER 17 GM PACK PO SCH (09:03)
[2022-03-05] MEDS: METOPROLOL TARTRATE 50 MG TABLET PO SCH ×2 (09:03→20:42)
[2022-03-05] MEDS: ROSUVASTATIN 10 MG TABLET PO SCH (09:03)
[2022-03-05] MEDS: OXYBUTYNIN XL 5 MG TABLET PO SCH (09:03)
[2022-03-05] MEDS: CETIRIZINE 10 MG TABLET PO SCH (09:03)
[2022-03-05] MEDS: ursodioL 300 MG CAPSULE PO SCH ×2 (09:04→20:42)
[2022-03-05] MEDS: THEOPHYLLINE ER (24 HR) 400 MG TABLET PO SCH (09:04)
[2022-03-05] MEDS: DILTIAZEM CD 180 MG CAPSULE PO SCH (09:04)
[2022-03-05] MEDS: DOCUSATE SODIUM 100 MG CAPSULE PO SCH (09:04)
[2022-03-05] MEDS: FAMOTIDINE 20 MG TABLET PO SCH ×2 (09:04→20:42)
[2022-03-05] MEDS: ZINC GLUCONATE 50 MG TABLET PO SCH (09:04)
[2022-03-05] MEDS: ASCORBIC ACID 500 MG TABLET PO SCH ×2 (09:04→20:42)
[2022-03-05] MEDS: MONTELUKAST 10 MG TABLET PO SCH (09:04)
[2022-03-05] MEDS: APIXABAN 5 MG TABLET PO SCH ×2 (09:04→20:42)
[2022-03-05] MEDS: guaiFENesin/DM ER 600-30 MG TABLET PO SCH ×2 (09:04→20:42)
[2022-03-05] MEDS: CHOLECALCIFEROL 1,000 UNIT TABLET PO SCH (09:04)
[2022-03-05] MEDS: OLOPATADINE 0.1% OPH SOLN 5 ML BOTTLE BOTH EYES SCH ×2 (09:05→20:41)
[2022-03-05] MEDS: BUDESONIDE/FORMOTEROL 160-4.5 INHALER 6 GM INH SCH ×2 (09:05→20:41)
[2022-03-05] MEDS: MEGESTROL 400 MG/10 ML UDCUP PO SCH (09:05)
[2022-03-05] MEDS: VANCOMYCIN INJ 1,000 MG in SODIUM CHLORIDE 0.9% 250 ML IV SCH ×2 (13:02→20:41)
[2022-03-05] MEDS: DIGOXIN 0.125 MG TABLET PO SCH (13:04)
[2022-03-06] MEDS: ALBUTEROL/IPRATROPIUM 3 ML NEB RESP TX SCH ×4 (01:00→20:30)
[2022-03-06 05:07] LABS: Basophils % 0.1 % (0.0-0.8); Eosinophils # 0.3 10*3/uL (0.0-0.87); Eosinophils % 2.7 % (0.00-10.9); Hematocrit 27.9 VOL% (42.0-52.0); Hemoglobin 9.8 GM/DL (14.0-18.0); Immature Granulocytes % 4.1 %; Immature Granulocytes Absolute 0.44 #; Lymphocytes # 2.5 10*3/uL (1.4-4.0); Lymphocytes % 23.6 % (21.2-54.2); Mean Corpuscular HGB Conc 35.1 GM/DL (32-36); Mean Corpuscular Volume 94.6 FL (87-102); Mean Platelet Volume 9.1 FL (9.6-12.0); Monocytes # 1.5 10*3/uL (0.11-0.8); Monocytes % 14.2 % (1.7-12.7); NRBC # 0.05 10*3/uL; Neutrophils % 55.3 % (38.7-73.9); Platelet Count 196 T/CUMM (130-400); Red Blood Count 2.95 MC/CUMM (3.8-5.5); Red Cell Distribution Width 14.9 % (9.3-17.3); White Blood Count 10.6 T/CUMM (4-12)
[2022-03-06 05:25] LABS: Calcium 8.1 MG/DL (8.5-10.1); Osmolality,Calculated 279.3 MOS/KG (273-304); Potassium 3.5 MMOL/L (3.5-5.1)
[2022-03-06] MEDS: LEVOTHYROXINE 100 MCG TABLET PO SCH (05:54)
[2022-03-06] MEDS: methylPREDNISolone SOD SUC 40 MG/1 ML VIAL IV SCH (05:55)
[2022-03-06] MEDS: ZINC GLUCONATE 50 MG TABLET PO SCH (10:23)
[2022-03-06] MEDS: APIXABAN 5 MG TABLET PO SCH ×2 (10:23→20:59)
[2022-03-06] MEDS: CHOLECALCIFEROL 1,000 UNIT TABLET PO SCH (10:24)
[2022-03-06] MEDS: ASCORBIC ACID 500 MG TABLET PO SCH ×2 (10:24→21:00)
[2022-03-06] MEDS: ROSUVASTATIN 10 MG TABLET PO SCH (10:24)
[2022-03-06] MEDS: ursodioL 300 MG CAPSULE PO SCH ×2 (10:24→21:00)
[2022-03-06] MEDS: CETIRIZINE 10 MG TABLET PO SCH (10:24)
[2022-03-06] MEDS: FAMOTIDINE 20 MG TABLET PO SCH ×2 (10:24→21:00)
[2022-03-06] MEDS: MEGESTROL 400 MG/10 ML UDCUP PO SCH (10:25)
[2022-03-06] MEDS: DILTIAZEM CD 180 MG CAPSULE PO SCH (10:25)
[2022-03-06] MEDS: DOCUSATE SODIUM 100 MG CAPSULE PO SCH (10:25)
[2022-03-06] MEDS: METOPROLOL TARTRATE 50 MG TABLET PO SCH ×2 (10:25→20:59)
[2022-03-06] MEDS: THEOPHYLLINE ER (24 HR) 400 MG TABLET PO SCH (10:25)
[2022-03-06] MEDS: MONTELUKAST 10 MG TABLET PO SCH (10:25)
[2022-03-06] MEDS: OXYBUTYNIN XL 5 MG TABLET PO SCH (10:25)
[2022-03-06] MEDS: guaiFENesin/DM ER 600-30 MG TABLET PO SCH ×2 (10:25→21:00)
[2022-03-06] MEDS: BUDESONIDE/FORMOTEROL 160-4.5 INHALER 6 GM INH SCH ×2 (10:26→21:00)
[2022-03-06] MEDS: OLOPATADINE 0.1% OPH SOLN 5 ML BOTTLE BOTH EYES SCH ×2 (10:26→21:00)
[2022-03-06] MEDS: INSULIN REGULAR 100 UNIT/ML SUBCUT SCH ×4 (10:27→21:00)
[2022-03-06] MEDS: POLYETHYLENE GLYCOL POWDER 17 GM PACK PO SCH (10:28)
[2022-03-06] MEDS: VANCOMYCIN INJ 1,000 MG in SODIUM CHLORIDE 0.9% 250 ML IV SCH ×2 (10:38→23:45)
[2022-03-06] MEDS: DIGOXIN 0.125 MG TABLET PO SCH (12:29)
[2022-03-06] MEDS ORDERED: POTASSIUM CHLORIDE 20 MEQ TABLET PO ONE (14:37)
[2022-03-07] MEDS: ALBUTEROL/IPRATROPIUM 3 ML NEB RESP TX SCH ×4 (00:35→20:51)
[2022-03-07 05:05] LABS: Basophils % 0.1 % (0.0-0.8); Eosinophils % 0.1 % (0.00-10.9); Hematocrit 29.7 VOL% (42.0-52.0); Hemoglobin 10.2 GM/DL (14.0-18.0); Immature Granulocytes Absolute 1.26 #; Lymphocytes # 1.8 10*3/uL (1.4-4.0); Lymphocytes % 11.4 % (21.2-54.2); Mean Corpuscular HGB Conc 34.3 GM/DL (32-36); Mean Corpuscular Volume 96.7 FL (87-102); Mean Platelet Volume 9.4 FL (9.6-12.0); Monocytes % 12.5 % (1.7-12.7); NRBC # 0.05 10*3/uL; Neutrophils % 67.9 % (38.7-73.9); Platelet Count 227 T/CUMM (130-400); Red Blood Count 3.07 MC/CUMM (3.8-5.5); Red Cell Distribution Width 15.8 % (9.3-17.3); White Blood Count 15.8 T/CUMM (4-12)
[2022-03-07 05:24] LABS: Calcium 8.4 MG/DL (8.5-10.1); Osmolality,Calculated 283.4 MOS/KG (273-304); Potassium 4.6 MMOL/L (3.5-5.1)
[2022-03-07] MEDS: LEVOTHYROXINE 100 MCG TABLET PO SCH (05:38)
[2022-03-07] MEDS: methylPREDNISolone SOD SUC 40 MG/1 ML VIAL IV SCH (05:38)
[2022-03-07 06:45] LABS: Band Neutrophils 1 % (0-10); Lymphocytes 12 % (20-55); Platelet Estimate Adequate; Total Cells Counted 100
[2022-03-07] MEDS: POLYETHYLENE GLYCOL POWDER 17 GM PACK PO SCH (08:45)
[2022-03-07] MEDS: INSULIN REGULAR 100 UNIT/ML SUBCUT SCH ×4 (09:17→20:42)
[2022-03-07] MEDS: ROSUVASTATIN 10 MG TABLET PO SCH (09:18)
[2022-03-07] MEDS: guaiFENesin/DM ER 600-30 MG TABLET PO SCH ×2 (09:18→20:43)
[2022-03-07] MEDS: CHOLECALCIFEROL 1,000 UNIT TABLET PO SCH (09:18)
[2022-03-07] MEDS: DOCUSATE SODIUM 100 MG CAPSULE PO SCH (09:18)
[2022-03-07] MEDS: MONTELUKAST 10 MG TABLET PO SCH (09:19)
[2022-03-07] MEDS: APIXABAN 5 MG TABLET PO SCH ×2 (09:19→20:42)
[2022-03-07] MEDS: FAMOTIDINE 20 MG TABLET PO SCH ×2 (09:19→20:43)
[2022-03-07] MEDS: ZINC GLUCONATE 50 MG TABLET PO SCH (09:19)
[2022-03-07] MEDS: THEOPHYLLINE ER (24 HR) 400 MG TABLET PO SCH (09:19)
[2022-03-07] MEDS: ASCORBIC ACID 500 MG TABLET PO SCH ×2 (09:19→20:43)
[2022-03-07] MEDS: METOPROLOL TARTRATE 50 MG TABLET PO SCH ×2 (09:19→20:43)
[2022-03-07] MEDS: CETIRIZINE 10 MG TABLET PO SCH (09:19)
[2022-03-07] MEDS: OXYBUTYNIN XL 5 MG TABLET PO SCH (09:20)
[2022-03-07] MEDS: DILTIAZEM CD 180 MG CAPSULE PO SCH (09:20)
[2022-03-07] MEDS: MEGESTROL 400 MG/10 ML UDCUP PO SCH (09:20)
[2022-03-07] MEDS: ursodioL 300 MG CAPSULE PO SCH ×2 (09:20→20:42)
[2022-03-07] MEDS: OLOPATADINE 0.1% OPH SOLN 5 ML BOTTLE BOTH EYES SCH ×2 (09:21→20:43)
[2022-03-07] MEDS: BUDESONIDE/FORMOTEROL 160-4.5 INHALER 6 GM INH SCH ×2 (09:21→20:43)
[2022-03-07] MEDS: DIGOXIN 0.125 MG TABLET PO SCH (12:34)
[2022-03-07] MEDS: VANCOMYCIN INJ 1,000 MG in SODIUM CHLORIDE 0.9% 250 ML IV SCH ×2 (12:35→22:00)
[2022-03-08] MEDS: ALBUTEROL/IPRATROPIUM 3 ML NEB RESP TX SCH ×4 (01:34→19:30)
[2022-03-08] MEDS: methylPREDNISolone SOD SUC 40 MG/1 ML VIAL IV SCH (05:00)
[2022-03-08] MEDS: LEVOTHYROXINE 100 MCG TABLET PO SCH (05:02)
[2022-03-08 05:11] LABS: Basophils % 0.3 % (0.0-0.8); Eosinophils % 0.1 % (0.00-10.9); Hematocrit 30.9 VOL% (42.0-52.0); Hemoglobin 10.5 GM/DL (14.0-18.0); Immature Granulocytes % 6.4 %; Immature Granulocytes Absolute 1.02 #; Lymphocytes # 1.8 10*3/uL (1.4-4.0); Lymphocytes % 11.3 % (21.2-54.2); Mean Corpuscular Volume 97.8 FL (87-102); Mean Platelet Volume 8.8 FL (9.6-12.0); Monocytes # 1.6 10*3/uL (0.11-0.8); NRBC # 0.06 10*3/uL; Neutrophils % 71.9 % (38.7-73.9); Platelet Count 210 T/CUMM (130-400); Red Blood Count 3.16 MC/CUMM (3.8-5.5); Red Cell Distribution Width 15.8 % (9.3-17.3)
[2022-03-08 05:24] LABS: Calcium 8.6 MG/DL (8.5-10.1); Osmolality,Calculated 280.5 MOS/KG (273-304); Potassium 4.2 MMOL/L (3.5-5.1)
[2022-03-08 06:12] LABS: Band Neutrophils 1 % (0-10); Lymphocytes 12 % (20-55); Nucleated Red Blood Cells 1 /100 WBC (0-5); Total Cells Counted 100
[2022-03-08 06:13] LABS: Hypochromia Slight; Macrocytosis Slight; Platelet Estimate Normal; Polychromasia Slight
[2022-03-08] MEDS: INSULIN REGULAR 100 UNIT/ML SUBCUT SCH ×4 (10:05→22:35)
[2022-03-08] MEDS: ZINC GLUCONATE 50 MG TABLET PO SCH (10:05)
[2022-03-08] MEDS: MEGESTROL 400 MG/10 ML UDCUP PO SCH (10:05)
[2022-03-08] MEDS: APIXABAN 5 MG TABLET PO SCH ×2 (10:05→22:16)
[2022-03-08] MEDS: METOPROLOL TARTRATE 50 MG TABLET PO SCH ×2 (10:06→22:41)
[2022-03-08] MEDS: guaiFENesin/DM ER 600-30 MG TABLET PO SCH ×2 (10:06→22:15)
[2022-03-08] MEDS: ASCORBIC ACID 500 MG TABLET PO SCH ×2 (10:06→10:16)
[2022-03-08] MEDS: CHOLECALCIFEROL 1,000 UNIT TABLET PO SCH (10:06)
[2022-03-08] MEDS: CETIRIZINE 10 MG TABLET PO SCH (10:06)
[2022-03-08] MEDS: MONTELUKAST 10 MG TABLET PO SCH (10:06)
[2022-03-08] MEDS: ursodioL 300 MG CAPSULE PO SCH (10:06)
[2022-03-08] MEDS: DOCUSATE SODIUM 100 MG CAPSULE PO SCH (10:07)
[2022-03-08] MEDS: OXYBUTYNIN XL 5 MG TABLET PO SCH (10:07)
[2022-03-08] MEDS: ROSUVASTATIN 10 MG TABLET PO SCH (10:07)
[2022-03-08] MEDS: DILTIAZEM CD 180 MG CAPSULE PO SCH (10:08)
[2022-03-08] MEDS: POLYETHYLENE GLYCOL POWDER 17 GM PACK PO SCH (10:08)
[2022-03-08] MEDS: THEOPHYLLINE ER (24 HR) 400 MG TABLET PO SCH (10:08)
[2022-03-08] MEDS: FAMOTIDINE 20 MG TABLET PO SCH (10:09)
[2022-03-08] MEDS: OLOPATADINE 0.1% OPH SOLN 5 ML BOTTLE BOTH EYES SCH ×2 (10:09→22:17)
[2022-03-08] MEDS: BUDESONIDE/FORMOTEROL 160-4.5 INHALER 6 GM INH SCH ×2 (10:09→22:17)
[2022-03-08] MEDS: VANCOMYCIN INJ 1,000 MG in SODIUM CHLORIDE 0.9% 250 ML IV SCH ×2 (11:59→22:17)
[2022-03-08] MEDS: DIGOXIN 0.125 MG TABLET PO SCH (16:34)
[2022-03-09] MEDS: ALBUTEROL/IPRATROPIUM 3 ML NEB RESP TX SCH ×4 (00:47→19:33)
[2022-03-09] MEDS: FAMOTIDINE 20 MG TABLET PO SCH ×3 (04:06→20:25)
[2022-03-09] MEDS: ursodioL 300 MG CAPSULE PO SCH ×3 (04:09→20:25)
[2022-03-09] MEDS: LEVOTHYROXINE 100 MCG TABLET PO SCH (06:23)
[2022-03-09] MEDS: methylPREDNISolone SOD SUC 40 MG/1 ML VIAL IV SCH (06:29)
[2022-03-09] MEDS: OXYBUTYNIN XL 5 MG TABLET PO SCH (08:24)
[2022-03-09] MEDS: ROSUVASTATIN 10 MG TABLET PO SCH (08:25)
[2022-03-09] MEDS: guaiFENesin/DM ER 600-30 MG TABLET PO SCH ×2 (08:25→20:25)
[2022-03-09] MEDS: BUDESONIDE/FORMOTEROL 160-4.5 INHALER 6 GM INH SCH ×2 (08:25→20:25)
[2022-03-09] MEDS: ASCORBIC ACID 500 MG TABLET PO SCH ×2 (08:25→20:25)
[2022-03-09] MEDS: CETIRIZINE 10 MG TABLET PO SCH (08:25)
[2022-03-09] MEDS: OLOPATADINE 0.1% OPH SOLN 5 ML BOTTLE BOTH EYES SCH ×2 (08:25→20:25)
[2022-03-09] MEDS: DILTIAZEM CD 180 MG CAPSULE PO SCH (08:26)
[2022-03-09] MEDS: MEGESTROL 400 MG/10 ML UDCUP PO SCH (08:26)
[2022-03-09] MEDS: ZINC GLUCONATE 50 MG TABLET PO SCH (08:26)
[2022-03-09] MEDS: THEOPHYLLINE ER (24 HR) 400 MG TABLET PO SCH (08:26)
[2022-03-09] MEDS: DOCUSATE SODIUM 100 MG CAPSULE PO SCH (08:26)
[2022-03-09] MEDS: CHOLECALCIFEROL 1,000 UNIT TABLET PO SCH (08:26)
[2022-03-09] MEDS: METOPROLOL TARTRATE 50 MG TABLET PO SCH ×2 (08:27→20:25)
[2022-03-09] MEDS: MONTELUKAST 10 MG TABLET PO SCH (08:27)
[2022-03-09] MEDS: APIXABAN 5 MG TABLET PO SCH ×2 (08:27→20:25)
[2022-03-09] MEDS: INSULIN REGULAR 100 UNIT/ML SUBCUT SCH ×4 (08:27→20:25)
[2022-03-09] MEDS: POLYETHYLENE GLYCOL POWDER 17 GM PACK PO SCH (08:27)
[2022-03-09] MEDS: VANCOMYCIN INJ 1,000 MG in SODIUM CHLORIDE 0.9% 250 ML IV SCH ×2 (11:59→23:30)
[2022-03-09] MEDS: DIGOXIN 0.125 MG TABLET PO SCH (13:27)
[2022-03-09] MEDS ORDERED: INFLUENZA VIRUS VACCINE 0.5 ML SYRINGE IM ONE (15:19)
[2022-03-10] MEDS: ALBUTEROL/IPRATROPIUM 3 ML NEB RESP TX SCH ×4 (00:38→19:36)
[2022-03-10] MEDS: LEVOTHYROXINE 100 MCG TABLET PO SCH (05:10)
[2022-03-10] MEDS: methylPREDNISolone SOD SUC 40 MG/1 ML VIAL IV SCH (05:10)
[2022-03-10] MEDS: INSULIN REGULAR 100 UNIT/ML SUBCUT SCH ×4 (09:26→21:20)
[2022-03-10] MEDS: METOPROLOL TARTRATE 50 MG TABLET PO SCH ×2 (09:27→21:12)
[2022-03-10] MEDS: DILTIAZEM CD 180 MG CAPSULE PO SCH (09:27)
[2022-03-10] MEDS: ROSUVASTATIN 10 MG TABLET PO SCH (09:27)
[2022-03-10] MEDS: ASCORBIC ACID 500 MG TABLET PO SCH ×2 (09:27→21:12)
[2022-03-10] MEDS: CHOLECALCIFEROL 1,000 UNIT TABLET PO SCH (09:27)
[2022-03-10] MEDS: FAMOTIDINE 20 MG TABLET PO SCH ×2 (09:28→21:13)
[2022-03-10] MEDS: THEOPHYLLINE ER (24 HR) 400 MG TABLET PO SCH (09:28)
[2022-03-10] MEDS: guaiFENesin/DM ER 600-30 MG TABLET PO SCH ×2 (09:28→21:12)
[2022-03-10] MEDS: ZINC GLUCONATE 50 MG TABLET PO SCH (09:28)
[2022-03-10] MEDS: BUDESONIDE/FORMOTEROL 160-4.5 INHALER 6 GM INH SCH ×2 (09:28→21:12)
[2022-03-10] MEDS: DOCUSATE SODIUM 100 MG CAPSULE PO SCH (09:28)
[2022-03-10] MEDS: CETIRIZINE 10 MG TABLET PO SCH (09:28)
[2022-03-10] MEDS: MONTELUKAST 10 MG TABLET PO SCH (09:28)
[2022-03-10] MEDS: APIXABAN 5 MG TABLET PO SCH ×2 (09:28→21:12)
[2022-03-10] MEDS: MEGESTROL 400 MG/10 ML UDCUP PO SCH (09:28)
[2022-03-10] MEDS: POLYETHYLENE GLYCOL POWDER 17 GM PACK PO SCH (09:29)
[2022-03-10] MEDS: OLOPATADINE 0.1% OPH SOLN 5 ML BOTTLE BOTH EYES SCH ×2 (09:29→21:12)
[2022-03-10] MEDS: ursodioL 300 MG CAPSULE PO SCH ×2 (09:31→21:12)
[2022-03-10] MEDS: OXYBUTYNIN XL 5 MG TABLET PO SCH (09:32)
[2022-03-10] MEDS: VANCOMYCIN INJ 1,000 MG in SODIUM CHLORIDE 0.9% 250 ML IV SCH ×2 (11:38→23:07)
[2022-03-10] MEDS: DIGOXIN 0.125 MG TABLET PO SCH (13:15)
[2022-03-11] MEDS: methylPREDNISolone SOD SUC 40 MG/1 ML VIAL IV SCH (05:23)
[2022-03-11] MEDS: LEVOTHYROXINE 100 MCG TABLET PO SCH (05:23)
[2022-03-11] MEDS: ALBUTEROL/IPRATROPIUM 3 ML NEB RESP TX SCH ×4 (07:01→19:07)
[2022-03-11] MEDS: INSULIN REGULAR 100 UNIT/ML SUBCUT SCH ×4 (10:43→20:07)
[2022-03-11] MEDS: VANCOMYCIN INJ 1,000 MG in SODIUM CHLORIDE 0.9% 250 ML IV SCH ×2 (10:44→23:08)
[2022-03-11] MEDS: ZINC GLUCONATE 50 MG TABLET PO SCH (10:45)
[2022-03-11] MEDS: CHOLECALCIFEROL 1,000 UNIT TABLET PO SCH (10:45)
[2022-03-11] MEDS: THEOPHYLLINE ER (24 HR) 400 MG TABLET PO SCH (10:45)
[2022-03-11] MEDS: MONTELUKAST 10 MG TABLET PO SCH (10:45)
[2022-03-11] MEDS: METOPROLOL TARTRATE 50 MG TABLET PO SCH ×2 (10:45→20:37)
[2022-03-11] MEDS: ursodioL 300 MG CAPSULE PO SCH ×2 (10:45→20:36)
[2022-03-11] MEDS: ASCORBIC ACID 500 MG TABLET PO SCH ×2 (10:46→20:37)
[2022-03-11] MEDS: DOCUSATE SODIUM 100 MG CAPSULE PO SCH (10:46)
[2022-03-11] MEDS: ROSUVASTATIN 10 MG TABLET PO SCH (10:46)
[2022-03-11] MEDS: DILTIAZEM CD 180 MG CAPSULE PO SCH (10:46)
[2022-03-11] MEDS: CETIRIZINE 10 MG TABLET PO SCH (10:46)
[2022-03-11] MEDS: APIXABAN 5 MG TABLET PO SCH ×2 (10:46→20:37)
[2022-03-11] MEDS: MEGESTROL 400 MG/10 ML UDCUP PO SCH (10:46)
[2022-03-11] MEDS: FAMOTIDINE 20 MG TABLET PO SCH ×2 (10:46→20:37)
[2022-03-11] MEDS: guaiFENesin/DM ER 600-30 MG TABLET PO SCH ×2 (10:46→20:37)
[2022-03-11] MEDS: OLOPATADINE 0.1% OPH SOLN 5 ML BOTTLE BOTH EYES SCH ×2 (10:47→20:36)
[2022-03-11] MEDS: POLYETHYLENE GLYCOL POWDER 17 GM PACK PO SCH (10:47)
[2022-03-11] MEDS: BUDESONIDE/FORMOTEROL 160-4.5 INHALER 6 GM INH SCH ×2 (10:47→20:36)
[2022-03-11] MEDS: DIGOXIN 0.125 MG TABLET PO SCH (15:00)
[2022-03-11] MEDS: OXYBUTYNIN XL 5 MG TABLET PO SCH (15:00)
[2022-03-11] MEDS ORDERED: DILTIAZEM 25 MG/5 ML VIAL IV ONE (23:30)
[2022-03-12] MEDS: ALBUTEROL/IPRATROPIUM 3 ML NEB RESP TX SCH ×4 (00:05→20:25)
[2022-03-12 05:14] LABS: Basophils % 0.2 % (0.0-0.8); Eosinophils % 0.1 % (0.00-10.9); Hematocrit 30.2 VOL% (42.0-52.0); Hemoglobin 10.2 GM/DL (14.0-18.0); Immature Granulocytes Absolute 0.74 #; Lymphocytes # 1.8 10*3/uL (1.4-4.0); Lymphocytes % 12.2 % (21.2-54.2); Mean Corpuscular HGB Conc 33.8 GM/DL (32-36); Mean Corpuscular Volume 100.3 FL (87-102); Monocytes # 1.1 10*3/uL (0.11-0.8); Monocytes % 7.6 % (1.7-12.7); NRBC # 0.31 10*3/uL; Neutrophils % 74.9 % (38.7-73.9); Platelet Count 200 T/CUMM (130-400); Red Blood Count 3.01 MC/CUMM (3.8-5.5); White Blood Count 14.7 T/CUMM (4-12)
[2022-03-12 05:31] LABS: Alanine Aminotransferase 14 U/L (16-61); Albumin 2.4 G/DL (3.4-5.0); Alkaline Phosphatase 56 U/L (45-117); Aspartate Amino Transferase 9 U/L (0-37); Blood Urea Nitrogen 17 MG/DL (7-18); Calcium 8.2 MG/DL (8.5-10.1); Carbon Dioxide 23 MMOL/L (21-32); Chloride 111 MMOL/L (98-107); Glucose 179 MG/DL (74-106); Osmolality,Calculated 288.1 MOS/KG (273-304); Potassium 3.9 MMOL/L (3.5-5.1); Sodium 142 MMOL/L (136-145); Total Protein 5.2 G/DL (6.4-8.2)
[2022-03-12 05:41] LABS: Lymphocytes 15 % (20-55); Platelet Estimate Adequate; Total Cells Counted 100
[2022-03-12] MEDS: LEVOTHYROXINE 100 MCG TABLET PO SCH (05:45)
[2022-03-12] MEDS: methylPREDNISolone SOD SUC 40 MG/1 ML VIAL IV SCH (05:45)
[2022-03-12] MEDS: ASCORBIC ACID 500 MG TABLET PO SCH ×2 (09:16→20:52)
[2022-03-12] MEDS: CHOLECALCIFEROL 1,000 UNIT TABLET PO SCH (09:16)
[2022-03-12] MEDS: DILTIAZEM CD 180 MG CAPSULE PO SCH (09:16)
[2022-03-12] MEDS: guaiFENesin/DM ER 600-30 MG TABLET PO SCH ×2 (09:16→20:52)
[2022-03-12] MEDS: METOPROLOL TARTRATE 50 MG TABLET PO SCH ×2 (09:16→20:52)
[2022-03-12] MEDS: THEOPHYLLINE ER (24 HR) 400 MG TABLET PO SCH (09:16)
[2022-03-12] MEDS: OXYBUTYNIN XL 5 MG TABLET PO SCH (09:16)
[2022-03-12] MEDS: MEGESTROL 400 MG/10 ML UDCUP PO SCH (09:16)
[2022-03-12] MEDS: APIXABAN 5 MG TABLET PO SCH ×2 (09:16→20:52)
[2022-03-12] MEDS: CETIRIZINE 10 MG TABLET PO SCH (09:16)
[2022-03-12] MEDS: FAMOTIDINE 20 MG TABLET PO SCH ×2 (09:16→20:52)
[2022-03-12] MEDS: ZINC GLUCONATE 50 MG TABLET PO SCH (09:17)
[2022-03-12] MEDS: DOCUSATE SODIUM 100 MG CAPSULE PO SCH (09:17)
[2022-03-12] MEDS: POLYETHYLENE GLYCOL POWDER 17 GM PACK PO SCH (09:17)
[2022-03-12] MEDS: INSULIN REGULAR 100 UNIT/ML SUBCUT SCH ×4 (09:17→20:52)
[2022-03-12] MEDS: MONTELUKAST 10 MG TABLET PO SCH (09:17)
[2022-03-12] MEDS: ursodioL 300 MG CAPSULE PO SCH ×2 (09:17→20:51)
[2022-03-12] MEDS: BUDESONIDE/FORMOTEROL 160-4.5 INHALER 6 GM INH SCH ×2 (09:19→20:51)
[2022-03-12] MEDS: OLOPATADINE 0.1% OPH SOLN 5 ML BOTTLE BOTH EYES SCH ×2 (09:19→20:51)
[2022-03-12] MEDS: ROSUVASTATIN 10 MG TABLET PO SCH (09:24)
[2022-03-12] MEDS: DIGOXIN 0.125 MG TABLET PO SCH (12:10)
[2022-03-12] MEDS: VANCOMYCIN INJ 1,000 MG in SODIUM CHLORIDE 0.9% 250 ML IV SCH ×2 (12:10→22:22)
[2022-03-13] MEDS: ALBUTEROL/IPRATROPIUM 3 ML NEB RESP TX SCH ×3 (00:49→14:42)
[2022-03-13] MEDS: LEVOTHYROXINE 100 MCG TABLET PO SCH (06:42)
[2022-03-13] MEDS ORDERED: predniSONE 20 MG TABLET PO SCH (09:00)
[2022-03-13] MEDS: POLYETHYLENE GLYCOL POWDER 17 GM PACK PO SCH (09:10)
[2022-03-13] MEDS: MEGESTROL 400 MG/10 ML UDCUP PO SCH (09:10)
[2022-03-13] MEDS: OXYBUTYNIN XL 5 MG TABLET PO SCH (09:10)
[2022-03-13] MEDS: APIXABAN 5 MG TABLET PO SCH (09:11)
[2022-03-13] MEDS: ASCORBIC ACID 500 MG TABLET PO SCH (09:11)
[2022-03-13] MEDS: METOPROLOL TARTRATE 50 MG TABLET PO SCH (09:12)
[2022-03-13] MEDS: ROSUVASTATIN 10 MG TABLET PO SCH (09:12)
[2022-03-13] MEDS: ursodioL 300 MG CAPSULE PO SCH (09:12)
[2022-03-13] MEDS: CETIRIZINE 10 MG TABLET PO SCH (09:12)
[2022-03-13] MEDS: guaiFENesin/DM ER 600-30 MG TABLET PO SCH (09:13)
[2022-03-13] MEDS: MONTELUKAST 10 MG TABLET PO SCH (09:13)
[2022-03-13] MEDS: THEOPHYLLINE ER (24 HR) 400 MG TABLET PO SCH (09:13)
[2022-03-13] MEDS: DOCUSATE SODIUM 100 MG CAPSULE PO SCH (09:13)
[2022-03-13] MEDS: ZINC GLUCONATE 50 MG TABLET PO SCH (09:13)
[2022-03-13] MEDS: FAMOTIDINE 20 MG TABLET PO SCH (09:13)
[2022-03-13] MEDS: CHOLECALCIFEROL 1,000 UNIT TABLET PO SCH (09:13)
[2022-03-13] MEDS: DILTIAZEM CD 180 MG CAPSULE PO SCH (09:13)
[2022-03-13] MEDS: BUDESONIDE/FORMOTEROL 160-4.5 INHALER 6 GM INH SCH (09:14)
[2022-03-13] MEDS: INSULIN REGULAR 100 UNIT/ML SUBCUT SCH ×2 (09:14→12:36)
[2022-03-13] MEDS: OLOPATADINE 0.1% OPH SOLN 5 ML BOTTLE BOTH EYES SCH (09:15)
[2022-03-13 12:01] VITALS: BP 122/72
[2022-03-13] MEDS: VANCOMYCIN INJ 1,000 MG in SODIUM CHLORIDE 0.9% 250 ML IV SCH (12:36)
[2022-03-13] MEDS: DIGOXIN 0.125 MG TABLET PO SCH (14:50)
== END 2022-03-13 15:25 | disposition swing bed (61) | DRG 190 ==
LOC: N.EDINP 11:18 → N.ED 11:18 → SUATTDRO 13:25 → N.EDINP 22:10 → N.TELEN 22:29 → SUATTDRO 02-27 08:17
PROVIDERS: ADMIT Family Medicine; ATTEND Emergency Medicine

== ENCOUNTER 2022-06-16 05:50 | Inpatient (IN) ==
[2022-06-16] MEDS ORDERED: DILTIAZEM 50 MG/10 ML VIAL IV STA (06:02)
[2022-06-16] MEDS ORDERED: SODIUM CHLORIDE 0.9% 1,000 ML IV STA (06:02)
[2022-06-16] MEDS ORDERED: DILTIAZEM 100 MG VIAL.ADD IV ONE (06:10)
[2022-06-16] MEDS ORDERED: DILTIAZEM 50 MG/10 ML VIAL IV ONE (06:11)
[2022-06-16 06:17] LABS: Basophils % 0.2 % (0.0-0.8); Eosinophils # 0.3 10*3/uL (0.0-0.87); Eosinophils % 3.8 % (0.00-10.9); Hematocrit 41.6 VOL% (42.0-52.0); Hemoglobin 13.8 GM/DL (14.0-18.0); Immature Granulocytes % 0.8 %; Immature Granulocytes Absolute 0.07 #; Lymphocytes # 0.9 10*3/uL (1.4-4.0); Lymphocytes % 9.4 % (21.2-54.2); Mean Corpuscular HGB Conc 33.2 GM/DL (32-36); Mean Platelet Volume 10.1 FL (9.6-12.0); Monocytes # 0.1 10*3/uL (0.11-0.8); Monocytes % 0.7 % (1.7-12.7); NRBC # 0.02 10*3/uL; Neutrophils % 85.1 % (38.7-73.9); Platelet Count 187 T/CUMM (130-400); Red Blood Count 4.16 MC/CUMM (3.8-5.5); Red Cell Distribution Width 16.2 % (9.3-17.3)
[2022-06-16] MEDS ORDERED: DILTIAZEM INJ 100 MG in SODIUM CHLORIDE 0.9% 100 ML IV SCH (06:30)
[2022-06-16 06:51] LABS: Partial Thromboplastin Time < 20.0 SECS (23.7-32.9)
[2022-06-16] MEDS ORDERED: PROCHLORPERAZINE 5 MG TABLET PO PRN (07:30)
[2022-06-16] MEDS ORDERED: ONDANSETRON ODT 4 MG TABLET PO PRN (07:30)
[2022-06-16] MEDS ORDERED: ACETAMINOPHEN 325 MG TABLET PO PRN (07:32)
[2022-06-16] MEDS ORDERED: GLUCAGON 1 MG VIAL IM PRN (07:32)
[2022-06-16] MEDS ORDERED: ONDANSETRON 4 MG/2 ML VIAL IV PRN (07:32)
[2022-06-16] MEDS ORDERED: ALBUTEROL 2.5 MG/3 ML NEB RESP TX PRN (07:40)
[2022-06-16] MEDS ORDERED: DEXTROSE 10% 250 ML BAG IV PRN (07:40)
[2022-06-16] MEDS ORDERED: FUROSEMIDE 40 MG TABLET PO SCH (09:00)
[2022-06-16] MEDS ORDERED: APIXABAN 5 MG TABLET PO SCH (09:00)
[2022-06-16] MEDS: POLYETHYLENE GLYCOL POWDER 17 GM PACK PO SCH (09:04)
[2022-06-16] MEDS: DOCUSATE SODIUM 100 MG CAPSULE PO SCH (09:04)
[2022-06-16] MEDS: MONTELUKAST 10 MG TABLET PO SCH (09:30)
[2022-06-16] MEDS: PANTOPRAZOLE 40 MG TABLET PO SCH ×2 (09:30→22:27)
[2022-06-16] MEDS: METOPROLOL TARTRATE 100 MG TABLET PO SCH ×2 (09:30→23:01)
[2022-06-16] MEDS: DIGOXIN 0.125 MG TABLET PO SCH (09:30)
[2022-06-16] MEDS: methylPREDNISolone SOD SUC 40 MG/1 ML VIAL IV SCH ×2 (09:33→22:27)
[2022-06-16 09:41] LABS: Albumin 3.1 G/DL (3.4-5.0); Bilirubin,Total 0.5 MG/DL (0.20-1.00); Calcium 9.5 MG/DL (8.5-10.1); Osmolality,Calculated 288.8 MOS/KG (273-304); Potassium 3.6 MMOL/L (3.5-5.1); Thyroid Stimulating Hormone 2.23 uIU/ml (0.358-3.74); Total Protein 6.7 G/DL (6.4-8.2)
[2022-06-16] MEDS: OLOPATADINE 0.1% OPH SOLN 5 ML BOTTLE BOTH EYES SCH ×2 (10:21→16:09)
[2022-06-16] MEDS: THEOPHYLLINE ER (24 HR) 400 MG TABLET PO SCH (10:21)
[2022-06-16] MEDS: BUDESONIDE/FORMOTEROL 160-4.5 INHALER 6 GM INH SCH ×2 (10:21→22:57)
[2022-06-16] MEDS: DILTIAZEM CD 180 MG CAPSULE PO SCH (10:21)
[2022-06-16] MEDS: LEVOTHYROXINE 88 MCG TABLET PO SCH (10:21)
[2022-06-16] MEDS: OXYBUTYNIN XL 5 MG TABLET PO SCH (10:21)
[2022-06-16] MEDS: DILTIAZEM INJ 100 MG in SODIUM CHLORIDE 0.9% 100 ML IV SCH (12:04)
[2022-06-16] MEDS ORDERED: POTASSIUM CHLORIDE 20 MEQ TABLET PO ONE (12:54)
[2022-06-16] MEDS ORDERED: MAGNESIUM SULF RIDER 4 GM/100 ML PREMIX IV ONE (13:00)
[2022-06-16] MEDS ORDERED: FUROSEMIDE 40 MG/4 ML VIAL IV ONE (13:04)
[2022-06-16] MEDS ORDERED: DIGOXIN 0.5 MG/2 ML AMP IV ONE (13:14)
[2022-06-16] MEDS: ALBUTEROL/IPRATROPIUM 3 ML NEB RESP TX SCH ×2 (13:15→18:50)
[2022-06-16] MEDS: INSULIN LISPRO 100 UNIT/ML SUBCUT SCH ×3 (13:56→22:27)
[2022-06-16 15:12] LABS: Hyaline Casts,Urine 1 /LPF (0-3); Mucus,Urine Few /LPF (Occasional); RBC,Urine 10 /HPF (0-4); Squamous Epithelial Cell,Urine Occasional /HPF (0-10)
[2022-06-16 15:13] LABS: Bilirubin,Urine Negative (Negative); Blood, Urine Small mg/dL (Negative); Glucose,Urine (UA) Negative (Negative); Ketones,Urine 40 mg/dL (Negative); Nitrite,Urine Negative (Negative); Protein,Urine 30 mg/dL (Negative); Urine Appearance Slightly Hazy (Clear); Urine Color Yellow (Yellow); Urine Specific Gravity 1.025 (1.001-1.035); Urine Urobilinogen 0.2 eU/dL (<2.0); Urine pH 5.5 (4.5-8.0)
[2022-06-16 15:19] LABS: Barbiturates Screen,Urine Negative (Negative); Benzodiazepines Screen,Urine Positive (Negative); Cannabinoid Screen,Urine Negative (Negative); Opiate Screen,Urine Negative (Negative); Phencyclidine Screen,Urine Negative (Negative)
[2022-06-16] MEDS: ROSUVASTATIN 10 MG TABLET PO SCH (22:27)
[2022-06-16] MEDS: ASCORBIC ACID 500 MG TABLET PO SCH (22:57)
[2022-06-17] MEDS: OLOPATADINE 0.1% OPH SOLN 5 ML BOTTLE BOTH EYES SCH ×4 (00:17→21:51)
[2022-06-17] MEDS: ALBUTEROL/IPRATROPIUM 3 ML NEB RESP TX SCH ×4 (00:33→19:13)
[2022-06-17 04:43] LABS: Basophils % 0.1 % (0.0-0.8); Eosinophils % 0.3 % (0.00-10.9); Hematocrit 36.8 VOL% (42.0-52.0); Hemoglobin 12.4 GM/DL (14.0-18.0); Immature Granulocytes % 0.8 %; Immature Granulocytes Absolute 0.11 #; Lymphocytes # 1.6 10*3/uL (1.4-4.0); Lymphocytes % 11.7 % (21.2-54.2); Mean Corpuscular HGB Conc 33.7 GM/DL (32-36); Mean Corpuscular Volume 101.7 FL (87-102); Monocytes # 0.4 10*3/uL (0.11-0.8); Monocytes % 2.8 % (1.7-12.7); Neutrophils % 84.3 % (38.7-73.9); Platelet Count 188 T/CUMM (130-400); Red Blood Count 3.62 MC/CUMM (3.8-5.5); Red Cell Distribution Width 16.2 % (9.3-17.3); White Blood Count 13.6 T/CUMM (4-12)
[2022-06-17 05:22] LABS: Calcium 8.9 MG/DL (8.5-10.1); Calcium 9.3 MG/DL (8.5-10.1); Osmolality,Calculated 278.7 MOS/KG (273-304); Osmolality,Calculated 280.5 MOS/KG (273-304); Potassium 4.5 MMOL/L (3.5-5.1)
[2022-06-17] MEDS: INSULIN LISPRO 100 UNIT/ML SUBCUT SCH ×4 (08:32→21:51)
[2022-06-17] MEDS: METOPROLOL TARTRATE 100 MG TABLET PO SCH ×2 (08:45→21:51)
[2022-06-17] MEDS: ASCORBIC ACID 500 MG TABLET PO SCH ×2 (08:45→21:51)
[2022-06-17] MEDS: DILTIAZEM CD 180 MG CAPSULE PO SCH (08:45)
[2022-06-17] MEDS: PANTOPRAZOLE 40 MG TABLET PO SCH ×2 (08:45→21:51)
[2022-06-17] MEDS: DIGOXIN 0.125 MG TABLET PO SCH (08:45)
[2022-06-17] MEDS: MULTIVITAMIN (CENTRUM) TABLET PO SCH (08:45)
[2022-06-17] MEDS: DOCUSATE SODIUM 100 MG CAPSULE PO SCH (08:45)
[2022-06-17] MEDS ORDERED: FUROSEMIDE 40 MG/4 ML VIAL IV ONE (11:04)
[2022-06-17] MEDS: LEVOTHYROXINE 88 MCG TABLET PO SCH (12:41)
[2022-06-17] MEDS: POLYETHYLENE GLYCOL POWDER 17 GM PACK PO SCH (12:43)
[2022-06-17] MEDS: OXYBUTYNIN XL 5 MG TABLET PO SCH (12:43)
[2022-06-17] MEDS: methylPREDNISolone SOD SUC 40 MG/1 ML VIAL IV SCH ×2 (12:54→22:49)
[2022-06-17] MEDS: MONTELUKAST 10 MG TABLET PO SCH (12:56)
[2022-06-17] MEDS: THEOPHYLLINE ER (24 HR) 400 MG TABLET PO SCH (12:57)
[2022-06-17] MEDS: ENOXAPARIN 80 MG/0.8 ML SYRINGE SUBCUT SCH ×2 (12:57→21:53)
[2022-06-17] MEDS ORDERED: cefTRIAXone 1,000 MG VIAL IV SCH (16:00)
[2022-06-17] MEDS: BUDESONIDE/FORMOTEROL 160-4.5 INHALER 6 GM INH SCH ×2 (18:16→21:52)
[2022-06-17] MEDS: DILTIAZEM INJ 100 MG in SODIUM CHLORIDE 0.9% 100 ML IV SCH (18:16)
[2022-06-17] MEDS: OSELTAMIVIR 75 MG CAPSULE PO SCH ×2 (18:17→21:51)
[2022-06-17] MEDS: cefTRIAXone 1,000 MG in SODIUM CHLORIDE 0.9% 100 ML IV SCH (18:18)
[2022-06-17] MEDS: FUROSEMIDE 40 MG/4 ML VIAL IV SCH (18:19)
[2022-06-17] MEDS: ROSUVASTATIN 10 MG TABLET PO SCH (21:51)
[2022-06-18] MEDS: ALBUTEROL/IPRATROPIUM 3 ML NEB RESP TX SCH ×4 (00:20→19:16)
[2022-06-18 05:52] LABS: Basophils % 0.1 % (0.0-0.8); Eosinophils % 0.1 % (0.00-10.9); Hematocrit 35.7 VOL% (42.0-52.0); Hemoglobin 11.8 GM/DL (14.0-18.0); Immature Granulocytes Absolute 0.16 #; Lymphocytes # 1.5 10*3/uL (1.4-4.0); Mean Corpuscular HGB Conc 33.1 GM/DL (32-36); Mean Platelet Volume 11.3 FL (9.6-12.0); Monocytes # 0.9 10*3/uL (0.11-0.8); Monocytes % 5.4 % (1.7-12.7); Neutrophils % 84.4 % (38.7-73.9); Platelet Count 156 T/CUMM (130-400); White Blood Count 16.4 T/CUMM (4-12)
[2022-06-18] MEDS: LEVOTHYROXINE 88 MCG TABLET PO SCH (06:12)
[2022-06-18 07:28] LABS: Calcium 9.5 MG/DL (8.5-10.1); Osmolality,Calculated 289.4 MOS/KG (273-304); Potassium 4.8 MMOL/L (3.5-5.1)
[2022-06-18] MEDS: MULTIVITAMIN (CENTRUM) TABLET PO SCH (10:31)
[2022-06-18] MEDS: ASCORBIC ACID 500 MG TABLET PO SCH ×2 (10:31→21:05)
[2022-06-18] MEDS: POLYETHYLENE GLYCOL POWDER 17 GM PACK PO SCH (10:31)
[2022-06-18] MEDS: THEOPHYLLINE ER (24 HR) 400 MG TABLET PO SCH (10:32)
[2022-06-18] MEDS: MONTELUKAST 10 MG TABLET PO SCH (10:32)
[2022-06-18] MEDS: OXYBUTYNIN XL 5 MG TABLET PO SCH (10:32)
[2022-06-18] MEDS: DILTIAZEM CD 180 MG CAPSULE PO SCH (10:32)
[2022-06-18] MEDS: METOPROLOL TARTRATE 100 MG TABLET PO SCH ×2 (10:32→21:06)
[2022-06-18] MEDS: OSELTAMIVIR 75 MG CAPSULE PO SCH ×2 (10:32→21:05)
[2022-06-18] MEDS: DOCUSATE SODIUM 100 MG CAPSULE PO SCH (10:33)
[2022-06-18] MEDS: INSULIN LISPRO 100 UNIT/ML SUBCUT SCH ×4 (10:33→21:06)
[2022-06-18] MEDS: PANTOPRAZOLE 40 MG TABLET PO SCH ×2 (10:33→21:05)
[2022-06-18] MEDS: ENOXAPARIN 80 MG/0.8 ML SYRINGE SUBCUT SCH ×2 (10:33→21:05)
[2022-06-18] MEDS: FUROSEMIDE 40 MG/4 ML VIAL IV SCH (10:36)
[2022-06-18] MEDS: BUDESONIDE/FORMOTEROL 160-4.5 INHALER 6 GM INH SCH ×2 (10:40→21:07)
[2022-06-18] MEDS: methylPREDNISolone SOD SUC 40 MG/1 ML VIAL IV SCH ×2 (10:41→17:56)
[2022-06-18] MEDS: DIGOXIN 0.125 MG TABLET PO SCH (10:50)
[2022-06-18] MEDS: OLOPATADINE 0.1% OPH SOLN 5 ML BOTTLE BOTH EYES SCH ×3 (12:53→21:06)
[2022-06-18] MEDS: DILTIAZEM INJ 100 MG in SODIUM CHLORIDE 0.9% 100 ML IV SCH (17:45)
[2022-06-18] MEDS: RIVASTIGMINE 4.6 MG/24 HR PATCH TRANSDERM SCH (18:00)
[2022-06-18] MEDS: cefTRIAXone 1,000 MG in SODIUM CHLORIDE 0.9% 100 ML IV SCH (18:03)
[2022-06-18] MEDS: ROSUVASTATIN 10 MG TABLET PO SCH (21:05)
[2022-06-19] MEDS: ALBUTEROL/IPRATROPIUM 3 ML NEB RESP TX SCH ×3 (00:55→13:19)
[2022-06-19] MEDS: methylPREDNISolone SOD SUC 40 MG/1 ML VIAL IV SCH ×3 (02:29→16:23)
[2022-06-19 04:45] LABS: Basophils % 0.1 % (0.0-0.8); Hematocrit 32.7 VOL% (42.0-52.0); Hemoglobin 11.2 GM/DL (14.0-18.0); Immature Granulocytes % 1.1 %; Immature Granulocytes Absolute 0.14 #; Lymphocytes # 0.9 10*3/uL (1.4-4.0); Lymphocytes % 7.1 % (21.2-54.2); Mean Corpuscular HGB Conc 34.3 GM/DL (32-36); Mean Corpuscular Volume 97.9 FL (87-102); Mean Platelet Volume 10.1 FL (9.6-12.0); Monocytes # 0.7 10*3/uL (0.11-0.8); Monocytes % 5.7 % (1.7-12.7); Platelet Count 195 T/CUMM (130-400); Red Blood Count 3.34 MC/CUMM (3.8-5.5); Red Cell Distribution Width 15.5 % (9.3-17.3); White Blood Count 12.9 T/CUMM (4-12)
[2022-06-19 05:07] LABS: Calcium 8.2 MG/DL (8.5-10.1); Osmolality,Calculated 298.3 MOS/KG (273-304); Potassium 3.3 MMOL/L (3.5-5.1)
[2022-06-19] MEDS: LEVOTHYROXINE 88 MCG TABLET PO SCH (05:47)
[2022-06-19] MEDS ORDERED: FUROSEMIDE 40 MG TABLET PO SCH (09:00)
[2022-06-19] MEDS ORDERED: POTASSIUM BICARB EFFERVESCENT 20 MEQ TAB.EFF PO ONE (09:28)
[2022-06-19] MEDS: INSULIN LISPRO 100 UNIT/ML SUBCUT SCH ×3 (09:28→16:23)
[2022-06-19] MEDS: METOPROLOL TARTRATE 100 MG TABLET PO SCH (09:29)
[2022-06-19] MEDS ORDERED: MAGNESIUM SULF RIDER 4 GM in PREMIX 1 EACH IV ONE (09:29)
[2022-06-19] MEDS: MULTIVITAMIN (CENTRUM) TABLET PO SCH (09:29)
[2022-06-19] MEDS: MONTELUKAST 10 MG TABLET PO SCH (09:29)
[2022-06-19] MEDS: DILTIAZEM CD 180 MG CAPSULE PO SCH (09:29)
[2022-06-19] MEDS: THEOPHYLLINE ER (24 HR) 400 MG TABLET PO SCH (09:29)
[2022-06-19] MEDS: DIGOXIN 0.125 MG TABLET PO SCH (09:30)
[2022-06-19] MEDS: ASCORBIC ACID 500 MG TABLET PO SCH (09:30)
[2022-06-19] MEDS: OXYBUTYNIN XL 5 MG TABLET PO SCH (09:30)
[2022-06-19] MEDS: PANTOPRAZOLE 40 MG TABLET PO SCH (09:30)
[2022-06-19] MEDS: OSELTAMIVIR 75 MG CAPSULE PO SCH (09:30)
[2022-06-19] MEDS: DOCUSATE SODIUM 100 MG CAPSULE PO SCH (09:31)
[2022-06-19] MEDS: POLYETHYLENE GLYCOL POWDER 17 GM PACK PO SCH (09:31)
[2022-06-19] MEDS: BUDESONIDE/FORMOTEROL 160-4.5 INHALER 6 GM INH SCH (09:34)
[2022-06-19] MEDS: RIVASTIGMINE 4.6 MG/24 HR PATCH TRANSDERM SCH (09:42)
[2022-06-19] MEDS: OLOPATADINE 0.1% OPH SOLN 5 ML BOTTLE BOTH EYES SCH ×2 (09:42→15:28)
[2022-06-19] MEDS: ENOXAPARIN 80 MG/0.8 ML SYRINGE SUBCUT SCH (09:50)
[2022-06-19] MEDS ORDERED: MAGNESIUM SULF RIDER 2 GM/50 ML PREMIX IV ONE (11:53)
[2022-06-19] MEDS ORDERED: POTASSIUM CHLORIDE 20 MEQ TABLET PO ONE (11:54)
[2022-06-19 16:26] VITALS: BP 111/68
[2022-06-19] MEDS ORDERED: MAGNESIUM OXIDE 400 MG TABLET PO SCH (21:00)
== END 2022-06-19 16:42 | disposition home health service (06) | DRG 308 ==
LOC: N.ED 05:50 → N.EDINP 07:33 → SUATTDRO 07:33 → N.TELEN 06-17 14:22
PROVIDERS: ADMIT Internal Medicine; ATTEND Internal Medicine